=== PATIENT | female | born 1945 | race Two or more races ===

== ENCOUNTER 2020-06-16 12:41 | Outpatient (REF) | payer MEDICARE, SELFPAY | END 2020-06-16 12:42 | disposition home or self-care (01) | LOC: HO.HMGCLDS 12:41 | PROVIDERS: PCP Internal Medicine; Visit Provider Internal Medicine | DX: Z20.828 Contact with and (suspected) exposure to other viral communicable diseases (principal) | CPT/HCPCS: 36415; 87635 ==

== ENCOUNTER 2020-06-26 17:24 | Outpatient (REF) | payer MEDICARE, SELFPAY | END 2020-06-26 17:25 | disposition home or self-care (01) | LOC: HO.LNP 17:24 | PROVIDERS: Visit Provider Hospitalist | DX: N39.0 Urinary tract infection, site not specified (principal) | CPT/HCPCS: 87086 ==

== ENCOUNTER → 2020-08-11 13:15 | Outpatient (BNVA) | payer MEDICARE, SELFPAY | PROVIDERS: PCP Internal Medicine; Referring Provider Internal Medicine; Visit Provider Internal Medicine Endocrinology, Diabetes & Metabolism | DX: E11.65 Type 2 diabetes mellitus with hyperglycemia (principal); E11.42 Type 2 diabetes mellitus with diabetic polyneuropathy; E04.9 Nontoxic goiter, unspecified; E78.5 Hyperlipidemia, unspecified; I10 Essential (primary) hypertension | CPT/HCPCS: 82947; 99212 ==

== ENCOUNTER 2020-09-10 13:10 | Outpatient (REF) | payer MEDICARE, SELFPAY ==
--- NOTE | 2020-09-10 | US_ITS ---
EXAMINATION: US RETROPERITONEAL LIMITED (RENAL ONLY) CLINICAL INFORMATION: Renal stones. COMPARISON: Renal ultrasound 07/17/2019 TECHNIQUE: Real-time imaging of the kidneys. FINDINGS: RIGHT KIDNEY: 11.5 x 4.2 x 5.9 cm (SAG x AP x TRV). The kidney is normal in size, contour, and echogenicity. Renal cortical thickness is normal. No calculi or focal parenchymal lesions. No hydronephrosis. LEFT KIDNEY: 11.0 x 5.2 x 6.6 cm (SAG x AP x TRV). The kidney is normal in size, contour, and echogenicity. Renal cortical thickness is normal. No calculi or focal parenchymal lesions. No hydronephrosis. OTHER: Diffuse increased echotexture in the visualized liver. US/US renal BI IMPRESSION: 1. No significant renal abnormality. 2. Hepatic steatosis.
== END 2020-09-10 13:11 | disposition home or self-care (01) ==
LOC: HO.US 13:10
PROVIDERS: PCP Internal Medicine; Visit Provider Urology
DX: N20.0 Calculus of kidney (principal)
CPT/HCPCS: 76775

== ENCOUNTER → 2020-09-22 13:00 | Outpatient (BNVA) | payer MEDICARE, SELFPAY | PROVIDERS: PCP Internal Medicine; Visit Provider Orthopaedic Surgery | DX: M75.51 Bursitis of right shoulder (principal); E11.65 Type 2 diabetes mellitus with hyperglycemia | CPT/HCPCS: 20610; 99212; J1100 ==

== ENCOUNTER → 2020-09-25 14:37 | Outpatient (BNV) | payer MEDICARE, SELFPAY | PROVIDERS: PCP Internal Medicine; Visit Provider Internal Medicine Medical Oncology | DX: D64.9 Anemia, unspecified (principal) | CPT/HCPCS: 99212; 99213; 99214 ==

== ENCOUNTER 2020-09-30 13:12 | Outpatient (REF) | payer MEDICARE, SELFPAY ==
--- NOTE | 2020-09-30 13:16 | MM_ITS ---
EXAMINATION: MM SCREENING DIGITAL BREAST TOMOSYNTHESIS, BILATERAL CLINICAL INFORMATION: Screening. Asymptomatic. The lifetime risk of breast cancer based on the Tyrer-Cuzick Model is 3.2%. COMPARISON: Mammography: September 25, 2019 and studies dating back to August 15, 2012 TECHNIQUE: Digital breast tomosynthesis is performed in both the craniocaudal and mediolateral oblique views along with computer-aided detection (CAD). Synthesized 2D images are generated from the tomosynthesis. FINDINGS: There are scattered areas of fibroglandular density (ACR BI-RADS breast composition Category b). There are no significant masses, abnormal calcifications, or other abnormalities. MM/MM tomosynthesis screening BI IMPRESSION: There are no significant changes from prior study. ASSESSMENT: BI-RADS 1: Negative RECOMMENDATION: Routine annual mammography screening. This patient's information was entered into a reminder system with a target due date for their next mammogram.
== END 2020-09-30 13:13 | disposition home or self-care (01) ==
LOC: HO.MAMMO 13:12
PROVIDERS: PCP Internal Medicine; Visit Provider Internal Medicine
DX: Z12.31 Encounter for screening mammogram for malignant neoplasm of breast (principal)
CPT/HCPCS: 77063; 77067

== ENCOUNTER → 2020-10-08 09:44 | Outpatient (BNVA) | payer MEDICARE, SELFPAY | PROVIDERS: PCP Internal Medicine; Visit Provider Urology | DX: Z13.89 Encounter for screening for other disorder (principal) | CPT/HCPCS: Q3014 ==

== ENCOUNTER 2020-10-15 | Outpatient (REF) | payer MEDICARE, MEDICAID, SELFPAY | END 2020-10-15 00:01 | disposition home or self-care (01) | LOC: HO.VC | PROVIDERS: Visit Provider Internal Medicine | DX: Z23 Encounter for immunization (principal) | CPT/HCPCS: 0011A ==

== ENCOUNTER → 2020-10-17 14:29 | Outpatient (BNVA) | payer MEDICARE, SELFPAY | PROVIDERS: PCP Internal Medicine; Visit Provider Nurse Practitioner | DX: Z13.89 Encounter for screening for other disorder (principal) | CPT/HCPCS: Q3014 ==

== ENCOUNTER 2020-11-03 11:03 | Outpatient (REF) | payer MEDICARE, SELFPAY | END 2020-11-03 11:04 | disposition home or self-care (01) | LOC: HO.LAB 11:03 | PROVIDERS: Visit Provider Internal Medicine | DX: Z20.822 Contact with and (suspected) exposure to COVID-19 (principal) | CPT/HCPCS: 36415; C9803; U0003; U0005 ==

== ENCOUNTER 2020-11-12 | Outpatient (REF) | payer MEDICARE, MEDICAID, SELFPAY | END 2020-11-12 00:01 | disposition home or self-care (01) | LOC: HO.VC | PROVIDERS: Visit Provider Internal Medicine | DX: Z23 Encounter for immunization (principal) | CPT/HCPCS: 0012A ==

== ENCOUNTER 2020-12-08 13:51 | Outpatient (REF) | payer MEDICARE, SELFPAY ==
[2020-12-08 15:48] LABS: Microalbumin Urine < 5.0 mg/L
[2020-12-08 15:55] LABS: MANUAL DIFF FLAG NO
[2020-12-08 16:00] LABS: Basophils Absolute Auto 0.1 X10*3/uL (0.0-0.2); Basophils Percent Auto 0.6 % (0-2); Eosinophils Absolute Auto 0.1 X10*3/uL (0.0-0.4); Eosinophils Percent Auto 0.6 % (0-4); Hematocrit 34.6 % (37-47); Hemoglobin 10.7 g/dl (12.0-16.0); Imm Gran Abs Auto 0.03 X10*3/uL (0.00-0.03); Imm Gran Pct Auto 0.3 % (0.0-0.4); Lymphocytes Absolute Auto 1.4 X10*3/uL (1.2-4.9); Lymphocytes Percent Auto 16.6 % (20-40); Mean Corpuscular HGB Conc 30.9 g/dl (31.0-35.0); Mean Corpuscular Hemoglobin 24.7 pg (27.0-33.0); Mean Corpuscular Volume 79.9 fL (80-98); Mean Platelet Volume 10.8 fL (9.4-12.3); Monocytes Absolute Auto 0.4 X10*3/uL (0.1-1.2); Monocytes Percent Auto 5.1 % (2-11); Neutrophils Absolute Auto 6.6 X10*3/uL (2.0-8.3); Neutrophils Percent Auto 76.8 % (45-73); Platelet Count 415 X10*3/uL (160-400); Red Blood Count 4.33 X10*6/uL (4.20-5.50); Red Cell Distribution Width 16.4 % (11.0-16.0); White Blood Count 8.6 X10*3/uL (4.8-10.8)
[2020-12-08 16:31] LABS: Alanine Aminotransferase 21 U/L (0-31); Albumin Level 4.2 g/dL (3.5-5.0); Alkaline Phosphatase 47 U/L (39-117); Anion Gap 16 (12-20); Aspartate Amino Transferase 16 U/L (5-31); Bilirubin Total 0.4 mg/dL (0.0-1.0); Blood Urea Nitrogen 19 mg/dL (9-16); Calcium 9.7 mg/dL (8.4-10.2); Carbon Dioxide 27 mmol/L (22-29); Chloride 104 mmol/L (96-108); Cholesterol 191 mg/dL; Estimated Glomerular Filt Rate > 60; Glucose Fasting 145 mg/dL (60-99); HDL Cholesterol 53 mg/dL; LDL Cholesterol Calculated 99 mg/dl; Potassium 4.7 mmol/L (3.3-5.1); Sodium 142 mmol/L (135-145); Total Protein 7.2 g/dL (6.5-8.0); Triglycerides 198 mg/dL
[2020-12-08 16:45] LABS: TSH reflex Free T4 1.39 uIU/mL (0.32-4.0)
[2020-12-09 08:47] LABS: LDL Cholesterol Direct 119 mg/dL (<100)
== END 2020-12-08 13:52 | disposition home or self-care (01) ==
LOC: HO.LAB 13:51
PROVIDERS: PCP Internal Medicine; Visit Provider Internal Medicine Endocrinology, Diabetes & Metabolism
DX: E11.65 Type 2 diabetes mellitus with hyperglycemia (principal); E11.42 Type 2 diabetes mellitus with diabetic polyneuropathy; Z79.84 Long term (current) use of oral hypoglycemic drugs; D50.9 Iron deficiency anemia, unspecified; K21.9 Gastro-esophageal reflux disease without esophagitis; E04.9 Nontoxic goiter, unspecified; E03.9 Hypothyroidism, unspecified; E78.5 Hyperlipidemia, unspecified; I10 Essential (primary) hypertension
CPT/HCPCS: 36415; 80053; 80061; 82043; 82947; 83721; 84443; 85025; 99212

== ENCOUNTER → 2021-01-16 13:17 | Outpatient (BNVA) | payer MEDICARE, SELFPAY | PROVIDERS: PCP Internal Medicine; Visit Provider Nurse Practitioner | DX: Z13.89 Encounter for screening for other disorder (principal) | CPT/HCPCS: Q3014 ==

== ENCOUNTER → 2021-03-19 12:15 | Outpatient (BNVA) | payer MEDICARE, SELFPAY | PROVIDERS: Visit Provider Nurse Practitioner | DX: Z13.89 Encounter for screening for other disorder (principal) | CPT/HCPCS: Q3014 ==

== ENCOUNTER → 2021-03-27 13:50 | Outpatient (BNVA) | payer MEDICARE, SELFPAY | PROVIDERS: PCP Internal Medicine | DX: N20.0 Calculus of kidney (principal); R33.9 Retention of urine, unspecified | CPT/HCPCS: 99212 ==

== ENCOUNTER → 2021-03-31 10:53 | Outpatient (BNVA) | payer MEDICARE, SELFPAY | PROVIDERS: PCP Internal Medicine; Visit Provider Internal Medicine Endocrinology, Diabetes & Metabolism | DX: E11.65 Type 2 diabetes mellitus with hyperglycemia (principal); E11.42 Type 2 diabetes mellitus with diabetic polyneuropathy; E04.9 Nontoxic goiter, unspecified; E78.5 Hyperlipidemia, unspecified; I10 Essential (primary) hypertension | CPT/HCPCS: 82947; 99212 ==

== ENCOUNTER 2021-05-13 16:23 | Outpatient (REF) | payer MEDICARE, SELFPAY ==
--- NOTE | ~2021-05-13 | XR_ITS ---
EXAMINATION: XR SHOULDER, RIGHT CLINICAL INFORMATION: Right shoulder pain. COMPARISON: Right shoulder radiographs dated 10/10/2017 TECHNIQUE: AP external rotation, Grashey, scapular Y, and axillary views of the right shoulder. FINDINGS: No acute fracture or dislocation. Acromioclavicular and glenohumeral joint space narrowing with small marginal osteophytes, not significantly changed. Lateral subacromial spurring. Superior joint space calcification measuring up to 0.3 cm, which may represent a loose body versus calcific tendinitis. XR/XR shoulder RT min 2V IMPRESSION: Mild acromioclavicular and glenohumeral osteoarthritis, not significantly changed. Lateral subacromial spurring. Superior joint space loose body versus rotator cuff calcific tendinitis measuring 0.3 cm.
--- NOTE | ~2021-05-13 | XR_ITS ---
EXAMINATION: XR SHOULDER, LEFT CLINICAL INFORMATION: Left shoulder pain COMPARISON: May 24, 2019 TECHNIQUE: AP external rotation, Grashey, scapular Y, and axillary views of the left shoulder. FINDINGS: There is no evidence of acute fracture or dislocation of the left shoulder. There is some mild spurring glenohumeral joint. No evidence of calcific tendinitis. Mild degenerative change of the cortical clavicular joint is seen. There is no widening of the coracoclavicular space. XR/XR shoulder LT min 2V IMPRESSION: Mild degenerative change of the left shoulder similar to previous study of May 24, 2019. No acute fracture, dislocation, or calcific tendinitis.
== END 2021-05-13 16:24 | disposition home or self-care (01) ==
LOC: HO.XRAY 16:23
PROVIDERS: PCP Internal Medicine; Visit Provider Internal Medicine
DX: M25.511 Pain in right shoulder (principal); M25.512 Pain in left shoulder
CPT/HCPCS: 73030

== ENCOUNTER → 2021-05-25 14:28 | Outpatient (BNVA) | payer MEDICARE, SELFPAY | PROVIDERS: Visit Provider Orthopaedic Surgery | DX: M75.51 Bursitis of right shoulder (principal) | CPT/HCPCS: 20610; 99212; J1100 ==

== ENCOUNTER 2021-05-28 08:06 | Outpatient (REF) | payer MEDICARE, SELFPAY ==
[2021-05-28 08:37] LABS: MANUAL DIFF FLAG NO
[2021-05-28 08:45] LABS: Basophils Percent Auto 0.8 % (0-2); Eosinophils Absolute Auto 0.1 X10*3/uL (0.0-0.4); Eosinophils Percent Auto 1.4 % (0-4); Hematocrit 36.5 % (37-47); Hemoglobin 11.1 g/dl (12.0-16.0); Imm Gran Abs Auto 0.02 X10*3/uL (0.00-0.03); Imm Gran Pct Auto 0.4 % (0.0-0.4); Lymphocytes Absolute Auto 1.1 X10*3/uL (1.2-4.9); Lymphocytes Percent Auto 21.4 % (20-40); Mean Corpuscular HGB Conc 30.4 g/dl (31.0-35.0); Mean Corpuscular Hemoglobin 23.9 pg (27.0-33.0); Mean Corpuscular Volume 78.7 fL (80-98); Mean Platelet Volume 10.1 fL (9.4-12.3); Monocytes Absolute Auto 0.3 X10*3/uL (0.1-1.2); Neutrophils Absolute Auto 3.6 X10*3/uL (2.0-8.3); Platelet Count 393 X10*3/uL (160-400); Red Blood Count 4.64 X10*6/uL (4.20-5.50); Red Cell Distribution Width 16.9 % (11.0-16.0); White Blood Count 5.1 X10*3/uL (4.8-10.8)
[2021-05-28 09:16] LABS: Alanine Aminotransferase 17 U/L (0-31); Albumin Level 4.2 g/dL (3.5-5.0); Alkaline Phosphatase 49 U/L (39-117); Anion Gap 10 (12-20); Aspartate Amino Transferase 14 U/L (5-31); Bilirubin Total 0.5 mg/dL (0.0-1.0); Blood Urea Nitrogen 17 mg/dL (9-16); Calcium 10.3 mg/dL (8.4-10.2); Carbon Dioxide 30 mmol/L (22-29); Chloride 105 mmol/L (96-108); Cholesterol 215 mg/dL; Estimated Glomerular Filt Rate > 60; Glucose Fasting 147 mg/dL (60-99); HDL Cholesterol 55 mg/dL; Iron 35 mcg/dL (30-160); LDL Cholesterol Calculated 126 mg/dl; Percent Iron Saturation 9 % (15-50); Sodium 140 mmol/L (135-145); Total Iron Binding Capacity 398 mcg/dL (228-428); Total Protein 6.8 g/dL (6.5-8.0); Triglycerides 172 mg/dL; Unsaturated Iron Binding 363 ug/dL
[2021-05-28 10:55] LABS: Folate 14.2 ng/mL (> or = 4.0); Vitamin B12 1954 pg/mL (200-900)
[2021-06-02 15:40] LABS: Vitamin D 25-OH, D2 <4 ng/mL; Vitamin D 25-OH, D3 20 ng/mL; Vitamin D 25-OH, Total 20 ng/mL (30-100)
== END 2021-05-28 08:07 | disposition home or self-care (01) ==
LOC: HO.LAB 08:06
PROVIDERS: PCP Internal Medicine; Visit Provider Internal Medicine
DX: E55.9 Vitamin D deficiency, unspecified (principal); D64.9 Anemia, unspecified; R51.9 Headache, unspecified; E03.9 Hypothyroidism, unspecified; E78.5 Hyperlipidemia, unspecified
CPT/HCPCS: 36415; 80053; 80061; 82306; 82607; 82746; 83540; 84443; 85025

== ENCOUNTER 2021-05-29 11:48 | Outpatient (REF) | payer MEDICARE, SELFPAY ==
[2021-05-29 13:20] LABS: Creatinine Urine 28.53 mg/dL; Microalbumin Urine < 5.0 mg/L
== END 2021-05-29 11:49 | disposition home or self-care (01) ==
LOC: HO.LNP 11:48
PROVIDERS: Visit Provider Internal Medicine
DX: E11.9 Type 2 diabetes mellitus without complications (principal)
CPT/HCPCS: 82043

== ENCOUNTER 2021-06-05 14:28 | Outpatient (REF) | payer MEDICARE, SELFPAY | END 2021-06-05 14:29 | disposition home or self-care (01) | LOC: HO.LAB 14:28 | PROVIDERS: PCP Internal Medicine; Visit Provider Internal Medicine | DX: Z20.822 Contact with and (suspected) exposure to COVID-19 (principal) | CPT/HCPCS: C9803; U0003; U0005 ==

== ENCOUNTER → 2021-06-11 12:42 | Outpatient (BNVA) | payer MEDICARE, SELFPAY | PROVIDERS: Visit Provider Physician Assistant | DX: M75.52 Bursitis of left shoulder (principal) | CPT/HCPCS: 20610; 99212; J1020 ==

== ENCOUNTER 2021-06-15 14:22 | Outpatient (REF) | payer MEDICARE, SELFPAY ==
--- NOTE | ~2021-06-15 | MR_ITS ---
EXAMINATION: MR BRAIN WITHOUT CONTRAST CLINICAL INFORMATION: Headache. COMPARISON: Brain MRI 07/06/2019. TECHNIQUE: Multiplanar, multisequence imaging of the brain was performed without intravenous contrast. FINDINGS: There is no acute infarction, mass, hemorrhage, or extra-axial collection. The ventricles, sulci, and basilar cisterns are normal in size and configuration. A few minimal nonspecific foci of T2/FLAIR hyperintensity are seen within the cerebral white matter without interval change compared with 2019. The flow voids of the major intracranial arteries appear intact. The bones and extracranial soft tissues are unremarkable. Right-sided phthisis bulbi again demonstrated. MR/MR head/brain wo con IMPRESSION: No acute infarct, mass lesion, intracranial hemorrhage, or evidence of hydrocephalus. No significant interval change compared with 2019.
== END 2021-06-15 14:23 | disposition home or self-care (01) ==
LOC: HO.MRI 14:22
PROVIDERS: PCP Internal Medicine; Visit Provider Internal Medicine
DX: R51.9 Headache, unspecified (principal)
CPT/HCPCS: 70551

== ENCOUNTER 2021-07-06 10:58 | Outpatient (REF) | payer MEDICARE, SELFPAY ==
[2021-07-06 12:47] LABS: Appearance Urine CLEAR; Color Urine YELLOW; Glucose Urine UA NEG (NEG); Leukocyte Esterase Urine NEG (NEG); Nitrite Urine NEG (NEG); Specific Gravity - Urine 1.015 (1.005-1.025); Urine Blood NEG (NEG); Urine Ketones NEG (NEG); Urine Protein NEG (NEG-TRACE)
== END 2021-07-06 10:59 | disposition home or self-care (01) ==
LOC: HO.LAB 10:58
PROVIDERS: PCP Internal Medicine; Visit Provider Internal Medicine
DX: R30.0 Dysuria (principal)
CPT/HCPCS: 81003

== ENCOUNTER 2021-08-17 09:35 | Day surgery (SDC) | payer MEDICARE, SELFPAY ==
--- NOTE | 2021-08-13 16:43 | MHC.SHP ---
Pre-Procedural Eval Section A Date of Service: 08/13/21 The patient is an INPATIENT: No Changes since office visit: No Cold of Flu in the past 2 weeks, No New Medical Problems, No Changes in Medication and No Patient answered all questions The History & Physical has been completed within 30 days and I have reviewed it.: Yes Section B Chief Complaint: cataract left eye Allergies: Allergies Allergy/AdvReac Type Severity Reaction Status Date / Time sitagliptin [Januvia] Allergy Intermediate tremors Verified 08/11/21 15:38 tramadol [TRAMADOL] Allergy Mild ABDOMINAL Verified 08/11/21 15:38 PAIN, stomach upset, severe abd pain Plan Diagnosis/Plan: Unchanged I have reviewed the history and physical and performed a pertinent physical examination on my patient. No changes have occurred unless specified.
--- NOTE | 2021-08-14 10:02 | P.CONAN_ITS ---
Documented by User: Page Salcedo NP 08/14/21 10:17 HPI - Anesthesia Eval Consult details Narrative: 75yo F for Left Cataract Extraction IOL Insertion PCP cleared No previous cataract on record [facility] Active Problems Active Problems: All Active Problems (Updated 08/11/21 @ 15:54 by SHAE Fitch-C) Chronic low back pain with bilateral sciatica (Acute) Pre-operative clearance (Acute) Bursitis of left shoulder (Acute) Bursitis of right shoulder (Acute) Shoulder pain (Acute) Headache (Acute) Renal stones (Acute) Urinary retention (Acute) Anemia (Acute) Hypothyroidism (Acute) Hypertension (Acute) Dyslipidemia (Acute) Diabetic polyneuropathy associated with type 2 diabetes mellitus (Acute) Goiter (Acute) Diabetes type 2, uncontrolled (Acute) H. pylori infection (Acute) Abdominal bloating (Acute) Gastric polyp (Acute) GERD (gastroesophageal reflux disease) (Acute) Dysuria (Acute) Past Medical History Medical History Acute urinary retention Diabetes type 2, uncontrolled Diabetic polyneuropathy associated with type 2 diabetes mellitus Dyslipidemia Goiter Headache Hypertension Hypothyroidism Renal stones Shoulder pain Urgency of urination Urinary retention Family History Family History Father Lung cancer Mother Kidney failure Alzheimer disease Sister Diabetes Paternal Grandfather Cancer Daughter Diabetes Sister Diabetes Breast cancer Brother Alzheimer disease Brother Colon polyps Surgical History Surgical History History of esophagogastroduodenoscopy (EGD) Hx of colonoscopy Social History Social History (Updated 06/11/21 @ 12:59 by Redd Butler) Household Members: None Housing: Apartment Alcohol intake: current Alcohol intake frequency: does not drink Patient Tobacco Use Status: Never used Tobacco e-Cigarette/Vaping Use: Never Used Second Hand Smoke Exposure: No Advance Directives: No Advance Directives Information Provided: Yes service: No Current occupational status: disabled Current occupation: rt handed Meds Allergies Allergy/AdvReac Type Severity Reaction Status Date / Time sitagliptin [Januvia] Allergy Intermediate tremors Verified 08/11/21 15:38 tramadol [TRAMADOL] Allergy Mild ABDOMINAL Verified 08/11/21 15:38 PAIN, stomach upset, severe abd pain Home Medications Medication Instructions Recorded Confirmed Last Taken Type levothyroxine 100 mcg tablet 100 mcg PO DAILY 08/11/20 08/11/21 08/17/21 History simvastatin 40 mg tablet 40 mg PO BEDTIME 08/11/20 08/11/21 Unknown History Exam Exam Date and Time: August 14, 2021 1002 Assessment and Plan Assessment Anesthesia Assessment: Chart Reviewed Documented by User: Destin Jim MD 08/17/21 13:09 [facility] Past Medical History Medical History Acute urinary retention Diabetes type 2, uncontrolled Diabetic polyneuropathy associated with type 2 diabetes mellitus Dyslipidemia Goiter Headache Hypertension Hypothyroidism Renal stones Shoulder pain Urgency of urination Urinary retention Family History Family History Father Lung cancer Mother Kidney failure Alzheimer disease Sister Diabetes Paternal Grandfather Cancer Daughter Diabetes Sister Diabetes Breast cancer Brother Alzheimer disease Brother Colon polyps Family history of problems with anesthesia: No Surgical History Surgical History History of esophagogastroduodenoscopy (EGD) Hx of colonoscopy History of Problems with Anesthesia: No Social History Social History (Updated 06/11/21 @ 12:59 by Redd Butler) Household Members: None Housing: Apartment Alcohol intake: current Alcohol intake frequency: does not drink Patient Tobacco Use Status: Never used Tobacco e-Cigarette/Vaping Use: Never Used Second Hand Smoke Exposure: No Advance Directives: No Advance Directives Information Provided: Yes service: No Current occupational status: disabled Current occupation: rt handed Meds Allergies Allergy/AdvReac Type Severity Reaction Status Date / Time sitagliptin [Januvia] Allergy Intermediate tremors Verified 08/11/21 15:38 tramadol [TRAMADOL] Allergy Mild ABDOMINAL Verified 08/11/21 15:38 PAIN, stomach upset, severe abd pain Home Medications Medication Instructions Recorded Confirmed Last Taken Type levothyroxine 100 mcg tablet 100 mcg PO DAILY 08/11/20 08/11/21 08/17/21 History simvastatin 40 mg tablet 40 mg PO BEDTIME 08/11/20 08/11/21 Unknown History Exam Airway Mallampati Class: II TM Dist: >3cm Neck ROM: Full Denture: Upper and Lower Heart: [id number] Lungs: cta B/L Assessment and Plan Assessment Anesthesia Assessment: Anesthesia Plan Discussed Final Anesthetic Review Family History of Problems with Anesthesia: No History of Problems with Anesthesia: No NPO: Yes ASA Class: III Final Preanesthetic Review: No Changes in Pt Med Stat, Meds/Allgs Chart Reviewed, Consent Obtained/Reviewed and Anes Risks/Benef Reviewed Patient Risk: Intermediate Procedure Risk: Low Assessment/Block/Sedation in SS: Assess/Block/Sedation-SS Anesthetic Plan Anesthetic Plan: MAC: and Agree w/ Assess. and Plan Disposition: Standard PACU
[2021-08-17 11:55] VITALS: BP 169/68; PULSE 70; RESP 16; TEMP 36.3; O2SAT 99; BMI 29.0
[2021-08-17 12:10] LABS: Glucose, Whole Blood 120 mg/dL (60-115)
[2021-08-17] MEDS: Lactated Ringers 500 ML 50 ML IV (12:15)
[2021-08-17] MEDS: Tropicamide 1 % Ophth Sol 3 ML BTL 1 DROP EYE-LEFT ×3 (12:15→12:16)
[2021-08-17] MEDS: Phenylephrine HCL 2.5% Oph SoL 2 ML BOTTLE 1 DROP EYE-LEFT ×3 (12:16)
--- NOTE | 2021-08-17 13:12 | HO.PNOPHT ---
Ophthalmology Procedure Procedure Date of Service: 08/17/21 Ophthalmology Viscoelastic: Healon Duet Dual Pack Pro Ophthalmology Lenses: TECERMIAS [id number] (25) Procedure Notes: PREOPERATIVE DIAGNOSIS: Decreased visual acuity left eye secondary to cataract POSTOPERATIVE DIAGNOSIS: Same PROCEDURE: Left cataract extraction with intraocular lens insertion SURGEON: Jorge Zambrano M.D. ANESTHESIA: Topical/MAC ESTIMATED BLOOD LOSS: None COMPLICATIONS: None After obtaining informed consent, the patient was brought to the operation room suite and placed in the supine position. After adequate sedation per anesthesia, topical drops of Tetracaine were given to the left eye. The eye was then prepped and draped in the usual sterile fashion. The operating room microscope was then positioned over the operative eye and a lid speculum placed. A paracentesis was created. Viscoelastic was then instilled into the anterior chamber. A three plane incision was then created temporally, utilizing a 2.85 mm keratome. Capsulotomy forceps were then utilized to create a circular tear capsulotomy. Hydrodissection and hydrodelineation were carried out until adequate mobilization of the nucleus occurred. Phacoemulsification was then utilized to remove the dense central nucleus followed by removal of the cortical material utilizing the automated aspiration irrigation unit. Viscoat elastic was instilled into the posterior capsular bag followed by placement of a posterior chamber intraocular lens without difficulty. The residual Viscoat elastic was then removed utilizing the automated IA machine. The wound was check and found to be watertight. The patient tolerated the procedure well and the lid speculum was removed. Intracameral injection of Vigamox 0.1 mL followed by a subtenon injection of Kenalog-40 0.2 mL were administered. The patient will be seen in the a.m.
[2021-08-17 13:41] VITALS: BP 143/54; PULSE 61; RESP 16; TEMP 36.8; O2SAT 99
== END 2021-08-17 14:21 | disposition home or self-care (01) ==
PROVIDERS: PCP Internal Medicine; Visit Provider Ophthalmology
PROC: (CPT 66985; principal; 2021-08-17 12:50)
DX: H25.12 Age-related nuclear cataract, left eye (principal); H54.7 Unspecified visual loss; Z97.0 Presence of artificial eye; I10 Essential (primary) hypertension; E03.9 Hypothyroidism, unspecified; E78.5 Hyperlipidemia, unspecified; D64.9 Anemia, unspecified; E11.42 Type 2 diabetes mellitus with diabetic polyneuropathy; Z79.84 Long term (current) use of oral hypoglycemic drugs; Z79.899 Other long term (current) drug therapy; Z88.8 Allergy status to other drugs, medicaments and biological substances
CPT/HCPCS: 66984; 82947; J2250; J3010; J3300; V2632

== ENCOUNTER 2021-10-02 14:39 | Outpatient (REF) | payer MEDICARE, SELFPAY | END 2021-10-02 14:40 | disposition home or self-care (01) | LOC: HO.LAB 14:39 | PROVIDERS: PCP Internal Medicine | DX: R32 Unspecified urinary incontinence (principal); N20.0 Calculus of kidney; E11.65 Type 2 diabetes mellitus with hyperglycemia; E11.42 Type 2 diabetes mellitus with diabetic polyneuropathy; E78.5 Hyperlipidemia, unspecified; E03.9 Hypothyroidism, unspecified; E53.8 Deficiency of other specified B group vitamins; Z88.6 Allergy status to analgesic agent; Z88.8 Allergy status to other drugs, medicaments and biological substances | CPT/HCPCS: 51798; 99212 ==

== ENCOUNTER 2021-10-03 09:22 | Outpatient (REF) | payer MEDICARE, SELFPAY ==
[2021-10-03 09:34] LABS: Appearance Urine CLEAR; Color Urine YELLOW; Glucose Urine UA NEG (NEG); Leukocyte Esterase Urine 1+ (NEG); Nitrite Urine NEG (NEG); Urine Blood NEG (NEG); Urine Ketones NEG (NEG); Urine Protein NEG (NEG-TRACE)
[2021-10-03 10:21] LABS: RBC Urine 0 /HPF (0); Squamous Epithelial Cell Urine 1+ /LPF
== END 2021-10-03 09:23 | disposition home or self-care (01) ==
LOC: HO.LNP 09:22
PROVIDERS: Visit Provider Internal Medicine
DX: R30.0 Dysuria (principal)
CPT/HCPCS: 81001

== ENCOUNTER → 2021-10-12 15:19 | Outpatient (BNVA) | payer MEDICARE, SELFPAY | PROVIDERS: PCP Internal Medicine; Referring Provider Internal Medicine; Visit Provider Nurse Practitioner | DX: K21.9 Gastro-esophageal reflux disease without esophagitis (principal); A04.8 Other specified bacterial intestinal infections; R14.0 Abdominal distension (gaseous); Z79.899 Other long term (current) drug therapy; Z80.0 Family history of malignant neoplasm of digestive organs | CPT/HCPCS: 99212 ==

== ENCOUNTER → 2022-01-12 13:33 | Outpatient (BNVA) | payer OTHER, SELFPAY | PROVIDERS: PCP Internal Medicine; Visit Provider Nurse Practitioner Gerontology | DX: E11.65 Type 2 diabetes mellitus with hyperglycemia (principal); E78.5 Hyperlipidemia, unspecified; I10 Essential (primary) hypertension | CPT/HCPCS: 82947; 83036; 99212 ==

== ENCOUNTER 2022-02-04 11:47 | Outpatient (REF) | payer MEDICARE, SELFPAY | END 2022-02-04 11:48 | disposition home or self-care (01) | LOC: HO.MDS 11:47 | PROVIDERS: PCP Internal Medicine; Visit Provider Internal Medicine Medical Oncology | DX: D50.9 Iron deficiency anemia, unspecified (principal) | CPT/HCPCS: 96365; J2916 ==

== ENCOUNTER 2022-02-11 13:17 | Outpatient (REF) | payer MEDICARE, SELFPAY | END 2022-02-11 13:18 | disposition home or self-care (01) | LOC: HO.MDS 13:17 | PROVIDERS: PCP Internal Medicine; Visit Provider Internal Medicine Medical Oncology | DX: D50.9 Iron deficiency anemia, unspecified (principal) | CPT/HCPCS: 96365; J2916 ==

== ENCOUNTER 2022-02-18 11:47 | Outpatient (REF) | payer OTHER, SELFPAY | END 2022-02-18 11:48 | disposition home or self-care (01) | LOC: HO.MDS 11:47 | PROVIDERS: PCP Internal Medicine; Visit Provider Internal Medicine Medical Oncology | DX: D50.9 Iron deficiency anemia, unspecified (principal) | CPT/HCPCS: 96365; J2916 ==

== ENCOUNTER 2022-02-25 11:42 | Outpatient (REF) | payer OTHER, SELFPAY ==
[2022-02-25 13:13] LABS: MANUAL DIFF FLAG NO
[2022-02-25 13:15] LABS: Basophils Percent Auto 0.6 % (0-2); Eosinophils Absolute Auto 0.1 X10*3/uL (0.0-0.4); Eosinophils Percent Auto 1.1 % (0-4); Hematocrit 34.4 % (37.0-47.0); Hemoglobin 10.3 g/dl (12.0-16.0); Imm Gran Abs Auto 0.01 X10*3/uL (0.00-0.03); Imm Gran Pct Auto 0.2 % (0.0-0.4); Lymphocytes Absolute Auto 0.9 X10*3/uL (1.2-4.9); Lymphocytes Percent Auto 15.3 % (20-40); Mean Corpuscular HGB Conc 29.9 g/dl (31.0-35.0); Mean Corpuscular Hemoglobin 24.3 pg (27.0-33.0); Mean Corpuscular Volume 81.1 fL (80.0-98.0); Mean Platelet Volume 9.7 fL (9.4-12.3); Monocytes Absolute Auto 0.3 X10*3/uL (0.1-1.2); Monocytes Percent Auto 4.4 % (2-11); Neutrophils Absolute Auto 4.8 x10*3/uL (2.0-8.3); Neutrophils Percent Auto 78.4 % (45-73); Platelet Count 369 X10*3/uL (160-400); Red Blood Count 4.24 X10*6/uL (4.20-5.50); Red Cell Distribution Width 17.5 % (11.0-16.0); White Blood Count 6.2 X10*3/uL (4.8-10.8)
== END 2022-02-25 11:43 | disposition home or self-care (01) ==
LOC: HO.MDS 11:42
PROVIDERS: PCP Internal Medicine; Visit Provider Internal Medicine Medical Oncology
DX: D50.9 Iron deficiency anemia, unspecified (principal)
CPT/HCPCS: 36415; 85025; 96365; J2916

== ENCOUNTER 2022-03-16 14:29 | Outpatient (REF) | payer OTHER, SELFPAY ==
--- NOTE | ~2022-03-16 | US_ITS ---
EXAMINATION: US RETROPERITONEAL LIMITED (RENAL ONLY) CLINICAL INFORMATION: Calculus of kidney. COMPARISON: Renal ultrasound 09/10/2020 and 07/17/2019. CT abdomen and pelvis 09/02/2017. X-ray abdomen KUB 11/29/2016. TECHNIQUE: Real-time imaging of the kidneys. FINDINGS: RIGHT KIDNEY: 11.7 x 4.7 x 6.0 cm (SAG x AP x TRV). The kidney is normal in size, contour, and echogenicity. Renal cortical thickness is normal. No calculi or focal parenchymal lesions. No hydronephrosis. LEFT KIDNEY: 12.3 x 5.3 x 4.6 cm (SAG x AP x TRV). The kidney is normal in size, contour, and echogenicity. Renal cortical thickness is normal. No calculi or focal parenchymal lesions. No hydronephrosis. The liver is echogenic. US/US renal BI IMPRESSION: Normal renal ultrasound.
== END 2022-03-16 14:30 | disposition home or self-care (01) ==
LOC: HO.US 14:29
DX: N20.0 Calculus of kidney (principal)
CPT/HCPCS: 76775

== ENCOUNTER 2022-03-25 11:49 | Outpatient (REF) | payer OTHER, SELFPAY ==
--- NOTE | ~2022-03-25 | XR_ITS ---
EXAMINATION: XR KNEES, STANDING AP XR KNEE, LEFT CLINICAL INFORMATION: Knee pain COMPARISON: Bilateral knee radiographs 12/08/2017. TECHNIQUE: Standing AP view of both knees is performed. Lateral and axial patella views of the left knee are also obtained. FINDINGS: Right: Osteoarthritis medial knee joint compartment with joint narrowing and osteophytes from the medial femoral condyle and tibial plateau. There is chondrocalcinosis involving the menisci. No erosive change. Joint narrowing similar to 2018. Chondrocalcinosis new. Left: Osteoarthritis greater medial knee joint compartment with spurring medial femoral condyle and medial tibial plateau. Degenerative changes increased since 2018 and chondrocalcinosis new. No erosive change. Probable trace suprapatellar effusion. Hoffa's fat pad appears normal. There is trace spurring at the quadriceps insertion patella. Mild lateralization patella. Uniform narrowing patellofemoral joint along with lateral patellar spur. There is an osteochondral defect just lateral to midline, 0.55 mm in width. XR/XR knee standing BI IMPRESSION: Right: -Osteoarthritis medial compartment with joint narrowing and chondrocalcinosis menisci. Left: -Osteoarthritis greatest medial compartment. Chondrocalcinosis menisci. -Osteoarthritis patellofemoral joint with osteochondral lesion 5.5 mm width. Mild lateralization. -Small suprapatellar effusion.
--- NOTE | ~2022-03-25 | XR_ITS ---
EXAMINATION: XR KNEES, STANDING AP XR KNEE, LEFT CLINICAL INFORMATION: Knee pain COMPARISON: Bilateral knee radiographs 12/08/2017. TECHNIQUE: Standing AP view of both knees is performed. Lateral and axial patella views of the left knee are also obtained. FINDINGS: Right: Osteoarthritis medial knee joint compartment with joint narrowing and osteophytes from the medial femoral condyle and tibial plateau. There is chondrocalcinosis involving the menisci. No erosive change. Joint narrowing similar to 2018. Chondrocalcinosis new. Left: Osteoarthritis greater medial knee joint compartment with spurring medial femoral condyle and medial tibial plateau. Degenerative changes increased since 2018 and chondrocalcinosis new. No erosive change. Probable trace suprapatellar effusion. Hoffa's fat pad appears normal. There is trace spurring at the quadriceps insertion patella. Mild lateralization patella. Uniform narrowing patellofemoral joint along with lateral patellar spur. There is an osteochondral defect just lateral to midline, 0.55 mm in width. XR/XR knee LT 2V IMPRESSION: Right: -Osteoarthritis medial compartment with joint narrowing and chondrocalcinosis menisci. Left: -Osteoarthritis greatest medial compartment. Chondrocalcinosis menisci. -Osteoarthritis patellofemoral joint with osteochondral lesion 5.5 mm width. Mild lateralization. -Small suprapatellar effusion.
== END 2022-03-25 11:50 | disposition home or self-care (01) ==
LOC: HO.HOSX 11:49
PROVIDERS: Visit Provider Orthopaedic Surgery
DX: M17.12 Unilateral primary osteoarthritis, left knee (principal)
CPT/HCPCS: 20610; 73560; 73565; 99212; J1100

== ENCOUNTER → 2022-04-01 13:00 | Outpatient (BNVA) | payer OTHER, SELFPAY | PROVIDERS: PCP Internal Medicine | DX: N20.0 Calculus of kidney (principal) | CPT/HCPCS: Q3014 ==

== ENCOUNTER → 2022-04-09 12:58 | Outpatient (BNVA) | payer OTHER, SELFPAY | PROVIDERS: PCP Internal Medicine; Visit Provider Nurse Practitioner | DX: K21.9 Gastro-esophageal reflux disease without esophagitis (principal); A04.8 Other specified bacterial intestinal infections; R14.0 Abdominal distension (gaseous) | CPT/HCPCS: 99212 ==

== ENCOUNTER → 2022-04-22 14:18 | Outpatient (BNVA) | payer OTHER, SELFPAY | PROVIDERS: PCP Internal Medicine; Visit Provider Physician Assistant | DX: M75.51 Bursitis of right shoulder (principal) | CPT/HCPCS: 20610; 99212; J1020 ==

== ENCOUNTER 2022-07-05 12:21 | Outpatient (REF) | payer OTHER, SELFPAY ==
--- NOTE | ~2022-07-05 | XR_ITS ---
EXAMINATION: XR ABDOMEN KUB CLINICAL INDICATION: Kidney stone COMPARISON: Previous CT August 2017 TECHNIQUE: AP view of the abdomen. FINDINGS: There are no calcifications projecting over the kidneys. There are left pelvic calcifications. These appear similar to previous CT from 2017 and probably represent calcified phleboliths. Bowel gas pattern is normal. There are mild degenerative changes of the spine and hip joints. XR/XR KUB IMPRESSION: No stone seen.
[2022-07-05 13:48] LABS: Appearance Urine Clear; Color Urine Yellow; Glucose Urine UA Negative (Negative); Leukocyte Esterase Urine Small (1+) (Negative); Nitrite Urine Negative (Negative); Specific Gravity - Urine <= 1.005 (1.005-1.025); UMIC TRIGGER UACC YES; Urine Blood Negative (Negative); Urine Ketones Negative (Negative); Urine Protein Negative (Neg-Trace)
[2022-07-05 14:03] LABS: Alanine Aminotransferase 12 U/L (0-31); Albumin Level 4.5 g/dL (3.5-5.0); Alkaline Phosphatase 44 U/L (39-117); Anion Gap 16 (12-20); Aspartate Amino Transferase 16 U/L (5-31); Bilirubin Total 0.2 mg/dL (0.0-1.0); Blood Urea Nitrogen 18 mg/dL (9-16); Calcium 10.1 mg/dL (8.4-10.2); Carbon Dioxide 26 mmol/L (22-29); Chloride 102 mmol/L (96-108); Cholesterol 135 mg/dL; Estimated Glomerular Filt Rate > 60; Glucose Fasting 131 mg/dL (60-99); HDL Cholesterol 55 mg/dL; LDL Cholesterol Calculated 58 mg/dl; Potassium 4.4 mmol/L (3.3-5.1); Sodium 140 mmol/L (135-145); Total Protein 7.3 g/dL (6.5-8.0); Triglycerides 110 mg/dL
[2022-07-05 14:45] LABS: Folate 16.1 ng/mL (> or = 4.0); Vitamin B12 300 pg/mL (200-900)
[2022-07-05 15:03] LABS: Bacteria Urine 4+ (None Seen); Hyaline Casts Urine 0-2 /LPF (0-2); RBC Urine 0-2 /HPF (0-2); Squamous Epithelial Cell Urine 0-2 /HPF (0-2); UACC Culture Trigger YES; WBC Urine 0-5 /HPF (0-5)
== END 2022-07-05 12:22 | disposition home or self-care (01) ==
LOC: HO.LAB 12:21
PROVIDERS: Absent Provider Internal Medicine Medical Oncology; PCP Internal Medicine; Visit Provider Internal Medicine
DX: E03.9 Hypothyroidism, unspecified (principal); E11.9 Type 2 diabetes mellitus without complications; E53.8 Deficiency of other specified B group vitamins; N20.0 Calculus of kidney; E78.5 Hyperlipidemia, unspecified
CPT/HCPCS: 36415; 74018; 80053; 80061; 81001; 82607; 82746; 84443; 87086; 87088; 87186

== ENCOUNTER 2022-07-06 07:29 | Outpatient (REF) | payer OTHER, SELFPAY ==
[2022-07-06 07:39] LABS: MANUAL DIFF FLAG NO
[2022-07-06 07:44] LABS: Basophils Absolute Auto 0.1 X10*3/uL (0.0-0.2); Basophils Percent Auto 0.9 % (0-2); Eosinophils Absolute Auto 0.1 X10*3/uL (0.0-0.4); Eosinophils Percent Auto 1.3 % (0-4); Hematocrit 34.1 % (37.0-47.0); Hemoglobin 10.6 g/dl (12.0-16.0); Imm Gran Abs Auto 0.02 X10*3/uL (0.00-0.03); Imm Gran Pct Auto 0.4 % (0.0-0.4); Lymphocytes Absolute Auto 1.2 X10*3/uL (1.2-4.9); Lymphocytes Percent Auto 21.1 % (20-40); Mean Corpuscular HGB Conc 31.1 g/dl (31.0-35.0); Mean Corpuscular Hemoglobin 24.8 pg (27.0-33.0); Mean Corpuscular Volume 79.7 fL (80.0-98.0); Mean Platelet Volume 9.8 fL (9.4-12.3); Monocytes Absolute Auto 0.4 X10*3/uL (0.1-1.2); Monocytes Percent Auto 6.5 % (2-11); Neutrophils Absolute Auto 3.9 x10*3/uL (2.0-8.3); Neutrophils Percent Auto 69.8 % (45-73); Platelet Count 388 X10*3/uL (160-400); Red Blood Count 4.28 X10*6/uL (4.20-5.50); Red Cell Distribution Width 15.5 % (11.0-16.0); White Blood Count 5.5 X10*3/uL (4.8-10.8)
[2022-07-06 08:02] LABS: Alanine Aminotransferase 12 U/L (0-31); Albumin Level 4.3 g/dL (3.5-5.0); Alkaline Phosphatase 42 U/L (39-117); Anion Gap 16 (12-20); Aspartate Amino Transferase 16 U/L (5-31); Bilirubin Total 0.2 mg/dL (0.0-1.0); Blood Urea Nitrogen 24 mg/dL (9-16); Calcium 9.9 mg/dL (8.4-10.2); Carbon Dioxide 26 mmol/L (22-29); Chloride 104 mmol/L (96-108); Cholesterol 123 mg/dL; Estimated Glomerular Filt Rate > 60; Glucose Fasting 155 mg/dL (60-99); HDL Cholesterol 52 mg/dL; Iron 35 mcg/dL (30-160); LDL Cholesterol Calculated 50 mg/dl; Percent Iron Saturation 8 % (15-50); Potassium 4.5 mmol/L (3.3-5.1); Sodium 141 mmol/L (135-145); Total Iron Binding Capacity 419 mcg/dL (228-428); Triglycerides 106 mg/dL; Unsaturated Iron Binding 384 ug/dL
[2022-07-06 08:23] LABS: Ferritin 20 ng/mL (10-250); Thyroid Stimulating Hormone 2.49 uIU/mL (0.32-4.0)
[2022-07-06 08:59] LABS: Folate 12.6 ng/mL (> or = 4.0); Vitamin B12 291 pg/mL (200-900)
[2022-07-10 16:31] LABS: Vitamin D 25-OH, D2 <4 ng/mL; Vitamin D 25-OH, D3 14 ng/mL; Vitamin D 25-OH, Total 14 ng/mL (30-100)
== END 2022-07-06 07:30 | disposition home or self-care (01) ==
LOC: HO.LAB 07:29
PROVIDERS: Internal Medicine Medical Oncology; PCP Internal Medicine; Visit Provider Internal Medicine
DX: E78.5 Hyperlipidemia, unspecified (principal); E53.8 Deficiency of other specified B group vitamins; E55.9 Vitamin D deficiency, unspecified; E03.9 Hypothyroidism, unspecified; D64.9 Anemia, unspecified
CPT/HCPCS: 36415; 80053; 80061; 82306; 82607; 82728; 82746; 83540; 84443; 85025

== ENCOUNTER → 2022-07-23 11:16 | Outpatient (BNVA) | payer OTHER, SELFPAY | PROVIDERS: PCP Internal Medicine; Visit Provider Orthopaedic Surgery | DX: M75.51 Bursitis of right shoulder (principal); E11.9 Type 2 diabetes mellitus without complications | CPT/HCPCS: 20610; 99212; J1100 ==

== ENCOUNTER 2022-09-21 12:49 | Outpatient (REF) | payer OTHER, SELFPAY ==
--- NOTE | ~2022-09-21 | US_ITS ---
EXAMINATION: US RETROPERITONEAL LIMITED (RENAL ONLY) CLINICAL INFORMATION: Calculus of kidney. COMPARISON: X-ray KUB 07/05/2022 and 11/29/2016. Ultrasound renal 03/16/2022 and 09/10/2020. CT abdomen/pelvis 09/02/2017. TECHNIQUE: Real-time imaging of the kidneys. FINDINGS: RIGHT KIDNEY: 11.6 x 4.8 x 4.6 cm (SAG x AP x TRV). The kidney is normal in size, contour, and echogenicity. Renal cortical thickness is normal. No focal parenchymal lesions or hydronephrosis. There are several echogenic stones. 1. Upper pole stone measuring 0.6 x 0.3 cm. 2. Upper pole stone measuring 0.5 x 0.5 cm. 3. Lower pole stone measuring 0.6 x 0.4 cm. LEFT KIDNEY: 11.4 x 5.2 x 5.3 cm (SAG x AP x TRV). The kidney is normal in size, contour, and echogenicity. Renal cortical thickness is normal. No renal calculi or hydronephrosis. There is an anechoic cyst in the lower pole medially measuring 0.4 x 0.5 x 0.4 cm and in the midpole measuring 0.6 x 0.5 x 0.3 cm. There is mild pelvic fullness. US/US renal BI IMPRESSION: Nonobstructive 3 echogenic calculi right kidney. These are new since 03/16/2022 Two anechoic cysts in the left kidney and mild pelvic fullness, new since last ultrasound 03/16/2022.
== END 2022-09-21 12:50 | disposition home or self-care (01) ==
LOC: HO.US 12:49
DX: N20.0 Calculus of kidney (principal)
CPT/HCPCS: 76775

== ENCOUNTER → 2022-10-01 13:14 | Outpatient (BNVA) | payer OTHER, SELFPAY | PROVIDERS: PCP Internal Medicine; Visit Provider Nurse Practitioner Family | DX: N20.0 Calculus of kidney (principal) | CPT/HCPCS: 99212 ==

== ENCOUNTER → 2022-10-12 13:41 | Outpatient (BNVA) | payer OTHER, SELFPAY | PROVIDERS: PCP Internal Medicine; Visit Provider Nurse Practitioner | DX: Z01.818 Encounter for other preprocedural examination (principal); K21.9 Gastro-esophageal reflux disease without esophagitis; R14.0 Abdominal distension (gaseous); R10.13 Epigastric pain; A04.8 Other specified bacterial intestinal infections | CPT/HCPCS: 99212 ==

== ENCOUNTER 2022-11-18 15:32 | Outpatient (REF) | payer OTHER, SELFPAY ==
[2022-11-18 15:47] LABS: MANUAL DIFF FLAG NO
[2022-11-18 16:02] LABS: Basophils Absolute Auto 0.1 X10*3/uL (0.0-0.2); Basophils Percent Auto 0.7 % (0-2); Eosinophils Percent Auto 0.4 % (0-4); Hematocrit 33.7 % (37.0-47.0); Hemoglobin 10.2 g/dl (12.0-16.0); Imm Gran Abs Auto 0.02 X10*3/uL (0.00-0.03); Imm Gran Pct Auto 0.3 % (0.0-0.4); Lymphocytes Absolute Auto 1.4 X10*3/uL (1.2-4.9); Lymphocytes Percent Auto 19.4 % (20-40); Mean Corpuscular HGB Conc 30.3 g/dl (31.0-35.0); Mean Corpuscular Hemoglobin 23.6 pg (27.0-33.0); Monocytes Absolute Auto 0.4 X10*3/uL (0.1-1.2); Monocytes Percent Auto 5.3 % (2-11); Neutrophils Absolute Auto 5.3 x10*3/uL (2.0-8.3); Neutrophils Percent Auto 73.9 % (45-73); Platelet Count 404 X10*3/uL (160-400); Red Blood Count 4.32 X10*6/uL (4.20-5.50); Red Cell Distribution Width 17.2 % (11.0-16.0); White Blood Count 7.2 X10*3/uL (4.8-10.8)
[2022-11-18 16:13] LABS: Estimated Average Glucose 151 mg/dL; Hemoglobin A1c % 6.9 %
[2022-11-18 16:37] LABS: Alanine Aminotransferase 18 U/L (0-31); Albumin Level 4.1 g/dL (3.5-5.0); Alkaline Phosphatase 47 U/L (39-117); Anion Gap 17 (12-20); Aspartate Amino Transferase 21 U/L (5-31); Bilirubin Total 0.2 mg/dL (0.0-1.0); Blood Urea Nitrogen 22 mg/dL (9-16); Calcium 10.1 mg/dL (8.4-10.2); Carbon Dioxide 26 mmol/L (22-29); Chloride 105 mmol/L (96-108); Cholesterol 199 mg/dL; Estimated Glomerular Filt Rate > 60; Glucose Random 99 mg/dL (60-115); HDL Cholesterol 50 mg/dL; Iron 23 mcg/dL (30-160); LDL Cholesterol Calculated 113 mg/dl; Percent Iron Saturation 6 % (15-50); Potassium 4.5 mmol/L (3.3-5.1); Sodium 143 mmol/L (135-145); Total Iron Binding Capacity 377 mcg/dL (228-428); Total Protein 6.7 g/dL (6.5-8.0); Triglycerides 180 mg/dL; Unsaturated Iron Binding 354 ug/dL
[2022-11-18 17:04] LABS: Folate 13.9 ng/mL (> or = 4.0); Vitamin B12 760 pg/mL (200-900); Vitamin D 25-OH Total 21.5 ng/mL (>30)
[2022-11-18 18:38] LABS: Creatinine Urine 206.81 mg/dL
== END 2022-11-18 15:33 | disposition home or self-care (01) ==
LOC: HO.LAB 15:32
PROVIDERS: PCP Internal Medicine; Visit Provider Internal Medicine
DX: D64.9 Anemia, unspecified (principal); E11.42 Type 2 diabetes mellitus with diabetic polyneuropathy; E03.9 Hypothyroidism, unspecified; E11.40 Type 2 diabetes mellitus with diabetic neuropathy, unspecified; E55.9 Vitamin D deficiency, unspecified; E53.8 Deficiency of other specified B group vitamins; E78.5 Hyperlipidemia, unspecified
CPT/HCPCS: 36415; 80053; 80061; 82043; 82306; 82607; 82746; 83036; 83540; 84443; 85025

== ENCOUNTER 2022-12-07 13:19 | Outpatient (REF) | payer OTHER, SELFPAY ==
[2022-12-07 16:30] LABS: Erythrocyte Sedimentation Rate 14 MM/HR (0-20)
[2022-12-08 04:11] LABS: Syphilis Screen Nonreactive (Nonreactive)
[2022-12-09 15:59] LABS: Anti Nuclear Antibody Screen NEGATIVE (NEGATIVE)
== END 2022-12-07 13:20 | disposition home or self-care (01) ==
LOC: HO.LAB 13:19
PROVIDERS: PCP Internal Medicine; Visit Provider Nurse Practitioner Family
DX: D64.9 Anemia, unspecified (principal); R41.89 Other symptoms and signs involving cognitive functions and awareness; R51.9 Headache, unspecified
CPT/HCPCS: 36415; 85652; 86038; 86039; 86780; 99202

== ENCOUNTER 2022-12-17 09:47 | Outpatient (REF) | payer OTHER, SELFPAY ==
--- NOTE | ~2022-12-17 | US_ITS ---
EXAMINATION: US ABDOMEN COMPLETE CLINICAL INFORMATION: Helicobacter pylori infection. COMPARISON: Renal ultrasound 09/21/2022 and 03/16/2022. TECHNIQUE: Real-time imaging of the abdominal viscera. FINDINGS: PANCREAS: Normal. ABDOMINAL AORTA: The proximal, mid, and distal segments are normal in caliber. INFERIOR VENA CAVA: Visualized portions are normal. LIVER: The liver is normal in size. The liver contour is normal. There is diffuse increased liver parenchymal echogenicity, consistent with hepatic steatosis. No focal hepatic lesion. There is no intrahepatic biliary duct dilatation seen. GALLBLADDER: Normal. The gallbladder is physiologically distended without evidence of stones, sludge, polyps, or pericholecystic fluid. COMMON BILE DUCT: Normal in caliber measuring 0.6 cm in diameter. RIGHT KIDNEY: No hydronephrosis or focal parenchymal lesions. The kidney measures 11.2 cm in maximum dimension. 6 mm upper pole and 7 mm lower pole calculi. LEFT KIDNEY: No hydronephrosis. The kidney measures 11.8 cm in maximum dimension. There is a 6 mm simple cyst in the lower pole. No imaging follow-up is recommended. 6 mm lower pole calculus. SPLEEN: Normal. The spleen measures 9.2 cm in maximum dimension. FREE FLUID: None. US/US abdomen complete IMPRESSION: Bilateral renal calculi without hydronephrosis.
== END 2022-12-17 09:48 | disposition home or self-care (01) ==
LOC: HO.US 09:47
PROVIDERS: PCP Internal Medicine; Visit Provider Nurse Practitioner
DX: A04.8 Other specified bacterial intestinal infections (principal)
CPT/HCPCS: 76700

== ENCOUNTER → 2023-01-14 12:32 | Outpatient (BNVA) | payer OTHER, MEDICAID, SELFPAY | PROVIDERS: PCP Internal Medicine; Visit Provider Orthopaedic Surgery | DX: M75.51 Bursitis of right shoulder (principal); E11.9 Type 2 diabetes mellitus without complications; R41.89 Other symptoms and signs involving cognitive functions and awareness | CPT/HCPCS: 20610; 99212; J1100 ==

== ENCOUNTER 2023-03-23 14:16 | Outpatient (REF) | payer OTHER, MEDICAID, SELFPAY ==
--- NOTE | ~2023-03-23 | US_ITS ---
EXAMINATION: US RETROPERITONEAL LIMITED (RENAL ONLY) CLINICAL INFORMATION: Calculus of kidney. COMPARISON: Ultrasound abdomen complete 12/17/2022. Ultrasound retroperitoneal limited (renal only) 09/21/2022. TECHNIQUE: Real-time imaging of the kidneys. FINDINGS: RIGHT KIDNEY: 11.2 x 4.2 x 5.1 cm (SAG x AP x TRV). The kidney is normal in size, contour, and echogenicity. Renal cortical thickness is normal. No calculi or focal parenchymal lesions. Pelviectasis without curt hydronephrosis, unchanged. LEFT KIDNEY: 11.2 x 5.3 x 5.1 cm (SAG x AP x TRV). The kidney is normal in size, contour, and echogenicity. Renal cortical thickness is normal. No renal calculi or hydronephrosis. Pelviectasis without curt hydronephrosis, unchanged. Subcentimeter benign-appearing renal cyst, no follow-up imaging recommended. US/US renal BI IMPRESSION: Pelviectasis without curt hydronephrosis bilaterally, unchanged from prior. No definite nephrolithiasis appreciated.
--- NOTE | ~2023-03-23 | XR_ITS ---
EXAMINATION: XR ABDOMEN KUB CLINICAL INDICATION: Renal stone COMPARISON: Baseline ultrasound including 09/21/2022 TECHNIQUE: AP view of the abdomen. FINDINGS: The bowel gas pattern is normal with no evidence of ileus or obstruction. No unusual soft tissue calcifications are noted. The bones are unremarkable. XR/XR KUB IMPRESSION: Known renal calculi are not radiopaque on radiographs.
== END 2023-03-23 14:17 | disposition home or self-care (01) ==
LOC: HO.US 14:16
PROVIDERS: PCP Internal Medicine; Visit Provider Nurse Practitioner Family
DX: N20.0 Calculus of kidney (principal)
CPT/HCPCS: 74018; 76775

== ENCOUNTER 2023-03-24 14:46 | Outpatient (AMB) | payer OTHER, SELFPAY ==
--- NOTE | 2023-03-24 14:55 | MHC.PC.OV ---
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 Accompanied by: Daughter Allergies sitagliptin [Januvia] Allergy (Intermediate, Verified 03/24/23 15:10) tremors tramadol [TRAMADOL] Allergy (Mild, Verified 03/24/23 15:10) ABDOMINAL PAIN, stomach upset, severe abd pain Medication List - Last Reconciled 03/24/23 by Brandy Montoya MD acetaminophen (Pain Relief Extra Strength (acetaminophen)) 500 mg PO Q6H PRN albuterol sulfate 90 mcg/actuation 2 puffs PO Q4H PRN 30 days alprazolam (Xanax) 0.5 mg PO BID PRN 2 days ascorbic acid (vitamin C) 500 mg PO TID bzckoji-vnqxzjovwzxhf-koaufoai 250-250-65 mg (Headache Relief (IMY-phudkeksaksk-owddkyjw)) 1 tab PO Q4-6H PRN blood sugar diagnostic (FreeStyle Lite Strips) Use 1 test strip once a day blood sugar diagnostic 4x daily blood-glucose meter (FreeStyle Lite Meter kit) As directed carboxymethylcellulose sodium 1% (Lubricant Dry Eye Relief) 1 drp ophthalmic (eye) BID carboxymethylcellulose sodium 1% (TheraTears) 1 drp ophthalmic (eye) BID cholecalciferol (vitamin D3) 50 mcg PO DAILY 90 days clotrimazole 1% 1 appl topical BID 4 weeks diclofenac sodium 1% (Voltaren Arthritis Pain) 2 grams topical QID PRN ferrous sulfate 324 mg PO BID fluticasone propionate 50 mcg/actuation 1 spray intranasal BID PRN ibuprofen (Advil Migraine) 200 mg PO Q6H PRN lancets (FreeStyle Lancets) As directed once a day levothyroxine 100 mcg PO DAILY 90 days lidocaine HCl-menthol 4-1 % (Icy Hot Max (lidocaine HCl-menthol)) 4 ea topical DAILY linagliptin (Tradjenta) 5 mg PO DAILY 90 days lisinopril 2.5 mg PO DAILY meclizine 25 mg PO DAILY 90 days memantine 7 mg PO DAILY 30 days metformin 850 mg PO BID 90 days adyofmnqctjh-lqkg-zfrtx acid 18-400 mg-mcg (Centrum Women) 1 tab PO DAILY neomycin-polymyxin B-dexameth 3.5 mg/g-10,000 unit/g-0.1 % 3.5 appl ophthalmic (eye) DAILY omeprazole 20 mg PO BID peg 3350-electrolytes 236-22.74-6.74 -5.86 gram (Golytely) 240 mL PO Q10M 1 day pyridoxine (vitamin B6) 100 mg PO DAILY 90 days rosuvastatin 20 mg PO DAILY 90 days sertraline 25 mg PO DAILY 90 days sucralfate (Carafate) 1 g PO QNOON tamsulosin 0.4 mg PO BEDTIME Tobacco use date assessed: 11/18/22 Fall risk assessment: No Falls in past year Last assessed Fall Risk: 03/24/23 Dental Screening Dental Screen Date: 03/24/23 Did you have a dental visit in the last 12 months?: No Did you have a dental problem in the last 6 months where you did not have access to dental care?: No Was dental information given to patient?: Patient has dentist HPI HPI Comments History of Present Illness Details Which is the main historian for follow-up on her conditions. A1c within goal. Blood pressure too low today and I will hold lisinopril. Last cholesterol was well control. Last TSH was normal and this will be monitor. She has cognitive impairment follow by Neurology which prescribed memantine recently but she said she does not feel that she needs it therefore stopped taking it a while ago. I recommended to restart taking it. No chest pain or shortness of breath. Has anemia that has worsened and she said she is compliant with ferrous sulfate. Anemia is follow by Hematology-Oncology. Has hypercalcemia and labs will be repeated. [facility] Medical History (Updated 03/24/23 @ 15:28 by Brandy Montoya MD) Acute urinary retention B12 deficiency Diabetes mellitus Diabetes type 2, uncontrolled Diabetic polyneuropathy associated with type 2 diabetes mellitus Dyslipidemia Goiter Headache Hypertension Hypothyroidism Kidney stone on left side Renal stones Shoulder pain Urgency of urination Urinary retention Surgical History H/O: hysterectomy History of cataract removal with insertion of prosthetic lens History of esophagogastroduodenoscopy (EGD) Hx of colonoscopy Family History Father Lung cancer Mother Kidney failure Alzheimer disease Sister Diabetes Paternal Grandfather Cancer Daughter Diabetes Sister Diabetes Breast cancer Brother Alzheimer disease Colon cancer Brother Colon polyps Social History Household Members: None Housing: Apartment Are you a primary memory care director to a significant other at home: No Do you presently have visiting nurse or other home services: No Alcohol intake: never Patient Tobacco Use Status: Never used Tobacco e-Cigarette/Vaping Use: Never Used Second Hand Smoke Exposure: No service: No Current occupational status: disabled Current occupation: rt handed Cognitive needs: Yes Hearing needs: No Vision needs: Yes Questionnaire Thrive Questionnaire Date Thrive assessed: 11/18/22 CHRIS-7 AMB Questionnaire CHRIS-7 Date CHRIS - 7 assessed: 11/18/22 Source: Developed by Drs. Clive Ortega, Violet Solis, Pernell Peralta and colleagues, with an educational vinh from [email or web address]. Review of Systems Const All systems reviewed & are unremarkable except as noted in HPI and below Eyes Reports no additional complaints, Denies change in vision and Denies other visual disturbances Card Denies chest pain at rest, Denies chest pain with activity, Denies edema, Denies irregular heart rhythm, Denies claudication, Denies dyspnea, Denies dyspnea on exertion, Denies orthopnea, Denies paroxysmal nocturnal dyspnea and Denies slow heart rate Resp Denies cough, Denies dyspnea and Denies dyspnea on exertion GI Denies abdominal pain, Denies change in bowel habits, Denies excessive flatus, Denies nausea and Denies vomiting Denies urinary incontinence, Denies urinary hesitancy and Denies urinary urgency Musc Denies abnormal gait, Denies atrophy, Denies deformity and Denies limited range of motion Skin/Breast Denies bleeding lesions, Denies changing lesions and Denies rash Neuro Denies abnormal gait and Denies lack of coordination Physical exam (Primary Care) Vital Signs: Last Vital Signs BP 108/56 L 03/24/23 14:56 BMI result Body Mass Index 25.1 Tobacco/Smoking Status: Tobacco use Status Tobacco use date assessed 11/18/22 03/24/23 14:57 Patient Tobacco Use Status Never used Tobacco 03/24/23 14:57 e-Cigarette/Vaping Use Never Used 03/24/23 14:57 Thrive Assessment: Date of Thrive Assessment Date Thrive assessed 11/18/22 03/24/23 14:57 Const Orientation/consciousness: oriented to person and oriented to time Eyes General: appearance normal, both eyes and all related structures Eyelids: Yes eyelids normal Conjunctivae: conjunctivae normal Neck Neck: Yes normal visual inspection and Yes supple Resp Effort & Inspection: normal respiratory effort Auscultation: clear to auscultation bilaterally Cardio Jugular venous distension: no JVD Rate: regular rate Rhythm: regular rhythm Heart sounds: S1 normal heart sound present and S2 normal heart sound present Neuro General: oriented to person and oriented to time Extrem General: Yes full ROM Results AMB Hemoglobin A1c AMB Hemoglobin A1c 6.9 % Last Edit by YURIY Estrada on 03/24/23 15:08 Results Reviewed Results Reviewed: Laboratory Last Values Hgb A1c (Clinic) 6.9 % (4.0-6.0) H 03/24/23 15:04 Assessment and Plan Assessment & Plan (1) Diabetes mellitus: Code(s): E11.9 - Type 2 diabetes mellitus without complications Plan: Continue metformin. A1c goal is equal or less than 7%. (2) Hypothyroidism: Code(s): E03.9 - Hypothyroidism, unspecified Qualifiers: Hypothyroidism type: unspecified Qualified Code(s): E03.9 - Hypothyroidism, unspecified Plan: Continue levothyroxine. Monitor TSH. (3) Dyslipidemia: Code(s): E78.5 - Hyperlipidemia, unspecified Plan: Continue statins. (4) Hypertension: Code(s): I10 - Essential (primary) hypertension Qualifiers: Hypertension type: essential hypertension Qualified Code(s): I10 - Essential (primary) hypertension Plan: Discontinue lisinopril. Blood pressure goal is equal or less than 130/80. (5) Cognitive impairment: Code(s): R41.89 - Other symptoms and signs involving cognitive functions and awareness Plan: Restart memantine. Follow-up with Neurology. Orders: Orders Vitamin B12 and Folate Today E53.8 - Deficiency of other specified B group vitamins Calcium, Ionized Today E83.52 - Hypercalcemia PTHI Today E83.52 - Hypercalcemia Thyroid Stimulating Hormone Today E03.9 - Hypothyroidism, unspecified Calcium, Random Urine Today E83.52 - Hypercalcemia Albumin Level Today E83.52 - Hypercalcemia AMB Hemoglobin A1c Today E11.9 - Type 2 diabetes mellitus without complications Medications: Changed From ferrous sulfate 324 mg PO BID To ferrous sulfate 324 mg PO BID 90 days 180 tabs 1RF Refilled levothyroxine 100 mcg PO DAILY 90 days 90 tabs 1RF metformin 850 mg PO BID 90 days 180 tabs 1RF E11.42 - Type 2 diabetes mellitus with diabetic polyneuropathy rosuvastatin 20 mg PO DAILY 90 days 90 tabs 1RF E78.5 - Hyperlipidemia, unspecified Discontinued lisinopril Discontinued Reason: Patient Completed Course 2.5 mg PO DAILY 90 tabs 3RF Coding Level of Care Code Est Pt Level 4 (49675) Diagnoses Diabetes mellitus E11.9 Hypothyroidism E03.9 Hypothyroidism type: unspecified Dyslipidemia E78.5 Hypertension I10 Hypertension type: essential hypertension Cognitive impairment R41.89 Time Spent (min) 23
[2023-03-24 14:56] VITALS: BP 108/56; BMI 25.1
== END 2023-03-24 15:36 | disposition home or self-care (01) ==
PROVIDERS: Visit Provider Internal Medicine
DX: E11.9 Type 2 diabetes mellitus without complications (principal); E03.9 Hypothyroidism, unspecified; E78.5 Hyperlipidemia, unspecified; I10 Essential (primary) hypertension; R41.89 Other symptoms and signs involving cognitive functions and awareness
CPT/HCPCS: 83036; 99214

== ENCOUNTER 2023-03-24 15:44 | Outpatient (REF) | payer OTHER, SELFPAY ==
[2023-03-24 16:41] LABS: Albumin Level 3.9 g/dL (3.5-5.0)
[2023-03-24 17:16] LABS: Folate 14.9 ng/mL (> or = 4.0); Vitamin B12 779 pg/mL (200-900)
[2023-03-28 15:24] LABS: Calcium (PTHI) 9.8 mg/dL (8.6-10.4); PTHI 75 pg/mL (16-77)
[2023-03-28 18:18] LABS: Calcium, Random Urine 21.8 mg/dL
[2023-03-29 07:53] LABS: Calcium, Ionized 5.3 mg/dL (4.7-5.5)
== END 2023-03-24 15:45 | disposition home or self-care (01) ==
LOC: HO.LAB 15:44
PROVIDERS: PCP Internal Medicine; Visit Provider Internal Medicine
DX: E83.52 Hypercalcemia (principal); E53.8 Deficiency of other specified B group vitamins; E03.9 Hypothyroidism, unspecified; E11.9 Type 2 diabetes mellitus without complications
CPT/HCPCS: 36415; 82040; 82310; 82330; 82607; 82746; 83970; 84443

== ENCOUNTER 2023-04-01 13:44 | Outpatient (AMB) | payer OTHER, MEDICAID, SELFPAY ==
--- NOTE | 2023-04-01 13:49 | MHC.OFFVIS ---
Intake Vital Signs 04/01/23 13:59 Height 5 ft 4 in Weight 153 lb BMI 26.3 BP 144/63 H Blood Pressure Location Rt brachial Position Sitting Pulse 81 Intake Visit Reasons: follow req from pt Intake Note: Patient presents to in office visit today in follow up GERD CC: Patient reports doing well and denies having any GI issues today. 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 pylori infection: ?Comment: With gastric polyp? Resistant strain that failed Prevpac and Helidac and a rifabutin course treating symptomatically ?Code(s): A04.8 - Other specified bacterial intestinal infections ?Plan: KYRGYZ #[employer], but then requests dtr translates She has been having breakthrough dyspepsia, ? with fatty foods. Strong FHX of GB disease, so will get US. Also could be her tx resist HP. WIll add a dose of carafate 1 tab qnoon. She continues on omeprazole 20mg bid. If she develops CIC, use OTC laxative. Will get EGD/colonoscopy - seems very overdue for scope as was a Dr. Suárez pt in past. There are no prior problems with anesthesia or sedation. Her asthma is well controlled and they deny any cardiac problems. No ID problems. Her brother had CRC at age 83, survived. ROV 8 weeks to eval carafate (2) GERD (gastroesophageal reflux disease): ?Code(s): K21.9 - Gastro-esophageal reflux disease without esophagitis (3) Abdominal bloating: ?Code(s): R14.0 - Abdominal distension (gaseous) (4) Epigastric pain: ?Code(s): R10.13 - Epigastric pain (5) Pre-op examination: ?Code(s): Z01.818 - Encounter for other preprocedural examination ? ? ? Orders: Orders US abdomen complet e Today A04.8 - Other spec ified bacterial in testinal infection s ? Medications: New sucralfate (Carafa te) 1 g? PO QNOON 30 t abs 3RF A04.8 - Other spec ified bacterial in testinal infection s ? peg 3350-electroly vince 236-22.74-6.74 -5.86 gram (Golyt immanuel) ?? until feca l effluent is kalpesh r; do not exceed a total volume of 2 ,000 mL 240 mL? PO Q10M 1 day 4,000 mL 0RF Z12.11 - Encounter for screening for malignant neoplas m of colon ? Refilled omeprazole 20 mg? PO BID 180 caps 1RF A04.8 - Other spec ified bacterial in testinal infection s, K21.9 - Gastro- esophageal reflux disease without es ophagitis EGD/COLONOSCOPY NOT SCHEDULED BIOPSY US OF [facility] 12/28/22 FINDINGS: PANCREAS: Normal. ABDOMINAL AORTA: The proximal, mid, and distal segments are normal in caliber. INFERIOR VENA CAVA: Visualized portions are normal. LIVER: The liver is normal in size. The liver contour is normal. There is diffuse increased liver parenchymal echogenicity, consistent with hepatic steatosis.? No focal hepatic lesion. There is no intrahepatic biliary duct dilatation seen. GALLBLADDER: Normal. The gallbladder is physiologically distended without evidence of stones, sludge, polyps, or pericholecystic fluid. COMMON BILE DUCT: Normal in caliber measuring 0.6 cm in diameter. RIGHT KIDNEY: No hydronephrosis or focal parenchymal lesions. The kidney measures 11.2 cm in maximum dimension. 6 mm upper pole and 7 mm lower pole calculi. LEFT KIDNEY: No hydronephrosis. The kidney measures 11.8 cm in maximum dimension. There is a 6 mm simple cyst in the lower pole. No imaging follow-up is recommended. 6 mm lower pole calculus. SPLEEN: Normal. The spleen measures 9.2 cm in maximum dimension. FREE FLUID: None. US/US abdomen complete IMPRESSION: Bilateral renal calculi without hydronephrosis. TODAY'S VISIT KYRGYZ #Dtr translates She is here today with her daughter and they tell me that the addition of the Carafate has completely resolved all of her upper stomach complaints. While this is good she does have a history of treatment resistant H pylori and gastric polyps so I still on a press ahead with the EGD and colonoscopy. They are quite agreeable saying they already have the prep at home but they never heard from anyone to schedule a procedure despite it being ordered back in September. We discussed her ultrasound which does not show any problem with the gallbladder which I feared might be contributing to her epigastric discomfort. It does show fatty liver that does not seem to be anything that needs to be followed given her advanced age. Will get EGD/colonoscopy - seems very overdue for scope as was a Dr. Suárez pt in past. There are no prior problems with anesthesia or sedation. Her asthma is well controlled and they deny any cardiac problems. No ID problems. Her brother had CRC at age 83, survived. [facility] Medical History Acute urinary retention B12 deficiency Diabetes mellitus Diabetes type 2, uncontrolled Diabetic polyneuropathy associated with type 2 diabetes mellitus Dyslipidemia Goiter Headache Hypertension Hypothyroidism Kidney stone on left side Renal stones Shoulder pain Urgency of urination Urinary retention Surgical History H/O: hysterectomy History of cataract removal with insertion of prosthetic lens History of esophagogastroduodenoscopy (EGD) Hx of colonoscopy Family History Father Lung cancer Mother Kidney failure Alzheimer disease Sister Diabetes Paternal Grandfather Cancer Daughter Diabetes Sister Diabetes Breast cancer Brother Alzheimer disease Colon cancer Brother Colon polyps Social History Household Members: None Housing: Apartment Are you a primary care center manager to a significant other at home: No Do you presently have visiting nurse or other home services: No Alcohol intake: never Patient Tobacco Use Status: Never used Tobacco e-Cigarette/Vaping Use: Never Used Second Hand Smoke Exposure: No service: No Current occupational status: disabled Current occupation: rt handed Cognitive needs: Yes Hearing needs: No Vision needs: Yes Review of Systems Const Denies fatigue, Denies fever(s), Denies night sweats, Denies poor appetite and Denies weight loss Eyes Details: glasses Reports requires corrective lenses ENT Reports Normal hearing present, Denies dental pain, Denies dysphagia, Denies hearing loss, Denies mouth pain, Denies odynophagia, Denies throat swelling, Denies tongue swelling and Reports other (Dentition adequate) Card Reports no additional complaints Resp Reports no additional complaints GI Denies abdominal pain, Denies melena, Denies bloating, Denies hematochezia, Denies constipation, Denies GI cramping, Denies dysphagia, Denies excessive flatus, Denies early satiety, Reports dyspepsia, Reports heartburn, Denies diarrhea, Denies nausea, Denies odynophagia, Denies vomiting and Denies hematemesis Skin/Breast Denies pruritus, Denies lesions, Denies rash and Denies jaundice Neuro Reports Normal hearing present, Denies Abnormal speech present and Reports memory loss Psych Reports memory loss Endo Denies fatigue Aller/Immun Denies throat swelling and Denies tongue swelling Physical Exam Vital Signs: Last Vital Signs Pulse 81 04/01/23 13:59 BP 144/63 H 04/01/23 13:59 BMI result Body Mass Index 26.3 Const General: cooperative, no acute distress, well developed and well groomed Nutritional Appearance: well nourished and overweight Orientation/consciousness: oriented to person, oriented to place and oriented to time Limitations: language barrier HEENT Head: Yes normocephalic and Yes atraumatic Eyes General: appearance normal, both eyes and all related structures Pupils: Equal, round and reactive pupils present Neck Neck: Yes normal visual inspection and Yes no lymphadenopathy Thyroid: Thyroid normal Resp Effort & Inspection: normal respiratory effort and able to speak in complete sentences Auscultation: clear to auscultation bilaterally Cardio Rate: regular rate Rhythm: regular rhythm Heart sounds: Normal, physiologic split S2 sound present Peripheral pulses: radial pulses present and posterior tibial pulses present GI Inspection: No distended, No Abdominal panniculus present and Yes obesity Palpation (GI): Soft to palpation, nontender, no guarding, not rigid and No hepatosplenomegaly present Percussion: Yes normal to percussion Auscultation: normal bowel sounds Rectal Exam - Female: deferred Skin General skin exam: no rashes or lesions noted, turgor normal, skin not dry, no jaundice, No spider nevi and no striae Rashes: no rashes Nails: normal Neuro General: oriented to person, oriented to place and oriented to time Cranial nerves: Yes Equal, round and reactive pupils present and Yes Normal hearing present Speech: No Abnormal speech present Extrem General: Yes normal to inspection, No clubbing, No cyanosis and No edema Psych Appearance: grossly normal and well kempt Mental Status: mental status grossly normal Speech and movement: Normal speech and movement present Affect: normal affect Attitude: cooperative Thought process: Normal thought process present and not confabulating Thought content: Normal thought content present Insight: Fair insight present (Psych) Judgement: Fair judgement present (Psych) Assessment & Plan Assessment & Plan (1) H. pylori infection: Comment: With gastric polyp Resistant strain that failed Prevpac and Helidac and a rifabutin course treating symptomatically Code(s): A04.8 - Other specified bacterial intestinal infections Plan: KYRGYZ #Dtr translates She is here today with her daughter and they tell me that the addition of the Carafate has completely resolved all of her upper stomach complaints. While this is good she does have a history of treatment resistant H pylori and gastric polyps so I still on a press ahead with the EGD and colonoscopy. They are quite agreeable saying they already have the prep at home but they never heard from anyone to schedule a procedure despite it being ordered back in September. We discussed her ultrasound which does not show any problem with the gallbladder which I feared might be contributing to her epigastric discomfort. It does show fatty liver that does not seem to be anything that needs to be followed given her advanced age. Will get EGD/colonoscopy - seems very overdue for scope as was a Dr. Suárez pt in past. There are no prior problems with anesthesia or sedation. Her asthma is well controlled and they deny any cardiac problems. No ID problems. Her brother had CRC at age 83, survived. (2) GERD (gastroesophageal reflux disease): Code(s): K21.9 - Gastro-esophageal reflux disease without esophagitis (3) Epigastric pain: Code(s): R10.13 - Epigastric pain (4) Family history of colon cancer: Comment: brother Code(s): Z80.0 - Family history of malignant neoplasm of digestive organs Orders: Orders EGD/[place] Combo - GI Use Only Today A04.8 - Other specified bacterial intestinal infections, Z80.0 - Family history of malignant neoplasm of digestive organs Medications: Refilled sucralfate (Carafate) 1 g PO QNOON 30 tabs 6RF A04.8 - Other specified bacterial intestinal infections omeprazole 20 mg PO BID 180 caps 1RF A04.8 - Other specified bacterial intestinal infections, K21.9 - Gastro-esophageal reflux disease without esophagitis Coding Level of Care Code Est Pt Level 3 (10229) Diagnoses H. pylori infection A04.8 GERD (gastroesophageal reflux disease) K21.9 Epigastric pain R10.13 Family history of colon cancer Z80.0
[2023-04-01 13:59] VITALS: BP 144/63; PULSE 81; BMI 26.3
== END 2023-04-01 14:53 | disposition home or self-care (01) ==
PROVIDERS: PCP Internal Medicine; Visit Provider Nurse Practitioner
DX: A04.8 Other specified bacterial intestinal infections (principal); K21.9 Gastro-esophageal reflux disease without esophagitis; R10.13 Epigastric pain; Z80.0 Family history of malignant neoplasm of digestive organs
CPT/HCPCS: 99213

== ENCOUNTER → 2023-04-01 13:44 | Outpatient (BNVA) | payer OTHER, MEDICAID, SELFPAY | PROVIDERS: PCP Internal Medicine; Visit Provider Nurse Practitioner | DX: Z01.818 Encounter for other preprocedural examination (principal); A04.8 Other specified bacterial intestinal infections; K21.9 Gastro-esophageal reflux disease without esophagitis; R10.13 Epigastric pain; R14.0 Abdominal distension (gaseous); Z80.0 Family history of malignant neoplasm of digestive organs | CPT/HCPCS: 99212 ==

== ENCOUNTER 2023-04-15 13:04 | Outpatient (REF) | payer OTHER, MEDICAID, SELFPAY | END 2023-04-15 13:05 | disposition home or self-care (01) | LOC: HO.MDS 13:04 | PROVIDERS: Visit Provider Internal Medicine Medical Oncology | DX: D50.8 Other iron deficiency anemias (principal) | CPT/HCPCS: 96365; J1756 ==

== ENCOUNTER 2023-04-22 12:49 | Outpatient (REF) | payer OTHER, SELFPAY | END 2023-04-22 12:50 | disposition home or self-care (01) | LOC: HO.MDS 12:49 | PROVIDERS: Visit Provider Internal Medicine Medical Oncology | DX: D50.8 Other iron deficiency anemias (principal) | CPT/HCPCS: 96365; J1756 ==

== ENCOUNTER 2023-04-29 13:55 | Outpatient (REF) | payer OTHER, SELFPAY | END 2023-04-29 13:56 | disposition home or self-care (01) | LOC: HO.MDS 13:55 | PROVIDERS: Visit Provider Internal Medicine Medical Oncology | DX: D50.8 Other iron deficiency anemias (principal) | CPT/HCPCS: 96365; J1756 ==

== ENCOUNTER 2023-05-02 15:02 | Outpatient (REF) | payer OTHER, SELFPAY ==
[2023-05-02 15:20] LABS: MANUAL DIFF FLAG NO
[2023-05-02 16:51] LABS: Basophils Absolute Auto 0.1 X10*3/uL (0.0-0.2); Basophils Percent Auto 0.8 % (0-2); Eosinophils Absolute Auto 0.1 X10*3/uL (0.0-0.4); Eosinophils Percent Auto 0.7 % (0-4); Hematocrit 33.5 % (37.0-47.0); Hemoglobin 10.4 g/dl (12.0-16.0); Imm Gran Abs Auto 0.04 X10*3/uL (0.00-0.03); Imm Gran Pct Auto 0.5 % (0.0-0.4); Lymphocytes Absolute Auto 1.1 X10*3/uL (1.2-4.9); Lymphocytes Percent Auto 13.6 % (20-40); Mean Corpuscular Hemoglobin 24.3 pg (27.0-33.0); Mean Corpuscular Volume 78.3 fL (80.0-98.0); Mean Platelet Volume 10.6 fL (9.4-12.3); Monocytes Absolute Auto 0.5 X10*3/uL (0.1-1.2); Monocytes Percent Auto 5.4 % (2-11); Neutrophils Absolute Auto 6.6 x10*3/uL (2.0-8.3); Platelet Count 395 X10*3/uL (160-400); Red Blood Count 4.28 X10*6/uL (4.20-5.50); Red Cell Distribution Width 19.4 % (11.0-16.0); White Blood Count 8.4 X10*3/uL (4.8-10.8)
[2023-05-02 17:51] LABS: Alanine Aminotransferase 16 U/L (0-31); Albumin Level 4.1 g/dL (3.5-5.0); Alkaline Phosphatase 49 U/L (39-117); Anion Gap 14 (12-20); Aspartate Amino Transferase 16 U/L (5-31); Bilirubin Total 0.2 mg/dL (0.0-1.0); Blood Urea Nitrogen 21 mg/dL (9-16); Calcium 10.1 mg/dL (8.4-10.2); Carbon Dioxide 27 mmol/L (22-29); Chloride 104 mmol/L (96-108); Estimated Glomerular Filt Rate > 60; Glucose Random 215 mg/dL (60-115); Potassium 4.7 mmol/L (3.3-5.1); Sodium 140 mmol/L (135-145); Total Protein 7.2 g/dL (6.5-8.0)
[2023-05-02 17:52] LABS: Ferritin 189 ng/mL (10-250)
== END 2023-05-02 15:03 | disposition home or self-care (01) ==
LOC: HO.LAB 15:02
PROVIDERS: PCP Internal Medicine; Visit Provider Internal Medicine Medical Oncology
DX: D64.9 Anemia, unspecified (principal)
CPT/HCPCS: 36415; 80053; 82728; 85025

== ENCOUNTER 2023-05-06 13:18 | Outpatient (REF) | payer OTHER, SELFPAY ==
[2023-05-06 14:30] LABS: MANUAL DIFF FLAG NO
[2023-05-06 14:33] LABS: Basophils Absolute Auto 0.1 X10*3/uL (0.0-0.2); Basophils Percent Auto 0.9 % (0-2); Eosinophils Absolute Auto 0.1 X10*3/uL (0.0-0.4); Eosinophils Percent Auto 1.1 % (0-4); Hemoglobin 9.8 g/dl (12.0-16.0); Imm Gran Abs Auto 0.02 X10*3/uL (0.00-0.03); Imm Gran Pct Auto 0.4 % (0.0-0.4); Lymphocytes Absolute Auto 0.9 X10*3/uL (1.2-4.9); Lymphocytes Percent Auto 16.3 % (20-40); Mean Corpuscular HGB Conc 30.6 g/dl (31.0-35.0); Mean Corpuscular Volume 78.4 fL (80.0-98.0); Mean Platelet Volume 9.9 fL (9.4-12.3); Monocytes Absolute Auto 0.4 X10*3/uL (0.1-1.2); Monocytes Percent Auto 6.2 % (2-11); Neutrophils Absolute Auto 4.3 x10*3/uL (2.0-8.3); Neutrophils Percent Auto 75.1 % (45-73); Platelet Count 346 X10*3/uL (160-400); Red Blood Count 4.08 X10*6/uL (4.20-5.50); Red Cell Distribution Width 19.3 % (11.0-16.0); White Blood Count 5.7 X10*3/uL (4.8-10.8)
[2023-05-06 15:15] LABS: Ferritin 134 ng/mL (10-250)
== END 2023-05-06 13:19 | disposition home or self-care (01) ==
LOC: HO.MDS 13:18
PROVIDERS: Visit Provider Internal Medicine Medical Oncology
DX: D50.8 Other iron deficiency anemias (principal)
CPT/HCPCS: 36415; 82728; 85025; 96365; J1756

== ENCOUNTER 2023-05-11 13:34 | Outpatient (AMB) | payer OTHER, SELFPAY ==
--- NOTE | 2023-05-11 13:35 | A.OFFVIS_ITS ---
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 Accompanied by: Daughter Allergies sitagliptin [Januvia] Allergy (Intermediate, Verified 05/11/23 14:33) tremors tramadol [TRAMADOL] Allergy (Mild, Verified 05/11/23 14:33) ABDOMINAL PAIN, stomach upset, severe abd pain Medication List - Last Reconciled 05/11/23 by SHAE Baptiste- acetaminophen (Pain Relief Extra Strength (acetaminophen)) 500 mg PO Q6H PRN albuterol sulfate 90 mcg/actuation 2 puffs PO Q4H PRN 30 days alprazolam (Xanax) 0.5 mg PO BID PRN 2 days ascorbic acid (vitamin C) 500 mg PO TID agwippz-dhiidmeepklbk-cpivrdqm 250-250-65 mg (Headache Relief (HSW-dcjywdgpscle-fokenhwu)) 1 tab PO Q4-6H PRN blood sugar diagnostic (FreeStyle Lite Strips) Use 1 test strip once a day blood sugar diagnostic 4x daily blood-glucose meter (FreeStyle Lite Meter kit) As directed carboxymethylcellulose sodium 1% (Lubricant Dry Eye Relief) 1 drp ophthalmic (eye) BID carboxymethylcellulose sodium 1% (TheraTears) 1 drp ophthalmic (eye) BID cholecalciferol (vitamin D3) 50 mcg PO DAILY 90 days clotrimazole 1% 1 appl topical BID 4 weeks diclofenac sodium 1% (Voltaren Arthritis Pain) 2 grams topical QID PRN ferrous sulfate 324 mg PO BID 90 days fluticasone propionate 50 mcg/actuation 1 spray intranasal BID PRN lancets (FreeStyle Lancets) As directed once a day levothyroxine 100 mcg PO DAILY 90 days lidocaine HCl-menthol 4-1 % (Icy Hot Max (lidocaine HCl-menthol)) 4 ea topical DAILY linagliptin (Tradjenta) 5 mg PO DAILY 90 days meclizine 25 mg PO DAILY 90 days memantine 7 mg PO DAILY 30 days metformin 850 mg PO BID 90 days fthmwqhxsbml-fgfy-muads acid 18-400 mg-mcg (Centrum Women) 1 tab PO DAILY neomycin-polymyxin B-dexameth 3.5 mg/g-10,000 unit/g-0.1 % 3.5 appl ophthalmic (eye) DAILY omeprazole 20 mg PO BID pyridoxine (vitamin B6) 100 mg PO DAILY 90 days rosuvastatin 20 mg PO DAILY 90 days sertraline 25 mg PO DAILY 90 days sucralfate (Carafate) 1 g PO QNOON tamsulosin 0.4 mg PO BEDTIME HPI HPI Comments History of Present Illness Details Jaki is a pleasant 77-year-old Portuguese-speaking female patient of Dr. Ash who was accompanied by her daughter at today's visit. She has a past medical history of B12 deficiency, diabetes, diabetic neuropathy, dyslipidemia, headaches, hypertension, hypothyroidism, and nephrolithiasis. She presents to the office today for follow-up of her nephrolithiasis and renal cyst. In discussion with the patient today she reports to be doing and feeling well. Of note, patient was seen approximately 6 months ago at which time a KUB and renal ultrasound were ordered for further assessment evaluation. These results were reviewed with the patient and her daughter today. KUB with normal gas pattern. No renal calculi are noted. Renal ultrasound noting no calculi or lesions. Subcentimeter benign-appearing renal cyst on the left side with no follow-up imaging recommended per radiology report. Pelviectasis without curt hydronephrosis bilaterally, unchanged from prior. No definite nephrolithiasis appreciated. When asked patient denies any bothersome urinary issues or concerns at this time. She does report intermittent issues with urinary urgency and episodes of incontinence however reports some to be infrequent and not bothersome. She otherwise denies urinary frequency, nocturia, hematuria, dysuria, foul smelling urine, changes to urinary stream, flank pain, fever, and or chills. She is happy with her current voiding parameters. Unable to obtain urine for urinalysis today as patient unable to void however, PVR 0 mL. PFS Medical History Acute urinary retention B12 deficiency Diabetes mellitus Diabetes type 2, uncontrolled Diabetic polyneuropathy associated with type 2 diabetes mellitus Dyslipidemia Goiter Headache Hypertension Hypothyroidism Kidney stone on left side Renal stones Shoulder pain Urgency of urination Urinary retention Surgical History H/O: hysterectomy History of cataract removal with insertion of prosthetic lens History of esophagogastroduodenoscopy (EGD) Hx of colonoscopy Family History Father Lung cancer Mother Kidney failure Alzheimer disease Sister Diabetes Paternal Grandfather Cancer Daughter Diabetes Sister Diabetes Breast cancer Brother Alzheimer disease Colon cancer Brother Colon polyps Social History Household Members: None Housing: Apartment Are you a primary nurse wound care to a significant other at home: No Do you presently have visiting nurse or other home services: No Alcohol intake: never Patient Tobacco Use Status: Never used Tobacco e-Cigarette/Vaping Use: Never Used Second Hand Smoke Exposure: No service: No Current occupational status: disabled Current occupation: rt handed Cognitive needs: Yes Hearing needs: No Vision needs: Yes Review of Systems Const Reports no additional complaints Eyes Reports no additional complaints ENT Reports no additional complaints Card Reports as per HPI Resp Reports no additional complaints GI Reports no additional complaints Reports as per HPI Musc Reports as per HPI Neuro Details: Patients daughter reports being referrred to Neurology for further dementia workup Psych Reports no additional complaints Endo Reports as per HPI Physical Exam Const General: cooperative, healthy appearing, comfortable, no acute distress, well developed, alert and awake Orientation/consciousness: oriented to person Limitations: no limitations HEENT Head: Yes normal to inspection, Yes normocephalic and Yes atraumatic Neck Neck: Yes normal visual inspection and Yes trachea midline Chest Chest palpation & inspection: normal inspection of the chest Resp Effort & Inspection: normal respiratory effort and able to speak in complete sentences Cardio Rate: regular rate GI Inspection: Yes normal to inspection General: Yes no CVA tenderness Back/Spine/Pelvis Back: no CVA tenderness Neuro General: oriented to person Extrem General: Yes normal to inspection Psych Appearance: grossly normal and well kempt Speech and movement: Clear speech present Affect: normal affect Attitude: cooperative Insight: Fair insight present (Psych) Judgement: Fair judgement present (Psych) Results Reviewed Results Reviewed: Date of Service: 03/23/23 EXAMINATION: US RETROPERITONEAL LIMITED (RENAL ONLY) RIGHT KIDNEY: 11.2 x 4.2 x 5.1 cm (SAG x AP x TRV). The kidney is normal in size, contour, and echogenicity. Renal cortical thickness is normal. No calculi or focal parenchymal lesions. Pelviectasis without curt hydronephrosis, unchanged. LEFT KIDNEY: 11.2 x 5.3 x 5.1 cm (SAG x AP x TRV). The kidney is normal in size, contour, and echogenicity. Renal cortical thickness is normal. No renal calculi or hydronephrosis. Pelviectasis without curt hydronephrosis, unchanged. Subcentimeter benign-appearing renal cyst, no follow-up imaging recommended. IMPRESSION: Pelviectasis without curt hydronephrosis bilaterally, unchanged from prior. No definite nephrolithiasis appreciated. Date of Service: 03/23/23 EXAMINATION: XR ABDOMEN KUB FINDINGS: The bowel gas pattern is normal with no evidence of ileus or obstruction. No unusual soft tissue calcifications are noted. The bones are unremarkable. IMPRESSION: Known renal calculi are not radiopaque on radiographs. Assessment & Plan Assessment & Plan (1) Renal cyst: Code(s): N28.1 - Cyst of kidney, acquired (2) Renal stones: Code(s): N20.0 - Calculus of kidney (3) Urinary incontinence: Code(s): R32 - Unspecified urinary incontinence Plan In office urinalysis results reviewed with the patient today; as noted above. PVR 0 mL. Recent renal ultrasound results reviewed with the patient and her daughter today; as noted above. Recent KUB results reviewed with the patient and her daughter today; as noted above. Patient denies any bothersome urinary issues or concerns at this time. Discussed timed voiding to decrease episodes of urinary incontinence Discussed, educated, and instructed in the importance of drinking plenty of water daily. Continue Flomax and vitamin B6 as discussed and prescribed. Discussed adding 1 oz of lemon juice to water daily. Discussed at length importance of managing diabetes for improvement in urinary symptoms as well as overall health and well-being. Renal ultrasound in 1 year. Follow-up in 1 year with imaging to be completed prior; or sooner with any issues, concerns, and or questions. Orders: Orders US renal BI 364 Days N20.0 - Calculus of kidney, N28.1 - Cyst of kidney, acquired AMB Urinalysis Automated Today Z13.9 - Encounter for screening, unspecified Coding Level of Care Code Est Pt Level 3 (14623) Diagnoses Renal cyst N28.1 Renal stones N20.0 Urinary incontinence R32
== END 2023-05-11 14:12 | disposition home or self-care (01) ==
PROVIDERS: PCP Internal Medicine; Visit Provider Nurse Practitioner Family
DX: N28.1 Cyst of kidney, acquired (principal); N20.0 Calculus of kidney; R32 Unspecified urinary incontinence
CPT/HCPCS: 99213

== ENCOUNTER → 2023-05-11 13:34 | Outpatient (BNVA) | payer OTHER, SELFPAY | PROVIDERS: Visit Provider Nurse Practitioner Family | DX: N28.1 Cyst of kidney, acquired (principal); N20.0 Calculus of kidney; R32 Unspecified urinary incontinence | CPT/HCPCS: 99212 ==

== ENCOUNTER 2023-05-18 12:46 | Outpatient (REF) | payer OTHER, SELFPAY | END 2023-05-18 12:47 | disposition home or self-care (01) | LOC: HO.MDS 12:46 | PROVIDERS: Visit Provider Internal Medicine Medical Oncology | DX: D50.8 Other iron deficiency anemias (principal) | CPT/HCPCS: 96365; J1756 ==

== ENCOUNTER 2023-05-31 14:41 | Outpatient (REF) | payer OTHER, SELFPAY | END 2023-05-31 14:42 | disposition home or self-care (01) | LOC: HO.MDS 14:41 | PROVIDERS: Visit Provider Internal Medicine Medical Oncology | DX: D50.8 Other iron deficiency anemias (principal) | CPT/HCPCS: 96365; J1756 ==

== ENCOUNTER 2023-06-01 10:52 | Day surgery (SDC) | payer OTHER, SELFPAY ==
[2023-05-30 14:11] VITALS: BMI 26.3
--- NOTE | 2023-05-31 12:16 | HO.ANESPROP2 ---
Documented by User: Page Salcedo NP 05/31/23 12:18 HPI - Anesthesia Eval Consult details Narrative: 77yo F for Upper Endoscopy and Colonoscopy [facility] Active Problems Active Problems: All Active Problems (Updated 05/11/23 @ 21:38 by Toya Pedroza [facility]) Urinary incontinence (Acute) Renal cyst (Acute) Hypercalcemia (Acute) Anxiety (Acute) Pre-op examination (Acute) Epigastric pain (Acute) Hypovitaminosis D (Acute) Cognitive impairment (Acute) Kidney stone on left side (Acute) Arthritis of left knee (Acute) Dysuria (Acute) GERD (gastroesophageal reflux disease) (Acute) Gastric polyp (Acute) Abdominal bloating (Acute) H. pylori infection (Acute) Anemia (Acute) Renal stones (Acute) Bursitis of right shoulder (Acute) Bursitis of left shoulder (Acute) Pre-operative clearance (Acute) Chronic low back pain with bilateral sciatica (Acute) Family history of colon cancer (Acute) Diabetes mellitus (Acute) B12 deficiency (Acute) Shoulder pain (Acute) Headache (Acute) Urinary retention (Acute) Hypothyroidism (Acute) Hypertension (Acute) Dyslipidemia (Acute) Diabetic polyneuropathy associated with type 2 diabetes mellitus (Acute) Goiter (Acute) Diabetes type 2, uncontrolled (Acute) Past Medical History Medical History Kidney stone on left side Diabetes mellitus B12 deficiency Shoulder pain Headache Urinary retention Renal stones Acute urinary retention Urgency of urination Hypothyroidism Hypertension Dyslipidemia Diabetic polyneuropathy associated with type 2 diabetes mellitus Goiter Diabetes type 2, uncontrolled Family History Family History Father Lung cancer Mother Kidney failure Alzheimer disease Sister Diabetes Paternal Grandfather Cancer Daughter Diabetes Sister Diabetes Breast cancer Brother Alzheimer disease Colon cancer Brother Colon polyps Family history of problems with anesthesia: No Surgical History Surgical History H/O: hysterectomy History of cataract removal with insertion of prosthetic lens Hx of colonoscopy History of esophagogastroduodenoscopy (EGD) History of Problems with Anesthesia: No Social History Social History Household Members: None Housing: Apartment Are you a primary adult live in caregiver to a significant other at home: No Do you presently have visiting nurse or other home services: No Alcohol intake: never Patient Tobacco Use Status: Never used Tobacco e-Cigarette/Vaping Use: Never Used Second Hand Smoke Exposure: No service: No Current occupational status: disabled Current occupation: rt handed Cognitive needs: Yes Hearing needs: No Vision needs: Yes Meds Allergies Allergy/AdvReac Type Severity Reaction Status Date / Time sitagliptin [Januvia] Allergy Intermediate tremors Verified 05/11/23 14:33 tramadol [TRAMADOL] Allergy Mild ABDOMINAL Verified 05/11/23 14:33 PAIN, stomach upset, severe abd pain Home Medications Medication Instructions Recorded Confirmed Last Taken Type diclofenac sodium 1 % topical gel 2 g topical QID PRN Pain 09/01/21 05/02/23 Unknown History (Voltaren Arthritis Pain) fluticasone propionate 50 1 spray intranasal BID PRN 09/01/21 05/02/23 Unknown History mcg/actuation nasal Congestion spray,suspension neomycin 3.5 mg/g-polymyxin B 3.5 appl ophthalmic (eye) DAILY 10/02/21 05/02/23 Unknown History 10,000 unit/g-dexameth 0.1 % eye oint multivitamin-ferrous 1 tab PO DAILY 10/18/22 05/02/23 Unknown History fumarate-folic acid 18 mg-400 mcg tablet (Centrum Women) acetaminophen 500 mg tablet (Pain 500 mg PO Q6H PRN Pain 12/07/22 05/02/23 Unknown History Relief Extra Strength (acetaminophen)) yxxlmmk-txqaksbksftgg-fnlczjiu 250 1 tab PO Q4-6H PRN Pain 12/07/22 05/02/23 Unknown History mg-250 mg-65 mg tablet (Headache Relief (BXU-somoalnneopt-bulvqwyn)) carboxymethylcellulose sodium 1 % 1 drp ophthalmic (eye) BID 12/07/22 05/02/23 Unknown History eye gel in a dropperette (TheraTears) carboxymethylcellulose sodium 1 % 1 drp ophthalmic (eye) BID 12/07/22 05/02/23 Unknown History eye liquid gel drops (Lubricant Dry Eye Relief) lidocaine HCl 4 %-menthol 1 % 4 ea topical DAILY 12/07/22 05/02/23 Unknown History topical liquid roll-on (Icy Hot Max (lidocaine HCl-menthol)) tamsulosin 0.4 mg capsule 0.4 mg PO BEDTIME 12/07/22 05/02/23 Unknown History Exam Exam Date and Time: May 31, 2023 1216 Height,Weight and Vital Signs: Height 5 ft 4 in Weight 69.4 kg Pertinent Lab Results Pertinent Lab Results: Laboratory Tests 05/02/23 05/06/23 15:20 14:24 WBC 5.7 Hgb 9.8 L Hct 32.0 L Plt Count 346 Sodium 140 Potassium 4.7 Chloride 104 Carbon Dioxide 27 BUN 21 H Creatinine 0.76 Assessment and Plan Assessment Anesthesia Assessment: Chart Reviewed Final Anesthetic Review Family History of Problems with Anesthesia: No History of Problems with Anesthesia: No Documented by User: Charla Ospina MD 06/01/23 11:50 [facility] Active Problems Active Problems: All Active Problems (Updated 06/01/23 @ 10:54 by Charla Ospina MD) Urinary incontinence (Acute) Renal cyst (Acute) Hypercalcemia (Acute) Anxiety (Acute) Epigastric pain (Acute) Hypovitaminosis D (Acute) Cognitive impairment (Acute) Kidney stone on left side (Acute) Arthritis of left knee (Acute) Dysuria (Acute) GERD (gastroesophageal reflux disease) (Acute) Gastric polyp (Acute) Abdominal bloating (Acute) H. pylori infection (Acute) Anemia (Acute) Bursitis of right shoulder (Acute) Bursitis of left shoulder (Acute) Chronic low back pain with bilateral sciatica (Acute) Family history of colon cancer (Acute) B12 deficiency (Acute) Shoulder pain (Acute) Headache (Acute) Urinary retention (Acute) Hypothyroidism (Acute) Hypertension (Acute) Dyslipidemia (Acute) Diabetic polyneuropathy associated with type 2 diabetes mellitus (Acute) Goiter (Acute) Past Medical History Medical History Kidney stone on left side Diabetes mellitus B12 deficiency Shoulder pain Headache Urinary retention Renal stones Acute urinary retention Urgency of urination Hypothyroidism Hypertension Dyslipidemia Diabetic polyneuropathy associated with type 2 diabetes mellitus Goiter Diabetes type 2, uncontrolled Family History Family History Father Lung cancer Mother Kidney failure Alzheimer disease Sister Diabetes Paternal Grandfather Cancer Daughter Diabetes Sister Diabetes Breast cancer Brother Alzheimer disease Colon cancer Brother Colon polyps Surgical History Surgical History H/O: hysterectomy History of cataract removal with insertion of prosthetic lens Hx of colonoscopy History of esophagogastroduodenoscopy (EGD) Social History Social History Household Members: None Housing: Apartment Are you a primary adult live in caregiver to a significant other at home: No Do you presently have visiting nurse or other home services: No Alcohol intake: never Patient Tobacco Use Status: Never used Tobacco e-Cigarette/Vaping Use: Never Used Second Hand Smoke Exposure: No service: No Current occupational status: disabled Current occupation: rt handed Cognitive needs: Yes Hearing needs: No Vision needs: Yes Meds Allergies Allergy/AdvReac Type Severity Reaction Status Date / Time sitagliptin [Januvia] Allergy Intermediate tremors Verified 05/11/23 14:33 tramadol [TRAMADOL] Allergy Mild ABDOMINAL Verified 05/11/23 14:33 PAIN, stomach upset, severe abd pain Home Medications Medication Instructions Recorded Confirmed Last Taken Type diclofenac sodium 1 % topical gel 2 g topical QID PRN Pain 09/01/21 05/02/23 Unknown History (Voltaren Arthritis Pain) fluticasone propionate 50 1 spray intranasal BID PRN 09/01/21 05/02/23 Unknown History mcg/actuation nasal Congestion spray,suspension neomycin 3.5 mg/g-polymyxin B 3.5 appl ophthalmic (eye) DAILY 10/02/21 05/02/23 Unknown History 10,000 unit/g-dexameth 0.1 % eye oint multivitamin-ferrous 1 tab PO DAILY 10/18/22 05/02/23 Unknown History fumarate-folic acid 18 mg-400 mcg tablet (Centrum Women) acetaminophen 500 mg tablet (Pain 500 mg PO Q6H PRN Pain 12/07/22 05/02/23 Unknown History Relief Extra Strength (acetaminophen)) hghagyi-fciqtjaejhfzw-zefyrgsr 250 1 tab PO Q4-6H PRN Pain 12/07/22 05/02/23 Unknown History mg-250 mg-65 mg tablet (Headache Relief (LYU-mfuilwrxclxb-ginyfqte)) carboxymethylcellulose sodium 1 % 1 drp ophthalmic (eye) BID 12/07/22 05/02/23 Unknown History eye gel in a dropperette (TheraTears) carboxymethylcellulose sodium 1 % 1 drp ophthalmic (eye) BID 12/07/22 05/02/23 Unknown History eye liquid gel drops (Lubricant Dry Eye Relief) lidocaine HCl 4 %-menthol 1 % 4 ea topical DAILY 12/07/22 05/02/23 Unknown History topical liquid roll-on (Icy Hot Max (lidocaine HCl-menthol)) tamsulosin 0.4 mg capsule 0.4 mg PO BEDTIME 12/07/22 05/02/23 Unknown History Exam Height,Weight and Vital Signs: Height 5 ft 4 in Weight 69.4 kg Vital Signs Temp Pulse Resp BP Pulse Ox O2 Del Method 06/01/23 11:30 98.6 F 72 20 154/61 H 98 Room Air Pertinent Lab Results Pertinent Lab Results: Laboratory Tests 05/02/23 05/06/23 15:20 14:24 WBC 5.7 Hgb 9.8 L Hct 32.0 L Plt Count 346 Sodium 140 Potassium 4.7 Chloride 104 Carbon Dioxide 27 BUN 21 H Creatinine 0.76 Lab Results 06/01/23 Range/Units 11:27 POC Glucose 124 H (60-115) mg/dL Airway Mallampati Class: II TM Dist: >3cm Neck ROM: Full Denture: Upper and Lower Heart: RRR Lungs: CTAB Assessment and Plan Assessment Anesthesia Assessment: Anesthesia Plan Discussed Final Anesthetic Review NPO: Yes ASA Class: III Final Preanesthetic Review: No Changes in Pt Med Stat, Meds/Allgs Chart Reviewed, Consent Obtained/Reviewed and Anes Risks/Benef Reviewed Patient Risk: Intermediate Procedure Risk: Low Assessment/Block/Sedation in SS: Assess/Block/Sedation-SS Anesthetic Plan Anesthetic Plan: MAC: Disposition: Standard PACU
--- NOTE | 2023-06-01 11:07 | P.HPSUR_ITS ---
Pre-Procedural Eval Section A Date of Service: 06/01/23 Section B Chief Complaint: Family history of malignant neoplasm of digestive Details of Present Illness: brother had crc, she has hx of h pylori- unsuccessfully treated as well as gastric polyps Relevant Family History (Specify if Yes): Yes Relevant Social History: None Present Medications: see Short Stay Collaborative assessment Medical History: Significant History (Acute urinary retention B12 deficiency Diabetes mellitus Diabetes type 2, uncontrolled Diabetic polyneuropathy associated with type 2 diabetes mellitus Dyslipidemia Goiter Headache Hypertension Hypothyroidism Kidney stone on left side Renal stones Shoulder pain Urgency of urination Urinary retention) History of Previous Operations: Relevant previous surgery/procedure and date(s) (egd) Allergies: Allergies Allergy/AdvReac Type Severity Reaction Status Date / Time sitagliptin [Januvia] Allergy Intermediate tremors Verified 05/11/23 14:33 tramadol [TRAMADOL] Allergy Mild ABDOMINAL Verified 05/11/23 14:33 PAIN, stomach upset, severe abd pain Review of Systems Sugical H&P ROS: Negative: Constitution, Cardiovascular, Respiratory, Neurological, Psychiatric, Hem-Onc, Allergic/Immunologic, Gastrointestinal, Genitourinary, Musculoskeletal, Integumentary, Endocrine and Eyes/Ears/Nose/Throat Exam Surgical H&P Exam: Normal: HEENT, Normal: Heart, Normal: Lungs, Normal: Extremities, Normal: Abdomen, Normal: Skin and Normal: Neurological Plan Diagnosis/Plan: Unchanged I have reviewed the history and physical and performed a pertinent physical examination on my patient. No changes have occurred unless specified. Time Spent With Patient Time: Total time managing care of this patient today ____ minutes.
[2023-06-01 11:22] VITALS: BMI 26.4
[2023-06-01 11:30] VITALS: BP 154/61; PULSE 72; RESP 20; TEMP 37; O2SAT 98
[2023-06-01 11:30] LABS: Glucose, Whole Blood 124 mg/dL (60-115)
--- NOTE | 2023-06-01 12:01 | W.PM.OPN ---
Operative Note Operative Note Date of Service: 06/01/23 Narrative: Operative Information Procedure Description: EGD, Colonoscopy Indication: hx of gastric polyps, H pylori and FH of colon cancer Anesthesia: MAC FLEXIBLE TRANSORAL UPPER GASTROINTESTINAL ENDOSCOPY AND COLONOSCOPY PROCEDURE NOTE UPPER ENDOSCOPY Consent: Indications for the procedure and potential complications of bleeding, perforation, reaction to medications and missed diagnosis were discussed with the patient and informed consent was obtained. Instrument: Olympus GIF H 190 J mid size upper endoscope Monitoring: Vital signs and clinical assessment, continuous EKG monitoring, Pulse oximetry, Carbon Dioxide monitoring and blood pressure monitoring were done throughout the procedure. Procedure: The patient was placed in the left lateral decubitis position and pre-procedure medications were administered and a bite block was placed. The endoscope was inserted into the mouth and advanced under direct vision to the third part of duodenum. A careful inspection was made as the upper endoscope was withdrawn including a retroflexed examination of the proximal stomach; Findings and interventions are described below. Findings: Larynx:normal Esophagus: GE junction at 33 cm, diaphragm hiatus at 35 cm, consistent with 2 cm hiatal hernia, LES was lax Stomach: Patchy erythema, bx taken for h pylori as well as culture. Grade 3 flap valve on retroflexed examination of the cardia. There was a pedunculated mid stomach body polyp measuring about 16 mm, removed with hot snare and then 2 clips applied as well as hemospray for hemostasis--polyp pieces retrieved with net Duodenum: Normal bulb and descending duodenum, Intervention: Biopsies as noted above, polypectomy COLONOSCOPY Instrument: Olympus variable stiffness pediatric scope 190L Colonoscopy Monitoring: Vital signs and clinical assessment, continuous EKG monitoring, Pulse oximetry, Carbon Dioxide monitoring and blood pressure monitoring were done throughout the procedure. Colon withdrawal time was 7 minutes. Procedure: The patient was placed in the left lateral decubitis position and pre-procedure medications were administered. After a digital rectal examination of the ano-rectum, the video colonoscope was inserted into the rectum and advanced through the colon to the cecum/TI. The colonoscope was slowly withdrawn in a retrograde panoramic fashion and the colon mucosa was carefully examined including a retroflexed view of the rectum. Findings and interventions are described below. Procedure Difficulty:moderate Findings: Terminal Ileum-normal Cecum:normal Ascending Colon: 8-10 mm sessile polyp removed with cold snare Transverse Colon - 8-10 mm sessile polyp removed with cold snare Descending Colon:normal Sigmoid Colon: moderate diverticulosis Rectum: Retroflexion with small internal hemorrhoids, grade I Anorectum - normal Colon preparation: [place] Bowel Preparation Scale Right colon; 1 Transverse colon: 1-2 Left colon; 1-2 (0 = Unprepared colon segment with mucosa not seen due to solid stool that cannot be cleared. 1 = Portion of mucosa of the colon segment seen, but other areas of the colon segment not well seen due to staining, residual stool and/or opaque liquid. 2 = Minor amount of residual staining, small fragments of stool and/or opaque liquid, but mucosa of colon segment seen well. 3 = Entire mucosa of colon segment seen well with no residual staining, small fragments of stool or opaque liquid) Impression and Post Procedure Diagnosis: Endoscopy Findings: gastritis hiatal hernia gastric polyp Colonoscopy Findings: polyps internal hemorrhoids diverticular disease Plan: Await Pathology results Repeat Colonoscopy in 1 year due to prep or earlier if clinically indicated High fiber diet leaflet avoid straining at stool, epsom salts and sitz bath, anusol supps or cream Attempt to retrieve h pylori once C/S is back, might take 4 weeks can repeat EGD in 1 year as well Above findings were reviewed with the patient and relevant handouts were provided if indicated.
[2023-06-01 12:48] VITALS: BP 100/53; PULSE 101; RESP 16; TEMP 36.3; O2SAT 97
[2023-06-01 13:03] VITALS: BP 122/62; PULSE 75; RESP 18; TEMP 36.1; O2SAT 97
[2023-06-14 12:23] LABS: H Pylori Cult Source BIOPSY
== END 2023-06-01 13:47 | disposition home or self-care (01) ==
PROVIDERS: PCP Internal Medicine; Visit Provider Internal Medicine Gastroenterology
PROC: (CPT 45385; principal; 2023-06-01 12:40)
DX: D12.2 Benign neoplasm of ascending colon (principal); D12.3 Benign neoplasm of transverse colon; K57.30 Diverticulosis of large intestine without perforation or abscess without bleeding; K64.0 First degree hemorrhoids; Z80.0 Family history of malignant neoplasm of digestive organs; K31.7 Polyp of stomach and duodenum; K29.70 Gastritis, unspecified, without bleeding; K44.9 Diaphragmatic hernia without obstruction or gangrene; A04.8 Other specified bacterial intestinal infections; K22.4 Dyskinesia of esophagus; K21.9 Gastro-esophageal reflux disease without esophagitis; R14.0 Abdominal distension (gaseous); R10.13 Epigastric pain; E11.9 Type 2 diabetes mellitus without complications; I10 Essential (primary) hypertension; E78.5 Hyperlipidemia, unspecified; J45.909 Unspecified asthma, uncomplicated; E03.9 Hypothyroidism, unspecified; Z90.710 Acquired absence of both cervix and uterus; Z87.442 Personal history of urinary calculi; Z79.899 Other long term (current) drug therapy; Z79.82 Long term (current) use of aspirin; Z79.84 Long term (current) use of oral hypoglycemic drugs
CPT/HCPCS: 45385; 43251; 43239; 36415; 82947; 87081; 88305; 88342

== ENCOUNTER → 2023-06-01 10:52 | Outpatient (BNV) | payer OTHER, SELFPAY | PROVIDERS: PCP Internal Medicine; Visit Provider Internal Medicine Gastroenterology | DX: K31.7 Polyp of stomach and duodenum (principal); K44.9 Diaphragmatic hernia without obstruction or gangrene; K29.70 Gastritis, unspecified, without bleeding; Z12.11 Encounter for screening for malignant neoplasm of colon; K63.5 Polyp of colon; K57.90 Diverticulosis of intestine, part unspecified, without perforation or abscess without bleeding; K64.8 Other hemorrhoids | CPT/HCPCS: 43239; 43251; 45385 ==

== ENCOUNTER 2023-06-14 14:08 | Outpatient (REF) | payer OTHER, SELFPAY | END 2023-06-14 14:09 | disposition home or self-care (01) | LOC: HO.MDS 14:08 | PROVIDERS: Visit Provider Internal Medicine Medical Oncology | DX: D50.8 Other iron deficiency anemias (principal) | CPT/HCPCS: 96365; J1756 ==

== ENCOUNTER 2023-06-15 14:25 | Outpatient (AMB) | payer OTHER, MEDICAID, SELFPAY ==
--- NOTE | 2023-06-15 14:29 | MHC.OFFVIS ---
Intake Vital Signs 06/15/23 14:32 Height 5 ft 4 in Weight 155 lb 10.342 oz BMI 26.7 BP 148/70 H Blood Pressure Location Lt brachial Position Sitting Pulse 76 Intake Visit Reasons: S/P double; Dr. Garza Intake Note: Patient presents to in office visit today in follow up of EGD and colonoscopy. Pt underwent EGD and colonoscopy on 06/01/[address] Garza. CC: Patient reports doing well and denies having any GI symptoms or concerns today. Allergies sitagliptin [Januvia] Allergy (Intermediate, Verified 06/15/23 14:35) tremors tramadol [TRAMADOL] Allergy (Mild, Verified 06/15/23 14:35) ABDOMINAL PAIN, stomach upset, severe abd pain HPI S/P double; Dr. Garza HPI Details Assessment & Plan (1) H. pylori infection: Comment: With gastric polyp Resistant strain that failed Prevpac and Helidac and a rifabutin course treating symptomatically Code(s): A04.8 - Other specified bacterial intestinal infections Plan: [place] #Dtr translates She is here today with her daughter and they tell me that the addition of the Carafate has completely resolved all of her upper stomach complaints. While this is good she does have a history of treatment resistant H pylori and gastric polyps so I still on a press ahead with the EGD and colonoscopy. They are quite agreeable saying they already have the prep at home but they never heard from anyone to schedule a procedure despite it being ordered back in September. We discussed her ultrasound which does not show any problem with the gallbladder which I feared might be contributing to her epigastric discomfort. It does show fatty liver that does not seem to be anything that needs to be followed given her advanced age. Will get EGD/colonoscopy - seems very overdue for scope as was a Dr. Suárez pt in past. There are no prior problems with anesthesia or sedation. Her asthma is well controlled and they deny any cardiac problems. No ID problems. Her brother had CRC at age 83, survived. (2) GERD (gastroesophageal reflux disease): Code(s): K21.9 - Gastro-esophageal reflux disease without esophagitis (3) Epigastric pain: Code(s): R10.13 - Epigastric pain (4) Family history of colon cancer: Comment: brother Code(s): Z80.0 - Family history of malignant neoplasm of digestive organs Orders: Orders EGD/[place] [facility] - G I Use Only Today A04.8 - Other spec ified bacterial in testinal infection s, Z80.0 - Family history of maligna nt neoplasm of dig estive organs Medications: Refilled sucralfate (Carafa te) 1 g PO QNOON 30 t abs 6RF A04.8 - Other spec ified bacterial in testinal infection s omeprazole 20 mg PO BID 180 caps 1RF A04.8 - Other spec ified bacterial in testinal infection s, K21.9 - Gastro- esophageal reflux disease without es ophagitis EGD/COLONOSCOPY 06/01/23 Findings: Larynx:normal Esophagus: GE junction at 33 cm, diaphragm hiatus at 35 cm, consistent with 2 cm hiatal hernia, LES was lax Stomach: Patchy erythema, bx taken for h pylori as well as culture. Grade 3 flap valve on retroflexed examination of the cardia. There was a pedunculated mid stomach body polyp measuring about 16 mm, removed with hot snare and then 2 clips applied as well as hemospray for hemostasis--polyp pieces retrieved with net Duodenum: Normal bulb and descending duodenum, Findings: Terminal Ileum-normal Cecum:normal Ascending Colon: 8-10 mm sessile polyp removed with cold snare Transverse Colon - 8-10 mm sessile polyp removed with cold snare Descending Colon:normal Sigmoid Colon: moderate diverticulosis Rectum: Retroflexion with small internal hemorrhoids, grade I Anorectum - normal Impression and Post Procedure Diagnosis: Endoscopy Findings: gastritis hiatal hernia gastric polyp Colonoscopy Findings: polyps internal hemorrhoids diverticular disease Plan: Await Pathology results Repeat Colonoscopy in 1 year due to prep or earlier if clinically indicated High fiber diet leaflet avoid straining at stool, epsom salts and sitz bath, anusol supps or cream Attempt to retrieve h pylori once C/S is back, might take 4 weeks can repeat EGD in 1 year as well BIOPSY Received: 06/01/23 Diagnosis A. Stomach, biopsy: Gastric antral and body mucosa with moderate chronic active gastritis and numerous Helicobacter pylori organisms; negative for intestinal metaplasia and dysplasia. B. Stomach, mid, polyp, biopsy: Hyperplastic gastric polyp and numerous Helicobacter pylori organisms; negative for intestinal metaplasia and dysplasia. C. Colon, transverse, polypectomy: Tubular adenoma; negative for high-grade dysplasia. D. Colon, ascending, polypectomy: Tubular adenoma; negative for high-grade dysplasia Correspondence On 05/04/23 @ 08:44 Candace Chun Wrote To Araseli Chiang I called and spoke to Pt's daughter. She states that the patient is scheduled for procedure on 06/01/23 and post op follow up 06/15/23 On 05/04/23 @ 07:59 Araseli Chiang Wrote To Candace Chun Please get this pt in to see me.....She had an EGD/colonoscopy ordered that was never scheduled..... TODAY'S VISIT [place] #dtr translates The procedure needs to be repeated in 1 year due to poor prep and 2 TA's. Will do 2 day prep next time. The procedure was well tolerated. The results were explained and the patient is agreeable to the follow-up interval as stated. The bowel pattern has returned to normal. Education was provided to tell any 1st degree relatives about their findings to be sure that they are screened by age 45. Educated that they will be put on a recall list when it is time for their repeat scope but should they move out of state or away from the hospital they will need to remember along with their primary to repeat the procedure in a timely fashion to avoid any adverse complications. Reviewed the EGD, known chronic HP infection. BUT she is doing well with tx of the sx, eating well and only occasional pain. She continues on her Carafate at noon and her pantoprazole twice a day treating the H pylori symptomatic leak. ROV 6 mos. [facility] Medical History Kidney stone on left side Diabetes mellitus B12 deficiency Shoulder pain Headache Urinary retention Renal stones Acute urinary retention Urgency of urination Hypothyroidism Hypertension Dyslipidemia Diabetic polyneuropathy associated with type 2 diabetes mellitus Goiter Diabetes type 2, uncontrolled Surgical History H/O: hysterectomy History of cataract removal with insertion of prosthetic lens Hx of colonoscopy History of esophagogastroduodenoscopy (EGD) Family History Father Lung cancer Mother Kidney failure Alzheimer disease Sister Diabetes Paternal Grandfather Cancer Daughter Diabetes Sister Diabetes Breast cancer Brother Alzheimer disease Colon cancer Brother Colon polyps Social History Household Members: None Housing: Apartment Are you a primary youth care professional to a significant other at home: No Do you presently have visiting nurse or other home services: No Alcohol intake: never Patient Tobacco Use Status: Never used Tobacco e-Cigarette/Vaping Use: Never Used Second Hand Smoke Exposure: No service: No Current occupational status: disabled Current occupation: rt handed Cognitive needs: Yes Hearing needs: No Vision needs: Yes Review of Systems Const Denies fatigue, Denies fever(s), Denies night sweats, Denies poor appetite and Denies weight loss Eyes Details: glasses Reports requires corrective lenses ENT Reports Normal hearing present, Denies dental pain, Denies dysphagia, Denies hearing loss, Denies mouth pain, Denies odynophagia, Denies throat swelling, Denies tongue swelling and Reports other (Dentition adequate) Card Reports no additional complaints Resp Reports no additional complaints GI Denies abdominal pain, Denies melena, Denies bloating, Denies hematochezia, Reports constipation, Denies GI cramping, Denies dysphagia, Denies excessive flatus, Denies early satiety, Reports dyspepsia, Reports heartburn, Denies diarrhea, Denies nausea, Denies odynophagia, Denies vomiting and Denies hematemesis Skin/Breast Denies pruritus, Denies lesions, Denies rash and Denies jaundice Neuro Reports Normal hearing present and Denies Abnormal speech present Endo Denies fatigue Aller/Immun Denies throat swelling and Denies tongue swelling Physical Exam Vital Signs: Last Vital Signs Pulse 76 06/15/23 14:32 BP 148/70 H 06/15/23 14:32 BMI result Body Mass Index 26.7 Const General: cooperative, no acute distress, well developed and well groomed Nutritional Appearance: average body habitus and well nourished Orientation/consciousness: oriented to person, oriented to place and oriented to time Limitations: language barrier HEENT Head: Yes normocephalic and Yes atraumatic Eyes General: appearance normal, both eyes and all related structures Pupils: Equal, round and reactive pupils present Neck Neck: Yes normal visual inspection and Yes no lymphadenopathy Thyroid: Thyroid normal Resp Effort & Inspection: normal respiratory effort and able to speak in complete sentences Auscultation: clear to auscultation bilaterally Cardio Rate: regular rate Rhythm: regular rhythm Heart sounds: Normal, physiologic split S2 sound present Peripheral pulses: radial pulses present and posterior tibial pulses present GI Inspection: No distended and No Abdominal panniculus present Palpation (GI): Soft to palpation, nontender, no guarding, not rigid and No hepatosplenomegaly present Percussion: Yes normal to percussion Auscultation: normal bowel sounds Rectal Exam - Female: deferred Skin General skin exam: no rashes or lesions noted, turgor normal, skin not dry, no jaundice, No spider nevi and no striae Rashes: no rashes Nails: normal Neuro General: oriented to person, oriented to place and oriented to time Cranial nerves: Yes Equal, round and reactive pupils present and Yes Normal hearing present Speech: No Abnormal speech present Extrem General: Yes normal to inspection, No clubbing, No cyanosis and No edema Psych Appearance: grossly normal and well kempt Mental Status: mental status grossly normal Speech and movement: Normal speech and movement present Affect: normal affect Attitude: cooperative Thought process: Normal thought process present and not confabulating Thought content: Normal thought content present Insight: Limited insight present (Psych) Judgement: Limited judgement present (Psych) Results Reviewed Results Reviewed: EGD/COLONOSCOPY 06/01/23 Findings: Larynx:normal Esophagus: GE junction at 33 cm, diaphragm hiatus at 35 cm, consistent with 2 cm hiatal hernia, LES was lax Stomach: Patchy erythema, bx taken for h pylori as well as culture. Grade 3 flap valve on retroflexed examination of the cardia. There was a pedunculated mid stomach body polyp measuring about 16 mm, removed with hot snare and then 2 clips applied as well as hemospray for hemostasis--polyp pieces retrieved with net Duodenum: Normal bulb and descending duodenum, Findings: Terminal Ileum-normal Cecum:normal Ascending Colon: 8-10 mm sessile polyp removed with cold snare Transverse Colon - 8-10 mm sessile polyp removed with cold snare Descending Colon:normal Sigmoid Colon: moderate diverticulosis Rectum: Retroflexion with small internal hemorrhoids, grade I Anorectum - normal Impression and Post Procedure Diagnosis: Endoscopy Findings: gastritis hiatal hernia gastric polyp Colonoscopy Findings: polyps internal hemorrhoids diverticular disease Plan: Await Pathology results Repeat Colonoscopy in 1 year due to prep or earlier if clinically indicated High fiber diet leaflet avoid straining at stool, epsom salts and sitz bath, anusol supps or cream Attempt to retrieve h pylori once C/S is back, might take 4 weeks can repeat EGD in 1 year as well BIOPSY Received: 06/01/23 Diagnosis A. Stomach, biopsy: Gastric antral and body mucosa with moderate chronic active gastritis and numerous Helicobacter pylori organisms; negative for intestinal metaplasia and dysplasia. B. Stomach, mid, polyp, biopsy: Hyperplastic gastric polyp and numerous Helicobacter pylori organisms; negative for intestinal metaplasia and dysplasia. C. Colon, transverse, polypectomy: Tubular adenoma; negative for high-grade dysplasia. D. Colon, ascending, polypectomy: Tubular adenoma; negative for high-grade dysplasia Assessment & Plan Assessment & Plan (1) Tubular adenoma of colon: Comment: 2022=TA repeat 1 year r/t poor prep Code(s): D12.6 - Benign neoplasm of colon, unspecified Plan: [place] #dtr translates The procedure needs to be repeated in 1 year due to poor prep and 2 TA's. Will do 2 day prep next time. The procedure was well tolerated. The results were explained and the patient is agreeable to the follow-up interval as stated. The bowel pattern has returned to normal. Education was provided to tell any 1st degree relatives about their findings to be sure that they are screened by age 45. Educated that they will be put on a recall list when it is time for their repeat scope but should they move out of state or away from the hospital they will need to remember along with their primary to repeat the procedure in a timely fashion to avoid any adverse complications. Reviewed the EGD, known chronic HP infection. BUT she is doing well with tx of the sx, eating well and only occasional pain. She continues on her Carafate at noon and her pantoprazole twice a day treating the H pylori symptomatic leak. ROV 6 mos. (2) GERD (gastroesophageal reflux disease): Code(s): K21.9 - Gastro-esophageal reflux disease without esophagitis (3) Gastric polyp: Code(s): K31.7 - Polyp of stomach and duodenum (4) Abdominal bloating: Code(s): R14.0 - Abdominal distension (gaseous) Coding Level of Care Code Est Pt Level 3 (18108) Diagnoses Tubular adenoma of colon D12.6 GERD (gastroesophageal reflux disease) K21.9 Gastric polyp K31.7 Abdominal bloating R14.0
[2023-06-15 14:32] VITALS: BP 148/70; PULSE 76; BMI 26.7
== END 2023-06-15 15:00 | disposition home or self-care (01) ==
PROVIDERS: PCP Internal Medicine; Visit Provider Nurse Practitioner
DX: D12.6 Benign neoplasm of colon, unspecified (principal); K21.9 Gastro-esophageal reflux disease without esophagitis; K31.7 Polyp of stomach and duodenum; R14.0 Abdominal distension (gaseous)
CPT/HCPCS: 99213

== ENCOUNTER → 2023-06-15 14:25 | Outpatient (BNVA) | payer OTHER, MEDICAID, SELFPAY | PROVIDERS: PCP Internal Medicine; Visit Provider Nurse Practitioner | DX: D12.2 Benign neoplasm of ascending colon (principal); D12.3 Benign neoplasm of transverse colon; K57.30 Diverticulosis of large intestine without perforation or abscess without bleeding; K64.0 First degree hemorrhoids; K29.70 Gastritis, unspecified, without bleeding; K44.9 Diaphragmatic hernia without obstruction or gangrene; K31.7 Polyp of stomach and duodenum; K21.9 Gastro-esophageal reflux disease without esophagitis; R14.0 Abdominal distension (gaseous); Z98.890 Other specified postprocedural states | CPT/HCPCS: 99212 ==

== ENCOUNTER 2023-08-03 08:01 | Outpatient (REF) | payer OTHER, SELFPAY ==
[2023-08-03 08:18] LABS: MANUAL DIFF FLAG NO
[2023-08-03 08:34] LABS: Basophils Percent Auto 0.7 % (0-2); Eosinophils Absolute Auto 0.1 X10*3/uL (0.0-0.4); Eosinophils Percent Auto 1.3 % (0-4); Hematocrit 36.5 % (37.0-47.0); Hemoglobin 11.4 g/dl (12.0-16.0); Imm Gran Abs Auto 0.03 X10*3/uL (0.00-0.03); Imm Gran Pct Auto 0.6 % (0.0-0.4); Lymphocytes Absolute Auto 1.2 X10*3/uL (1.2-4.9); Lymphocytes Percent Auto 22.8 % (20-40); Mean Corpuscular HGB Conc 31.2 g/dl (31.0-35.0); Mean Corpuscular Hemoglobin 25.9 pg (27.0-33.0); Mean Corpuscular Volume 82.8 fL (80.0-98.0); Mean Platelet Volume 10.1 fL (9.4-12.3); Monocytes Absolute Auto 0.3 X10*3/uL (0.1-1.2); Neutrophils Absolute Auto 3.8 x10*3/uL (2.0-8.3); Neutrophils Percent Auto 69.6 % (45-73); Platelet Count 359 X10*3/uL (160-400); Red Blood Count 4.41 X10*6/uL (4.20-5.50); Red Cell Distribution Width 15.9 % (11.0-16.0); White Blood Count 5.4 X10*3/uL (4.8-10.8)
[2023-08-03 08:51] LABS: Alanine Aminotransferase 17 U/L (0-31); Albumin Level 4.2 g/dL (3.5-5.0); Alkaline Phosphatase 50 U/L (39-117); Anion Gap 11 (12-20); Aspartate Amino Transferase 15 U/L (5-31); Bilirubin Total 0.3 mg/dL (0.0-1.0); Blood Urea Nitrogen 17 mg/dL (9-16); Calcium 10.2 mg/dL (8.4-10.2); Carbon Dioxide 30 mmol/L (22-29); Chloride 104 mmol/L (96-108); Estimated Glomerular Filt Rate > 60; Glucose Random 195 mg/dL (60-115); Potassium 4.4 mmol/L (3.3-5.1); Sodium 141 mmol/L (135-145); Total Protein 7.2 g/dL (6.5-8.0)
[2023-08-03 09:05] LABS: Ferritin 165 ng/mL (10-250)
[2023-08-03 09:13] LABS: Vitamin B12 472 pg/mL (200-900)
== END 2023-08-03 08:02 | disposition home or self-care (01) ==
LOC: HO.LAB 08:01
PROVIDERS: Internal Medicine Medical Oncology; PCP Internal Medicine; Visit Provider Internal Medicine
DX: D64.9 Anemia, unspecified (principal)
CPT/HCPCS: 36415; 80053; 82607; 82728; 85025

== ENCOUNTER 2023-08-08 13:18 | Outpatient (AMB) | payer OTHER, SELFPAY ==
--- NOTE | 2023-08-08 13:30 | MHC.PC.OV ---
Vital Signs 08/08/23 13:31 Height 5 ft 4 in Weight 156 lb BMI 26.8 BP 130/70 Blood Pressure Location Lt brachial Position Sitting Intake Visit Reasons: bp Intake Note: Patient here for a follow up BP Coding Manager Required: No Accompanied by: Daughter Allergies sitagliptin [Januvia] Allergy (Intermediate, Verified 08/08/23 13:43) tremors tramadol [TRAMADOL] Allergy (Mild, Verified 08/08/23 13:43) ABDOMINAL PAIN, stomach upset, severe abd pain Medication List - Last Reconciled 08/08/23 by Brandy Montoya MD acetaminophen (Pain Relief Extra Strength (acetaminophen)) 500 mg PO Q6H PRN albuterol sulfate 90 mcg/actuation 2 puffs PO Q4H PRN 30 days alprazolam (Xanax) 0.5 mg PO BID PRN 2 days ascorbic acid (vitamin C) 500 mg PO TID vqhyasu-lcqvkttamcxbo-sdprfzhb 250-250-65 mg (Headache Relief (YYP-fdisndaqymta-almohrlo)) 1 tab PO Q4-6H PRN blood pressure test kit-medium As directed blood sugar diagnostic (FreeStyle Lite Strips) Use 1 test strip once a day blood sugar diagnostic 4x daily blood-glucose meter (FreeStyle Lite Meter kit) As directed carboxymethylcellulose sodium 1% (Lubricant Dry Eye Relief) 1 drp ophthalmic (eye) BID carboxymethylcellulose sodium 1% (TheraTears) 1 drp ophthalmic (eye) BID cholecalciferol (vitamin D3) 50 mcg PO DAILY 90 days clotrimazole 1% 1 appl topical BID 4 weeks diclofenac sodium 1% (Voltaren Arthritis Pain) 2 grams topical QID PRN ferrous sulfate 324 mg PO BID 90 days fluticasone propionate 50 mcg/actuation 1 spray intranasal BID PRN lancets (FreeStyle Lancets) As directed once a day levothyroxine 100 mcg PO DAILY 90 days lidocaine HCl-menthol 4-1 % (Icy Hot Max (lidocaine HCl-menthol)) 4 ea topical DAILY linagliptin (Tradjenta) 5 mg PO DAILY 90 days lisinopril 2.5 mg PO DAILY 90 days meclizine 25 mg PO DAILY 90 days memantine 7 mg PO DAILY 30 days metformin 850 mg PO BID 90 days lnxegcvqahnc-miri-ipzim acid 18-400 mg-mcg (Centrum Women) 1 tab PO DAILY neomycin-polymyxin B-dexameth 3.5 mg/g-10,000 unit/g-0.1 % 3.5 appl ophthalmic (eye) DAILY omeprazole 20 mg PO BID pyridoxine (vitamin B6) 100 mg PO DAILY 90 days rosuvastatin 20 mg PO DAILY 90 days sucralfate (Carafate) 1 g PO QNOON tamsulosin 0.4 mg PO BEDTIME Tobacco use date assessed: 11/18/22 Fall risk assessment: No Falls in past year Last assessed Fall Risk: 08/08/23 Dental Screening Dental Screen Date: 08/08/23 Did you have a dental visit in the last 12 months?: Yes Did you have a dental problem in the last 6 months where you did not have access to dental care?: No Was dental information given to patient?: Patient has dentist HPI HPI Comments History of Present Illness Details This is a 77-year-old female with hypertension, dyslipidemia, hypothyroidism and diabetes mellitus type 2 that comes today accompanied by daughter for follow-up on her conditions. Blood pressure stable. Last cholesterol was well control as well as TSH. A1c slightly elevated and I will increase metformin. She has cognitive impairment but does not want to admitted. Went to neurology and was prescribed memantine but refused to take it because she said she does not have memory problems. She is awake, alert and oriented only to person but not to time or place. [facility] Medical History Kidney stone on left side Diabetes mellitus B12 deficiency Shoulder pain Headache Urinary retention Renal stones Acute urinary retention Urgency of urination Hypothyroidism Hypertension Dyslipidemia Diabetic polyneuropathy associated with type 2 diabetes mellitus Goiter Diabetes type 2, uncontrolled Surgical History H/O: hysterectomy History of cataract removal with insertion of prosthetic lens Hx of colonoscopy History of esophagogastroduodenoscopy (EGD) Family History Father Lung cancer Mother Kidney failure Alzheimer disease Sister Diabetes Paternal Grandfather Cancer Daughter Diabetes Sister Diabetes Breast cancer Brother Alzheimer disease Colon cancer Brother Colon polyps Household Members: None Housing: Apartment Are you a primary patient centered care specialist to a significant other at home: No Do you presently have visiting nurse or other home services: No Alcohol intake: never Patient Tobacco Use Status: Never used Tobacco e-Cigarette/Vaping Use: Never Used Second Hand Smoke Exposure: No service: No Current occupational status: disabled Current occupation: rt handed Cognitive needs: Yes Hearing needs: No Vision needs: Yes Questionnaire Thrive Questionnaire Date Thrive assessed: 11/18/22 CHRIS-7 AMB Questionnaire CHRIS-7 Date CHRIS - 7 assessed: 11/18/22 Source: Developed by Drs. Clive Ortega, Violet Solis, Pernell Peralta and colleagues, with an educational vinh from [employer]. Review of Systems Const All systems reviewed & are unremarkable except as noted in HPI and below Eyes Reports no additional complaints, Denies change in vision and Denies other visual disturbances Card Denies chest pain at rest, Denies chest pain with activity, Denies edema, Denies irregular heart rhythm, Denies claudication, Denies dyspnea, Denies dyspnea on exertion, Denies orthopnea, Denies paroxysmal nocturnal dyspnea and Denies slow heart rate Resp Denies cough, Denies dyspnea and Denies dyspnea on exertion GI Denies abdominal pain, Denies change in bowel habits, Denies excessive flatus, Denies nausea and Denies vomiting Denies urinary incontinence, Denies urinary hesitancy and Denies urinary urgency Musc Denies abnormal gait, Denies atrophy, Denies deformity and Denies limited range of motion Skin/Breast Denies bleeding lesions, Denies changing lesions and Denies rash Neuro Denies abnormal gait and Denies lack of coordination Physical exam (Primary Care) Vital Signs: Last Vital Signs BP 130/70 08/08/23 13:31 BMI result Body Mass Index 26.8 Tobacco/Smoking Status: Tobacco use Status Tobacco use date assessed 11/18/22 08/08/23 13:32 Patient Tobacco Use Status Never used Tobacco 08/08/23 13:32 e-Cigarette/Vaping Use Never Used 08/08/23 13:32 Thrive Assessment: Date of Thrive Assessment Date Thrive assessed 11/18/22 08/08/23 13:32 Const Orientation/consciousness: oriented to person Eyes General: appearance normal, both eyes and all related structures Eyelids: Yes eyelids normal Conjunctivae: conjunctivae normal Neck Neck: Yes normal visual inspection and Yes supple Resp Effort & Inspection: normal respiratory effort Auscultation: clear to auscultation bilaterally Cardio Jugular venous distension: no JVD Rate: regular rate Rhythm: regular rhythm Heart sounds: S1 normal heart sound present and S2 normal heart sound present Neuro General: oriented to person Extrem General: Yes full ROM Office Procedures Flu Questionnaire Does the patient have a severe egg allergy?: No Does the patient have severe life threatening allergies?: No Does the patient have a fever or illness today?: No Has the patient ever had Guillain-[place] Syndrome?: No Has the patient ever had any past reaction to a flu shot?: No Results AMB Hemoglobin A1c AMB Hemoglobin A1c 7.8 % Last Edit by YURIY Estrada on 08/08/23 14:12 Immunizations flu vacc [id number] 6mos up(PF) 60 mcg(15 mcgx4)/0.5 mL IM syringe Performing Provider: Brandy Montoya MD Performing Location: [facility] Administered by: YURIY Estrada on 08/08/23 14:07 Dose Route Admin Location Dispensed Lot Number Expiration Date [employer] 0.5 mL IM Left Deltoid 0.5 mL [id number] 03/11/24 [id number] Herz[employer] VIS Given Date VIS Provided VIS Publication Date 08/08/23 Single Vaccine 21 Eligibility Eligibility Date Funding Source Not [facility] Eligible 08/08/23 Private Results Reviewed Results Reviewed: Laboratory Last Values Hgb A1c (Clinic) 7.8 % (4.0-6.0) H 08/08/23 14:06 Assessment and Plan Assessment & Plan (1) Diabetes mellitus: Code(s): E11.9 - Type 2 diabetes mellitus without complications Plan: Continue Tradjenta. Increase metformin to a 1000 mg twice a day. A1c goal is equal or less than 7%. (2) Hypothyroidism: Code(s): E03.9 - Hypothyroidism, unspecified Qualifiers: Hypothyroidism type: unspecified Qualified Code(s): E03.9 - Hypothyroidism, unspecified Plan: Continue levothyroxine. (3) Hypertension: Code(s): I10 - Essential (primary) hypertension Qualifiers: Hypertension type: essential hypertension Qualified Code(s): I10 - Essential (primary) hypertension Plan: Continue lisinopril. Blood pressure goal is equal or less than 130/80. (4) Dyslipidemia: Code(s): E78.5 - Hyperlipidemia, unspecified Plan: Continue statins. LDL goal is less than 70.. Orders: Orders Thyroid Stimulating Hormone 4 Months E03.9 - Hypothyroidism, unspecified Lipid Panel 4 Months E78.5 - Hyperlipidemia, unspecified AMB Hemoglobin A1c Today E11.9 - Type 2 diabetes mellitus without complications Vitamin D 25-OH Total 4 Months E55.9 - Vitamin D deficiency, unspecified Comprehensive [place]cock. Panel Fast 4 Months R41.89 - Other symptoms and signs involving cognitive functions and awareness Influenza [id number] Immunization Today Z23 - Encounter for immunization Medications: New metformin 1,000 mg PO BID 90 days 180 tabs 1RF Refilled blood sugar diagnostic (FreeStyle Lite Strips) Use 1 test strip once a day 50 ea 6RF E11.9 - Type 2 diabetes mellitus without complications Discontinued metformin Discontinued Reason: Patient Completed Course 850 mg PO BID 90 days 180 tabs 1RF E11.42 - Type 2 diabetes mellitus with diabetic polyneuropathy memantine Discontinued Reason: Patient Completed Course 7 mg PO DAILY 30 days 30 ea 2RF Coding Level of Care Code Est Pt Level 4 (98207) Diagnoses Diabetes mellitus E11.9 Hypothyroidism, unspecified type E03.9 Hypothyroidism type: unspecified Essential hypertension I10 Hypertension type: essential hypertension Dyslipidemia E78.5 Time Spent (min) 25
[2023-08-08 13:31] VITALS: BP 130/70; BMI 26.8
== END 2023-08-08 14:05 | disposition home or self-care (01) ==
PROVIDERS: PCP Internal Medicine; Visit Provider Internal Medicine
DX: E11.9 Type 2 diabetes mellitus without complications (principal); E03.9 Hypothyroidism, unspecified; I10 Essential (primary) hypertension; E78.5 Hyperlipidemia, unspecified; Z23 Encounter for immunization
CPT/HCPCS: 83036; 90471; 90686; 99214

== ENCOUNTER 2023-09-26 09:43 | Outpatient (REF) | payer OTHER, SELFPAY | END 2023-09-26 09:44 | disposition home or self-care (01) | LOC: HO.HOSX 09:43 | PROVIDERS: Visit Provider Orthopaedic Surgery | DX: Z13.89 Encounter for screening for other disorder (principal) ==

== ENCOUNTER 2023-10-24 14:23 | Outpatient (AMB) | payer OTHER, SELFPAY ==
--- NOTE | 2023-10-24 15:03 | A.OFFVIS_ITS ---
Intake Vital Signs 10/24/23 15:04 Height 5 ft 4 in Weight 160 lb BMI 27.5 Intake Visit Reasons: Newprob-Left shoulder/hip pain-fell 10/18/23 Intake Note: Lindsey Pollack 78 yr old female presents today for a new problem visit for her left knee pain s/p falling on 10/18/23. Patient states she fell at home and injured her entire left side. States she is having pain when walking, ROM and stairs. Also mentioned she is having radiating pain from her buttocks down her leg. Hx of injection with Dr. Cherry for her right shoulder. Allergies sitagliptin [Januvia] Allergy (Intermediate, Verified 09/19/23 15:14) tremors tramadol [TRAMADOL] Allergy (Mild, Verified 09/19/23 15:14) ABDOMINAL PAIN, stomach upset, severe abd pain HPI Newprob-Left shoulder/hip pain-fell 10/18/23 HPI Details 78 yo female presents to the office toda y for left knee pain after a fall on 10/18/2023. Her daughter is accompanying her today at the visit. She states that she was sitting on the couch when she was wrapped up in blankets and as she got up she was tangled in the blankets and fell. She bumped the lateral side of the patella. She has mild discomfort when walking. She does have a history of cortisone injections which have provided relief. She states prior to the fall she was doing well without pain. [facility] Medical History Kidney stone on left side Diabetes mellitus B12 deficiency Shoulder pain Headache Urinary retention Renal stones Acute urinary retention Urgency of urination Hypothyroidism Hypertension Dyslipidemia Diabetic polyneuropathy associated with type 2 diabetes mellitus Goiter Diabetes type 2, uncontrolled Surgical History H/O: hysterectomy History of cataract removal with insertion of prosthetic lens Hx of colonoscopy History of esophagogastroduodenoscopy (EGD) Family History Father Lung cancer Mother Kidney failure Alzheimer disease Sister Diabetes Paternal Grandfather Cancer Daughter Diabetes Sister Diabetes Breast cancer Brother Alzheimer disease Colon cancer Brother Colon polyps Social History Household Members: None Housing: Apartment Are you a primary career development associate to a significant other at home: No Do you presently have visiting nurse or other home services: No Alcohol intake: never Patient Tobacco Use Status: Never used Tobacco e-Cigarette/Vaping Use: Never Used Second Hand Smoke Exposure: No service: No Current occupational status: disabled Current occupation: rt handed Cognitive needs: Yes Hearing needs: No Vision needs: Yes Review of Systems Const All systems reviewed & are unremarkable except as noted in HPI and below Physical Exam Vital Signs: BMI result Body Mass Index 27.5 Const General: cooperative and no acute distress Orientation/consciousness: patient oriented x3 Resp Effort & Inspection: normal respiratory effort and able to speak in complete sentences Cardio Peripheral pulses: Peripheral pulses 2+ throughout Neuro General: patient oriented x3 Extrem Other: Left knee normal to inspection. She does have a healing abrasion over the patella with some faint bruising. Full range of motion without crepitus. No extension lag. No palpable defect over the patella or the quad tendon. And she is neurovascularly intact. Assessment & Plan Assessment & Plan (1) Contusion of left patella: Code(s): S80.02XA - Contusion of left knee, initial encounter Qualifiers: Encounter type: initial encounter Qualified Code(s): S80.02XA - Contusion of left knee, initial encounter Plan: As it has been approximately a week since her injury I encouraged her to give this more time to settle down. I recommend modification of activity ice and anti-inflammatories to help with her discomfort if symptoms persist or worsen over the next few weeks she can certainly see me back and we can discuss an injection however at this time I do not feel that is necessary she is content with this plan Coding Level of Care Code Est Pt Level 3 (79938) Diagnoses Contusion of left patella, initial encounter S80.02XA Encounter type: initial encounter
[2023-10-24 15:04] VITALS: BMI 27.5
== END 2023-10-24 15:37 | disposition home or self-care (01) ==
PROVIDERS: PCP Internal Medicine; Visit Provider Physician Assistant
DX: S80.02XA Contusion of left knee, initial encounter (principal)
CPT/HCPCS: 99213

== ENCOUNTER → 2023-10-24 14:23 | Outpatient (BNVA) | payer OTHER, SELFPAY | PROVIDERS: PCP Internal Medicine; Visit Provider Physician Assistant | DX: S80.02XA Contusion of left knee, initial encounter (principal) | CPT/HCPCS: 99212 ==

== ENCOUNTER 2023-12-02 12:00 | Outpatient (AMB) | payer OTHER, SELFPAY ==
--- NOTE | 2023-12-02 12:01 | MHC.OFFVIS ---
Intake Vital Signs 12/02/23 12:04 Height 5 ft 4 in Weight 160 lb BMI 27.5 Intake Visit Reasons: O/V Contusion of left patella 10/18/23 Intake Note: Lindsey is a 78 year old female who presents today for a follow up of her left knee contusion after falling on 10/18/23. She was last seen with Yossi who recommended activity modification. She would like an injection today. Allergies sitagliptin [Januvia] Allergy (Intermediate, Verified 12/02/23 12:02) tremors tramadol [TRAMADOL] Allergy (Mild, Verified 12/02/23 12:02) ABDOMINAL PAIN, stomach upset, severe abd pain HPI O/V Contusion of left patella 10/18/23 HPI Details Lindsey is a 78 year old female who presents today for a follow up of her left knee contusion after falling on 10/18/23. She was last seen with Yossi who recommended activity modification. She would like an injection today. [facility] Medical History Kidney stone on left side Diabetes mellitus B12 deficiency Shoulder pain Headache Urinary retention Renal stones Acute urinary retention Urgency of urination Hypothyroidism Hypertension Dyslipidemia Diabetic polyneuropathy associated with type 2 diabetes mellitus Goiter Diabetes type 2, uncontrolled Surgical History H/O: hysterectomy History of cataract removal with insertion of prosthetic lens Hx of colonoscopy History of esophagogastroduodenoscopy (EGD) Family History Father Lung cancer Mother Kidney failure Alzheimer disease Sister Diabetes Paternal Grandfather Cancer Daughter Diabetes Sister Diabetes Breast cancer Brother Alzheimer disease Colon cancer Brother Colon polyps Social History Household Members: None Housing: Apartment Are you a primary residential care officer to a significant other at home: No Do you presently have visiting nurse or other home services: No Alcohol intake: never Patient Tobacco Use Status: Never used Tobacco e-Cigarette/Vaping Use: Never Used Second Hand Smoke Exposure: No service: No Current occupational status: disabled Current occupation: rt handed Cognitive needs: Yes Hearing needs: No Vision needs: Yes Physical Exam Vital Signs: BMI result Body Mass Index 27.5 Extrem Other: mld effusio nwith retropatellar ttp Office Procedures Joint Injection/Drain Joint Injection/Drain Details: Injected 1 mL of Decadron and 3 mL 1% lidocaine and 3 mL of 0.25% Marcaine. Site was prepped using aseptic technique. Patient tolerated the procedure well. Primary Site: left knee Approach Used: anterolateral Coding - Large joint Procedure code (CPT) selection complete Assessment & Plan Assessment & Plan (1) Diabetic polyneuropathy associated with type 2 diabetes mellitus: Code(s): E11.42 - Type 2 diabetes mellitus with diabetic polyneuropathy Plan: PF OA. Injected left knee. I explained the hyperglycemic effects of steroids. The patient will watch her sugars closely. (2) Patellofemoral arthritis of left knee: Code(s): M17.12 - Unilateral primary osteoarthritis, left knee Plan: Left knee injected Coding Level of Care Code Est Pt Level 4 (94251) Diagnoses Diabetic polyneuropathy associated with type 2 diabetes mellitus E11.42 Patellofemoral arthritis of left knee M17.12 CPT Codes Coding - Large joint: 60074 - Large joint ([id number])
[2023-12-02 12:04] VITALS: BMI 27.5
== END 2023-12-02 12:42 | disposition home or self-care (01) ==
PROVIDERS: PCP Internal Medicine; Visit Provider Orthopaedic Surgery
DX: E11.42 Type 2 diabetes mellitus with diabetic polyneuropathy (principal); M17.12 Unilateral primary osteoarthritis, left knee
CPT/HCPCS: 20610; 99213

== ENCOUNTER → 2023-12-02 12:00 | Outpatient (BNVA) | payer OTHER, SELFPAY | PROVIDERS: PCP Internal Medicine; Visit Provider Orthopaedic Surgery | DX: E11.42 Type 2 diabetes mellitus with diabetic polyneuropathy (principal); M17.12 Unilateral primary osteoarthritis, left knee; S80.02XA Contusion of left knee, initial encounter; W18.30XA Fall on same level, unspecified, initial encounter; Y93.9 Activity, unspecified; Y92.9 Unspecified place or not applicable; Y99.9 Unspecified external cause status | CPT/HCPCS: 20610; 99212; J0665; J1100 ==

== ENCOUNTER 2023-12-03 07:07 | Outpatient (REF) | payer OTHER, SELFPAY ==
[2023-12-03 08:15] LABS: Alanine Aminotransferase 20 U/L (0-31); Albumin Level 4.1 g/dL (3.5-5.0); Alkaline Phosphatase 47 U/L (39-117); Anion Gap 13 (12-20); Aspartate Amino Transferase 14 U/L (5-31); Bilirubin Total 0.2 mg/dL (0.0-1.0); Blood Urea Nitrogen 27 mg/dL (9-16); Calcium 10.5 mg/dL (8.4-10.2); Carbon Dioxide 28 mmol/L (22-29); Chloride 104 mmol/L (96-108); Cholesterol 189 mg/dL (<200); Estimated Glomerular Filt Rate > 60; Glucose Fasting 136 mg/dL (60-99); HDL Cholesterol 53 mg/dL (>40); LDL Cholesterol Calculated 113 mg/dL (<100); Potassium 4.4 mmol/L (3.3-5.1); Sodium 141 mmol/L (135-145); Total Protein 7.1 g/dL (6.5-8.0); Triglycerides 117 mg/dL (<150)
[2023-12-03 08:31] LABS: Thyroid Stimulating Hormone 0.13 uIU/mL (0.32-4.0); Vitamin D 25-OH Total 33.1 ng/mL (>30)
== END 2023-12-03 07:08 | disposition home or self-care (01) ==
LOC: HO.LAB 07:07
PROVIDERS: PCP Internal Medicine; Visit Provider Internal Medicine
DX: E55.9 Vitamin D deficiency, unspecified (principal); E03.9 Hypothyroidism, unspecified; E78.5 Hyperlipidemia, unspecified; R41.89 Other symptoms and signs involving cognitive functions and awareness
CPT/HCPCS: 36415; 80053; 80061; 82306; 84443

== ENCOUNTER 2023-12-07 13:21 | Outpatient (AMB) | payer OTHER, SELFPAY ==
--- NOTE | 2023-12-07 13:46 | A.OFFPC_ITS ---
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 Accompanied by: Daughter Allergies sitagliptin [Januvia] Allergy (Intermediate, Verified 12/07/23 14:19) tremors tramadol [TRAMADOL] Allergy (Mild, Verified 12/07/23 14:19) ABDOMINAL PAIN, stomach upset, severe abd pain Medication List - Last Reconciled 12/07/23 by Brandy Montoya MD acetaminophen (Pain Relief Extra Strength (acetaminophen)) 500 mg PO Q6H PRN 30 days albuterol sulfate 90 mcg/actuation 2 puffs PO Q4H PRN 30 days ascorbic acid (vitamin C) 500 mg PO TID xybdehh-edzqnuhsidnlt-prjfteyj 250-250-65 mg (Headache Relief (GGS-cyphzclpmdnq-mbuuesze)) 1 tab PO Q4-6H PRN blood pressure test kit-medium As directed blood sugar diagnostic (FreeStyle Lite Strips) Use 1 test strip once a day blood sugar diagnostic 4x daily blood-glucose meter (FreeStyle Lite Meter kit) As directed carboxymethylcellulose sodium 1% (Lubricant Dry Eye Relief) 1 drp ophthalmic (eye) BID carboxymethylcellulose sodium 1% (TheraTears) 1 drp ophthalmic (eye) BID cholecalciferol (vitamin D3) 50 mcg PO DAILY 90 days clotrimazole 1% 1 appl topical BID 4 weeks cyanocobalamin (vitamin B-12) 1,000 mcg PO DAILY diclofenac sodium 1% (Voltaren Arthritis Pain) 2 grams topical QID PRN ferrous sulfate 324 mg PO BID 90 days fluticasone propionate 50 mcg/actuation 1 spray intranasal BID PRN lancets (FreeStyle Lancets) As directed once a day levothyroxine 100 mcg PO DAILY 90 days lidocaine HCl-menthol 4-1 % (Icy Hot Max (lidocaine HCl-menthol)) 4 ea topical DAILY linagliptin (Tradjenta) 5 mg PO DAILY 90 days lisinopril 2.5 mg PO DAILY 90 days meclizine 25 mg PO DAILY 90 days metformin 850 mg PO BID 90 days gsjjtuxhkbhk-amza-yxphs acid 18-400 mg-mcg (Centrum Women) 1 tab PO DAILY neomycin-polymyxin B-dexameth 3.5 mg/g-10,000 unit/g-0.1 % 3.5 appl ophthalmic (eye) DAILY omeprazole 20 mg PO BID pyridoxine (vitamin B6) 100 mg PO DAILY 90 days rosuvastatin 20 mg PO DAILY 90 days sertraline 25 mg PO DAILY 90 days sucralfate 1 g PO DAILY tamsulosin 0.4 mg PO BEDTIME Tobacco use date assessed: 12/07/23 Fall risk assessment: 1 Fall in past year Last assessed Fall Risk: 12/07/23 Dental Screening Dental Screen Date: 12/07/23 Did you have a dental visit in the last 12 months?: Yes Did you have a dental problem in the last 6 months where you did not have access to dental care?: No Was dental information given to patient?: Patient has dentist HPI HPI Comments History of Present Illness Details This is a 78-year-old female with diabetes mellitus type 2, hypertension, dyslipidemia and hypothyroidism that comes today accompanied by daughter for follow-up on her conditions. She lives alone and is awake, alert and oriented to person and place but not to time. A1c elevated she will do dietary changes. Blood pressure stable. Lipid panel will be order and her LDL goal should be less than 70. TSH is low and this is why we will decrease levothyroxine and repeat TSH in 6 weeks. Patient is aware. [facility] Medical History Kidney stone on left side Diabetes mellitus B12 deficiency Shoulder pain Headache Urinary retention Renal stones Acute urinary retention Urgency of urination Hypothyroidism Hypertension Dyslipidemia Diabetic polyneuropathy associated with type 2 diabetes mellitus Goiter Diabetes type 2, uncontrolled Surgical History H/O: hysterectomy History of cataract removal with insertion of prosthetic lens Hx of colonoscopy History of esophagogastroduodenoscopy (EGD) Family History Father Lung cancer Mother Kidney failure Alzheimer disease Sister Diabetes Paternal Grandfather Cancer Daughter Diabetes Sister Diabetes Breast cancer Brother Alzheimer disease Colon cancer Brother Colon polyps Social History Household Members: None Housing: Apartment Are you a primary healthcare recruiter to a significant other at home: No Do you presently have visiting nurse or other home services: No Alcohol intake: never Patient Tobacco Use Status: Never used Tobacco e-Cigarette/Vaping Use: Never Used Second Hand Smoke Exposure: No service: No Current occupational status: disabled Current occupation: rt handed Cognitive needs: Yes Hearing needs: No Vision needs: Yes Questionnaire PHQ-9 Over the last 2 weeks, how often have you been bothered by any of the following problems? 1. Little interest or pleasure in doing things: not at all 2. Feeling down, depressed, or hopeless: several days 3. Trouble falling or staying asleep, or sleeping too much: not at all 4. Feeling tired or having little energy: several days 5. Poor appetite or overeating: more than half the days 6. Feeling bad about yourself - or that you are a failure or have let yourself or your family down: not at all 7. Trouble concentrating on things, such as reading the newspaper or watching television: not at all 8. Moving or speaking so slowly that other people could have noticed. Or the opposite - being so fidgety or restless that you have been moving around a lot more than usual: not at all 9. Thoughts that you would be better off or of hurting yourself in some way: not at all Total score: 4 Depression Screening Interpretation: Positive Depression Screening Follow-up: Existing condition and In treatment Depression Screening Done: Yes 32365 - PHQ-9 Billing: Yes Source: Developed by Drs. Clive Ortega, Violet Solis, Pernell Peralta and colleagues, with an educational vinh from [employer]. Thrive Questionnaire Date Thrive assessed: 12/07/23 I am a: Patient What is your living situation today?: I have a steady place to live Within the past 12 months, did the food you bought not last and you didn't have the money to get more?: Never true Within the past 12 months, did you worry whether your food would run out before you got money to buy more?: Never true Do you have trouble paying for medicines?: No Do you have trouble getting transportation to medical appointments?: No Do you have trouble paying your heating and electricity bill?: No Do you have trouble taking care of your child, family member or friend?: No Do you have trouble with day-to-day activities such as bathing, preparing meals, shopping, managing finances, etc.?: No Are you currently unemployed and looking for a job?: No Are you interested in more education?: No Please select the resources that you would like help with: None Currently or been in a relationship where the following occur: no concerns reported THRIVE Score: 0 AUDIT C Alcohol Use Questionnaire (AUDIT-C) 1. How often do you have a drink containing alcohol?: Never Total Score: 0 Score Reviewed/Action Taken: No CHRIS-7 AMB Questionnaire CHRIS-7 Date CHRIS - 7 assessed: 11/18/22 Feeling nervous, anxious, or on edge: 1 = Several days Not being able to stop or control worryin = Several days Worrying too much about different things: 3 = Nearly every day Trouble relaxin = Not at all Being so restless that it is hard to sit still: 0 = Not at all Becoming easily annoyed or irritable: 0 = Not at all Feeling afraid as if something awful might happen: 0 = Not at all Total CHRIS-7 score (0-4 normal; 5-9 mild; 10-14 moderate; 15-21 severe): 5 Source: Developed by Drs. Clive Ortega, Violet Solis, Pernell Peralta and colleagues, with an educational vinh from [employer]. CHRIS-7 Assessment Billing CHRIS-7 Assessment Tool: CHRIS-7 Assessment 44250 Review of Systems Const All systems reviewed & are unremarkable except as noted in HPI and below Eyes Reports no additional complaints, Denies change in vision and Denies other visual disturbances Card Denies chest pain at rest, Denies chest pain with activity, Denies edema, Denies irregular heart rhythm, Denies claudication, Denies dyspnea, Denies dyspnea on exertion, Denies orthopnea, Denies paroxysmal nocturnal dyspnea and Denies slow heart rate Resp Denies cough, Denies dyspnea and Denies dyspnea on exertion GI Denies abdominal pain, Denies change in bowel habits, Denies excessive flatus, Denies nausea and Denies vomiting Denies urinary incontinence, Denies urinary hesitancy and Denies urinary urgency Physical exam (Primary Care) Vital Signs: Last Vital Signs BP 122/70 12/07/23 13:57 BMI result Body Mass Index 27.1 Tobacco/Smoking Status: Tobacco use Status Tobacco use date assessed 12/07/23 12/07/23 13:59 Patient Tobacco Use Status Never used Tobacco 12/07/23 13:50 e-Cigarette/Vaping Use Never Used 12/07/23 13:50 PHQ-9: PHQ-9 Score PHQ-9: Total score 4 12/07/23 14:34 Depression Screening Interpretation: Positive Depression Screening Follow-up: Existing condition and In treatment Thrive Assessment: Date of Thrive Assessment Date Thrive assessed 12/07/23 12/07/23 13:50 Currently or been in a relationship where the following occur: no concerns reported Const Orientation/consciousness: oriented to person and oriented to place Resp Effort & Inspection: normal respiratory effort Auscultation: clear to auscultation bilaterally Cardio Jugular venous distension: no JVD Rate: regular rate Rhythm: regular rhythm Heart sounds: S1 normal heart sound present and S2 normal heart sound present Neuro General: oriented to person and oriented to place Extrem General: Yes full ROM Results AMB Hemoglobin A1c AMB Hemoglobin A1c 7.3 % Last Edit by YURIY Estrada on 12/07/23 14:0 0 Results Reviewed Results Reviewed: Laboratory Last Values Hgb A1c (Clinic) 7.3 % (4.0-6.0) H 12/07/23 13:59 Assessment and Plan Assessment & Plan (1) Diabetes mellitus: Code(s): E11.9 - Type 2 diabetes mellitus without complications Plan: Continue Tradjenta and metformin. A1c goal is equal or less than 7%. (2) Hypertension: Code(s): I10 - Essential (primary) hypertension Qualifiers: Hypertension type: essential hypertension Qualified Code(s): I10 - Essential (primary) hypertension Plan: Continue lisinopril. Blood pressure goal is equal or less than 130/80. (3) Hypothyroidism: Code(s): E03.9 - Hypothyroidism, unspecified Qualifiers: Hypothyroidism type: unspecified Qualified Code(s): E03.9 - Hypothyroidism, unspecified Plan: Continue levothyroxine. (4) Dyslipidemia: Code(s): E78.5 - Hyperlipidemia, unspecified Plan: Continue statins. LDL goal is less than 70. Orders: Orders Comprehensive [place]. Panel Fast 4 Months I10 - Essential (primary) hypertension Vitamin B12 and Folate 4 Months E53.8 - Deficiency of other specified B group vitamins AMB Hemoglobin A1c Today E11.9 - Type 2 diabetes mellitus without complications Thyroid Stimulating Hormone 6 Weeks E03.9 - Hypothyroidism, unspecified Lipid Panel 4 Months E78.5 - Hyperlipidemia, unspecified, I10 - Essential (primary) hypertension Microalbumin, Random (w Creat) 4 Months E11.65 - Type 2 diabetes mellitus with hyperglycemia, E11.9 - Type 2 diabetes mellitus without complications Medications: New levothyroxine 88 mcg PO DAILY 90 days 90 tabs 1RF Refilled rosuvastatin 20 mg PO DAILY 90 days 90 tabs 1RF E78.5 - Hyperlipidemia, unspecified Discontinued levothyroxine Discontinued Reason: Patient Completed Course 100 mcg PO DAILY 90 days 90 tabs 1RF tamsulosin Discontinued Reason: Patient Refused 0.4 mg PO BEDTIME Coding Level of Care Code Est Pt Level 4 (62543) Diagnoses Diabetes mellitus E11.9 Essential hypertension I10 Hypertension type: essential hypertension Hypothyroidism, unspecified type E03.9 Hypothyroidism type: unspecified Dyslipidemia E78.5 Additional Codes CHRIS-7 Assessment Billing - CHRIS-7 Assessment Tool: CHRIS-7 Assessment 95048 ([id number]) Time Spent (min) 24
[2023-12-07 13:57] VITALS: BP 122/70; BMI 27.1
== END 2023-12-07 14:36 | disposition home or self-care (01) ==
PROVIDERS: PCP Internal Medicine; Visit Provider Internal Medicine
DX: E11.9 Type 2 diabetes mellitus without complications (principal); I10 Essential (primary) hypertension; E03.9 Hypothyroidism, unspecified; E78.5 Hyperlipidemia, unspecified
CPT/HCPCS: 83036; 99214

== ENCOUNTER 2024-01-24 14:23 | Outpatient (AMB) | payer OTHER, MEDICAID, SELFPAY ==
--- NOTE | 2024-01-24 14:25 | MHC.OFFVIS ---
Vital Signs 01/24/24 14:26 Height 5 ft 4 in Weight 157 lb BMI 26.9 BP 151/68 H Blood Pressure Location Lt brachial Position Sitting Pulse 96 Intake Visit Reasons: 6 mnth follow up Intake Note: Patient 6 month follow up for abdominal bloating Patient cc: Abdominal discomfort with bloating, acid reflex with burning sensation. 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 Will do 2 day prep next time. The procedure was well tolerated. The results were explained and the patient is agreeable to the follow-up interval as stated. The bowel pattern has returned to normal. Education was provided to tell any 1st degree relatives about their findings to be sure that they are screened by age 45. Educated that they will be put on a recall list when it is time for their repeat scope but should they move out of state or away from the hospital they will need to remember along with their primary to repeat the procedure in a timely fashion to avoid any adverse complications. Reviewed the EGD, known chronic HP infection. BUT she is doing well with tx of the sx, eating well and only occasional pain. She continues on her Carafate at noon and her pantoprazole twice a day treating the H pylori symptomatic leak. ROV 6 mos. (2) GERD (gastroesophageal reflux disease): Code(s): K21.9 - Gastro-esophageal reflux disease without esophagitis (3) Gastric polyp: Code(s): K31.7 - Polyp of stomach and duodenum (4) Abdominal bloating: Code(s): R14.0 - Abdominal distension (gaseous) TODAY'S VISIT [facility] #dtr translates per pt request Lindsey had been having more dyspepsia lately and it is uncertain if this is r/t not taking the sucralfate 1g qd. They think she is continuing on omeprazole 20 mg bid. She has tx resistant HP. There has been no other medication changes except stopping her sertraline and aricept or namenda (uncertain which). No preceding illness. she is moving her bowels well. She also had an episode of confusion waking up and not knowing where she was and is awaiting a CT of the brain and a UA. ROV 3 weeks. [facility] Medical History (Updated 01/24/24 @ 14:29 by ELLIE Gilliam) Diabetes type 2, uncontrolled Dysuria Renal cyst Shoulder pain Pre-operative clearance Renal stones Gastric polyp Arthritis of left knee Epigastric pain Pre-op examination Kidney stone on left side Diabetes mellitus B12 deficiency Headache Urinary retention Renal stones Acute urinary retention Urgency of urination Hypothyroidism Hypertension Dyslipidemia Diabetic polyneuropathy associated with type 2 diabetes mellitus Goiter Surgical History H/O: hysterectomy History of cataract removal with insertion of prosthetic lens Hx of colonoscopy History of esophagogastroduodenoscopy (EGD) Family History Father Lung cancer Mother Kidney failure Alzheimer disease Sister Diabetes Paternal Grandfather Cancer Daughter Diabetes Sister Diabetes Breast cancer Brother Alzheimer disease Colon cancer Brother Colon polyps Social History Household Members: None Housing: Apartment Are you a primary animal care provider to a significant other at home: No Do you presently have visiting nurse or other home services: No Alcohol intake: never Patient Tobacco Use Status: Never used Tobacco e-Cigarette/Vaping Use: Never Used Second Hand Smoke Exposure: No service: No Current occupational status: disabled Current occupation: rt handed Cognitive needs: Yes Hearing needs: No Vision needs: Yes Review of Systems Const Denies fatigue, Denies fever(s), Denies night sweats, Denies poor appetite and Denies weight loss ENT Reports Normal hearing present, Denies dental pain, Denies dysphagia, Denies hearing loss, Denies mouth pain, Denies odynophagia, Denies throat swelling, Denies tongue swelling and Reports other (Dentition adequate) Card Reports no additional complaints Resp Reports no additional complaints GI Details: Denies abdominal pain, Denies melena, Reports bloating, Denies hematochezia, Denies constipation, Denies GI cramping, Denies dysphagia, Denies excessive flatus, Denies early satiety, Reports dyspepsia, Denies heartburn, Denies diarrhea, Reports nausea, Denies odynophagia, Denies vomiting and Denies hematemesis Skin/Breast Denies pruritus, Denies lesions, Denies rash and Denies jaundice Neuro Reports Normal hearing present and Denies Abnormal speech present Endo Denies fatigue Aller/Immun Denies throat swelling and Denies tongue swelling Physical Exam Vital Signs: Last Vital Signs Pulse 96 01/24/24 14:26 BP 151/68 H 01/24/24 14:26 BMI result Body Mass Index 26.9 Const General: cooperative, no acute distress, well developed and well groomed Nutritional Appearance: average body habitus and well nourished Orientation/consciousness: oriented to person, oriented to place and oriented to time Limitations: language barrier HEENT Head: Yes normocephalic and Yes atraumatic Eyes General: appearance normal, both eyes and all related structures Pupils: Equal, round and reactive pupils present Neck Neck: Yes normal visual inspection and Yes no lymphadenopathy Thyroid: Thyroid normal Resp Effort & Inspection: normal respiratory effort and able to speak in complete sentences Auscultation: clear to auscultation bilaterally Cardio Rate: regular rate Rhythm: regular rhythm Heart sounds: Normal, physiologic split S2 sound present Peripheral pulses: radial pulses present and posterior tibial pulses present GI Inspection: No distended, No Abdominal panniculus present and Yes obesity Palpation (GI): Soft to palpation, Tenderness to palpation present (GI) in the epigastrum, no guarding, not rigid and No hepatosplenomegaly present Percussion: Yes normal to percussion Auscultation: normal bowel sounds Rectal Exam - Female: deferred Skin General skin exam: no rashes or lesions noted, turgor normal, skin not dry, no jaundice, No spider nevi and no striae Rashes: no rashes Nails: normal Neuro General: oriented to person, oriented to place and oriented to time Cranial nerves: Yes Equal, round and reactive pupils present and Yes Normal hearing present Speech: No Abnormal speech present Extrem General: Yes normal to inspection, No clubbing, No cyanosis and No edema Psych Appearance: grossly normal and well kempt Mental Status: mental status grossly normal Speech and movement: Normal speech and movement present Affect: normal affect Attitude: cooperative Thought process: not confabulating and Impoverished thought process present Thought content: Normal thought content present Insight: Limited insight present (Psych) Judgement: Limited judgement present (Psych) Assessment & Plan Assessment & Plan (1) GERD (gastroesophageal reflux disease): Code(s): K21.9 - Gastro-esophageal reflux disease without esophagitis Category: Medical (2) Abdominal bloating: Code(s): R14.0 - Abdominal distension (gaseous) Category: Medical (3) H. pylori infection: Comment: With gastric polyp Resistant strain that failed Prevpac and Helidac and a rifabutin course treating symptomatically Code(s): A04.8 - Other specified bacterial intestinal infections Category: Medical Plan [facility] #dtr translates per pt request Lindsey had been having more dyspepsia lately and it is uncertain if this is r/t not taking the sucralfate 1g qd. They think she is continuing on omeprazole 20 mg bid. She has tx resistant HP. There has been no other medication changes except stopping her sertraline and aricept or namenda (uncertain which). No preceding illness. she is moving her bowels well. She also had an episode of confusion waking up and not knowing where she was and is awaiting a CT of the brain and a UA. ROV 3 weeks. Medications: Discontinued sertraline Discontinued Reason: Patient no longer taking 25 mg PO DAILY 90 days 90 tabs 0RF Coding Level of Care Code Est Pt Level 3 (56357) Diagnoses GERD (gastroesophageal reflux disease) K21.9 Abdominal bloating R14.0 H. pylori infection A04.8
[2024-01-24 14:26] VITALS: BP 151/68; PULSE 96; BMI 26.9
== END 2024-01-24 14:55 | disposition home or self-care (01) ==
PROVIDERS: PCP Internal Medicine; Visit Provider Nurse Practitioner
DX: K21.9 Gastro-esophageal reflux disease without esophagitis (principal); R14.0 Abdominal distension (gaseous); A04.8 Other specified bacterial intestinal infections
CPT/HCPCS: 99213

== ENCOUNTER → 2024-01-24 14:23 | Outpatient (BNVA) | payer OTHER, MEDICAID, SELFPAY | PROVIDERS: PCP Internal Medicine; Visit Provider Nurse Practitioner | DX: K21.9 Gastro-esophageal reflux disease without esophagitis (principal); R14.0 Abdominal distension (gaseous); A04.8 Other specified bacterial intestinal infections; Z86.010 Personal history of colon polyps; Z79.899 Other long term (current) drug therapy | CPT/HCPCS: 99212 ==

== ENCOUNTER 2024-02-15 15:07 | Outpatient (AMB) | payer OTHER, SELFPAY ==
[2024-02-15 15:15] VITALS: BP 127/67; PULSE 90; BMI 27.4
--- NOTE | 2024-02-15 15:15 | MHC.OFFVIS ---
Vital Signs 02/15/24 15:15 Height 5 ft 4 in Weight 159 lb 9.835 oz BMI 27.4 BP 127/67 Blood Pressure Location Lt brachial Position Sitting Pulse 90 Intake Visit Reasons: 3 week follow up Intake Note: Patient in office today in follow up of abdominal discomfort. CC: Patient reports occasional constipation d/t the iron pill she takes. She states she continues to have some abdominal discomfort. Resident Programs Assistant Required: No Accompanied by: Daughter Allergies sitagliptin [Januvia] Allergy (Intermediate, Verified 02/15/24 15:33) tremors tramadol [TRAMADOL] Allergy (Mild, Verified 02/15/24 15:33) ABDOMINAL PAIN, stomach upset, severe abd pain HPI HPI 3 week follow up: Details: Assessment & Plan (1) GERD (gastroesophageal reflux disease): Code(s): K21.9 - Gastro-esophageal reflux disease without esophagitis Category: Medical (2) Abdominal bloating: Code(s): R14.0 - Abdominal distension (gaseous) Category: Medical (3) H. pylori infection: Comment: With gastric polyp Resistant strain that failed Prevpac and Helidac and a rifabutin course treating symptomatically Code(s): A04.8 - Other specified bacterial intestinal infections Category: Medical Plan KITTITIAN #dtr translates per pt request Lindsey had been having more dyspepsia lately and it is uncertain if this is r/t not taking the sucralfate 1g qd. They think she is continuing on omeprazole 20 mg bid. She has tx resistant HP. There has been no other medication changes except stopping her sertraline and aricept or namenda (uncertain which). No preceding illness. she is moving her bowels well. She also had an episode of confusion waking up and not knowing where she was and is awaiting a CT of the brain and a UA. ROV 3 weeks. Medications: Discontinued sertraline Discontinued Reason: Patient no longer taking 25 mg PO DAILY 90 days 90 tabs 0RF Laboratory Tests 09/19/23 12/03/23 15:12 07:22 WBC 7.7 Hgb 11.3 L Hct 36.2 L MCV 83.0 MCH 25.9 L Estimated GFR > 60 Total Bilirubin 0.2 AST 14 ALT 20 Alkaline Phosphatase 47 TSH 0.13 L TODAY'S VISIT KITTITIAN #Bernard Live She has not taking sucralfate as she found it upset her stomach and she seems to be doing quite well on just the omeprazole. We should discuss ordering her repeat colonoscopy since rescheduling into June and her last colon was 05/2023 with insufficient prep. She is agreeable. She has a hx of TA. Are no prior problems with anesthesia or sedation. She denies any cardiac or respiratory problems. No ID problems. ROV 6 mos, and after colonoscopy PFSH Medical History Diabetes type 2, uncontrolled Dysuria Renal cyst Shoulder pain Pre-operative clearance Renal stones Gastric polyp Arthritis of left knee Epigastric pain Pre-op examination Kidney stone on left side Diabetes mellitus B12 deficiency Headache Urinary retention Renal stones Acute urinary retention Urgency of urination Hypothyroidism Hypertension Dyslipidemia Diabetic polyneuropathy associated with type 2 diabetes mellitus Goiter Surgical History H/O: hysterectomy History of cataract removal with insertion of prosthetic lens Hx of colonoscopy History of esophagogastroduodenoscopy (EGD) Family History Father Lung cancer Mother Kidney failure Alzheimer disease Sister Diabetes Paternal Grandfather Cancer Daughter Diabetes Sister Diabetes Breast cancer Brother Alzheimer disease Colon cancer Brother Colon polyps Social History Household Members: None Housing: Apartment Are you a primary residential caregiver to a significant other at home: No Do you presently have visiting nurse or other home services: No Alcohol intake: never Patient Tobacco Use Status: Never used Tobacco e-Cigarette/Vaping Use: Never Used Second Hand Smoke Exposure: No service: No Current occupational status: disabled Current occupation: rt handed Cognitive needs: Yes Hearing needs: No Vision needs: Yes Review of Systems Const Denies fatigue, Denies fever(s), Denies night sweats, Denies poor appetite and Denies weight loss Eyes Details: glasse Reports requires corrective lenses ENT Reports Normal hearing present, Denies dental pain, Denies dysphagia, Denies hearing loss, Denies mouth pain, Denies odynophagia, Denies throat swelling, Denies tongue swelling and Reports other (Dentition adequate) Card Reports no additional complaints Resp Reports no additional complaints GI Details: Denies abdominal pain, Denies melena, Denies bloating, Denies hematochezia, Denies constipation, Denies GI cramping, Denies dysphagia, Denies excessive flatus, Denies early satiety, Reports dyspepsia, Reports heartburn, Denies diarrhea, Denies nausea, Denies odynophagia, Denies vomiting and Denies hematemesis Skin/Breast Denies pruritus, Denies lesions, Denies rash and Denies jaundice Neuro Reports Normal hearing present, Denies Abnormal speech present and Reports memory loss Psych Reports memory loss Endo Denies fatigue Aller/Immun Denies throat swelling and Denies tongue swelling Physical Exam Vital Signs: Last Vital Signs Pulse 90 02/15/24 15:15 BP 127/67 02/15/24 15:15 BMI result Body Mass Index 27.4 Const General: cooperative, no acute distress, well developed and well groomed Nutritional Appearance: average body habitus and well nourished Orientation/consciousness: oriented to person, oriented to place and oriented to time Limitations: language barrier and other limitations HEENT Head: Yes normocephalic and Yes atraumatic Eyes General: appearance normal, both eyes and all related structures Pupils: Equal, round and reactive pupils present Neck Neck: Yes normal visual inspection and Yes no lymphadenopathy Thyroid: Thyroid normal Resp Effort & Inspection: normal respiratory effort and able to speak in complete sentences Auscultation: clear to auscultation bilaterally Cardio Rate: regular rate Rhythm: regular rhythm Heart sounds: Normal, physiologic split S2 sound present Peripheral pulses: radial pulses present and posterior tibial pulses present GI Inspection: No distended and No Abdominal panniculus present Palpation (GI): Soft to palpation, nontender, no guarding, not rigid and No hepatosplenomegaly present Percussion: Yes normal to percussion Auscultation: normal bowel sounds Rectal Exam - Female: deferred Skin General skin exam: no rashes or lesions noted, turgor normal, skin not dry, no jaundice, No spider nevi and no striae Rashes: no rashes Nails: normal Neuro General: oriented to person, oriented to place and oriented to time Cranial nerves: Yes Equal, round and reactive pupils present and Yes Normal hearing present Speech: No Abnormal speech present Extrem General: Yes normal to inspection, No clubbing, No cyanosis and No edema Psych Appearance: grossly normal and well kempt Mental Status: mental status grossly normal Speech and movement: Normal speech and movement present Affect: normal affect Attitude: cooperative Thought process: Normal thought process present and not confabulating Thought content: Normal thought content present Insight: Limited insight present (Psych) Judgement: Limited judgement present (Psych) Results Reviewed Results Reviewed: Laboratory Tests 09/19/23 12/03/23 15:12 07:22 WBC 7.7 Hgb 11.3 L Hct 36.2 L MCV 83.0 MCH 25.9 L Estimated GFR > 60 Total Bilirubin 0.2 AST 14 ALT 20 Alkaline Phosphatase 47 TSH 0.13 L Assessment & Plan Assessment & Plan (1) GERD (gastroesophageal reflux disease): Code(s): K21.9 - Gastro-esophageal reflux disease without esophagitis Category: Medical (2) Abdominal bloating: Code(s): R14.0 - Abdominal distension (gaseous) Category: Medical (3) H. pylori infection: Comment: With gastric polyp Resistant strain that failed Prevpac and Helidac and a rifabutin course treating symptomatically Code(s): A04.8 - Other specified bacterial intestinal infections Category: Medical (4) Tubular adenoma of colon: Comment: 2022=TA repeat 1 year r/t poor prep Code(s): D12.6 - Benign neoplasm of colon, unspecified Category: Medical Plan KITTITIAN #Bernard Live She has not taking sucralfate as she found it upset her stomach and she seems to be doing quite well on just the omeprazole. We should discuss ordering her repeat colonoscopy since rescheduling into June and her last colon was 05/2023 with insufficient prep. She is agreeable. She has a hx of TA. Are no prior problems with anesthesia or sedation. She denies any cardiac or respiratory problems. No ID problems. ROV 6 mos, and after colonoscopy Orders: Orders Colonoscopy - GI Use Only Today D12.6 - Benign neoplasm of colon, unspecified Medications: New peg 3350-electrolytes 236-22.74-6.74 -5.86 gram (Golytely) until fecal effluent is clear; do not exceed a total volume of 2,000 mL 240 mL PO Q10M 4,000 mL 0RF 1 day Z12.11 - Encounter for screening for malignant neoplasm of colon bisacodyl (Dulcolax (bisacodyl)) 10 mg (2 x 5 mg) PO BEDTIME 7 tabs 0RF 2 days Refilled omeprazole 20 mg PO BID 180 caps 3RF A04.8 - Other specified bacterial intestinal infections, K21.9 - Gastro-esophageal reflux disease without esophagitis Discontinued sucralfate Discontinued Reason: Patient no longer taking 1 g PO DAILY 90 tabs 2RF A04.8 - Other specified bacterial intestinal infections Coding Level of Care Code Est Pt Level 3 (30460) Diagnoses GERD (gastroesophageal reflux disease) K21.9 Abdominal bloating R14.0 H. pylori infection A04.8 Tubular adenoma of colon D12.6
== END 2024-02-15 16:10 | disposition home or self-care (01) ==
PROVIDERS: PCP Internal Medicine; Visit Provider Nurse Practitioner
DX: K21.9 Gastro-esophageal reflux disease without esophagitis (principal); R14.0 Abdominal distension (gaseous); A04.8 Other specified bacterial intestinal infections; D12.6 Benign neoplasm of colon, unspecified
CPT/HCPCS: 99213

== ENCOUNTER → 2024-02-15 15:07 | Outpatient (BNVA) | payer OTHER, SELFPAY | PROVIDERS: PCP Internal Medicine; Visit Provider Nurse Practitioner | DX: K21.9 Gastro-esophageal reflux disease without esophagitis (principal); R14.0 Abdominal distension (gaseous); A04.8 Other specified bacterial intestinal infections; D12.6 Benign neoplasm of colon, unspecified | CPT/HCPCS: 99212 ==

== ENCOUNTER 2024-02-28 12:51 | Outpatient (REF) | payer OTHER, SELFPAY ==
--- NOTE | ~2024-02-28 | XR_ITS ---
EXAMINATION: XR HIP, RIGHT CLINICAL INFORMATION: Pain in right hip. COMPARISON: [facility] of 03/23/2023, hip radiographs 11/29/2016. TECHNIQUE: AP view of the pelvis and 2 views of the right hip. FINDINGS: Degenerative changes in the imaged lower lumbar spine. Pubic symphysis is maintained. Bones are diffusely demineralized. Mild degenerative changes in the right hip with hypertrophic acetabular change and joint space loss. Right hip alignment preserved. Single AP view of the left hip demonstrates mild degenerative changes. XR/XR hip RT min 2V IMPRESSION: 1. Mild degenerative changes in the right hip. 2. Degenerative changes in the imaged lower lumbar spine. Additional imaging with CT scan or MRI should be considered for further evaluation if there is clinical concern for fracture or other underlying pathology. This study was presented today March 07, 2024 for interpretation. Stat results provided at this time as requested by referring provider.
[2024-02-28 13:13] LABS: MANUAL DIFF FLAG NO
[2024-02-28 13:18] LABS: Basophils Percent Auto 0.7 % (0-2); Eosinophils Absolute Auto 0.1 X10*3/uL (0.0-0.4); Eosinophils Percent Auto 1.5 % (0-4); Hematocrit 34.2 % (37.0-47.0); Hemoglobin 10.9 g/dl (12.0-16.0); Imm Gran Abs Auto 0.02 X10*3/uL (0.00-0.03); Imm Gran Pct Auto 0.3 % (0.0-0.4); Lymphocytes Absolute Auto 1.5 X10*3/uL (1.2-4.9); Lymphocytes Percent Auto 25.1 % (20-40); Mean Corpuscular HGB Conc 31.9 g/dl (31.0-35.0); Mean Corpuscular Hemoglobin 25.8 pg (27.0-33.0); Mean Platelet Volume 9.5 fL (9.4-12.3); Monocytes Absolute Auto 0.3 X10*3/uL (0.1-1.2); Monocytes Percent Auto 5.3 % (2-11); Neutrophils Absolute Auto 4.1 x10*3/uL (2.0-8.3); Neutrophils Percent Auto 67.1 % (45-73); Platelet Count 382 X10*3/uL (160-400); Red Blood Count 4.22 X10*6/uL (4.20-5.50); Red Cell Distribution Width 15.1 % (11.0-16.0); White Blood Count 6.1 X10*3/uL (4.8-10.8)
[2024-02-28 13:39] LABS: Alanine Aminotransferase 23 U/L (0-31); Albumin Level 3.9 g/dL (3.5-5.0); Alkaline Phosphatase 43 U/L (39-117); Anion Gap 10 (12-20); Aspartate Amino Transferase 20 U/L (5-31); Bilirubin Total 0.2 mg/dL (0.0-1.0); Blood Urea Nitrogen 23 mg/dL (9-16); Calcium 9.9 mg/dL (8.4-10.2); Carbon Dioxide 30 mmol/L (22-29); Chloride 107 mmol/L (96-108); Estimated Glomerular Filt Rate > 60; Glucose Random 187 mg/dL (60-115); Sodium 142 mmol/L (135-145); Total Protein 6.8 g/dL (6.5-8.0)
[2024-02-28 13:52] LABS: Ferritin 58 ng/mL (10-250)
== END 2024-02-28 12:52 | disposition home or self-care (01) ==
LOC: HO.XRAY 12:51
PROVIDERS: Absent Provider Internal Medicine; PCP Internal Medicine; Visit Provider Internal Medicine Medical Oncology
DX: D64.9 Anemia, unspecified (principal); M25.551 Pain in right hip
CPT/HCPCS: 36415; 73502; 80053; 82728; 85025

== ENCOUNTER 2024-03-06 19:15 | Outpatient (REF) | payer OTHER, SELFPAY ==
--- NOTE | ~2024-03-06 | MR_ITS ---
EXAMINATION: MR BRAIN WITHOUT CONTRAST CLINICAL INFORMATION: Disorientation. COMPARISON: Brain MRI from 06/15/2021. TECHNIQUE: MRI of the brain was obtained using routine sequences without contrast. FINDINGS: No focal restricted diffusion is demonstrated to suggest acute or subacute cerebral ischemia. No evidence of acute or chronic hemorrhagic products on heme-sensitive imaging. Small region of chronic encephalomalacia in the high left frontal lobe. Scattered periventricular and deep white matter T2 FLAIR hyperintensities consistent with mild underlying microangiopathy. Proportional prominence of the ventricles and sulcal spaces without evidence of obstructive hydrocephalus. No abnormal mass effect. No midline shift. Normal appearance of the pituitary gland. Normal positioning of the cerebellar tonsils. Normal arterial and venous vascular flow voids are present. Normal, homogeneous marrow signal. Mild mucosal thickening of the paranasal sinuses. No signal abnormalities within the mastoids. Right-sided phthisis bulbi with prothesis. MR/MR head/brain wo con IMPRESSION: 1. No acute intracranial abnormalities. 2. Small region of chronic encephalomalacia in the high left frontal lobe. Mild underlying microangiopathy and generalized cerebral volume loss.
== END 2024-03-06 19:16 | disposition home or self-care (01) ==
LOC: HO.MRI 19:15
PROVIDERS: PCP Internal Medicine; Visit Provider Internal Medicine
DX: R41.0 Disorientation, unspecified (principal)
CPT/HCPCS: 70551

== ENCOUNTER 2024-03-13 07:57 | Outpatient (REF) | payer OTHER, SELFPAY ==
[2024-03-13 09:34] LABS: Alanine Aminotransferase 20 U/L (0-31); Alkaline Phosphatase 49 U/L (39-117); Anion Gap 12 (12-20); Aspartate Amino Transferase 18 U/L (5-31); Bilirubin Total 0.3 mg/dL (0.0-1.0); Blood Urea Nitrogen 23 mg/dL (9-16); Calcium 10.4 mg/dL (8.4-10.2); Carbon Dioxide 27 mmol/L (22-29); Chloride 107 mmol/L (96-108); Cholesterol 180 mg/dL (<200); Estimated Glomerular Filt Rate > 60; Glucose Fasting 169 mg/dL (60-99); HDL Cholesterol 48 mg/dL (>40); LDL Cholesterol Calculated 111 mg/dL (<100); Potassium 4.7 mmol/L (3.3-5.1); Sodium 141 mmol/L (135-145); Triglycerides 109 mg/dL (<150)
[2024-03-13 09:47] LABS: Appearance Urine Cloudy; Color Urine Yellow; Glucose Urine UA Negative (Negative); Leukocyte Esterase Urine Moderate (2+) (Negative); Nitrite Urine Negative (Negative); PH 7.5 (5.0-9.0); Specific Gravity - Urine 1.015 (1.005-1.025); UMIC TRIGGER UACC YES; Urine Blood Negative (Negative); Urine Ketones Negative (Negative); Urine Protein Negative (Neg-Trace)
[2024-03-13 09:50] LABS: Thyroid Stimulating Hormone 1.38 uIU/mL (0.32-4.0)
[2024-03-13 09:53] LABS: Bacteria Urine 4+ (None Seen); Hyaline Casts Urine 0-2 /LPF (0-2); RBC Urine 0-2 /HPF (0-2); UACC Culture Trigger YES
[2024-03-13 10:00] LABS: Creatinine Urine 41.23 mg/dL; Microalbumin Urine < 5.0 mg/L
[2024-03-13 11:05] LABS: Folate 10.5 ng/mL (> or = 4.0); Vitamin B12 566 pg/mL (200-900)
== END 2024-03-13 07:58 | disposition home or self-care (01) ==
LOC: HO.LAB 07:57
PROVIDERS: PCP Internal Medicine; Visit Provider Internal Medicine
DX: I10 Essential (primary) hypertension (principal); E53.8 Deficiency of other specified B group vitamins; E11.9 Type 2 diabetes mellitus without complications; E11.65 Type 2 diabetes mellitus with hyperglycemia; E03.9 Hypothyroidism, unspecified; E78.5 Hyperlipidemia, unspecified
CPT/HCPCS: 36415; 80053; 80061; 81001; 82043; 82570; 82607; 82746; 84443; 87086; 87088; 87186

== ENCOUNTER 2024-03-19 11:04 | Outpatient (AMB) | payer OTHER, SELFPAY ==
[2024-03-19 11:07] VITALS: BP 108/60; PULSE 78; O2SAT 96; BMI 26.8
--- NOTE | 2024-03-19 11:07 | MHC.PC.OV ---
Vital Signs 03/19/24 11:07 Height 5 ft 4 in Weight 156 lb BMI 26.8 BP 108/60 Blood Pressure Location Lt brachial Position Sitting Pulse 78 Pulse Source Pulse Oximeter Pulse Oximetry (%) 96 Oxygen Delivery Method Room Air Intake Visit Reasons: headache, diarrhea and hip pain Sr Account Executive Required: No Accompanied by: Self / Same As Patient Allergies sitagliptin [Januvia] Allergy (Intermediate, Verified 03/19/24 14:12) tremors tramadol [TRAMADOL] Allergy (Mild, Verified 03/19/24 14:12) ABDOMINAL PAIN, stomach upset, severe abd pain Medication List - Last Reconciled 03/19/24 by Brandy Montoya MD acetaminophen (Pain Relief Extra Strength (acetaminophen)) 500 mg PO Q6H PRN 30 days albuterol sulfate 90 mcg/actuation 2 puffs PO Q4H PRN 30 days ascorbic acid (vitamin C) 500 mg PO TID wnscdvz-zeqdofurjvgsr-wtyexxlr 250-250-65 mg (Headache Relief (YTI-hyvvdswpxcmi-rapbztlw)) 1 tab PO Q4-6H PRN bisacodyl (Dulcolax (bisacodyl)) 10 mg (2 x 5 mg) PO BEDTIME 2 days blood pressure test kit-medium As directed blood sugar diagnostic (FreeStyle Lite Strips) Use 1 test strip once a day blood sugar diagnostic 4x daily blood-glucose meter (FreeStyle Lite Meter kit) As directed carboxymethylcellulose sodium 1% (TheraTears) 1 drp ophthalmic (eye) BID cholecalciferol (vitamin D3) 50 mcg PO DAILY 90 days cyanocobalamin (vitamin B-12) 1,000 mcg PO DAILY ferrous sulfate 324 mg PO BID 90 days fluticasone propionate 50 mcg/actuation 1 spray intranasal BID PRN lancets (FreeStyle Lancets) As directed once a day levothyroxine 88 mcg PO DAILY 90 days lidocaine HCl-menthol 4-1 % (Icy Hot Max (lidocaine HCl-menthol)) 4 ea topical DAILY linagliptin (Tradjenta) 5 mg PO DAILY 90 days lisinopril 2.5 mg PO DAILY 90 days meclizine 25 mg PO DAILY 90 days memantine 7 mg PO DAILY 30 days metformin 850 mg PO BID 90 days rferspolopmz-fhtr-pnsev acid 18-400 mg-mcg (Centrum Women) 1 tab PO DAILY nitrofurantoin macrocrystal 100 mg PO BID 5 days omeprazole 20 mg PO BID peg 3350-electrolytes 236-22.74-6.74 -5.86 gram (Golytely) 240 mL PO Q10M 1 day pyridoxine (vitamin B6) 100 mg PO DAILY 90 days rosuvastatin 20 mg PO DAILY 90 days Tobacco use date assessed: 12/07/23 Fall risk assessment: No Falls in past year Last assessed Fall Risk: 03/19/24 Dental Screening Dental Screen Date: 12/07/23 HPI HPI Comments History of Present Illness Details This is a 78-year-old female with diabetes mellitus type 2, hypertension, hypothyroidism and dyslipidemia that comes today accompanied by daughter Stefania complaining of persistent headaches diffuse throughout the head with no neurological deficit. She denies any unilateral weakness or blurry vision. Her eyes were checked and she does have a right eye prosthesis. No visual abnormality in the left eye. I will start her on Triptan as needed. MRI results of the brain are still pending. She will be referred to Neurology. A1c about the same as last time and I replaced metformin with glipizide because metformin was causing abdominal discomfort and diarrhea. Blood pressure stable. Last TSH was normal. LDL elevated and dietary changes were advised. [facility] Medical History (Updated 03/19/24 @ 15:46 by Brandy Montoya MD) Diabetes type 2, uncontrolled Dysuria Renal cyst Shoulder pain Pre-operative clearance Renal stones Gastric polyp Arthritis of left knee Epigastric pain Pre-op examination Kidney stone on left side Diabetes mellitus B12 deficiency Headache Urinary retention Renal stones Acute urinary retention Urgency of urination Hypothyroidism Hypertension Dyslipidemia Diabetic polyneuropathy associated with type 2 diabetes mellitus Goiter Surgical History H/O: hysterectomy History of cataract removal with insertion of prosthetic lens Hx of colonoscopy History of esophagogastroduodenoscopy (EGD) Family History Father Lung cancer Mother Kidney failure Alzheimer disease Sister Diabetes Paternal Grandfather Cancer Daughter Diabetes Sister Diabetes Breast cancer Brother Alzheimer disease Colon cancer Brother Colon polyps Social History Household Members: None Housing: Apartment Are you a primary anesthesiologist and critical care to a significant other at home: No Do you presently have visiting nurse or other home services: No Alcohol intake: never Patient Tobacco Use Status: Never used Tobacco e-Cigarette/Vaping Use: Never Used Second Hand Smoke Exposure: No Use of substances other than those prescribed or required for medical reasons: No Have you been hit, kicked, punched, or otherwise hurt by someone within the past year? If so, by whom?: No Do you have thoughts of harming others: None Do you have a plan to hurt others: No Plan Do you have the means to hurt others: No Recently lost weight without trying: No Patient : No service: No Current occupational status: disabled Current occupation: rt handed Cognitive needs: Yes Hearing needs: No Vision needs: Yes Questionnaire Thrive Questionnaire Date Thrive assessed: 12/07/23 AUDIT C Alcohol Use Questionnaire (AUDIT-C) 1. How often do you have a drink containing alcohol?: Never Total Score: 0 Score Reviewed/Action Taken: No CHRIS-7 AMB Questionnaire CHRIS-7 Date CHRIS - 7 assessed: 11/18/22 Source: Developed by Drs. Clive Ortega, Violet Solis, Pernell Peralta and colleagues, with an educational vinh from [employer]. Review of Systems Const All systems reviewed & are unremarkable except as noted in HPI and below Card Denies chest pain at rest, Denies chest pain with activity, Denies edema, Denies irregular heart rhythm, Denies claudication, Denies dyspnea, Denies dyspnea on exertion, Denies orthopnea, Denies paroxysmal nocturnal dyspnea and Denies slow heart rate Resp Denies cough, Denies dyspnea and Denies dyspnea on exertion GI Denies abdominal pain, Denies change in bowel habits, Denies excessive flatus, Denies nausea and Denies vomiting Denies urinary incontinence, Denies urinary hesitancy and Denies urinary urgency Physical exam (Primary Care) Vital Signs: Last Vital Signs Pulse 78 03/19/24 11:07 BP 108/60 03/19/24 11:07 Pulse Ox 96 03/19/24 11:07 Oxygen Delivery Method Room Air 03/19/24 11:07 BMI result Body Mass Index 26.8 Tobacco/Smoking Status: Tobacco use Status Tobacco use date assessed 12/07/23 03/19/24 11:08 Patient Tobacco Use Status Never used Tobacco 03/19/24 11:08 e-Cigarette/Vaping Use Never Used 03/19/24 11:08 Thrive Assessment: Date of Thrive Assessment Date Thrive assessed 12/07/23 03/19/24 11:08 Resp Effort & Inspection: normal respiratory effort Auscultation: clear to auscultation bilaterally Cardio Jugular venous distension: no JVD Rate: regular rate Rhythm: regular rhythm Heart sounds: S1 normal heart sound present and S2 normal heart sound present Extrem General: Yes full ROM Results AMB Hemoglobin A1c AMB Hemoglobin A1c 7.3 % Last Edit by YURIY Coles on 03/19/24 11:26 Results Reviewed Results Reviewed: Laboratory Last Values Hgb A1c (Clinic) 7.3 % (4.0-6.0) H 03/19/24 11:25 Assessment and Plan Assessment & Plan (1) Hypothyroidism: Code(s): E03.9 - Hypothyroidism, unspecified Qualifiers: Hypothyroidism type: unspecified Qualified Code(s): E03.9 - Hypothyroidism, unspecified Plan: Continue levothyroxine. (2) Hypertension: Code(s): I10 - Essential (primary) hypertension Qualifiers: Hypertension type: essential hypertension Qualified Code(s): I10 - Essential (primary) hypertension Plan: Continue lisinopril. Blood pressure goal is equal or less than 130/80. (3) Dyslipidemia: Code(s): E78.5 - Hyperlipidemia, unspecified Plan: Continue statins. Start low-cholesterol diet. (4) Diabetes mellitus: Code(s): E11.9 - Type 2 diabetes mellitus without complications Plan: Continue Tradjenta. Stop metformin. Start glipizide. A1c goal is equal or less than 7%. (5) Persistent headaches: Code(s): R51.9 - Headache, unspecified Plan: Start sumatriptan as needed. Referred to neurology. Orders: Orders AMB Hemoglobin A1c Today E11.9 - Type 2 diabetes mellitus without complications Medications: New glipizide ER 10 mg PO DAILY 30 tabs 4RF 30 days sumatriptan succinate do not exceed 8 doses per 24 hrs 25 mg PO Q2-4H PRN 9 tabs 0RF migraine headache 30 days Coding Level of Care Code Est Pt Level 4 (19810) Complex EM visit Add On G2211 Diagnoses Hypothyroidism, unspecified type E03.9 Hypothyroidism type: unspecified Essential hypertension I10 Hypertension type: essential hypertension Dyslipidemia E78.5 Diabetes mellitus E11.9 Persistent headaches R51.9 Time Spent (min) 23
== END 2024-03-19 11:57 | disposition home or self-care (01) ==
PROVIDERS: PCP Internal Medicine; Visit Provider Internal Medicine
DX: E03.9 Hypothyroidism, unspecified (principal); I10 Essential (primary) hypertension; E78.5 Hyperlipidemia, unspecified; E11.9 Type 2 diabetes mellitus without complications; R51.9 Headache, unspecified
CPT/HCPCS: 83036; 99214; G2211

== ENCOUNTER 2024-05-30 15:47 | Outpatient (REF) | payer OTHER, SELFPAY ==
--- NOTE | ~2024-05-30 | US_ITS ---
EXAMINATION: US RETROPERITONEAL LIMITED (RENAL ONLY) CLINICAL INFORMATION: Calculus of kidney. COMPARISON: Renal ultrasound 03/23/2023. Abdomen ultrasound 12/17/2022. X-ray [facility] 03/23/[address]23 and 07/05/2022. CT abdomen and pelvis 09/02/2017. TECHNIQUE: Real-time imaging of the kidneys. FINDINGS: RIGHT KIDNEY: 11.2 x 4.1 x 4.4 cm (SAG x AP x TRV). The kidney is normal in size, contour, and echogenicity. Renal cortical thickness is normal. No renal calculi or hydronephrosis. A benign 0.9 cm exophytic jif-js-pseactn Bosniak class I renal cyst is noted which requires no additional imaging or follow up. No solid renal masses are seen. LEFT KIDNEY: 11.2 x 5.1 x 4.2 cm (SAG x AP x TRV). The kidney is normal in size, contour, and echogenicity. Renal cortical thickness is normal. No calculi or focal parenchymal lesions. No hydronephrosis. ADDITIONAL FINDINGS: Incidental note is made of an echogenic liver consistent with hepatic steatosis. US/US renal BI IMPRESSION: 1. Normal-appearing kidneys. 2. Incidentally noted hepatic steatosis. Electronically signed by: Dannie Smalls MD 06/06/2024 12:45 AM EDT
== END 2024-05-30 15:48 | disposition home or self-care (01) ==
LOC: HO.US 15:47
PROVIDERS: PCP Internal Medicine; Visit Provider Nurse Practitioner Family
DX: N20.0 Calculus of kidney (principal); N28.1 Cyst of kidney, acquired
CPT/HCPCS: 76775

== ENCOUNTER 2024-06-07 15:38 | Outpatient (AMB) | payer OTHER, SELFPAY ==
--- NOTE | 2024-06-07 15:44 | A.OFFVIS_ITS ---
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: Yes Accompanied by: Daughter Allergies sitagliptin [Januvia] Allergy (Intermediate, Verified 06/07/24 16:12) tremors tramadol [TRAMADOL] Allergy (Mild, Verified 06/07/24 16:12) ABDOMINAL PAIN, stomach upset, severe abd pain Medication List - Last Reconciled 06/07/24 by SHAE Baptiste-MATT acetaminophen (Pain Relief Extra Strength (acetaminophen)) 500 mg PO Q6H PRN 30 days albuterol sulfate 90 mcg/actuation 2 puffs PO Q4H PRN 30 days ascorbic acid (vitamin C) 500 mg PO TID bisacodyl (Dulcolax (bisacodyl)) 10 mg (2 x 5 mg) PO BEDTIME 2 days blood pressure test kit-medium As directed blood sugar diagnostic (FreeStyle Lite Strips) Use 1 test strip once a day blood sugar diagnostic 4x daily blood-glucose meter (FreeStyle Lite Meter kit) As directed carboxymethylcellulose sodium 1% (TheraTears) 1 drp ophthalmic (eye) BID cholecalciferol (vitamin D3) 50 mcg PO DAILY 90 days cyanocobalamin (vitamin B-12) 1,000 mcg PO DAILY ferrous sulfate 324 mg PO BID 90 days fluticasone propionate 50 mcg/actuation 1 spray intranasal BID PRN glipizide ER 10 mg PO DAILY 30 days lancets (FreeStyle Lancets) As directed once a day levothyroxine 88 mcg PO DAILY 90 days lidocaine HCl-menthol 4-1 % (Icy Hot Max (lidocaine HCl-menthol)) 4 ea topical DAILY linagliptin (Tradjenta) 5 mg PO DAILY 90 days lisinopril 2.5 mg PO DAILY 90 days meclizine 25 mg PO DAILY 90 days memantine 7 mg PO DAILY 30 days metformin 850 mg PO BID 90 days aibcorwhjfdg-hudg-rbgfq acid 18-400 mg-mcg (Centrum Women) 1 tab PO DAILY omeprazole 20 mg PO BID peg 3350-electrolytes 236-22.74-6.74 -5.86 gram (Golytely) 240 mL PO Q10M 1 day pyridoxine (vitamin B6) 100 mg PO DAILY 90 days rosuvastatin 20 mg PO DAILY 90 days sumatriptan succinate 25 mg PO Q2-4H PRN 30 days HPI Comments Details: Jaki is a pleasant 78-year-old Urdu-speaking female patient of Dr. Ash who was accompanied by her daughter at today's visit. She has a past medical history of B12 deficiency, diabetes, diabetic neuropathy, dyslipidemia, headaches, hypertension, hypothyroidism, and nephrolithiasis. She presents to the office today for follow-up of her nephrolithiasis and renal cyst. In discussion with the patient today she reports to be doing and feeling well. She discusses since her last office visit here approximately 1 year ago she has followed up with her PCP approximatly 2 months ago for UTI like symptoms at which time she was treated with Macrobid for positive urine cultures of E coli. Recent renal imaging results reviewed with the patient and her daughter today 06/05 bilateral kidneys with no calculi or hydronephrosis. Benign 0.9 exophytic mid to lateral Bosniak class 1 right renal cyst noted that requires no follow-up imaging per radiology report. In office urinalysis results reviewed with the patient today. 1+ leukocytes positive nitrates. She does report noting intermittent episodes of dysuria and urinary frequency. She otherwise denies incontinence, nocturia, hematuria, foul smelling urine, changes to urinary stream, flank pain, fever, and or chills. Unable to send urine for urine culture as there is not sufficient sampling. Patient will provide sample at lab tomorrow per patient and daughter. She otherwise offers no other issues or concerns at this time. [facility] Medical History (Updated 06/07/24 @ 22:03 by THANH Baptiste) Renal cyst Dysuria Diabetes type 2, uncontrolled Shoulder pain Pre-operative clearance Renal stones Gastric polyp Arthritis of left knee Epigastric pain Pre-op examination Kidney stone on left side Diabetes mellitus B12 deficiency Headache Urinary retention Renal stones Acute urinary retention Urgency of urination Hypothyroidism Hypertension Dyslipidemia Diabetic polyneuropathy associated with type 2 diabetes mellitus Goiter Surgical History H/O: hysterectomy History of cataract removal with insertion of prosthetic lens Hx of colonoscopy History of esophagogastroduodenoscopy (EGD) Family History Father Lung cancer Mother Kidney failure Alzheimer disease Sister Diabetes Paternal Grandfather Cancer Daughter Diabetes Sister Diabetes Breast cancer Brother Alzheimer disease Colon cancer Brother Colon polyps Social History Household Members: None Housing: Apartment Are you a primary animal care giver to a significant other at home: No Do you presently have visiting nurse or other home services: No Alcohol intake: never Patient Tobacco Use Status: Never used Tobacco e-Cigarette/Vaping Use: Never Used Second Hand Smoke Exposure: No service: No Current occupational status: disabled Current occupation: rt handed Cognitive needs: Yes Hearing needs: No Vision needs: Yes Review of Systems Const Reports no additional complaints Eyes Reports no additional complaints ENT Reports no additional complaints Card Reports as per HPI Resp Reports no additional complaints GI Reports no additional complaints Reports as per HPI Musc Reports as per HPI Neuro Details: Patients daughter reports being referrred to Neurology for further dementia workup Psych Reports no additional complaints Endo Reports as per HPI Physical Exam Const General: cooperative, healthy appearing, comfortable, no acute distress, well developed, alert and awake Orientation/consciousness: patient oriented x3 Limitations: no limitations HEENT Head: Yes normal to inspection, Yes normocephalic and Yes atraumatic Ears: hearing grossly normal bilaterally Eyes General: appearance normal, both eyes and all related structures Neck Neck: Yes normal visual inspection and Yes trachea midline Chest Chest palpation & inspection: normal inspection of the chest Resp Effort & Inspection: normal respiratory effort and able to speak in complete sentences Cardio Rate: regular rate GI Inspection: Yes normal to inspection General: Yes no CVA tenderness Back/Spine/Pelvis Back: no CVA tenderness Skin General skin exam: no rashes or lesions noted Neuro General: patient oriented x3 Extrem General: Yes normal to inspection Psych Appearance: grossly normal and well kempt Mental Status: mental status grossly normal Speech and movement: Normal speech and movement present and Clear speech present Affect: normal affect Attitude: cooperative Thought process: Normal thought process present Thought content: Normal thought content present Insight: Fair insight present (Psych) Judgement: Fair judgement present (Psych) Results AMB Urinalysis, Automated UA Leukoctes 15 Madie/uL Last Edit by SoundCureadryan Becerril on 06/07/24 16:01 UA Nitrite Last Edit by [email or web address] on 06/07/24 16:01 UA Urobilinogen 0.2 mg/dL Last Edit by [email or web address] on 06/07/24 16:01 UA Protein 0 mg/dL Last Edit by [email or web address] on 06/07/24 16:01 UA pH 6.0 Last Edit by [email or web address] on 06/07/24 16:01 UA Blood 10 Rene/uL Last Edit by [email or web address] on 06/07/24 16:01 UA Specific [place] 1.015 Last Edit by [email or web address] on 06/07/24 16:01 UA Ketone Last Edit by [email or web address] on 06/07/24 16:01 UA Bilirubin 0 mg/dL Last Edit by [email or web address] on 06/07/24 16:01 UA Glucose 1000 mg/dL Last Edit by [email or web address] on 06/07/24 16:01 Results Reviewed Results Reviewed: Laboratory Last Values Urine pH (Auto) 6.0 06/07/24 15:59 Specific [place] (Auto) 1.015 06/07/24 15:59 Urine Protein (Auto) 0 mg/dL 06/07/24 15:59 Glucose (UA)(Auto) 1000 mg/dL 06/07/24 15:59 Urine Blood (Auto) 10 Rene/uL 06/07/24 15:59 Urine Bilirubin (Auto) 0 mg/dL 06/07/24 15:59 Urine Urobilinogen (Auto) 0.2 mg/dL 06/07/24 15:59 Leukocyte Esterase (Auto) 15 Madie/uL 06/07/24 15:59 Date of Service: 05/30/24 EXAMINATION: US RETROPERITONEAL LIMITED (RENAL ONLY) FINDINGS: RIGHT KIDNEY: 11.2 x 4.1 x 4.4 cm (SAG x AP x TRV). The kidney is normal in size, contour, and echogenicity. Renal cortical thickness is normal. No renal calculi or hydronephrosis. A benign 0.9 cm exophytic [id number] Bosniak class I renal cyst is noted which requires no additional imaging or follow up. No solid renal masses are seen. LEFT KIDNEY: 11.2 x 5.1 x 4.2 cm (SAG x AP x TRV). The kidney is normal in size, contour, and echogenicity. Renal cortical thickness is normal. No calculi or focal parenchymal lesions. No hydronephrosis. ADDITIONAL FINDINGS: Incidental note is made of an echogenic liver consistent with hepatic steatosis. IMPRESSION: 1. Normal-appearing kidneys. 2. Incidentally noted hepatic steatosis. Assessment & Plan Assessment & Plan (1) Dysuria: Code(s): R30.0 - Dysuria Category: Medical (2) Renal cyst: Code(s): N28.1 - Cyst of kidney, acquired Category: Medical (3) Urinary frequency: Code(s): R35.0 - Frequency of micturition Category: Medical Plan In office urinalysis results reviewed with the patient today; as noted above; unable to send for urine culture as sample was inadequate. Will await urinalysis results for possible treatment. Recent renal ultrasound results reviewed with the patient and her daughter today. Discussed UTI prevention with D mannose supplement, vitamin-C, increasing fluid intake, behavioral therapy with timed voiding, perineal hygiene and postcoital voiding, and management of constipation with stool softeners and increased fiber intake. Patient reporting intermittent episodes of dysuria and urinary frequency likely related to possible urinary tract infection however will await results for further assessment evaluation. She reports be happy with current voiding parameters. Will obtain renal ultrasound in 1 year. Continue vitamin B6 as discussed and prescribed. Follow-up in 1 year with imaging to be completed prior; or sooner with any issues, concerns, and or questions. Orders: Orders AMB Urinalysis Automated Today Z13.9 - Encounter for screening, unspecified US renal BI 1 Year N20.0 - Calculus of kidney, N28.1 - Cyst of kidney, acquired UA CC w/rflx Micro + Cult Today R30.0 - Dysuria Patient Instructions: The patient had an opportunity to ask questions regarding the treatment plan. All questions were answered. Physical exam, labs, and imaging were discussed and reviewed in detail. As well as risks, benefits, and discussion of treatment choices. No major barriers to understanding were identified. The patient expressed understanding and agreement with the above treatment plan. The patient was made aware they should contact our office by phone for worsening of their current condition, the appearance of new symptoms, or with any questions or concerns. Compliance is encouraged with any medications and follow up testing that is ordered. It is a privilege to be allowed the opportunity to participate in? your urological care.? Again, if you have any questions or concerns If you have any questions or concerns please do not hesitate to contact me. The office is [phone]. This note is constructed using voice recognition software. While every effort has been made to ensure accuracy neurosurgical physician assistant errors may have been included. Yours sincerely, THANH Baptiste Coding Level of Care Code Est Pt Level 4 (72367) Complex EM visit Add On G2211 Diagnoses Dysuria R30.0 Renal cyst N28.1 Urinary frequency R35.0
== END 2024-06-07 16:16 | disposition home or self-care (01) ==
PROVIDERS: PCP Internal Medicine; Visit Provider Nurse Practitioner Family
DX: R30.0 Dysuria (principal); N28.1 Cyst of kidney, acquired; R35.0 Frequency of micturition; Z13.9 Encounter for screening, unspecified
CPT/HCPCS: 99214; G2211

== ENCOUNTER → 2024-06-07 15:38 | Outpatient (BNVA) | payer OTHER, SELFPAY | PROVIDERS: PCP Internal Medicine; Visit Provider Nurse Practitioner Family | DX: R30.0 Dysuria (principal); R35.0 Frequency of micturition; N28.1 Cyst of kidney, acquired | CPT/HCPCS: 81003; 99212 ==

== ENCOUNTER 2024-06-08 10:20 | Outpatient (REF) | payer OTHER, SELFPAY ==
[2024-06-08 10:45] LABS: Appearance Urine Cloudy; Color Urine Yellow; Glucose Urine UA Negative (Negative); Leukocyte Esterase Urine Small (1+) (Negative); Nitrite Urine Negative (Negative); Specific Gravity - Urine 1.015 (1.005-1.025); UMIC TRIGGER UACC YES; Urine Blood Negative (Negative); Urine Ketones Negative (Negative); Urine Protein Negative (Neg-Trace)
[2024-06-08 10:51] LABS: Bacteria Urine 4+ (None Seen); Hyaline Casts Urine 0-2 /LPF (0-2); RBC Urine 0-2 /HPF (0-2); Squamous Epithelial Cell Urine 0-2 /HPF (0-2); UACC Culture Trigger YES
== END 2024-06-08 10:21 | disposition home or self-care (01) ==
LOC: HO.LNP 10:20
PROVIDERS: Visit Provider Nurse Practitioner Family
DX: R30.0 Dysuria (principal)
CPT/HCPCS: 81001; 87086; 87088; 87186

== ENCOUNTER 2024-07-04 13:52 | Outpatient (AMB) | payer OTHER, SELFPAY ==
--- NOTE | 2024-07-04 14:09 | MHC.OFFWIV ---
Intake Vital Signs 07/04/24 14:13 Height 5 ft 4 in Weight 158 lb BMI 27.1 BP 118/66 Blood Pressure Location Rt brachial Position Sitting Pulse 65 Pulse Source Pulse Oximeter Pulse Oximetry (%) 98 Oxygen Delivery Method Room Air Intake Visit Reasons: EP 5th day with her LT knee swollen Intake Note: Patient here for left knee swelling and is now having hip pain, pt states it has been present for about 5 days. Patient Tobacco Use Status: Never used Tobacco Allergies sitagliptin [Januvia] Allergy (Intermediate, Verified 07/04/24 14:14) tremors tramadol [TRAMADOL] Allergy (Mild, Verified 07/04/24 14:14) ABDOMINAL PAIN, stomach upset, severe abd pain Do you need a note to return to daycare/school/sports/work: No HPI EP 5th day with her LT knee swollen HPI Details This note is constructed using voice recognition software. While every effort has been made to ensure accuracy, product strategy director errors may have been included. The patient is a 78 year old female who presents to the clinic today with left knee pain that started with the ankle, and then radiated to the buttocks. She denies any fall or in 3 to the area. She does report a longstanding history of varicose veins. She has tried Tylenol with limited effect. She denies fever, chills, widespread body aches. [facility] Medical History (Updated 06/07/24 @ 22:03 by Toya Pedroza [facility]) Renal cyst Dysuria Diabetes type 2, uncontrolled Shoulder pain Pre-operative clearance Renal stones Gastric polyp Arthritis of left knee Epigastric pain Pre-op examination Kidney stone on left side Diabetes mellitus B12 deficiency Headache Urinary retention Renal stones Acute urinary retention Urgency of urination Hypothyroidism Hypertension Dyslipidemia Diabetic polyneuropathy associated with type 2 diabetes mellitus Goiter Surgical History H/O: hysterectomy History of cataract removal with insertion of prosthetic lens Hx of colonoscopy History of esophagogastroduodenoscopy (EGD) Family History Father Lung cancer Mother Kidney failure Alzheimer disease Sister Diabetes Paternal Grandfather Cancer Daughter Diabetes Sister Diabetes Breast cancer Brother Alzheimer disease Colon cancer Brother Colon polyps Social History Household Members: None Housing: Apartment Are you a primary aged or disabled care worker to a significant other at home: No Do you presently have visiting nurse or other home services: No Alcohol intake: never Patient Tobacco Use Status: Never used Tobacco e-Cigarette/Vaping Use: Never Used Second Hand Smoke Exposure: No service: No Current occupational status: disabled Current occupation: rt handed Cognitive needs: Yes Hearing needs: No Vision needs: Yes Review of Systems Const All systems reviewed & are unremarkable except as noted in HPI and below Physical Exam Vital Signs: Last Vital Signs Pulse 65 07/04/24 14:13 BP 118/66 07/04/24 14:13 Pulse Ox 98 07/04/24 14:13 Oxygen Delivery Method Room Air 07/04/24 14:13 BMI result Body Mass Index 27.1 Const General: cooperative, healthy appearing, comfortable, no acute distress and well developed Orientation/consciousness: patient oriented x3 Limitations: no limitations Resp Effort & Inspection: normal respiratory effort and able to speak in complete sentences Cardio Rate: regular rate Rhythm: regular rhythm Heart sounds: normal S1 and S2 Skin General skin exam: no rashes or lesions noted Neuro General: patient oriented x3 Extrem Other: Full range of motion of foot, ankle, knee, and hip on the left. Positive SLR. Positive left sciatic notch tenderness. No visible deformities or palpable step-offs. General: Yes normal to inspection Assessment & Plan Assessment & Plan (1) Piriformis syndrome of left side: Code(s): G57.02 - Lesion of sciatic nerve, left lower limb Plan: Patient is diabetic, however is not insulin dependent. We will try a short burst of prednisone for anti-inflammatory effects. Advised patient to monitor her blood glucose for any raising. Advised follow up with worsening or failure to resolve. Continue with supportive measures including Tylenol, heat/ice. No imaging indicated at this time. Plan See above for full details and plan. Medications: New prednisone 40 mg (2 x 20 mg) PO DAILY 3 days 6 tabs 0RF Coding Level of Care Code Est Pt Level 3 (56153) Diagnoses Piriformis syndrome of left side G57.02
[2024-07-04 14:13] VITALS: BP 118/66; PULSE 65; O2SAT 98; BMI 27.1
== END 2024-07-04 14:42 | disposition home or self-care (01) ==
PROVIDERS: PCP Internal Medicine; Visit Provider Registered Nurse
DX: G57.02 Lesion of sciatic nerve, left lower limb (principal)

== ENCOUNTER → 2024-07-04 13:52 | Outpatient (BNVA) | payer OTHER, SELFPAY | PROVIDERS: PCP Internal Medicine; Visit Provider Registered Nurse | DX: G57.02 Lesion of sciatic nerve, left lower limb (principal); E11.9 Type 2 diabetes mellitus without complications | CPT/HCPCS: 99212 ==

== ENCOUNTER 2024-07-31 14:57 | Outpatient (AMB) | payer OTHER, SELFPAY ==
[2024-07-31 15:09] VITALS: BP 120/64; BMI 28.8
--- NOTE | 2024-07-31 15:09 | MHC.PC.OV ---
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 Accompanied by: Daughter Allergies sitagliptin [Januvia] Allergy (Intermediate, Verified 07/31/24 15:20) tremors tramadol [TRAMADOL] Allergy (Mild, Verified 07/31/24 15:20) ABDOMINAL PAIN, stomach upset, severe abd pain Medication List - Last Reconciled 07/31/24 by Brandy Montoya MD acetaminophen (Pain Relief Extra Strength (acetaminophen)) 500 mg PO Q6H PRN 30 days albuterol sulfate 90 mcg/actuation 2 puffs PO Q4H PRN 30 days ascorbic acid (vitamin C) 500 mg PO TID bisacodyl (Dulcolax (bisacodyl)) 20 mg (4 x 5 mg) PO ONCE 1 day bisacodyl (Dulcolax (bisacodyl)) 10 mg (2 x 5 mg) PO BEDTIME 2 days blood pressure test kit-medium As directed blood sugar diagnostic (FreeStyle Lite Strips) Use 1 test strip once a day blood sugar diagnostic 4x daily blood-glucose meter (FreeStyle Lite Meter kit) As directed carboxymethylcellulose sodium 1% (TheraTears) 1 drp ophthalmic (eye) BID cholecalciferol (vitamin D3) 50 mcg PO DAILY 90 days cyanocobalamin (vitamin B-12) 1,000 mcg PO DAILY empagliflozin (Jardiance) 10 mg PO DAILY 90 days ferrous sulfate 324 mg PO BID 90 days fluticasone propionate 50 mcg/actuation 1 spray intranasal BID PRN glipizide ER 10 mg PO DAILY 30 days lancets (FreeStyle Lancets) As directed once a day levothyroxine 88 mcg PO DAILY 90 days lidocaine HCl-menthol 4-1 % (Icy Hot Max (lidocaine HCl-menthol)) 4 ea topical DAILY linagliptin (Tradjenta) 5 mg PO DAILY 90 days lisinopril 2.5 mg PO DAILY 90 days meclizine 25 mg PO DAILY 90 days memantine 7 mg PO DAILY 30 days lyqoxxifcihy-vttp-mcbwm acid 18-400 mg-mcg (Centrum Women) 1 tab PO DAILY nitrofurantoin macrocrystal 100 mg PO BID 10 days omeprazole 20 mg PO BID peg 3350-electrolytes 236-22.74-6.74 -5.86 gram (Golytely) 240 mL PO Q10M 1 day peg 3350-electrolytes 236-22.74-6.74 -5.86 gram 240 mL PO Q10M prednisone 40 mg (2 x 20 mg) PO DAILY 3 days pyridoxine (vitamin B6) 100 mg PO DAILY 90 days rosuvastatin 20 mg PO DAILY 90 days sumatriptan succinate 25 mg PO Q2-4H PRN 30 days Tobacco use date assessed: 12/07/23 Fall risk assessment: No Falls in past year Last assessed Fall Risk: 07/31/24 Dental Screening Dental Screen Date: 07/31/24 Did you have a dental visit in the last 12 months?: No Did you have a dental problem in the last 6 months where you did not have access to dental care?: No Was dental information given to patient?: Patient has dentist HPI HPI Comments History of Present Illness Details The patient is a 78-year-old female presenting with concerns regarding diabetes management and hyperlipidemia. Her hemoglobin A1c has reached 9.6%, rising from a previous level of 7.3%, indicating poorly controlled type 2 diabetes mellitus. She is currently not taking Jardiance 10 mg to manage her diabetes. The patient gained 10 pounds recently, which may be contributing to her fluctuating blood glucose levels. She experiences gastrointestinal discomfort with the use of tramadol and uses Tylenol as needed for pain relief. She has hypothyroidism managed with levothyroxine, for which I requested laboratory tests to review thyroid functions. Her cholesterol, specifically LDL, was noted at 125 mg/dL, higher than the target of 70 mg/dL, and she is on rosuvastatin 20 mg. The patient also has a history of urolithiasis and is using medications to manage this condition. Other pre-existing conditions include asthma, managed infrequently with an inhaler, and cognitive impairment, for which she was initially reluctant to take memantine. [facility] Medical History Renal cyst Dysuria Diabetes type 2, uncontrolled Shoulder pain Pre-operative clearance Renal stones Gastric polyp Arthritis of left knee Epigastric pain Pre-op examination Kidney stone on left side Diabetes mellitus B12 deficiency Headache Urinary retention Renal stones Acute urinary retention Urgency of urination Hypothyroidism Hypertension Dyslipidemia Diabetic polyneuropathy associated with type 2 diabetes mellitus Goiter Surgical History H/O: hysterectomy History of cataract removal with insertion of prosthetic lens Hx of colonoscopy History of esophagogastroduodenoscopy (EGD) Family History Father Lung cancer Mother Kidney failure Alzheimer disease Sister Diabetes Paternal Grandfather Cancer Daughter Diabetes Sister Diabetes Breast cancer Brother Alzheimer disease Colon cancer Brother Colon polyps Social History Household Members: None Housing: Apartment Are you a primary hiv/aids care nurse to a significant other at home: No Do you presently have visiting nurse or other home services: No Alcohol intake: never Patient Tobacco Use Status: Never used Tobacco e-Cigarette/Vaping Use: Never Used Second Hand Smoke Exposure: No service: No Current occupational status: disabled Current occupation: rt handed Cognitive needs: Yes Hearing needs: No Vision needs: Yes Questionnaire PHQ-9 Over the last 2 weeks, how often have you been bothered by any of the following problems? 1. Little interest or pleasure in doing things: not at all 2. Feeling down, depressed, or hopeless: not at all 3. Trouble falling or staying asleep, or sleeping too much: not at all 4. Feeling tired or having little energy: not at all 5. Poor appetite or overeating: not at all 6. Feeling bad about yourself - or that you are a failure or have let yourself or your family down: not at all 7. Trouble concentrating on things, such as reading the newspaper or watching television: not at all 8. Moving or speaking so slowly that other people could have noticed. Or the opposite - being so fidgety or restless that you have been moving around a lot more than usual: not at all 9. Thoughts that you would be better off or of hurting yourself in some way: not at all Total score: 0 Depression Screening Interpretation: Negative Depression Screening Done: Yes 59482 - PHQ-9 Billing: Yes Source: Developed by Violet MiguelW. Will, Pernell Peralta and colleagues, with an educational vinh from [employer]. Thrive Questionnaire Date Thrive assessed: 07/31/24 I am a: Patient What is your living situation today?: I have a steady place to live Within the past 12 months, did the food you bought not last and you didn't have the money to get more?: Never true Within the past 12 months, did you worry whether your food would run out before you got money to buy more?: Never true Do you have trouble paying for medicines?: No Do you have trouble getting transportation to medical appointments?: No Do you have trouble paying your heating and electricity bill?: No Do you have trouble taking care of your child, family member or friend?: No Do you have trouble with day-to-day activities such as bathing, preparing meals, shopping, managing finances, etc.?: No Are you currently unemployed and looking for a job?: No Are you interested in more education?: No Please select the resources that you would like help with: None Currently or been in a relationship where the following occur: No concerns reported THRIVE Score: 0 AUDIT C Alcohol Use Questionnaire (AUDIT-C) 1. How often do you have a drink containing alcohol?: Never Total Score: 0 Score Reviewed/Action Taken: No CHRIS-7 AMB Questionnaire CHRIS-7 Date CHRIS - 7 assessed: 07/31/24 Feeling nervous, anxious, or on edge: 0 = Not at all Not being able to stop or control worryin = Not at all Worrying too much about different things: 0 = Not at all Trouble relaxin = Not at all Being so restless that it is hard to sit still: 0 = Not at all Becoming easily annoyed or irritable: 0 = Not at all Feeling afraid as if something awful might happen: 0 = Not at all Total CHRIS-7 score (0-4 normal; 5-9 mild; 10-14 moderate; 15-21 severe): 0 Source: Developed by Drs. Clive Ortega, Violet Slois, Pernell Peralta and colleagues, with an educational vinh from [employer]. CHRIS-7 Assessment Billing CHRIS-7 Assessment Tool: CHRIS-7 Assessment 05607 Review of Systems Const All systems reviewed & are unremarkable except as noted in HPI and below Card Denies chest pain at rest, Denies chest pain with activity, Denies edema, Denies irregular heart rhythm, Denies claudication, Denies dyspnea, Denies dyspnea on exertion, Denies orthopnea, Denies paroxysmal nocturnal dyspnea and Denies slow heart rate Resp Denies cough, Denies dyspnea and Denies dyspnea on exertion Physical exam (Primary Care) Vital Signs: Last Vital Signs BP 120/64 07/31/24 15:09 BMI result Body Mass Index 28.8 Tobacco/Smoking Status: Tobacco use Status Tobacco use date assessed 12/07/23 07/31/24 15:17 Patient Tobacco Use Status Never used Tobacco 07/31/24 15:17 e-Cigarette/Vaping Use Never Used 07/31/24 15:17 PHQ-9: PHQ-9 Score PHQ-9: Total score 0 07/31/24 15:44 Depression Screening Interpretation: Negative Thrive Assessment: Date of Thrive Assessment Date Thrive assessed 07/31/24 07/31/24 15:17 Currently or been in a relationship where the following occur: No concerns reported Resp Effort & Inspection: normal respiratory effort Auscultation: clear to auscultation bilaterally Cardio Jugular venous distension: no JVD Rate: regular rate Rhythm: regular rhythm Heart sounds: S1 normal heart sound present and S2 normal heart sound present Extrem General: Yes full ROM Office Procedures Flu Questionnaire Does the patient have a severe egg allergy?: No Results AMB Hemoglobin A1c AMB Hemoglobin A1c 9.6 % Last Edit by YURIY Estrada on 07/31/24 15:20 Immunizations Fluarix Triv [id number] (PF) 45 mcg (15 mcg x 3)/0.5 mL IM syringe Performing Provider: Brandy Montoya MD Performing Location: [facility] [place] [facility] Documented (not given) by: YURIY Estrada on 07/31/24 15:17 Reason Not Given: Patient Refused tetanus-diphtheria toxoids-Td 2 Lf unit-2 Lf unit/0.5 mL IM suspension Performing Provider: Brandy Montoya MD Performing Location: [facility] [place] [facility] Administered by: YURIY Estrada on 07/31/24 15:44 Dose Route Admin Location Dispensed Lot Number Expiration Date [facility] [place] Sheet Layer 0.5 mL IM Left Deltoid 0.5 mL [id number] 10/22/24 [address]-8 [employer] VIS Given Date VIS Provided VIS Publication Date 07/31/24 Single Vaccine 21 Eligibility Eligibility Date Funding Source Not VFC Eligible 07/31/24 State funds Results Reviewed Results Reviewed: Laboratory Last Values Hgb A1c (Clinic) 9.6 % (4.0-6.0) H 07/31/24 15:08 Coding Level of Care Code Est Pt Level 4 (97922) Complex EM visit Add On G2211 Diagnoses Hypothyroidism, unspecified type E03.9 Hypothyroidism type: unspecified Diabetes mellitus E11.9 Essential hypertension I10 Hypertension type: essential hypertension Cognitive impairment R41.89 Hyperlipidemia LDL goal <70 E78.5 GERD (gastroesophageal reflux disease) K21.9 Iron deficiency anemia D50.9 Additional Codes CHRIS-7 Assessment Billing - CHRIS-7 Assessment Tool: CHRIS-7 Assessment 84576 ([id number]) PHQ-9 - 22821 - PHQ-9 Billing: Yes ([id number]) Time Spent (min) 25 Assessment & Plan Assessment & Plan (1) Hypothyroidism: Code(s): E03.9 - Hypothyroidism, unspecified Category: Medical Qualifiers: Hypothyroidism type: unspecified Qualified Code(s): E03.9 - Hypothyroidism, unspecified (2) Diabetes mellitus: Code(s): E11.9 - Type 2 diabetes mellitus without complications Category: Medical (3) Hypertension: Code(s): I10 - Essential (primary) hypertension Category: Medical Qualifiers: Hypertension type: essential hypertension Qualified Code(s): I10 - Essential (primary) hypertension (4) Cognitive impairment: Code(s): R41.89 - Other symptoms and signs involving cognitive functions and awareness Category: Medical (5) Hyperlipidemia LDL goal <70: Code(s): E78.5 - Hyperlipidemia, unspecified Category: Medical (6) GERD (gastroesophageal reflux disease): Code(s): K21.9 - Gastro-esophageal reflux disease without esophagitis Category: Medical (7) Iron deficiency anemia: Code(s): D50.9 - Iron deficiency anemia, unspecified Category: Medical Plan - For Type 2 Diabetes Mellitus: Increase Jardiance to optimize glycemic control. Referral to a sales development specialist is recommended for additional management strategies. - For Hyperlipidemia: Continue rosuvastatin therapy. Re-evaluate lipid profile following dietary adjustments and weight management interventions. - For Hypothyroidism: Conduct thyroid function tests to assess current levothyroxine dosing. - For Iron Deficiency Anemia: Continue current iron supplementation and monitor hemoglobin levels. - For Cognitive Impairment: Encourage consistent use of memantine to support cognitive function. - For Gastroesophageal Reflux Disease: Continue omeprazole for symptom management. - For Urolithiasis: Continue preventive measures received from urology. - For Hypertension: Maintain current lisinopril regimen and monitor blood pressure regularly. - For Migraine: Use sumatriptan as needed for acute attacks. - For Asthma: Retain inhaler for emergency use; minimal use noted. - Preventive Care: Schedule mammogram due to family history of breast cancer. Patient was informed and verbally consented to the use of an ambient scribe for clinic note documentation during this visit. Orders: Orders Microalbumin, Random (w Creat) Today R80.9 - Proteinuria, unspecified Vitamin D 25-OH Total Today E55.9 - Vitamin D deficiency, unspecified Comprehensive [place]. Panel Fast Today I10 - Essential (primary) hypertension Td State Immunization Today Z23 - Encounter for immunization Influenza [id number] Immunization Today Z23 - Encounter for immunization AMB Hemoglobin A1c Today E11.9 - Type 2 diabetes mellitus without complications XR DEXA axial skeleton Today Z78.0 - Asymptomatic menopausal state MM tomosynthesis screening BI Today Z12.31 - Encounter for screening mammogram for malignant neoplasm of breast Lipid Panel Today E78.5 - Hyperlipidemia, unspecified Complete Blood Count Auto Diff Today D64.9 - Anemia, unspecified IRON PROFILE Today D64.9 - Anemia, unspecified Vitamin B12 and Folate Today E53.8 - Deficiency of other specified B group vitamins Thyroid Stimulating Hormone Today E03.9 - Hypothyroidism, unspecified Referrals Endocrinology Referral E11.42 - Type 2 diabetes mellitus with diabetic polyneuropathy Medications: Refilled albuterol sulfate 90 mcg/actuation 2 puffs PO Q4H PRN 8.5 grams 6RF bronchospasm 30 days cholecalciferol (vitamin D3) 50 mcg PO DAILY 90 caps 1RF 90 days E55.9 - Vitamin D deficiency, unspecified ferrous sulfate 324 mg PO BID 180 tabs 1RF 90 days glipizide ER 10 mg PO DAILY 30 tabs 4RF 30 days cyanocobalamin (vitamin B-12) 1,000 mcg PO DAILY 90 tabs 4RF empagliflozin (Jardiance) 10 mg PO DAILY 90 tabs 0RF 90 days levothyroxine 88 mcg PO DAILY 90 tabs 1RF 90 days lisinopril 2.5 mg PO DAILY 90 tabs 1RF 90 days Patient Instructions: - Restart Jardiance to 10 mg for diabetes management. - Maintain current intake of rosuvastatin for cholesterol. - Perform thyroid function tests as soon as possible. - Consistently take memantine as prescribed for cognitive support. - Continue preventive use of omeprazole and iron supplements. - Schedule a mammogram to screen for breast cancer. - Follow referral to a sales development specialist for comprehensive management.
== END 2024-07-31 15:49 | disposition home or self-care (01) ==
PROVIDERS: PCP Internal Medicine; Visit Provider Internal Medicine
DX: E03.9 Hypothyroidism, unspecified (principal); E11.9 Type 2 diabetes mellitus without complications; I10 Essential (primary) hypertension; R41.89 Other symptoms and signs involving cognitive functions and awareness; E78.5 Hyperlipidemia, unspecified; K21.9 Gastro-esophageal reflux disease without esophagitis; D50.9 Iron deficiency anemia, unspecified; Z23 Encounter for immunization

== ENCOUNTER → 2024-07-31 14:57 | Outpatient (BNVA) | payer OTHER, SELFPAY | PROVIDERS: PCP Internal Medicine; Visit Provider Internal Medicine | DX: Z23 Encounter for immunization (principal); E03.9 Hypothyroidism, unspecified; E11.9 Type 2 diabetes mellitus without complications; I10 Essential (primary) hypertension; R41.89 Other symptoms and signs involving cognitive functions and awareness; E78.5 Hyperlipidemia, unspecified; K21.9 Gastro-esophageal reflux disease without esophagitis; D50.9 Iron deficiency anemia, unspecified | CPT/HCPCS: 83036; 90471; 90714; 96127; 99212 ==

== ENCOUNTER 2024-08-01 08:21 | Outpatient (REF) | payer OTHER, SELFPAY ==
[2024-08-01 08:41] LABS: MANUAL DIFF FLAG NO
[2024-08-01 08:54] LABS: Basophils Absolute Auto 0.1 X10*3/uL (0.0-0.2); Basophils Percent Auto 0.9 % (0-2); Eosinophils Absolute Auto 0.1 X10*3/uL (0.0-0.4); Eosinophils Percent Auto 1.3 % (0-4); Hematocrit 34.3 % (37.0-47.0); Hemoglobin 10.7 g/dl (12.0-16.0); Imm Gran Abs Auto 0.01 X10*3/uL (0.00-0.03); Imm Gran Pct Auto 0.2 % (0.0-0.4); Lymphocytes Percent Auto 19.1 % (20-40); Mean Corpuscular HGB Conc 31.2 g/dl (31.0-35.0); Mean Corpuscular Hemoglobin 24.6 pg (27.0-33.0); Mean Corpuscular Volume 78.9 fL (80.0-98.0); Monocytes Absolute Auto 0.4 X10*3/uL (0.1-1.2); Monocytes Percent Auto 7.4 % (2-11); Neutrophils Absolute Auto 3.9 x10*3/uL (2.0-8.3); Neutrophils Percent Auto 71.1 % (45-73); Platelet Count 356 X10*3/uL (160-400); Red Blood Count 4.35 X10*6/uL (4.20-5.50); Red Cell Distribution Width 15.7 % (11.0-16.0); White Blood Count 5.4 X10*3/uL (4.8-10.8)
[2024-08-01 09:00] LABS: Appearance Urine Clear; Color Urine Yellow; Glucose Urine UA 100 mg/dL (Negative); Leukocyte Esterase Urine Moderate (2+) (Negative); Nitrite Urine Positive (Negative); PH 6.5 (5.0-9.0); Specific Gravity - Urine 1.015 (1.005-1.025); UMIC TRIGGER UACC YES; Urine Blood Negative (Negative); Urine Ketones Negative (Negative); Urine Protein Negative (Neg-Trace)
[2024-08-01 09:08] LABS: Bacteria Urine 4+ (None Seen); Hyaline Casts Urine 0-2 /LPF (0-2); RBC Urine 0-2 /HPF (0-2); UACC Culture Trigger YES; WBC Urine 21-50 /HPF (0-5)
[2024-08-01 09:29] LABS: Creatinine Urine 56.96 mg/dL; Microalbum/Creatinine Ratio Ur 15.8 ug/mg cr (<30)
[2024-08-01 09:49] LABS: Alanine Aminotransferase 21 U/L (0-31); Alkaline Phosphatase 63 U/L (39-117); Anion Gap 12 (12-20); Aspartate Amino Transferase 20 U/L (5-31); Bilirubin Total 0.2 mg/dL (0.0-1.0); Blood Urea Nitrogen 18 mg/dL (9-16); Calcium 9.5 mg/dL (8.4-10.2); Carbon Dioxide 26 mmol/L (22-29); Chloride 104 mmol/L (96-108); Cholesterol 207 mg/dL (<200); Estimated Glomerular Filt Rate > 60; Glucose Fasting 212 mg/dL (60-99); HDL Cholesterol 51 mg/dL (>40); Iron 35 mcg/dL (30-160); LDL Cholesterol Calculated 124 mg/dL (<100); Percent Iron Saturation 10 % (15-50); Potassium 4.2 mmol/L (3.3-5.1); Sodium 138 mmol/L (135-145); Total Iron Binding Capacity 350 mcg/dL (228-428); Triglycerides 160 mg/dL (<150); Unsaturated Iron Binding 315 ug/dL
[2024-08-01 09:51] LABS: Thyroid Stimulating Hormone 2.28 uIU/mL (0.32-4.0); Vitamin D 25-OH Total 25.4 ng/mL (>30)
[2024-08-01 10:10] LABS: Folate 13.6 ng/mL (> or = 4.0); Vitamin B12 613 pg/mL (200-900)
== END 2024-08-01 08:22 | disposition home or self-care (01) ==
LOC: HO.LAB 08:21
PROVIDERS: PCP Internal Medicine; Visit Provider Internal Medicine
DX: R80.9 Proteinuria, unspecified (principal); E55.9 Vitamin D deficiency, unspecified; E78.5 Hyperlipidemia, unspecified; D64.9 Anemia, unspecified; I10 Essential (primary) hypertension; E53.8 Deficiency of other specified B group vitamins; E03.9 Hypothyroidism, unspecified
CPT/HCPCS: 36415; 80053; 80061; 81001; 81003; 82043; 82306; 82570; 82607; 82746; 83540; 84443; 85025; 87086; 87088; 87186

== ENCOUNTER 2024-08-20 14:27 | Outpatient (AMB) | payer OTHER, SELFPAY ==
--- NOTE | 2024-08-20 14:31 | MHC.OFFVIS ---
Vital Signs 08/20/24 14:33 Height 5 ft 4 in Intake Visit Reasons: OV- Left shoulder pain last inj 06/11/21 Intake Note: Lindsey is a 78 year old right hand female who presents today for a follow up of her left shoulder. She was last injected on 06/11/2021. Patient reports that the last injection was helpful and she would like to repeat injection today Allergies sitagliptin [Januvia] Allergy (Intermediate, Verified 08/22/24 14:27) tremors tramadol [TRAMADOL] Allergy (Mild, Verified 08/22/24 14:27) ABDOMINAL PAIN, stomach upset, severe abd pain HPI HPI OV- Left shoulder pain last inj 06/11/21: Details: Lindsey is a 78 year old right hand female who presents today for a follow up of her left shoulder. She was last injected on 06/11/2021. Patient reports that the last injection was helpful and she would like to repeat injection today PFSH Medical History (Updated 08/22/24 @ 15:05 by Aaliyah Wayne MD) Diabetes type 2, uncontrolled Renal cyst Dysuria Shoulder pain Pre-operative clearance Renal stones Gastric polyp Arthritis of left knee Epigastric pain Pre-op examination Kidney stone on left side Diabetes mellitus B12 deficiency Headache Urinary retention Renal stones Acute urinary retention Urgency of urination Hypothyroidism Hypertension Dyslipidemia Diabetic polyneuropathy associated with type 2 diabetes mellitus Goiter Surgical History H/O: hysterectomy History of cataract removal with insertion of prosthetic lens Hx of colonoscopy History of esophagogastroduodenoscopy (EGD) Family History Father Lung cancer Mother Kidney failure Alzheimer disease Sister Diabetes Paternal Grandfather Cancer Daughter Diabetes Sister Diabetes Breast cancer Brother Alzheimer disease Colon cancer Brother Colon polyps Social History Household Members: None Housing: Apartment Are you a primary director career services to a significant other at home: No Do you presently have visiting nurse or other home services: No Alcohol intake: never Patient Tobacco Use Status: Never used Tobacco e-Cigarette/Vaping Use: Never Used Second Hand Smoke Exposure: No service: No Current occupational status: disabled Current occupation: rt handed Cognitive needs: Yes Hearing needs: No Vision needs: Yes Physical Exam Const General: no acute distress and alert Orientation/consciousness: patient oriented x3 Neuro General: patient oriented x3 Extrem Other: Left Shoulder: + [employer] ER to 35 degrees. Psych Appearance: grossly normal Affect: normal affect Attitude: cooperative Office Procedures Joint Inj/Aspir; Non-Pain Clin Joint Injection/Drain Details: Injected 1 mL of Decadron and 3 mL 1% lidocaine and 3 mL of 0.25% Marcaine. Site was prepped using aseptic technique. Patient tolerated the procedure well. Approach Used: posterolateral Shoulders, Hips, Knees, Shoulder Injection Large joint : Left Shoulder Coding Procedure code (CPT) selection complete Assessment & Plan Assessment & Plan (1) Bursitis of left shoulder: Code(s): M75.52 - Bursitis of left shoulder Category: Medical Plan: This is a 78-year-old woman with left shoulder bursitis. I injected her left shoulder today. She has diabetes as well which is controlled and she states does not respond to adversely to injections in the past. I did inform her of the hyperglycemic effects of steroids. (2) Diabetes mellitus: Code(s): E11.9 - Type 2 diabetes mellitus without complications Category: Medical Plan: I informed her of the hyperglycemic effects of steroids. Coding Level of Care Code Est Pt Level 4 (75874) Diagnoses Bursitis of left shoulder M75.52 Diabetes mellitus E11.9 CPT Codes Shoulders, Hips, Knees, - Shoulder Injection Large joint : Left Shoulder ([id number])
== END 2024-08-20 15:07 | disposition home or self-care (01) ==
PROVIDERS: PCP Internal Medicine; Visit Provider Orthopaedic Surgery
DX: M75.52 Bursitis of left shoulder (principal); E11.9 Type 2 diabetes mellitus without complications
CPT/HCPCS: 20610; 99214

== ENCOUNTER → 2024-08-20 14:27 | Outpatient (BNVA) | payer OTHER, SELFPAY | PROVIDERS: PCP Internal Medicine; Visit Provider Orthopaedic Surgery | DX: M75.52 Bursitis of left shoulder (principal); E11.65 Type 2 diabetes mellitus with hyperglycemia; E11.42 Type 2 diabetes mellitus with diabetic polyneuropathy | CPT/HCPCS: 20610; 99212; J0665; J1100; J2003 ==

== ENCOUNTER 2024-08-22 14:16 | Outpatient (AMB) | payer OTHER, SELFPAY ==
--- NOTE | 2024-08-22 14:24 | A.OFFVIS_ITS ---
Vital Signs 08/22/24 14:25 Height 5 ft 4 in Weight 167 lb 8.821 oz BMI 28.8 BP 124/72 Blood Pressure Location Rt brachial Position Sitting Pulse 72 Pulse Source Pulse Oximeter Intake Visit Reasons: Type 2 dm Intake Note: Patient presents today to re-establish treatment for Type 2 Diabetes Mellitus: Last Diabetic eye exam was on: DUE Last Podiatry exam was on: Does not see a Sweetbread Trimmer Most recent HbA1c: 9.6%, 07/31/2024 Random Glucose- 161 mg/dL, Today Engine Head Repairer Required: Yes Engine Head Repairer Language: Shopping Inspector Services: Engine Head Repairer Offered & Declined Accompanied by: Daughter Allergies sitagliptin [Januvia] Allergy (Intermediate, Verified 08/22/24 14:27) tremors tramadol [TRAMADOL] Allergy (Mild, Verified 08/22/24 14:27) ABDOMINAL PAIN, stomach upset, severe abd pain Medication List - Last Reconciled 08/22/24 by Aaliyah Wayne MD acetaminophen (Pain Relief Extra Strength (acetaminophen)) 500 mg PO Q6H PRN 30 days albuterol sulfate 90 mcg/actuation 2 puffs PO Q4H PRN 30 days ascorbic acid (vitamin C) 500 mg PO TID bisacodyl (Dulcolax (bisacodyl)) 20 mg (4 x 5 mg) PO ONCE 1 day bisacodyl (Dulcolax (bisacodyl)) 10 mg (2 x 5 mg) PO BEDTIME 2 days blood pressure test kit-medium As directed blood sugar diagnostic (FreeStyle Lite Strips) Use 1 test strip once a day blood sugar diagnostic 4x daily blood-glucose meter (FreeStyle Lite Meter kit) As directed carboxymethylcellulose sodium 1% (TheraTears) 1 drp ophthalmic (eye) BID cholecalciferol (vitamin D3) 50 mcg PO DAILY 90 days cyanocobalamin (vitamin B-12) 1,000 mcg PO DAILY empagliflozin (Jardiance) 10 mg PO DAILY 90 days ferrous sulfate 324 mg PO BID 90 days fluticasone propionate 50 mcg/actuation 1 spray intranasal BID PRN glipizide ER 10 mg PO DAILY 30 days lancets (FreeStyle Lancets) As directed once a day levothyroxine 88 mcg PO DAILY 90 days lidocaine HCl-menthol 4-1 % (Icy Hot Max (lidocaine HCl-menthol)) 4 ea topical DAILY linagliptin (Tradjenta) 5 mg PO DAILY 90 days lisinopril 2.5 mg PO DAILY 90 days meclizine 25 mg PO DAILY 90 days memantine 7 mg PO DAILY 30 days wdttfxdkpqtl-cnmu-chcji acid 18-400 mg-mcg (Centrum Women) 1 tab PO DAILY nitrofurantoin macrocrystal 100 mg PO BID 10 days omeprazole 20 mg PO BID peg 3350-electrolytes 236-22.74-6.74 -5.86 gram (Golytely) 240 mL PO Q10M 1 day peg 3350-electrolytes 236-22.74-6.74 -5.86 gram 240 mL PO Q10M prednisone 40 mg (2 x 20 mg) PO DAILY 3 days pyridoxine (vitamin B6) 100 mg PO DAILY 90 days rosuvastatin 40 mg PO DAILY 90 days sumatriptan succinate 25 mg PO Q2-4H PRN 30 days HPI Comments Details: The patient is a 78-year-old female presenting for diabetic consultation. Seen in 2021. Accompanied by daughter. 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 Does miss medication doses Intolerant of metformin, januvia. Has not tried GLP but does have abdominal complaints at present A1C 07/2024 9.6% Using freestyle lite meter. checks ~2x daily. No low readings ROS CONSTITUTIONAL: Denies weight loss, fever and chills. HEENT: Denies changes in vision and hearing. RESPIRATORY: Denies SOB and cough. CV: Denies palpitations and CP GI: Denies abdominal pain, nausea, vomiting and diarrhea. : Denies dysuria and urinary frequency. MSK: Denies new myalgia and joint pain. SKIN: Denies rash and pruritus. NEUROLOGICAL: Denies headache PSYCHIATRIC: Denies recent changes in mood. PHYSICAL EXAM: GENERAL: Alert and oriented x 3. NAD EYES: EOMI. Anicteric. HENT: Moist mucous membranes. No scleral icterus. No cervical lymphadenopathy. LUNGS: Clear to auscultation bilaterally. CARDIOVASCULAR: Regular rate and rhythm. No murmur. No JVD. ABDOMEN: Soft, non-tender +bs EXTREMITIES: No edema. Non-tender. SKIN: No rashes or lesions. Warm. NEUROLOGIC: No focal neurological deficits. CN II-XII grossly intact PSYCHIATRIC: Cooperative. Appropriate mood and affect [facility] Medical History (Updated 08/22/24 @ 15:05 by Aaliyah Wayne MD) Diabetes type 2, uncontrolled Renal cyst Dysuria Shoulder pain Pre-operative clearance Renal stones Gastric polyp Arthritis of left knee Epigastric pain Pre-op examination Kidney stone on left side Diabetes mellitus B12 deficiency Headache Urinary retention Renal stones Acute urinary retention Urgency of urination Hypothyroidism Hypertension Dyslipidemia Diabetic polyneuropathy associated with type 2 diabetes mellitus Goiter Surgical History H/O: hysterectomy History of cataract removal with insertion of prosthetic lens Hx of colonoscopy History of esophagogastroduodenoscopy (EGD) Family History Father Lung cancer Mother Kidney failure Alzheimer disease Sister Diabetes Paternal Grandfather Cancer Daughter Diabetes Sister Diabetes Breast cancer Brother Alzheimer disease Colon cancer Brother Colon polyps Social History Household Members: None Housing: Apartment Are you a primary healthcare business analyst to a significant other at home: No Do you presently have visiting nurse or other home services: No Alcohol intake: never Patient Tobacco Use Status: Never used Tobacco e-Cigarette/Vaping Use: Never Used Second Hand Smoke Exposure: No service: No Current occupational status: disabled Current occupation: rt handed Cognitive needs: Yes Hearing needs: No Vision needs: Yes Physical Exam Vital Signs: Last Vital Signs Pulse 72 08/22/24 14:25 BP 124/72 08/22/24 14:25 BMI result Body Mass Index 28.8 Assessment & Plan Assessment & Plan (1) Diabetes type 2, uncontrolled: Code(s): E11.65 - Type 2 diabetes mellitus with hyperglycemia Category: Medical Qualifiers: Glycemic state: with hyperglycemia Qualified Code(s): E11.65 - Type 2 diabetes mellitus with hyperglycemia Plan: Improve compliance (decrease missed doses) Increase jardiance to 25mg daily Increase glipizide to 20mg daily Continue tradjenta at 5mg daily Referral to electronic assembly Return in one month Orders: Referrals Directional Drill Operator Nutrition Referral E11.9 - Type 2 diabetes mellitus without complications Medications: New empagliflozin (Jardiance) 25 mg PO DAILY 90 tabs 3RF FreeStyle Lancets (lancets) As directed 100 ea 3RF NS E11.9 - Type 2 diabetes mellitus without complications Changed From glipizide ER 10 mg PO DAILY 30 days 30 tabs 4RF To glipizide ER 20 mg (2 x 10 mg) PO DAILY 90 days 180 tabs 3RF From blood sugar diagnostic (FreeStyle Lite Strips) Use 1 test strip once a day 50 ea 6RF E11.9 - Type 2 diabetes mellitus without complications To FreeStyle Lite Strips (blood sugar diagnostic) Use 1 test strip once a day 100 ea 3RF NS E11.9 - Type 2 diabetes mellitus without complications Discontinued empagliflozin (Jardiance) Discontinued Reason: Doctor's Order 10 mg PO DAILY 90 days 90 tabs 0RF Coding Level of Care Code Est Pt Level 4 (26343) Diagnoses Uncontrolled type 2 diabetes mellitus with hyperglycemia E11.65 Glycemic state: with hyperglycemia
[2024-08-22 14:25] VITALS: BP 124/72; PULSE 72; BMI 28.8
[2024-08-22 14:35] LABS: Glucose, Whole Blood 161 mg/dL (60-115)
== END 2024-08-22 15:02 | disposition home or self-care (01) ==
PROVIDERS: PCP Internal Medicine; Visit Provider Internal Medicine
DX: E11.65 Type 2 diabetes mellitus with hyperglycemia (principal)

== ENCOUNTER → 2024-08-22 14:16 | Outpatient (BNVA) | payer OTHER, SELFPAY | PROVIDERS: PCP Internal Medicine; Visit Provider Internal Medicine | DX: E11.65 Type 2 diabetes mellitus with hyperglycemia (principal); E78.5 Hyperlipidemia, unspecified | CPT/HCPCS: 82947; 99212 ==

== ENCOUNTER 2024-09-20 12:08 | Outpatient (REF) | payer OTHER, SELFPAY ==
--- NOTE | ~2024-09-20 | MM_ITS ---
EXAMINATION: Dual-Energy X-ray Absorptiometry - Bone Density Study HISTORY: Estrogen deficiency TECHNIQUE: [employer] Dual energy absorptiometry (DEXA) of the lumbar spine, total left hip, and femoral neck was performed. COMPARISON: Comparison is made with the prior examination dated 09/22/2018. FINDINGS: The bone mineral density of the lumbar spine is 10.74 with a T-score of -0.9, and a Z-score of 0.6. This represents a BMD change of -3.9% compared to the prior exam. This is statistically significant. The bone mineral density of the left total hip is 0.887 with a T-score of -1.0, and a Z-score of 0.8. This represents BMD change of -5.6% compared to the prior exam. This is statistically significant. The bone mineral density of the left femoral neck is 0.777 with a T-score of -1.9, and a Z-score of 0.1. This represents BMD change of -2.8% compared to the prior exam. FRACTURE RISK: The FRAX index suggests a ten year probability of major osteoporotic fracture of 8.7%, and of hip fracture 2.3%. MM/XR DEXA axial skeleton IMPRESSION: Based on bone mineral density, and according to World Health Organization (WHO) criteria, the diagnosis is consistent with osteopenia. All bone density values are in grams per centimeter squared. At this facility, the least significant change in BMD with 95% confidence is 0.022 at the lumbar spine, 0.027 at the hip, and 0.023 at the distal 1/3 radius. Electronically signed by: Clive Pritchett MD 09/24/2024 11:08 AM [facility]
--- NOTE | ~2024-09-20 | MM_ITS ---
EXAMINATION: MM SCREENING DIGITAL BREAST TOMOSYNTHESIS, BILATERAL CLINICAL INFORMATION: Screening. Asymptomatic. COMPARISON: Mammography: Comparison is made with available priors TECHNIQUE: Digital breast mammography with tomosynthesis is performed in both the craniocaudal and mediolateral oblique views along with computer-aided detection (CAD). FINDINGS: The breasts are heterogeneously dense, which may obscure small masses (ACR BI-RADS breast composition Category c). There are no significant masses, abnormal calcifications, or other abnormalities. MM/MM tomosynthesis screening BI IMPRESSION: No mammographic evidence of malignancy. ASSESSMENT: BI-RADS BI-RADS 1 - Negative RECOMMENDATION: Routine annual mammography screening. 1 year F/U This examination should not preclude the clinical evaluation of a suspicious palpable abnormality. This patient's information was entered into a reminder system with a target due date for their next mammogram. Electronically signed by: Brenda Jesus DO 09/28/2024 08:41 AM [facility]
== END 2024-09-20 12:09 | disposition home or self-care (01) ==
LOC: HO.MAMMO 12:08
PROVIDERS: PCP Internal Medicine; Visit Provider Internal Medicine
DX: Z12.31 Encounter for screening mammogram for malignant neoplasm of breast (principal); Z13.820 Encounter for screening for osteoporosis; Z78.0 Asymptomatic menopausal state
CPT/HCPCS: 77063; 77067; 77080

== ENCOUNTER → 2024-09-20 13:00 | Outpatient (BNV) | payer OTHER, SELFPAY | PROVIDERS: PCP Internal Medicine; Visit Provider Radiology Diagnostic Radiology | DX: Z12.31 Encounter for screening mammogram for malignant neoplasm of breast (principal) | CPT/HCPCS: 77063; 77067 ==

== ENCOUNTER 2024-10-09 14:16 | Outpatient (REF) | payer OTHER, SELFPAY ==
--- NOTE | ~2024-10-09 | XR_ITS ---
CLINICAL HISTORY: M25.561 - Pain in right knee 2 view right knee Comparison: None Findings: No fractures or dislocations. Tricompartmental periarticular osteophyte formation, indicating osteoarthritis. Chondrocalcinosis within the lateral compartment. No joint effusion. No radiopaque foreign body. IMPRESSION: 1. No acute findings. 2. Osteoarthritis. 3. Chondrocalcinosis. This document has been electronically signed by: Nelly Mueller MD on 10/10/2024 16:29:59
[2024-10-09 14:43] LABS: MANUAL DIFF FLAG NO
[2024-10-09 15:17] LABS: Basophils Absolute Auto 0.1 X10*3/uL (0.0-0.2); Basophils Percent Auto 0.9 % (0-2); Eosinophils Absolute Auto 0.1 X10*3/uL (0.0-0.4); Eosinophils Percent Auto 1.1 % (0-4); Hematocrit 35.4 % (37.0-47.0); Hemoglobin 10.8 g/dl (12.0-16.0); Imm Gran Abs Auto 0.02 X10*3/uL (0.00-0.03); Imm Gran Pct Auto 0.3 % (0.0-0.4); Lymphocytes Absolute Auto 1.3 X10*3/uL (1.2-4.9); Lymphocytes Percent Auto 20.5 % (20-40); Mean Corpuscular HGB Conc 30.5 g/dl (31.0-35.0); Mean Corpuscular Hemoglobin 24.3 pg (27.0-33.0); Mean Corpuscular Volume 79.6 fL (80.0-98.0); Mean Platelet Volume 10.5 fL (9.4-12.3); Monocytes Absolute Auto 0.3 X10*3/uL (0.1-1.2); Monocytes Percent Auto 5.3 % (2-11); Neutrophils Absolute Auto 4.6 x10*3/uL (2.0-8.3); Neutrophils Percent Auto 71.9 % (45-73); Platelet Count 379 X10*3/uL (160-400); Red Blood Count 4.45 X10*6/uL (4.20-5.50); Red Cell Distribution Width 16.2 % (11.0-16.0); White Blood Count 6.4 X10*3/uL (4.8-10.8)
[2024-10-09 16:24] LABS: Alanine Aminotransferase 16 U/L (0-31); Albumin Level 4.1 g/dL (3.5-5.0); Alkaline Phosphatase 61 U/L (39-117); Anion Gap 11 (12-20); Aspartate Amino Transferase 15 U/L (5-31); Bilirubin Total 0.2 mg/dL (0.0-1.0); Blood Urea Nitrogen 20 mg/dL (9-16); Calcium 9.5 mg/dL (8.4-10.2); Carbon Dioxide 27 mmol/L (22-29); Chloride 105 mmol/L (96-108); Estimated Glomerular Filt Rate > 60; Glucose Random 285 mg/dL (60-115); Potassium 4.2 mmol/L (3.3-5.1); Sodium 139 mmol/L (135-145); Total Protein 7.6 g/dL (6.5-8.0)
[2024-10-09 16:38] LABS: Ferritin 16 ng/mL (10-250)
== END 2024-10-09 14:17 | disposition home or self-care (01) ==
LOC: HO.XRAY 14:16
PROVIDERS: Absent Provider Internal Medicine Medical Oncology; PCP Internal Medicine; Visit Provider Internal Medicine
DX: M25.561 Pain in right knee (principal); D64.9 Anemia, unspecified
CPT/HCPCS: 36415; 73560; 80053; 82728; 85025

== ENCOUNTER → 2024-10-09 14:44 | Outpatient (BNV) | payer OTHER, SELFPAY | PROVIDERS: Absent Provider Internal Medicine Medical Oncology; PCP Internal Medicine; Visit Provider Radiology Diagnostic Radiology | DX: M11.261 Other chondrocalcinosis, right knee (principal); M17.11 Unilateral primary osteoarthritis, right knee | CPT/HCPCS: 73560 ==

== ENCOUNTER 2024-10-31 13:54 | Outpatient (AMB) | payer OTHER, SELFPAY ==
[2024-10-31 14:00] VITALS: BP 118/60; PULSE 80; O2SAT 98; BMI 28.8
--- NOTE | 2024-10-31 14:00 | A.OFFVIS_ITS ---
Vital Signs 10/31/24 14:00 Height 5 ft 4 in Weight 167 lb 8.821 oz BMI 28.8 BP 118/60 Blood Pressure Location Rt brachial Position Sitting Pulse 80 Pulse Source Pulse Oximeter Pulse Oximetry (%) 98 Oxygen Delivery Method Room Air Intake Visit Reasons: med changes Intake Note: Patient presents today for a follow-up on for Type 2 Diabetes Mellitus: Last Diabetic eye exam was on: DUE Last Podiatry exam was on: Does not see a Script Writer Most recent HbA1c: 10.1%, 10/31/2024 Random Glucose- 277 mg/dL, Today Soot Blower Required: Yes Soot Blower Language: Research & Analytics Manager Services: Soot Blower Offered & Declined Accompanied by: Daughter Allergies sitagliptin [Januvia] Allergy (Intermediate, Verified 08/22/24 14:27) tremors tramadol [TRAMADOL] Allergy (Mild, Verified 08/22/24 14:27) ABDOMINAL PAIN, stomach upset, severe abd pain Medication List - Last Reconciled 10/31/24 by Aaliyah Wayne MD acetaminophen (Pain Relief Extra Strength (acetaminophen)) 500 mg PO Q6H PRN 30 days albuterol sulfate 90 mcg/actuation 2 puffs PO Q4H PRN 30 days ascorbic acid (vitamin C) 500 mg PO TID bisacodyl (Dulcolax (bisacodyl)) 20 mg (4 x 5 mg) PO ONCE 1 day bisacodyl (Dulcolax (bisacodyl)) 10 mg (2 x 5 mg) PO BEDTIME 2 days blood pressure test kit-medium As directed blood sugar diagnostic 4x daily blood-glucose meter (FreeStyle Lite Meter kit) As directed carboxymethylcellulose sodium 1% (TheraTears) 1 drp ophthalmic (eye) BID cholecalciferol (vitamin D3) 50 mcg PO DAILY 90 days cyanocobalamin (vitamin B-12) 1,000 mcg PO DAILY empagliflozin (Jardiance) 25 mg PO DAILY ferrous sulfate 324 mg PO BID 90 days fluticasone propionate 50 mcg/actuation 1 spray intranasal BID PRN FreeStyle Lancets (lancets) once daily NS FreeStyle Lite Strips (blood sugar diagnostic) Use 1 test strip once a day NS glipizide ER 20 mg (2 x 10 mg) PO DAILY 90 days ibuprofen 800 mg PO Q8H PRN 30 days lancets (FreeStyle Lancets) As directed once a day levothyroxine 88 mcg PO DAILY 90 days lidocaine HCl-menthol 4-1 % (Icy Hot Max (lidocaine HCl-menthol)) 4 ea topical DAILY linagliptin (Tradjenta) 5 mg PO DAILY 90 days lisinopril 2.5 mg PO DAILY 90 days meclizine 25 mg PO DAILY 90 days memantine 7 mg PO DAILY 30 days uwxnbcfiryii-qppx-clxyt acid 18-400 mg-mcg (Centrum Women) 1 tab PO DAILY nitrofurantoin macrocrystal 100 mg PO BID 10 days omeprazole 20 mg PO BID peg 3350-electrolytes 236-22.74-6.74 -5.86 gram (Golytely) 240 mL PO Q10M 1 day peg 3350-electrolytes 236-22.74-6.74 -5.86 gram 240 mL PO Q10M prednisone 40 mg (2 x 20 mg) PO DAILY 3 days pyridoxine (vitamin B6) 100 mg PO DAILY 90 days rosuvastatin 40 mg PO DAILY 90 days sumatriptan succinate 25 mg PO Q2-4H PRN 30 days HPI Comments Details: The patient is a 79-year-old female presenting for diabetic follow up. Accompanied by daughter who translates. Declines official court interpreter Medical history: HLD, dementia, dyspepsia, GERD, iron deficiency, hypothyroid, migraines Current prescriptions: Jardiance 25mg (increased from 10mg daily, tradjenta 5mg, glipizide 20mg daily (increased from 10mg daily). Missing a lot of medication doses. She forgets to take the medicine even if placed in medication box. She has a periodicals library assistant but they are not allowed to administer meds Intolerant of metformin, januvia. Has not tried GLP but does have abdominal complaints at present A1C today 10.1%. Weight is stable. 07/2024 9.6% Using freestyle lite meter. checks ~2x daily. No low readings 145-394 with Avg 278 TGT 11% high 89% ROS CONSTITUTIONAL: Denies weight loss, fever and chills. HEENT: Denies changes in vision and hearing. RESPIRATORY: Denies SOB and cough. CV: Denies palpitations and CP GI: Denies abdominal pain, nausea, vomiting and diarrhea. : Denies dysuria and urinary frequency. MSK: Denies new myalgia and joint pain. SKIN: Denies rash and pruritus. NEUROLOGICAL: Denies headache PSYCHIATRIC: Denies recent changes in mood. PHYSICAL EXAM: GENERAL: Alert and oriented x 3. NAD EYES: EOMI. Anicteric. HENT: Moist mucous membranes. No scleral icterus. No cervical lymphadenopathy. LUNGS: Clear to auscultation bilaterally. CARDIOVASCULAR: Regular rate and rhythm. No murmur. No JVD. ABDOMEN: Soft, non-tender +bs EXTREMITIES: No edema. Non-tender. SKIN: No rashes or lesions. Warm. NEUROLOGIC: No focal neurological deficits. CN II-XII grossly intact PSYCHIATRIC: Cooperative. Appropriate mood and affect [facility] Medical History (Updated 10/31/24 @ 16:15 by Aaliyah Wayne MD) Diabetes type 2, uncontrolled Renal cyst Dysuria Shoulder pain Pre-operative clearance Renal stones Gastric polyp Arthritis of left knee Epigastric pain Pre-op examination Kidney stone on left side Diabetes mellitus B12 deficiency Headache Urinary retention Renal stones Acute urinary retention Urgency of urination Hypothyroidism Hypertension Dyslipidemia Diabetic polyneuropathy associated with type 2 diabetes mellitus Goiter Surgical History H/O: hysterectomy History of cataract removal with insertion of prosthetic lens Hx of colonoscopy History of esophagogastroduodenoscopy (EGD) Family History Father Lung cancer Mother Kidney failure Alzheimer disease Sister Diabetes Paternal Grandfather Cancer Daughter Diabetes Sister Diabetes Breast cancer Brother Alzheimer disease Colon cancer Brother Colon polyps Social History Household Members: None Housing: Apartment Are you a primary child care specialist to a significant other at home: No Do you presently have visiting nurse or other home services: No Alcohol intake: never Patient Tobacco Use Status: Never used Tobacco e-Cigarette/Vaping Use: Never Used Second Hand Smoke Exposure: No service: No Current occupational status: disabled Current occupation: rt handed Cognitive needs: Yes Hearing needs: No Vision needs: Yes Physical Exam Vital Signs: Last Vital Signs Pulse 80 10/31/24 14:00 BP 118/60 10/31/24 14:00 Pulse Ox 98 10/31/24 14:00 Oxygen Delivery Method Room Air 10/31/24 14:00 BMI result Body Mass Index 28.8 Results AMB Hemoglobin A1c AMB Hemoglobin A1c 10.1 % Last Edit by YURIY Duarte on 10/31/24 14:3 2 Results Reviewed Results Reviewed: Laboratory Last Values Glucose (Clinic) 277 mg/dL (60-115) H 10/31/24 14:05 Hgb A1c (Clinic) 10.1 % (4.0-6.0) H 10/31/24 14:30 Assessment & Plan Assessment & Plan (1) Diabetes type 2, uncontrolled: Code(s): E11.65 - Type 2 diabetes mellitus with hyperglycemia Category: Medical Qualifiers: Glycemic state: with hyperglycemia Qualified Code(s): E11.65 - Type 2 diabetes mellitus with hyperglycemia Plan: Patient needs evaluation for more home services. The issue is not medication doses it missing the medication altogether. Referral to VNA and nurse navigator (2) Dementia: Code(s): F03.90 - Unspecified dementia, unspecified severity, without behavioral disturbance, psychotic disturbance, mood disturbance, and anxiety Category: Medical Qualifiers: Alzheimer's disease onset: unspecified onset Dementia behavioral or psychological symptom: unspecified whether behavioral, psychotic, or mood disturbance or anxiety Dementia severity: unspecified severity Dementia type: Alzheimer's Qualified Code(s): G30.9 - Alzheimer's disease, unspecified; F02.80 - Dementia in other diseases classified elsewhere, unspecified severity, without behavioral disturbance, psychotic disturbance, mood disturbance, and anxiety Plan: see above Orders: Orders AMB Hemoglobin A1c Today E11.65 - Type 2 diabetes mellitus with hyperglycemia Referrals Home Health Referral E11.65 - Type 2 diabetes mellitus with hyperglycemia, F03.90 - Unspecified dementia, unspecified severity, without behavioral disturbance, psychotic disturbance, mood disturbance, and anxiety Nurse Navigator Referral E11.65 - Type 2 diabetes mellitus with hyperglycemia, F03.90 - Unspecified dementia, unspecified severity, without behavioral disturbance, psychotic disturbance, mood disturbance, and anxiety Medications: Refilled FreeStyle Lancets (lancets) once daily 100 ea 11RF NS E11.9 - Type 2 diabetes mellitus without complications FreeStyle Lite Strips (blood sugar diagnostic) Use 1 test strip once a day 100 ea 11RF NS E11.9 - Type 2 diabetes mellitus without complications Coding Level of Care Code Est Pt Level 4 (48393) Complex EM visit Add On G2211 Diagnoses Uncontrolled type 2 diabetes mellitus with hyperglycemia E11.65 Glycemic state: with hyperglycemia Alzheimer's dementia, unspecified dementia severity, unspecified timing of dementia onset, unspecified whether behavioral, psychotic, or mood disturbance or anxiety G30.9; F02.80 Alzheimer's disease onset: unspecified onset Dementia behavioral or psychological symptom: unspecified whether behavioral, psychotic, or mood disturbance or anxiety Dementia severity: unspecified severity Dementia type: Alzheimer's
[2024-10-31 14:11] LABS: Glucose, Whole Blood 277 mg/dL (60-115)
== END 2024-10-31 14:32 | disposition home or self-care (01) ==
PROVIDERS: PCP Internal Medicine; Visit Provider Internal Medicine
DX: E11.65 Type 2 diabetes mellitus with hyperglycemia (principal); G30.9 Alzheimer's disease, unspecified; F02.80 Dementia in other diseases classified elsewhere, unspecified severity, without behavioral disturbance, psychotic disturbance, mood disturbance, and anxiety

== ENCOUNTER → 2024-10-31 13:54 | Outpatient (BNVA) | payer OTHER, SELFPAY | PROVIDERS: PCP Internal Medicine; Visit Provider Internal Medicine | DX: E11.65 Type 2 diabetes mellitus with hyperglycemia (principal); E78.5 Hyperlipidemia, unspecified; G30.9 Alzheimer's disease, unspecified; F02.80 Dementia in other diseases classified elsewhere, unspecified severity, without behavioral disturbance, psychotic disturbance, mood disturbance, and anxiety; F30.9 Manic episode, unspecified | CPT/HCPCS: 82947; 83036; 99212 ==

== ENCOUNTER 2024-11-12 14:32 | Outpatient (AMB) | payer OTHER, SELFPAY ==
--- NOTE | 2024-11-12 14:36 | A.OFFVIS_ITS ---
Vital Signs 11/12/24 14:40 Height 5 ft 4 in Weight 169 lb BMI 29.0 Intake Visit Reasons: New prob-RT knee pain Intake Note: Lindsey is an 79 year old female who presents today for a new problem visit with complaints of right knee pain. She is interested in having a right knee injection today. Allergies sitagliptin [Januvia] Allergy (Intermediate, Verified 11/12/24 14:40) tremors tramadol [TRAMADOL] Allergy (Mild, Verified 11/12/24 14:40) ABDOMINAL PAIN, stomach upset, severe abd pain HPI HPI New prob-RT knee pain: Details: Ongoing right knee pain. She has benefitted from injections in the past and would like another injection today. She is diabetic. Her sugars have not responded adversely to prior injections. [facility] Medical History Diabetes type 2, uncontrolled Renal cyst Dysuria Shoulder pain Pre-operative clearance Renal stones Gastric polyp Arthritis of left knee Epigastric pain Pre-op examination Kidney stone on left side Diabetes mellitus B12 deficiency Headache Urinary retention Renal stones Acute urinary retention Urgency of urination Hypothyroidism Hypertension Dyslipidemia Diabetic polyneuropathy associated with type 2 diabetes mellitus Goiter Surgical History H/O: hysterectomy History of cataract removal with insertion of prosthetic lens Hx of colonoscopy History of esophagogastroduodenoscopy (EGD) Family History Father Lung cancer Mother Kidney failure Alzheimer disease Sister Diabetes Paternal Grandfather Cancer Daughter Diabetes Sister Diabetes Breast cancer Brother Alzheimer disease Colon cancer Brother Colon polyps Social History Household Members: None Housing: Apartment Are you a primary patient care technician to a significant other at home: No Do you presently have visiting nurse or other home services: No Alcohol intake: never Patient Tobacco Use Status: Never used Tobacco e-Cigarette/Vaping Use: Never Used Second Hand Smoke Exposure: No service: No Current occupational status: disabled Current occupation: rt handed Cognitive needs: Yes Hearing needs: No Vision needs: Yes Physical Exam Vital Signs: BMI result Body Mass Index 29.0 Extrem Other: right knee with skin c/d/i. TTP medial comaprtment Office Procedures Joint Inj/Aspir; Non-Pain Clin Joint Injection/Drain Details: Injected 1 mL of Decadron and 3 mL 1% lidocaine and 3 mL of 0.25% Marcaine. Site was prepped using aseptic technique. Patient tolerated the procedure well. Shoulders, Hips, Knees, Knee Large Joint Injection : Right Knee Coding Procedure code (CPT) selection complete Assessment & Plan Assessment & Plan (1) Right knee pain: Code(s): M25.561 - Pain in right knee Category: Medical Plan: Right knee injection for OA in patient who is not an operative candidate (2) Diabetes type 2, uncontrolled: Code(s): E11.65 - Type 2 diabetes mellitus with hyperglycemia Category: Medical Qualifiers: Glycemic state: with hyperglycemia Qualified Code(s): E11.65 - Type 2 diabetes mellitus with hyperglycemia Plan: Discussed hyperglycemic effects of steroids. Coding Level of Care Code Est Pt Level 4 (21845) Diagnoses Right knee pain M25.561 Uncontrolled type 2 diabetes mellitus with hyperglycemia E11.65 Glycemic state: with hyperglycemia CPT Codes Shoulders, Hips, Knees, - Knee Large Joint Injection : Right Knee ( [id number])
[2024-11-12 14:40] VITALS: BMI 29.0
--- OUTSIDE RECORDS SUMMARY | 2024-11-12 17:18 | XMS_ITS | Encounter Summary ---
Author Organization [email or web address] Address [address] [place] [address] Care Team Providers Care Jewelsmith Name Role Phone Unavailable Primary Care Provider Unavailabl e Encounter Details Date Type Department Care Team (Late st Contact Info) Description 05/30/2023 Telephone [facility] [address], [place] [phone] Dominic Herrera DDS [address] [address], [place] [phone] Social History Tobacco Use Types Packs/Day Years Used Date Smoking Tobacco: Never Assessed Comments Unknown Sex and Gender Information Value Date Recorded Sex Assigned at Female 07/12/2022 10:20 AM EDT Legal Sex Female 10:20 AM EDT Gender Identity Female 07/12/2022 10:20 AM EDT Sexual Orientation Straight 07/12/2022 10 :20 AM EDT documented as of this encounter Plan of Treatment Not on file documented as of this encounter Visit Diagnoses Not on filedocumented in this encounter
--- OUTSIDE RECORDS SUMMARY | 2024-11-12 17:18 | XMS_ITS | Clinical Summary ---
Author Organization [employer] Address [address] [facility] [address] [place] [address] Care Team Providers Care Diagnostic Radiologist Name Role Phone Unavailable Primary Care Provider Unavailabl e Allergies No known active allergies Medications acetaminophen (Tylenol) 500 MG tablet Take 1-2 tablet by mouth three times a day as needed 2015 Active ascorbic acid (Vitamin C) 500 MG tablet Take 1 tablet by mouth 3 times daily. Active cholecalciferol (Vitamin D-3) 50 MCG (2000 UT) capsule Take by mouth in the morning. 07/15/2023 Active ferrous sulfate 324 (65 Fe) MG EC tablet Take 324 mg by mouth 2 times daily. 06/20/2023 Active FREESTYLE LITE test strip USE 1 TEST STRIP ONCE A DAY 08/08/2023 Active FreeStyle lancets USE DIRECTED ONCE A DAY 10/24/2022 Active levothyroxine (Synthroid, Levoxyl) 100 MCG tablet TAKE 1 TABLET BY MOUTH EVERY DAY FOR 90 DAYS 05/18/2023 Active Tradjenta 5 MG tablet Take 5 mg by mouth in the morning. 07/15/2023 Active lisinopril 2.5 MG tablet Take 2.5 mg by mouth in the morning. 05/27/2023 Active loratadine (Claritin) 10 MG tablet Take 1 tablet by mouth at bed time. 01/30/2015 Active metFORMIN (Glucophage) 1000 MG tablet Take 1,000 mg by mouth 2 times daily. 08/08/2023 Active omeprazole (PriLOSEC) [address] capsule Take 20 mg by mouth 2 times daily. 06/16/2023 Active pyridoxine (Vitamin B-6) 100 MG tablet Take 100 mg by mouth in the morning. 07/29/2023 Active rosuvastatin (Crestor) 20 MG tablet Take 20 mg by mouth in the morning. 07/07/2023 Active Active Problems Problem Noted Date Diagnosed Date Complete edentulism 06/22/2023 Social History Tobacco Use Types Packs/Day Years Used Date Smoking Tobacco: Never Passive Smoke Exposure: Never Smokeless Tobacco: Never Tobacco Cessation:Counseling Given: Not Answered Alcohol Use Standard Drinks/Week Comments Defer 0 (1 standard drink = 0.6 oz pur e alcohol) Comments Unknown Sex and Gender Information Value Date Recorded Sex Assigned at Female 07/12/2022 10:20 AM EDT Legal Sex Female 10:20 AM EDT Gender Identity Female 07/12/2022 10:20 AM EDT Sexual Orientation Straight 07/12/2022 10 :20 AM EDT Last Filed Vital Signs Vital Sign Reading Time Taken Comments Blood Pressure 120/80 11/17/2023 2:16 PM EST Pulse - - Temperature - - Respiratory Rate - - Oxygen Saturation - - Inhaled Oxygen Concentration - - Weight - - Height - - Body Mass Index - - Plan of Treatment Health Maintenance Due Date Last Done Comments Dental Prophylaxis 1944 Dental X-Ray: Bitewings 1944 Depression Screening 1944 Lipid Panel 1944 SDOH Screening 1944 Alcohol/Substance Use Screening 1956 Zoster Vaccines (2 of 3) 03/24/2010 01/27/2010 RSV Patients and Patients Aged 60 years or older (1 - 1-dose 75+ series) 2019 DTaP/Tdap/Td Vaccines (2 - Td or Tdap) 11/08/2022 11/08/2012, 04/01/2009 Dental Oral Exam 12/23/2023 06/22/2023, , 10/07/2021 COVID-19 Vaccine ( - season) 2024 Influenza Vaccine (#1) 2024 6, 06/12/2014, 06/04/2013, Additional history exists Tobacco Screening 11/16/2024 11/17/2023 Dental X-Ray: Full Mouth 06/23/2026 06/22/2023, 09/13 Pneumococcal Vaccine: 50+ Years Completed 07/07/2015, 11/27/2009 HIB Vaccines Aged Out No longer eligi ble based on patient's age to complete this topic HPV Vaccines Aged Out No longer eligi ble based on patient's age to complete this topic Hepatitis A Vaccines Aged Out No long er eligible based on patient's age to complete this topic Hepatitis B Vaccines Aged Out No long er eligible based on patient's age to complete this topic IPV Vaccines Aged Out No longer eligi ble based on patient's age to complete this topic Meningococcal Vaccine Aged Out No melida francia eligible based on patient's age to complete this topic RSV under 20 months Aged Out No longe r eligible based on patient's age to complete this topic Rotavirus Vaccines Aged Out No longer eligible based on patient's age to complete this topic Procedures Procedure Name Priority Date/Time Associated Diagnosis Comments PANORAMIC RADIOGRAPHIC IMAGE Routine 06/22/2023 2:00 PM EDT PERIODIC ORAL EVALUATION - ESTABLISHED PATIENT Routine 06/22/2023 2:00 PM EDT from Last 3 Months or Most Recently Relevant to Health Maintenance Insurance DENT[facility] - [facility]
== END 2024-11-12 14:58 | disposition home or self-care (01) ==
PROVIDERS: PCP Internal Medicine; Visit Provider Orthopaedic Surgery
DX: M25.561 Pain in right knee (principal); E11.65 Type 2 diabetes mellitus with hyperglycemia
CPT/HCPCS: 20610; 99214

== ENCOUNTER → 2024-11-12 14:32 | Outpatient (BNVA) | payer OTHER, SELFPAY | PROVIDERS: PCP Internal Medicine; Visit Provider Orthopaedic Surgery | DX: M25.561 Pain in right knee (principal); E11.65 Type 2 diabetes mellitus with hyperglycemia; E11.42 Type 2 diabetes mellitus with diabetic polyneuropathy | CPT/HCPCS: 20610; 99212; J0665; J1100; J2003 ==

== ENCOUNTER 2024-11-29 13:45 | Outpatient (AMB) | payer OTHER, SELFPAY ==
--- NOTE | 2024-11-29 14:09 | A.OFFPC_ITS ---
Vital Signs 11/29/24 14:13 Height 5 ft 4 in Weight 168 lb BMI 28.8 BP 126/64 Blood Pressure Location Lt brachial Position Sitting Intake Visit Reasons: dm Intake Note: Patient here for a follow up DM Ink Blender Required: No Accompanied by: Daughter Allergies sitagliptin [Januvia] Allergy (Intermediate, Verified 11/29/24 14:36) tremors tramadol [TRAMADOL] Allergy (Mild, Verified 11/29/24 14:36) ABDOMINAL PAIN, stomach upset, severe abd pain Medication List - Last Reconciled 11/29/24 by Brandy Montoya MD acetaminophen (Pain Relief Extra Strength (acetaminophen)) 500 mg PO Q6H PRN 30 days albuterol sulfate 90 mcg/actuation 2 puffs PO Q4H PRN 30 days ascorbic acid (vitamin C) 500 mg PO TID ascorbic acid (vitamin C) (Vitamin C) 500 mg PO DAILY bisacodyl (Dulcolax (bisacodyl)) 20 mg (4 x 5 mg) PO ONCE 1 day bisacodyl (Dulcolax (bisacodyl)) 10 mg (2 x 5 mg) PO BEDTIME 2 days blood pressure test kit-medium As directed blood sugar diagnostic 4x daily blood-glucose meter (FreeStyle Lite Meter kit) As directed carboxymethylcellulose sodium 1% (TheraTears) 1 drp ophthalmic (eye) BID cholecalciferol (vitamin D3) 50 mcg PO DAILY 90 days cyanocobalamin (vitamin B-12) 1,000 mcg PO DAILY empagliflozin (Jardiance) 25 mg PO DAILY ferrous sulfate 325 mg PO DAILY ferrous sulfate 324 mg PO BID 90 days fluticasone propionate 50 mcg/actuation 1 spray intranasal BID PRN FreeStyle Lancets (lancets) once daily NS FreeStyle Lite Strips (blood sugar diagnostic) Use 1 test strip once a day NS glipizide ER 20 mg (2 x 10 mg) PO DAILY 90 days ibuprofen 800 mg PO Q8H PRN 30 days lancets (FreeStyle Lancets) As directed once a day levothyroxine 88 mcg PO DAILY 90 days lidocaine HCl-menthol 4-1 % (Icy Hot Max (lidocaine HCl-menthol)) 4 ea topical DAILY linagliptin (Tradjenta) 5 mg PO DAILY 90 days lisinopril 2.5 mg PO DAILY 90 days meclizine 25 mg PO DAILY 90 days memantine 7 mg PO DAILY 30 days uzqovirzgizb-jbpe-sjwrl acid 18-400 mg-mcg (Centrum Women) 1 tab PO DAILY nitrofurantoin macrocrystal 100 mg PO BID 10 days omeprazole 20 mg PO BID peg 3350-electrolytes 236-22.74-6.74 -5.86 gram (Golytely) 240 mL PO Q10M 1 day peg 3350-electrolytes 236-22.74-6.74 -5.86 gram 240 mL PO Q10M prednisone 40 mg (2 x 20 mg) PO DAILY 3 days pyridoxine (vitamin B6) 100 mg PO DAILY 90 days rosuvastatin 40 mg PO DAILY 90 days sumatriptan succinate 25 mg PO Q2-4H PRN 30 days Tobacco use date assessed: 11/29/24 Fall risk assessment: No Falls in past year Last assessed Fall Risk: 11/29/24 Dental Screening Dental Screen Date: 11/29/24 Did you have a dental visit in the last 12 months?: No Did you have a dental problem in the last 6 months where you did not have access to dental care?: No Was dental information given to patient?: Patient has dentist HPI HPI Comments History of Present Illness Details The patient is an 79-year-old female presenting with management of diabetes and knee pain evaluation. Her Type 2 Diabetes Mellitus has experienced a worsening in control, marked by an increase in A1c from 9 to 10.1, despite current management including Jardiance without additional medication adjustments. Concerns persist regarding the management approach after options such as Ozempic and Trulicity were not implemented. She does follows with endocrinology. She does have hypertension, hyperlipidemia and hypothyroidism and will need blood work. Has dementia that has been stable and is accompanied by daughter. In parallel, she reports a notable exacerbation of knee pain following an injection, correlating with a new rash possibly consistent with an allergic reaction. The knee discomfort affects her functional status, and further imaging is considered to assess for any underlying complications. The persistence of these issues necessitates comprehensive management discussions. Also has a positive Homans sign and will order ultrasound duplex to rule out DVT. Walks with a cane for gait stability. [facility] Medical History (Updated 11/29/24 @ 15:02 by Brandy Montoya MD) Diabetes type 2, uncontrolled Renal cyst Dysuria Shoulder pain Pre-operative clearance Renal stones Gastric polyp Arthritis of left knee Epigastric pain Pre-op examination Kidney stone on left side Diabetes mellitus B12 deficiency Headache Urinary retention Renal stones Acute urinary retention Urgency of urination Hypothyroidism Hypertension Dyslipidemia Diabetic polyneuropathy associated with type 2 diabetes mellitus Goiter Surgical History H/O: hysterectomy History of cataract removal with insertion of prosthetic lens Hx of colonoscopy History of esophagogastroduodenoscopy (EGD) Family History Father Lung cancer Mother Kidney failure Alzheimer disease Sister Diabetes Paternal Grandfather Cancer Daughter Diabetes Sister Diabetes Breast cancer Brother Alzheimer disease Colon cancer Brother Colon polyps Social History Household Members: None Housing: Apartment Are you a primary senior resident care director to a significant other at home: No Do you presently have visiting nurse or other home services: No Alcohol intake: never Patient Tobacco Use Status: Never used Tobacco e-Cigarette/Vaping Use: Never Used Second Hand Smoke Exposure: No service: No Current occupational status: disabled Current occupation: rt handed Cognitive needs: Yes Hearing needs: No Vision needs: Yes Questionnaire PHQ-9 Over the last 2 weeks, how often have you been bothered by any of the following problems? 1. Little interest or pleasure in doing things: not at all 2. Feeling down, depressed, or hopeless: not at all 3. Trouble falling or staying asleep, or sleeping too much: not at all 4. Feeling tired or having little energy: not at all 5. Poor appetite or overeating: not at all 6. Feeling bad about yourself - or that you are a failure or have let yourself or your family down: not at all 7. Trouble concentrating on things, such as reading the newspaper or watching television: not at all 8. Moving or speaking so slowly that other people could have noticed. Or the opposite - being so fidgety or restless that you have been moving around a lot more than usual: not at all 9. Thoughts that you would be better off or of hurting yourself in some way: not at all Total score: 0 Depression Screening Interpretation: Negative Depression Screening Done: Yes 86536 - PHQ-9 Billing: Yes Source: Developed by Drs. Clive Ortega, Violet Solis, Pernell Peralta and colleagues, with an educational vinh from [employer]. Thrive Questionnaire Date Thrive assessed: 11/29/24 I am a: Patient What is your living situation today?: I have a steady place to live Within the past 12 months, did the food you bought not last and you didn't have the money to get more?: Never true Within the past 12 months, did you worry whether your food would run out before you got money to buy more?: Never true Do you have trouble paying for medicines?: No Do you have trouble getting transportation to medical appointments?: No Do you have trouble paying your heating and electricity bill?: No Do you have trouble taking care of your child, family member or friend?: No Do you have trouble with day-to-day activities such as bathing, preparing meals, shopping, managing finances, etc.?: No Are you currently unemployed and looking for a job?: No Are you interested in more education?: No Please select the resources that you would like help with: None Currently or been in a relationship where the following occur: No concerns reported THRIVE Score: 0 AUDIT C Alcohol Use Questionnaire (AUDIT-C) 1. How often do you have a drink containing alcohol?: Never Total Score: 0 Score Reviewed/Action Taken: No CHRIS-7 AMB Questionnaire CHRIS-7 Date CHRIS - 7 assessed: 11/29/24 Feeling nervous, anxious, or on edge: 0 = Not at all Not being able to stop or control worryin = Not at all Worrying too much about different things: 0 = Not at all Trouble relaxin = Not at all Being so restless that it is hard to sit still: 0 = Not at all Becoming easily annoyed or irritable: 0 = Not at all Feeling afraid as if something awful might happen: 0 = Not at all Total CHRIS-7 score (0-4 normal; 5-9 mild; 10-14 moderate; 15-21 severe): 0 Source: Developed by Violet Miguel Kurt Kroenke and colleagues, with an educational vinh from [employer]. CHRIS-7 Assessment Billing CHRIS-7 Assessment Tool: CHRIS-7 Assessment 40872 Review of Systems Const All systems reviewed & are unremarkable except as noted in HPI and below Card Denies chest pain at rest, Denies chest pain with activity, Denies edema, Denies irregular heart rhythm, Denies claudication, Denies dyspnea, Denies dyspnea on exertion, Denies orthopnea, Denies paroxysmal nocturnal dyspnea and Denies slow heart rate Resp Denies cough, Denies dyspnea and Denies dyspnea on exertion GI Denies abdominal pain, Denies change in bowel habits, Denies excessive flatus, Denies nausea and Denies vomiting Denies urinary incontinence, Denies urinary hesitancy and Denies urinary urgency Musc Denies atrophy, Denies deformity, Reports arthralgias and Denies limited range of motion Skin/Breast Denies bleeding lesions, Denies changing lesions and Reports rash Physical exam (Primary Care) Vital Signs: Last Vital Signs BP 126/64 11/29/24 14:13 BMI result Body Mass Index 28.8 Tobacco/Smoking Status: Tobacco use Status Tobacco use date assessed 11/29/24 11/29/24 14:21 Patient Tobacco Use Status Never used Tobacco 11/29/24 14:21 e-Cigarette/Vaping Use Never Used 11/29/24 14:21 PHQ-9: PHQ-9 Score PHQ-9: Total score 0 11/29/24 14:21 Depression Screening Interpretation: Negative Thrive Assessment: Date of Thrive Assessment Date Thrive assessed 11/29/24 11/29/24 14:21 Currently or been in a relationship where the following occur: No concerns reported Resp Effort & Inspection: normal respiratory effort Auscultation: clear to auscultation bilaterally Cardio Jugular venous distension: no JVD Rate: regular rate Rhythm: regular rhythm Heart sounds: S1 normal heart sound present and S2 normal heart sound present Skin Rashes: rashes noted (maculopapular pruritic rash in right knee) Extrem General: Yes full ROM Coding Level of Care Code Est Pt Level 4 (51823) Complex EM visit Add On G2211 Diagnoses Right leg pain M79.604 Knee pain M25.569 Alzheimer's dementia, unspecified dementia severity, unspecified timing of dementia onset, unspecified whether behavioral, psychotic, or mood disturbance or anxiety G30.9; F02.80 Dementia type: Alzheimer's Alzheimer's disease onset: unspecified onset Dementia severity: unspecified severity Dementia behavioral or psychological symptom: unspecified whether behavioral, psychotic, or mood disturbance or anxiety Uncontrolled type 2 diabetes mellitus with hyperglycemia E11.65 Glycemic state: with hyperglycemia Hyperlipidemia LDL goal <70 E78.5 Hypothyroidism, unspecified type E03.9 Hypothyroidism type: unspecified Essential hypertension I10 Hypertension type: essential hypertension Additional Codes PHQ-9 - 38875 - PHQ-9 Billing: Yes ([id number]) CHRIS-7 Assessment Billing - CHRIS-7 Assessment Tool: CHRIS-7 Assessment 12360 ([id number]) Time Spent (min) 24 Assessment & Plan Assessment & Plan (1) Right leg pain: Code(s): M79.604 - Pain in right leg Category: Medical (2) Knee pain: Code(s): M25.569 - Pain in unspecified knee Category: Medical (3) Dementia: Code(s): F03.90 - Unspecified dementia, unspecified severity, without behavioral disturbance, psychotic disturbance, mood disturbance, and anxiety Category: Medical Qualifiers: Dementia type: Alzheimer's Alzheimer's disease onset: unspecified onset Dementia severity: unspecified severity Dementia behavioral or psychological symptom: unspecified whether behavioral, psychotic, or mood disturbance or anxiety Qualified Code(s): G30.9 - Alzheimer's disease, unspecified; F02.80 - Dementia in other diseases classified elsewhere, unspecified severity, without behavioral disturbance, psychotic disturbance, mood disturbance, and anxiety (4) Diabetes type 2, uncontrolled: Code(s): E11.65 - Type 2 diabetes mellitus with hyperglycemia Category: Medical Qualifiers: Glycemic state: with hyperglycemia Qualified Code(s): E11.65 - Type 2 diabetes mellitus with hyperglycemia (5) Hyperlipidemia LDL goal <70: Code(s): E78.5 - Hyperlipidemia, unspecified Category: Medical (6) Hypothyroidism: Code(s): E03.9 - Hypothyroidism, unspecified Category: Medical Qualifiers: Hypothyroidism type: unspecified Qualified Code(s): E03.9 - Hypothyroidism, unspecified (7) Hypertension: Code(s): I10 - Essential (primary) hypertension Category: Medical Qualifiers: Hypertension type: essential hypertension Qualified Code(s): I10 - Essential (primary) hypertension Plan The treatment of the patient's Type 2 Diabetes Mellitus focuses on controlling rising A1c levels, revisiting the appropriateness of her current medication regimen in light of past resistance to injectable options. We are pursuing diagnostic imaging of her knee to identify underlying complications contributing to her exacerbated knee pain and distinct rash. We started diclofenac therapy to manage pain without the risk of falls intrinsic to stronger medications like oxycodone, considering her solitary living situation. Additional support will address osteoporosis risk factors, ensuring adequate vitamin D and calcium intake, while maintaining vigilance on her polypharmacy regimen to mitigate adverse drug reactions and allergies. Patient was informed and verbally consented to the use of an ambient scribe for clinic note documentation during this visit. In today's consultation, I engaged the patient in discussions about her Type 2 Diabetes Mellitus management, emphasizing the importance of controlling her elevated A1c levels. We explored possible options, although I noted her preference against injectables like Trulicity and Ozempic. Knee pain evaluations included recommendations for imaging to rule out any further complications or vascular issues. Comprehensive discussions centered on pain management, weighing the risk of polypharmacy and the adverse potential for stronger analgesics like oxycodone due to fall risk. The patient was apprised of the benefits and risks of diclofenac use and the necessity of gastric protection strategies. We also broached her osteopenia management, stressing prevention through vitamin supplementation. Finally, follow-up arrangements were delineated, ensuring continual monitoring and adjustment of therapeutic strategies. Orders: Orders XR knee RT 2V Today M25.569 - Pain in unspecified knee Vitamin D 25-OH Total Today E55.9 - Vitamin D deficiency, unspecified Comprehensive [place]. Panel Fast Today E11.65 - Type 2 diabetes mellitus with hyperglycemia Thyroid Stimulating Hormone Today E03.9 - Hypothyroidism, unspecified US venous duplex LE RT Today M79.604 - Pain in right leg Lipid Panel Today E78.5 - Hyperlipidemia, unspecified Microalbumin, Random (w Creat) Today R80.9 - Proteinuria, unspecified Vitamin B12 and Folate Today E53.8 - Deficiency of other specified B group vitamins IRON PROFILE Today D64.9 - Anemia, unspecified Complete Blood Count Auto Diff Today D64.9 - Anemia, unspecified Medications: New cetirizine (All Day Allergy (cetirizine)) 10 mg PO DAILY 10 days PRN 10 tabs 0RF allergy symptoms diclofenac sodium 50 mg PO BEDTIME 30 days PRN 30 tabs 0RF pain Patient Instructions: - Monitor blood sugar levels regularly and maintain dietary adjustments as discussed. - Recognize signs of adverse medication reactions, particularly post-injection sites. - Take diclofenac as prescribed with food; avoid using with other NSAIDs like ibuprofen. - Attend scheduled imaging to assess knee condition and potential complications. - Maintain adequate calcium and vitamin D intake to mitigate osteopenia risks. - Follow up on medication adherence, especially Jardiance, and report any issues. - Revisit the clinic for assessment updates and further diabetes management planning.
[2024-11-29 14:13] VITALS: BP 126/64; BMI 28.8
== END 2024-11-29 14:54 | disposition home or self-care (01) ==
LOC: HO.HMCH 13:46
PROVIDERS: PCP Internal Medicine; Visit Provider Internal Medicine
DX: M79.604 Pain in right leg (principal); G30.9 Alzheimer's disease, unspecified; F02.80 Dementia in other diseases classified elsewhere, unspecified severity, without behavioral disturbance, psychotic disturbance, mood disturbance, and anxiety; E11.65 Type 2 diabetes mellitus with hyperglycemia; M25.561 Pain in right knee; E78.5 Hyperlipidemia, unspecified; E03.9 Hypothyroidism, unspecified; I10 Essential (primary) hypertension

== ENCOUNTER → 2024-11-29 13:45 | Outpatient (BNVA) | payer OTHER, SELFPAY | PROVIDERS: PCP Internal Medicine; Visit Provider Internal Medicine | DX: M79.604 Pain in right leg (principal); M25.569 Pain in unspecified knee; G30.9 Alzheimer's disease, unspecified; F02.80 Dementia in other diseases classified elsewhere, unspecified severity, without behavioral disturbance, psychotic disturbance, mood disturbance, and anxiety; E11.65 Type 2 diabetes mellitus with hyperglycemia; E78.5 Hyperlipidemia, unspecified; E03.9 Hypothyroidism, unspecified; I10 Essential (primary) hypertension | CPT/HCPCS: 96127; 99212 ==

== ENCOUNTER 2024-11-29 15:26 | Outpatient (REF) | payer OTHER, SELFPAY ==
--- NOTE | ~2024-11-29 | US_ITS ---
EXAMINATION: US TRIPLEX LOWER EXTREMITY, RIGHT CLINICAL INFORMATION: Right leg pain and swelling. COMPARISON: None available. TECHNIQUE: Color-flow triplex imaging with spectral analysis and compression Doppler were performed on the right lower extremity. FINDINGS: Respiratory variation, normal compression and augmented flow are noted throughout the right lower extremity. The visualized common femoral vein, superficial femoral vein, profunda femoral vein, popliteal vein and midcalf peroneal and posterior tibial venous segments show no evidence of deep venous thrombosis. There is no Daniel's cyst. US/US venous duplex LE RT IMPRESSION: No evidence of deep venous thrombosis involving the right lower extremity. Electronically signed by: Deepak Mckeon MD 11/29/2024 04:24 PM EDT
--- NOTE | ~2024-11-29 | XR_ITS ---
EXAMINATION: XR KNEE 1-2 VIEWS RIGHT HISTORY: M25.569 - Pain in unspecified knee COMPARISON: Comparison is made with the prior examination dated 10/09/2024. FINDINGS: AP and lateral views of the right knee are submitted. Osseous mineralization is normal. There is no fracture or dislocation. There is moderate to severe osteoarthritis of the medial compartment with joint space narrowing and osteophyte formation. There is a small suprapatellar joint effusion. There is chondrocalcinosis. XR/XR knee RT 2V IMPRESSION: Moderate to severe osteoarthritis of the medial compartment. Electronically signed by: Clive Pritchett MD 11/30/2024 03:11 PM EDT
== END 2024-11-29 15:27 | disposition home or self-care (01) ==
LOC: HO.US 15:26
PROVIDERS: Visit Provider Internal Medicine
DX: M79.604 Pain in right leg (principal); M25.569 Pain in unspecified knee; G30.9 Alzheimer's disease, unspecified; F02.80 Dementia in other diseases classified elsewhere, unspecified severity, without behavioral disturbance, psychotic disturbance, mood disturbance, and anxiety; E11.65 Type 2 diabetes mellitus with hyperglycemia; E78.5 Hyperlipidemia, unspecified; E03.9 Hypothyroidism, unspecified; I10 Essential (primary) hypertension
CPT/HCPCS: 73560; 93971; 96127; 99212

== ENCOUNTER → 2024-11-29 15:28 | Outpatient (BNV) | payer OTHER, SELFPAY | PROVIDERS: Visit Provider Radiology Diagnostic Radiology | DX: M17.11 Unilateral primary osteoarthritis, right knee (principal) | CPT/HCPCS: 73560; 93971 ==

== ENCOUNTER 2025-01-22 14:44 | Outpatient (AMB) | payer OTHER, SELFPAY ==
[2025-01-22 14:46] VITALS: BP 120/60; PULSE 95; O2SAT 96; BMI 28.8
--- NOTE | 2025-01-22 14:46 | A.OFFVIS_ITS ---
Vital Signs 01/22/25 14:46 Height 5 ft 4 in Weight 167 lb 8.821 oz BMI 28.8 BP 120/60 Blood Pressure Location Rt brachial Position Sitting Pulse 95 Pulse Source Pulse Oximeter Pulse Oximetry (%) 96 Oxygen Delivery Method Room Air Intake Visit Reasons: Diabetes type 2, uncontrolled, high blood sugars Intake Note: Patient presents today for a follow-up on for Type 2 Diabetes Mellitus: Last Diabetic eye exam was on: DUE Last Podiatry exam was on: Does not see a Nitro Man Most recent HbA1c: 10.8%, 01/22/2025 Random Glucose- 385 mg/dL, Today URINE KETONE- TRACE Plane Tender Required: Yes Plane Tender Language: Volunteer Services Coordinator Services: Plane Tender Offered & Declined Plane Tender Name: DAUGHTER Accompanied by: Daughter Allergies sitagliptin [Januvia] Allergy (Intermediate, Verified 11/29/24 14:36) tremors tramadol [TRAMADOL] Allergy (Mild, Verified 11/29/24 14:36) ABDOMINAL PAIN, stomach upset, severe abd pain HPI Comments Details: [age] YO female who is seen in f/u for T2DM. She called our office this morning to report her sugars were very high in the 300+ range. She had not taken Jardiance for 4 days. Glucose 368 ketones trace She complains of burning on urination and has a rash in her external genitalia. She does complain of some lower back pain Current regimen: Jardiance has been held for the past 4 days Tradjenta 5 mg Glipizide ER Her glucometer is currently male functioning. She has had many readings in the 300+ range She has had a few in the 150s Her most recent A1c today is 10.8. A1cs have been elevated for several years. [facility] Medical History (Updated 11/29/24 @ 15:02 by Brandy Montoya MD) Diabetes type 2, uncontrolled Renal cyst Dysuria Shoulder pain Pre-operative clearance Renal stones Gastric polyp Arthritis of left knee Epigastric pain Pre-op examination Kidney stone on left side Diabetes mellitus B12 deficiency Headache Urinary retention Renal stones Acute urinary retention Urgency of urination Hypothyroidism Hypertension Dyslipidemia Diabetic polyneuropathy associated with type 2 diabetes mellitus Goiter Surgical History H/O: hysterectomy History of cataract removal with insertion of prosthetic lens Hx of colonoscopy History of esophagogastroduodenoscopy (EGD) Family History Father Lung cancer Mother Kidney failure Alzheimer disease Sister Diabetes Paternal Grandfather Cancer Daughter Diabetes Sister Diabetes Breast cancer Brother Alzheimer disease Colon cancer Brother Colon polyps Social History Household Members: None Housing: Apartment Are you a primary day care provider to a significant other at home: No Do you presently have visiting nurse or other home services: No Alcohol intake: never Patient Tobacco Use Status: Never used Tobacco e-Cigarette/Vaping Use: Never Used Second Hand Smoke Exposure: No service: No Current occupational status: disabled Current occupation: rt handed Cognitive needs: Yes Hearing needs: No Vision needs: Yes Physical Exam Vital Signs: Last Vital Signs Pulse 95 01/22/25 14:46 BP 120/60 01/22/25 14:46 Pulse Ox 96 01/22/25 14:46 Oxygen Delivery Method Room Air 01/22/25 14:46 BMI result Body Mass Index 28.8 Absence of Cushingoid features. Absence of acromegalic features. Neck exam reveals nl size thyroid about 15 gms. No thyroid nodules palpable. No carotid bruits present. Lungs CTA. Heart S1 S2, Reg R/R. No M/R/ G. Skin exam reveals absence of vitiligo or acanthosis nigricans. Abdominal exam reveals Soft NT/ND with NA BS. No organomegaly present. Const Other: Absence of Cushingoid features. Absence of acromegalic features. Neck exam reveals nl size thyroid about 15 gms. No thyroid nodules palpable. Heart S1 S2, Reg R/R. No M/R G. Skin exam reveals absence of vitiligo or acanthosis ni gricans. no edema Neck Other: . Extrem Other: Visual exam of foot performed. No ulcerations or open lesions. No onchomycosis, no callouses.Pulses 2 + distally Sensation intact to monofilament exam. Vibratory sensation sensed is intact with 128 Hz tuning fork Results AMB Hemoglobin A1c AMB Hemoglobin A1c 10.8 % Last Edit by YURIY Duarte on 01/22/25 15:0 6 UR Ketone Dip UR Ketone Dip Trace Last Edit by YURIY Duarte on 01/22/25 15:19 Results Reviewed Results Reviewed: Laboratory Last Values Glucose (Clinic) 385 mg/dL (60-115) H* 01/22/25 14:52 Hgb A1c (Clinic) 10.8 % (4.0-6.0) H 01/22/25 15:02 Ur Ketones (Stick) Trace 01/22/25 15:02 Assessment & Plan Assessment & Plan (1) Diabetes type 2, uncontrolled: Code(s): E11.65 - Type 2 diabetes mellitus with hyperglycemia Category: Medical Qualifiers: Glycemic state: with hyperglycemia Qualified Code(s): E11.65 - Type 2 diabetes mellitus with hyperglycemia Plan: 79-year-old type 2 diabetic with poor glycemic control which has worsened since holding Jardiance for the past 4 days. She is currently taking glipizide 20 mg and Tradjenta 5 mg. She is spilling ketones and her glucose is above 380. She complains of dysuria and an external genitalia rash. Recommend going to the ER via 911 transport. Jardiance should be stopped glipizide should be stopped. Could continue Tradjenta but would definitely recommend starting at least a basal insulin on this patient and sliding scale coverage while in the hospital. She should have a UA/urine C&S and pelvic exam to determine the nature of the dysuria as it maybe both a UTI and vaginal candidiasis. Patient agrees to transportation to the hospital Orders: Orders AMB Hemoglobin A1c Today E11.65 - Type 2 diabetes mellitus with hyperglycemia AMB Ketone Urine Dipstick Today E11.65 - Type 2 diabetes mellitus with hyperglycemia Coding Level of Care Code New Pt Level 4 (11261) Complex EM visit Add On G2211 Diagnoses Uncontrolled type 2 diabetes mellitus with hyperglycemia E11.65 Glycemic state: with hyperglycemia Time Spent (min) 30 Comment Time spent reviewing labs/provider notes, face to face, chart doc
[2025-01-22 14:58] LABS: Glucose, Whole Blood 385 mg/dL (60-115)
== END 2025-01-22 15:52 | disposition home or self-care (01) ==
LOC: HO.ENCR 14:45
PROVIDERS: PCP Internal Medicine; Visit Provider Nurse Practitioner Adult Health
DX: E11.65 Type 2 diabetes mellitus with hyperglycemia (principal)
CPT/HCPCS: 99204; G2211

== ENCOUNTER 2025-01-22 16:01 | Emergency (ER) | payer OTHER, SELFPAY ==
[2025-01-22 16:13] VITALS: BP 151/62; PULSE 89; RESP 16; TEMP 36.8; O2SAT 100
[2025-01-22 16:17] VITALS: BP 151/62; PULSE 90; RESP 16; TEMP 36.8; O2SAT 98; BMI 34.3
[2025-01-22 16:33] LABS: Appearance Urine Clear; Color Urine Yellow; Glucose Urine UA >=1000 mg/dL (Negative); Leukocyte Esterase Urine Negative (Negative); Nitrite Urine Positive (Negative); PH 6.5 (5.0-9.0); Specific Gravity - Urine 1.025 (1.005-1.025); UMIC TRIGGER UACC YES; Urine Blood Negative (Negative); Urine Ketones Trace mg/dL (Negative); Urine Protein Negative (Neg-Trace)
[2025-01-22 16:35] LABS: Basophils Absolute Auto 0.1 X10*3/uL (0.0-0.2); Eosinophils Absolute Auto 0.1 X10*3/uL (0.0-0.4); Hematocrit 32.2 % (37.0-47.0); Hemoglobin 10.3 g/dl (12.0-16.0); Imm Gran Abs Auto 0.01 X10*3/uL (0.00-0.03); Imm Gran Pct Auto 0.2 % (0.0-0.4); Lymphocytes Absolute Auto 1.2 X10*3/uL (1.2-4.9); Lymphocytes Percent Auto 18.8 % (20-40); MANUAL DIFF FLAG NO; Mean Corpuscular Hemoglobin 24.9 pg (27.0-33.0); Mean Platelet Volume 10.4 fL (9.4-12.3); Monocytes Absolute Auto 0.3 X10*3/uL (0.1-1.2); Monocytes Percent Auto 5.2 % (2-11); Neutrophils Absolute Auto 4.6 x10*3/uL (2.0-8.3); Neutrophils Percent Auto 73.8 % (45-73); Platelet Count 326 X10*3/uL (160-400); Red Blood Count 4.13 X10*6/uL (4.20-5.50); Red Cell Distribution Width 15.9 % (11.0-16.0); White Blood Count 6.2 X10*3/uL (4.8-10.8)
[2025-01-22 16:38] LABS: Bacteria Urine 4+ (None Seen); Hyaline Casts Urine 0-2 /LPF (0-2); RBC Urine 0-2 /HPF (0-2); Squamous Epithelial Cell Urine 0-2 /HPF (0-2); UACC Culture Trigger YES
--- OUTSIDE RECORDS SUMMARY | 2025-01-22 16:51 | XMS_ITS | Encounter Summary ---
Author Organization [employer] Address [address] [place] [address] Care Team Providers Care Software Quality Tester Name Role Phone Unavailable Primary Care Provider Unavailabl e Encounter Details Date Type Department Care Team (Late st Contact Info) Description 05/30/2023 Telephone [facility] [address] [place], [place] [phone] Dominic Herrera DDS [address] [place], [place] [phone] Social History Tobacco Use Types Packs/Day Years [...]
--- OUTSIDE RECORDS SUMMARY | 2025-01-22 16:51 | XMS_ITS | Clinical Summary ---
Author Organization [employer] Address [address] [place] [address] Care Team Providers Care Molder Trimmer Name Role Phone Unavailable Primary Care Provider [...] Relevant to Health Maintenance Insurance DENTAL - [facility]
--- NOTE | 2025-01-22 16:58 | ECG_ITS ---
Test Reason : hypergly Blood Pressure : */* mmHG Vent. Rate : 84 BPM Atrial Rate : 234 BPM P-R Int : * ms QRS Dur : 94 ms QT Int : 384 ms P-R-T Axes : 46 -8 71 degrees QTcB Int : 453 ms Normal sinus rhythm Minimal voltage criteria for LVH, may be normal variant ( [place] product ) Abnormal ECG When compared with ECG of 07-Jul-2010 11:23, No significant changes seen Referred By: Shelbi Rascon Electronically Signed By: CHELY MONTILLA MD
[2025-01-22] MEDS: Lactated Ringers 1,000 ML 999 ML IV (17:06)
[2025-01-22 17:10] LABS: Alanine Aminotransferase 17 U/L (0-31); Albumin Level 3.8 g/dL (3.5-5.0); Anion Gap 12 (12-20); Aspartate Amino Transferase 17 U/L (5-31); Bilirubin Total 0.2 mg/dL (0.0-1.0); Blood Urea Nitrogen 24 mg/dL (9-16); Calcium 9.3 mg/dL (8.4-10.2); Carbon Dioxide 24 mmol/L (22-29); Chloride 104 mmol/L (96-108); Creatinine Clr Calc Pharmacy 41.1; Estimated Glomerular Filt Rate 52; Glucose Random 463 mg/dL (60-115); Sodium 136 mmol/L (135-145); Total Protein 6.5 g/dL (6.5-8.0)
[2025-01-22 17:19] LABS: Alkaline Phosphatase 60 U/L (39-117)
--- NOTE | 2025-01-22 17:20 | ED_ITS ---
HPI - Female Genitourinary General Chief complaint: Urogenital-Female Stated complaint: hyperglycemia Time Seen by Provider: 01/22/25 16:42 Source: patient, family, RN notes reviewed and old records reviewed History of Present Illness ED Provider: Shelbi Rascon PA-C HPI Narrative: 79-year-old Vietnamese-speaking female with a past medical history of diabetes, uncontrolled, (currently on Jardiance, Tradjenta and glipizide), B12 deficiency, hypothyroid, HTN, HLD, goiter, presenting to the ED via EMS from endocrinology outpatient office due to elevated glucose. Sates her glucometer has been malfunctioning x few days. Patient reports noncompliance with Jardiance x4 days & medication noncompliance due to frequently forgetting to take her medications. Also reports dysuria, vaginal rash, and low back pain, however denies back pain at present. Denies fever, chills, abdominal pain, nausea, vomiting, diarrhea Related Data Home Medications ?Medication ?Instructions ?Recorded ?Confirmed fluticasone propionate 50 1 spray intranasal BID PRN 09/01/21 11/29/24 mcg/actuation nasal Congestion spray,suspension multivitamin-ferrous 1 tab PO DAILY 10/18/22 11/29/24 fumarate-folic acid 18 mg-400 mcg tablet (Centrum Women) carboxymethylcellulose sodium 1 % 1 drp ophthalmic (eye) BID 12/07/22 11/29/24 eye gel in a dropperette (TheraTears) lidocaine HCl 4 %-menthol 1 % 4 ea topical DAILY 12/07/22 11/29/24 topical liquid roll-on (Icy Hot Max (lidocaine HCl-menthol)) Previous Rx's ?Medication ?Instructions ?Recorded meclizine 25 mg tablet 25 mg PO DAILY 90 days #90 tabs 12/22/21 blood-glucose meter (FreeStyle #1 ea 12/29/21 Lite Meter kit) lancets 28 gauge (FreeStyle #100 ea 05/19/22 Lancets) blood sugar diagnostic #100 ea 05/25/22 blood pressure test kit-medium #1 ea 06/06/23 acetaminophen 500 mg tablet (Pain 500 mg PO Q6H PRN Pain 30 days 09/26/23 Relief Extra Strength #120 tabs (acetaminophen)) bisacodyl 5 mg tablet,delayed 10 mg (2 x 5 mg) PO BEDTIME 2 days 02/15/24 release (Dulcolax (bisacodyl)) #7 tabs omeprazole 20 mg capsule,delayed 20 mg PO BID #180 caps 02/15/24 release peg 3350-electrolytes 236 240 ml PO Q10M 1 day #4,000 mL 02/15/24 gram-22.74 gram-6.74 gram-5.86 gram solution (Golytely) pyridoxine (vitamin B6) 100 mg 100 mg PO DAILY 90 days #90 tabs 06/07/24 tablet sumatriptan succinate 25 mg tablet 25 mg PO Q2-4H PRN migraine 06/19/24 headache 30 days #9 tabs bisacodyl 5 mg tablet,delayed 20 mg (4 x 5 mg) PO ONCE 1 day #4 07/16/24 release (Dulcolax (bisacodyl)) tabs peg 3350-electrolytes 236 240 ml PO Q10M #4,000 mL 07/16/24 gram-22.74 gram-6.74 gram-5.86 gram solution albuterol sulfate 90 mcg/actuation 2 puff PO Q4H PRN bronchospasm 30 07/31/24 aerosol inhaler days #8.5 grams cholecalciferol (vitamin D3) 50 50 mcg PO DAILY 90 days #90 caps 07/31/24 mcg (2,000 unit) capsule cyanocobalamin (vitamin B-12) 1,000 mcg PO DAILY #90 tabs 07/31/24 1,000 mcg tablet ferrous sulfate 324 mg (65 mg 324 mg PO BID 90 days #180 tabs 07/31/24 iron) tablet,delayed release levothyroxine 88 mcg tablet 88 mcg PO DAILY 90 days #90 tabs 07/31/24 lisinopril 2.5 mg tablet 2.5 mg PO DAILY 90 days #90 tabs 07/31/24 nitrofurantoin macrocrystal 100 mg 100 mg PO BID 10 days #20 caps 08/02/24 capsule empagliflozin 25 mg tablet 25 mg PO DAILY #90 tabs 08/22/24 (Jardiance) glipizide 10 mg tablet, extended 20 mg (2 x 10 mg) PO DAILY 90 days 08/22/24 release 24 hr #180 tabs linagliptin 5 mg tablet (Tradjenta) 5 mg PO DAILY 90 days #90 tabs 10/04/24 ibuprofen 800 mg tablet 800 mg PO Q8H PRN pain 30 days #90 10/09/24 tabs rosuvastatin 40 mg tablet 40 mg PO DAILY 90 days #90 tabs 10/29/24 FreeStyle Lancets 28 gauge #100 ea 10/31/24 (lancets) FreeStyle Lite Strips (blood sugar #100 ea 10/31/24 diagnostic) ascorbic acid (vitamin C) 500 mg 500 mg PO DAILY #90 tabs 11/02/24 chewable tablet (Vitamin C) memantine 7 mg capsule 7 mg PO DAILY 30 days #30 ea 11/06/24 sprinkle,extended release 24hr cetirizine 10 mg tablet (All Day 10 mg PO DAILY PRN allergy 11/29/24 Allergy (cetirizine)) symptoms 10 days #10 tabs diclofenac sodium 50 mg 50 mg PO BEDTIME PRN pain 30 days 12/26/24 tablet,delayed release #30 tabs FreeStyle Lite Meter #1 ea 01/22/25 (blood-glucose meter) cefuroxime axetil 250 mg tablet 250 mg PO BID 7 days #14 tabs 01/22/25 Allergies Allergy/AdvReac Type Severity Reaction Status Date / Time sitagliptin [Januvia] Allergy Intermediate tremors Verified 01/22/25 16:20 tramadol [TRAMADOL] Allergy Mild ABDOMINAL Verified 01/22/25 16:20 PAIN, stomach upset, severe abd pain Review of Systems 2 Review of Systems: Yes all other systems are reviewed and are negative Constitutional: Constitutional: Reports as per [facility] Past Medical History Attestation statement: The following information was validated with the patient. Source: old records reviewed Medical History Diabetes type 2, uncontrolled Renal cyst Dysuria Shoulder pain Pre-operative clearance Renal stones Gastric polyp Arthritis of left knee Epigastric pain Pre-op examination Kidney stone on left side Diabetes mellitus B12 deficiency Headache Urinary retention Renal stones Acute urinary retention Urgency of urination Hypothyroidism Hypertension Dyslipidemia Diabetic polyneuropathy associated with type 2 diabetes mellitus Goiter Surgical History H/O: hysterectomy History of cataract removal with insertion of prosthetic lens Hx of colonoscopy History of esophagogastroduodenoscopy (EGD) Family History Family History Father Lung cancer Mother Kidney failure Alzheimer disease Sister Diabetes Paternal Grandfather Cancer Daughter Diabetes Sister Diabetes Breast cancer Brother Alzheimer disease Colon cancer Brother Colon polyps Social History Social History Household Members: None Housing: Apartment Are you a primary farm or ranch animal caretaker to a significant other at home: No Do you presently have visiting nurse or other home services: No Alcohol intake: never Patient Tobacco Use Status: Never used Tobacco Smoked in Last 30 Days: No e-Cigarette/Vaping Use: Never Used Second Hand Smoke Exposure: No Use of substances other than those prescribed or required for medical reasons: No Advance Directives: Yes Advance Directives on File: Yes Advance Directives Date on File: 07/31/24 service: No Current occupational status: disabled Current occupation: rt handed Cognitive needs: Yes Hearing needs: No Vision needs: Yes Physical Exam 2 Vital Signs: Vital Signs: Last Vital Signs Temp 97.1 F 01/22/25 19:00 Pulse 73 01/22/25 19:00 Resp 18 01/22/25 19:00 BP 126/53 L 01/22/25 19:00 Pulse Ox 98 01/22/25 16:17 O2 Del Method Room Air 01/22/25 19:00 BMI result Body Mass Index 34.3 Const: General: cooperative, healthy appearing and no acute distress O rientation/consciousness: patient oriented x3 Limitations: no limitations HEENT: Head: Yes normal to inspection and Yes atraumatic Ears: hearing grossly normal bilaterally General nose exam: Normal external nose present Face and sinus: Yes normal facial exam Eyes: General: appearance normal, both eyes and all related structures EOM: EOMs intact bilaterally Neck: Neck: Yes normal visual inspection and Yes no meningeal signs Resp: Effort & Inspection: normal respiratory effort and no respiratory distress Auscultation: clear to auscultation bilaterally Cardio: Rate: regular rate Heart sounds: S1 normal heart sound present and S2 normal heart sound present GI: Inspection: Yes normal to inspection Palpation (GI): Soft to palpation, nontender, no guarding and not rigid : General: Yes no CVA tenderness Speculum Exam - Vagina: normal appearance of the vagina, not erythematous, no foreign bodies, no lesions, No vaginal bleeding, no swelling and nontender Speculum Exam - Cervix: normal appearance of the cervix OB/external & speculum: no foreign bodies and vaginal bleeding Back/Spine/Pelvis: Back: no CVA tenderness Skin: Rashes: no rashes Wounds: no wounds Neuro: General: patient oriented x3, tone normal, moves all extremities, no meningeal signs and no focal motor deficits Cranial nerves: Yes CN's II-XII intact bilaterally Extrem: General: Yes normal to inspection Course Course Course Narrative: -1806-- no leukocytosis. H/H stable. pH 7.4 - BUN acute on chronically elevated. Glucose 463, no anion gap > Will give 5 units subcu insulin - UA with glucose and infection with bacteria, wbc's and nitrates > Patient given p.o. Ceftin in the ED >1836-- no Trichomonas or yeast -1899-- ED care transferred to [facility] pending repeat glucose and anticipated discharge Reevaluation(s) Reevaluation #1: I Ailyn Gregory PA-C have accepted care of the patient and signed out pending IV fluid therapy and repeat point of care Repeat point of care to 98 Medications Administered Discontinued Medications Generic Name Dose Route Start Last Admin Trade Name Freq PRN Reason Stop Dose Admin Acetaminophen 650 mg 01/22/25 19:26 01/22/25 19:56 Acetaminophen 325 Mg Tablet PO 01/22/25 19:27 650 mg ONCE ONE Administration Cefuroxime Axetil 250 mg 01/22/25 18:09 01/22/25 18:20 Cefuroxime Axetil 250 Mg Tablet PO 01/22/25 18:10 250 mg ONCE ONE Administration Lactated Ringer's 1,000 mls @ 999 mls/hr 01/22/25 17:00 01/22/25 17:06 Lr IV 01/22/25 18:00 999 mls/hr .Q1H1M TORSTEN Administration Insulin Human Lispro 5 unit 01/22/25 17:49 01/22/25 18:02 Insulin Lispro 100 Unit/Ml 3 Ml Vial SUBCUT 01/22/25 17:50 5 unit ONCE ONE Administration Medical Decision Making Medical Decision Making [facility] Narrative: 79-year-old Vietnamese-speaking female with a past medical history of diabetes, uncontrolled, (currently on Jardiance, Tradjenta and glipizide), B12 deficiency, hypothyroid, HTN, HLD, goiter, presenting to the ED via EMS from endocrinology outpatient office due to elevated glucose, dysuria, vaginal rash, and low back pain. Denies back pain at present. on exam vital signs stable, NAD, nontoxic appearing, abdomen is soft and nontender, on pelvic exam no external rash / lesions appreciated, no discharge or bleeding. Concern for hyperglycemia secondary to medication noncompliance. Rule out DKA/HHS and metabolic abnormalities. Concern for UTI vs ? candidiasis vs vaginitis. Lower suspicion for renal stones/pyelo, appendicitis/ diverticulitis with nontender abdomen. Plan: EKG, labs, UA, pelvic exam, Trichomonas/BV - denies being sexually active, glucose control Please refer to course for remaining clinical decision making, interpretation of labs/imaging results, and discussions with consultants and/or family members. Differential Diagnosis Differential Diagnoses: The differential diagnosis associated with the presentation includes As above Admission/Observation Consideration of admission/observation: Escalation of care including admission/observation considered Lab Data MDM Lab Attestation statement: I reviewed the patient's lab results. 01/22/25 16:29 01/22/25 16:29 Labs: Lab Results 01/22/25 01/22/25 01/22/25 Range/Units 16:24 16:25 16:29 WBC 6.2 (4.8-10.8) X10*3/uL RBC 4.13 L (4.20-5.50) X10*6/uL Hgb 10.3 L (12.0-16.0) g/dl Hct 32.2 L (37.0-47.0) % MCV 78.0 L (80.0-98.0) fL MCH 24.9 L (27.0-33.0) pg MCHC 32.0 (31.0-35.0) g/dl RDW 15.9 (11.0-16.0) % Plt Count 326 (160-400) X10*3/uL MPV 10.4 (9.4-12.3) fL Immature Gran % (Auto) 0.2 (0.0-0.4) % Neut % (Auto) 73.8 H (45-73) % Lymph % (Auto) 18.8 L (20-40) % [place] % (Auto) 5.2 (2-11) % Eos % (Auto) 1.0 (0-4) % Baso % (Auto) 1.0 (0-2) % Lymph # (Auto) 1.2 (1.2-4.9) X10*3/uL [place] # (Auto) 0.3 (0.1-1.2) X10*3/uL Eos # (Auto) 0.1 (0.0-0.4) X10*3/uL Baso # (Auto) 0.1 (0.0-0.2) X10*3/uL Abs Immat Gran (auto) 0.01 (0.00-0.03) X10*3/uL Absolute Neuts (auto) 4.6 (2.0-8.3) x10*3/uL Absolute Nucleated RBC 0.000 (0.0-0.012) X10*3/uL Nucleated RBC % (auto) 0.0 (0.0-0.2) /100WBC VBG pH (7.32-7.43) VBG pCO2 mmHg VBG pO2 mmHg VBG HCO3 (22-26) mmol/L VBG O2 Saturation % VBG Base Excess mmol/L Sodium 136 (135-145) mmol/L Potassium 4.0 (3.3-5.1) mmol/L Chloride 104 (96-108) mmol/L Carbon Dioxide 24 (22-29) mmol/L Anion Gap 12 (12-20) BUN 24 H (9-16) mg/dL Creatinine 1.02 (0.5-1.4) mg/dL Estim Creat Clear Calc 41.1 Estimated GFR 52 POC Glucose 417 H* (60-115) mg/dL Random Glucose 463 H* (60-115) mg/dL Calcium 9.3 (8.4-10.2) mg/dL Magnesium 2.1 (1.6-2.6) mg/dL Total Bilirubin 0.2 (0.0-1.0) mg/dL AST 17 (5-31) U/L ALT 17 (0-31) U/L Alkaline Phosphatase 60 (39-117) U/L Total Protein 6.5 (6.5-8.0) g/dL Albumin 3.8 (3.5-5.0) g/dL Beta-Hydroxybutyrate 0.24 (0.02-0.27) mmol/L Urine Color Yellow Urine Appearance Clear Urine pH 6.5 (5.0-9.0) Ur Specific [place] 1.025 (1.005-1.025) Urine Protein Negative (Neg-Trace) mg/dL Urine Glucose (UA) >=1000 H (Negative) mg/dL Urine Ketones Trace (Negative) mg/dL Urine Blood Negative (Negative) Urine Nitrite Positive H (Negative) Ur Leukocyte Esterase Negative (Negative) Urine RBC 0-2 (0-2) /HPF Urine WBC 6-10 H (0-5) /HPF Ur Squamous Epith Cells 0-2 (0-2) /HPF Urine Bacteria 4+ (None Seen) Hyaline Casts 0-2 (0-2) /LPF 01/22/25 01/22/25 Range/Units 17:27 19:06 WBC (4.8-10.8) X10*3/uL RBC (4.20-5.50) X10*6/uL Hgb (12.0-16.0) g/dl Hct (37.0-47.0) % MCV (80.0-98.0) fL MCH (27.0-33.0) pg MCHC (31.0-35.0) g/dl RDW (11.0-16.0) % Plt Count (160-400) X10*3/uL MPV (9.4-12.3) fL Immature Gran % (Auto) (0.0-0.4) % Neut % (Auto) (45-73) % Lymph % (Auto) (20-40) % [place] % (Auto) (2-11) % Eos % (Auto) (0-4) % Baso % (Auto) (0-2) % Lymph # (Auto) (1.2-4.9) X10*3/uL [place] # (Auto) (0.1-1.2) X10*3/uL Eos # (Auto) (0.0-0.4) X10*3/uL Baso # (Auto) (0.0-0.2) X10*3/uL Abs Immat Gran (auto) (0.00-0.03) X10*3/uL Absolute Neuts (auto) (2.0-8.3) x10*3/uL Absolute Nucleated RBC (0.0-0.012) X10*3/uL Nucleated RBC % (auto) (0.0-0.2) /100WBC VBG pH 7.41 (7.32-7.43) VBG pCO2 40 mmHg VBG pO2 61 mmHg VBG HCO3 26 (22-26) mmol/L VBG O2 Saturation 89.0 % VBG Base Excess 1.9 mmol/L Sodium (135-145) mmol/L Potassium (3.3-5.1) mmol/L Chloride (96-108) mmol/L Carbon Dioxide (22-29) mmol/L Anion Gap (12-20) BUN (9-16) mg/dL Creatinine (0.5-1.4) mg/dL Estim Creat Clear Calc Estimated GFR POC Glucose 298 H (60-115) mg/dL Random Glucose (60-115) mg/dL Calcium (8.4-10.2) mg/dL Magnesium (1.6-2.6) mg/dL Total Bilirubin (0.0-1.0) mg/dL AST (5-31) U/L ALT (0-31) U/L Alkaline Phosphatase (39-117) U/L Total Protein (6.5-8.0) g/dL Albumin (3.5-5.0) g/dL Beta-Hydroxybutyrate (0.02-0.27) mmol/L Urine Color Urine Appearance Urine pH (5.0-9.0) Ur Specific [place] (1.005-1.025) Urine Protein (Neg-Trace) mg/dL Urine Glucose (UA) (Negative) mg/dL Urine Ketones (Negative) mg/dL Urine Blood (Negative) Urine Nitrite (Negative) Ur Leukocyte Esterase (Negative) Urine RBC (0-2) /HPF Urine WBC (0-5) /HPF Ur Squamous Epith Cells (0-2) /HPF Urine Bacteria (None Seen) Hyaline Casts (0-2) /LPF Radiology Impression Discussion of test interpretation with radiology: I have reviewed the radiologist's reading. Independent Historian Clinical information obtained from an independent historian. History obtained from or confirmed by: Other External Record Review External record reviewed: Inpatient record, Office record, Outpatient record, Prior outpatient labs, Prior outpatient radiology, Primary care record and Outside ED record Tests considered The following testing was considered but not selected: As above Prescription Management I considered prescription management with: Pain Medication and Antibiotic Chronic Conditions Patient?s care impacted by: Diabetes and Other Social Determinants Patient?s care significantly limited by Social Determinants of Health including: Other Social Determinant of Health Discharge Plan Discharge Clinical Impression: Hyperglycemia, Acute UTI Patient Disposition: Home, Self-Care Instructions: Diabetic Hyperglycemia (ED), Urinary Tract Infection in Older Adults (ED) Additional Instructions: your glucose was elevated today in the emergency department. You need to take your diabetic medications, it is important not to miss any doses Monitor your point of cares closely If her sugar remains elevated you need to return to the emergency department You have a urinary tract infection, Ceftin as an antibiotic please take as prescribed If her symptoms persist or worsen please return to the ED Prescriptions: New cefuroxime axetil 250 mg tablet 250 mg PO BID 7 Days Qty: 14 0RF No Action meclizine 25 mg tablet 25 mg PO DAILY 90 Days Qty: 90 1RF (DME) blood-glucose meter [FreeStyle Lite Meter] Kit See Rx Instructions .ROUTE .MEDSUPPLY Qty: 1 0RF Rx Instructions: As directed (DME) lancets [FreeStyle Lancets] 28 gauge misc See Rx Instructions .ROUTE .MEDSUPPLY Qty: 100 3RF Rx Instructions: As directed once a day (DME) blood sugar diagnostic Strip See Rx Instructions Not Applicable BID Qty: 100 11RF Rx Instructions: 4x daily (DME) blood pressure test kit-medium Kit See Rx Instructions .Route Qty: 1 0RF Rx Instructions: As directed acetaminophen [Pain Relief ES (acetaminophen)] 500 mg tablet 500 mg PO Q6H PRN (Reason: Pain) 30 Days Qty: 120 2RF sumatriptan succinate 25 mg tablet 25 mg PO Q2-4H PRN (Reason: migraine headache) 30 Days Qty: 9 0RF Rx Instructions: do not exceed 8 doses per 24 hrs bisacodyl [Dulcolax (bisacodyl)] 5 mg tablet,delayed release (DR/EC) 20 mg PO ONCE 1 Days Qty: 4 0RF Rx Instructions: the day before colonoscopy take 2 pills at 12pm and 2 pills at 5pm with plenty of water peg 3350-electrolytes 236-22.74-6.74 -5.86 gram recon soln 240 ml PO Q10M Qty: 4000 0RF Rx Instructions: Refer to prep instructions given/ mailed to you from GI OFFICE. until fecal effluent is clear nitrofurantoin macrocrystal 100 mg capsule 100 mg PO BID 10 Days Qty: 20 0RF Rx Instructions: must administer with a meal/food Tradjenta 5 mg tablet 5 mg PO DAILY 90 Days Qty: 90 1RF ibuprofen 800 mg tablet 800 mg PO Q8H PRN (Reason: pain) 30 Days Qty: 90 1RF rosuvastatin 40 mg tablet 40 mg PO DAILY 90 Days Qty: 90 0RF memantine 7 mg capsule,sprinkle,ER 24hr 7 mg PO DAILY 30 Days Qty: 30 3RF diclofenac sodium 50 mg tablet,delayed release (DR/EC) 50 mg PO BEDTIME PRN (Reason: pain) 30 Days Qty: 30 0RF fluticasone propionate 50 mcg/actuation spray,suspension 1 spray intranasal BID PRN (Reason: Congestion) Centrum Women 18-400 mg-mcg Tablet 1 tab PO DAILY ascorbic acid (vitamin C) [Vitamin C] 500 mg Tablet,Chewable 500 mg PO DAILY Qty: 90 3RF carboxymethylcellulose sodium [TheraTears] 1 % dropperette,gel 1 drp ophthalmic (eye) BID lidocaine HCl-menthol [Icy Hot Max (lido HCl-menthol)] 4-1 % liquid roll-on 4 ea topical DAILY pyridoxine (vitamin B6) 100 mg tablet 100 mg PO DAILY 90 Days Qty: 90 3RF bisacodyl [Dulcolax (bisacodyl)] 5 mg tablet,delayed release (DR/EC) 10 mg PO BEDTIME 2 Days Qty: 7 0RF peg 3350-electrolytes [Golytely] 236-22.74-6.74 -5.86 gram recon soln 240 ml PO Q10M 1 Days Qty: 4000 0RF Rx Instructions: until fecal effluent is clear; do not exceed a total volume of 2,000 mL omeprazole 20 mg capsule,delayed release(DR/EC) 20 mg PO BID Qty: 180 3RF glipizide 10 mg tablet extended release 24hr 20 mg PO DAILY 90 Days Qty: 180 3RF Jardiance 25 mg tablet 25 mg PO DAILY Qty: 90 3RF albuterol sulfate 90 mcg/actuation HFA aerosol inhaler 2 puff PO Q4H PRN (Reason: bronchospasm) 30 Days Qty: 8.5 6RF cholecalciferol (vitamin D3) 50 mcg (2,000 unit) capsule 50 mcg PO DAILY 90 Days Qty: 90 1RF cyanocobalamin (vitamin B-12) 1,000 mcg tablet 1,000 mcg PO DAILY Qty: 90 4RF ferrous sulfate 324 mg (65 mg iron) tablet,delayed release (DR/EC) 324 mg PO BID 90 Days Qty: 180 1RF levothyroxine 88 mcg tablet 88 mcg PO DAILY 90 Days Qty: 90 1RF lisinopril 2.5 mg tablet 2.5 mg PO DAILY 90 Days Qty: 90 1RF cetirizine [All Day Allergy (cetirizine)] 10 mg tablet 10 mg PO DAILY PRN (Reason: allergy symptoms) 10 Days Qty: 10 0RF (DME) lancets [FreeStyle Lancets] [facility] See Rx Instructions .Route Qty: 100 11RF Rx Instructions: once daily (DME) FreeStyle Lite Strips Strip See Rx Instructions .Route Qty: 100 11RF Rx Instructions: Use 1 test strip once a day (DME) blood-glucose meter [FreeStyle Lite Meter] Kit See Rx Instructions .ROUTE .MEDSUPPLY Qty: 1 0RF Rx Instructions: As directed for use with freestyle test strips patient meter is borken [place]: [facility] [place] [place] Group] Brandy Chaudhry MD [Primary Care Provider] - 5 days Print Language: Vietnamese
[2025-01-22 17:31] LABS: VBG Base Excess 1.9 mmol/L; VBG HCO3 26 mmol/L (22-26); VBG pCO2 40 mmHg; VBG pH 7.41 (7.32-7.43); VBG pO2 61 mmHg
--- NOTE | 2025-01-22 17:39 | ECG_ITS ---
Test Reason : REPEAT Blood Pressure : */* mmHG Vent. Rate : 85 BPM Atrial Rate : 85 BPM P-R Int : 152 ms QRS Dur : 96 ms QT Int : 388 ms P-R-T Axes : 51 -13 71 degrees QTcB Int : 461 ms Normal sinus rhythm Minimal voltage criteria for LVH, may be normal variant ( [place] product ) Borderline ECG When compared with ECG of 22-Jan-2025 17:27, No significant changes seen Referred By: Generic ED Physician Electronically Signed By: CHELY MONTILLA MD
[2025-01-22 17:41] LABS: Venous Blood Gas Refer to POC result
[2025-01-22] MEDS: Insulin Lispro 100 UNIT/ML 3 ML VIAL SUBCUT (18:02)
[2025-01-22 18:08] LABS: Magnesium 2.1 mg/dL (1.6-2.6)
[2025-01-22] MEDS: cefuroxime axetiL 250 MG TABLET PO (18:20)
[2025-01-22 18:21] LABS: Beta-Hydroxybutyrate 0.24 mmol/L (0.02-0.27)
[2025-01-22 18:30] LABS: Glucose, Whole Blood 417 mg/dL (60-115)
[2025-01-22 19:00] VITALS: BP 126/53; PULSE 73; RESP 18; TEMP 36.2
[2025-01-22 19:20] LABS: Glucose, Whole Blood 298 mg/dL (60-115)
[2025-01-22] MEDS: Acetaminophen 325 MG TABLET 650 MG PO (19:56)
[2025-01-22 20:22] VITALS: BP 115/72; PULSE 74; RESP 16; TEMP 36.6; O2SAT 95
[2025-01-23 11:38] LABS: Bacterial Vaginosis PCR NEGATIVE (Negative); Candida Group PCR DETECTED (Not Detect); Candida glab krusei PCR NOT DETECTED (Not Detect); Trichomonas vaginalis PCR NOT DETECTED (Not Detect)
== END 2025-01-22 20:22 | disposition home or self-care (01) ==
PROVIDERS: Physician Assistant; Emergency Provider Student in an Organized Health Care Education/Training Program; PCP Internal Medicine
DX: E11.65 Type 2 diabetes mellitus with hyperglycemia (principal); B37.31 Acute candidiasis of vulva and vagina; N39.0 Urinary tract infection, site not specified; I10 Essential (primary) hypertension; E78.5 Hyperlipidemia, unspecified; Z79.899 Other long term (current) drug therapy
CPT/HCPCS: 36415; 80053; 81001; 81002; 81515; 82010; 82803; 82947; 83036; 83735; 85025; 87086; 87088; 87186; 93005; 96360; 99202; 99284; 99285; J7120

== ENCOUNTER → 2025-01-22 16:58 | Outpatient (BNV) | payer OTHER, SELFPAY | PROVIDERS: Emergency Provider Student in an Organized Health Care Education/Training Program; PCP Internal Medicine; Visit Provider Internal Medicine Cardiovascular Disease | DX: R94.31 Abnormal electrocardiogram [ECG] [EKG] (principal); R73.9 Hyperglycemia, unspecified; Z13.6 Encounter for screening for cardiovascular disorders | CPT/HCPCS: 93010 ==

== ENCOUNTER 2025-01-23 12:58 | Outpatient (AMB) | payer OTHER, SELFPAY ==
--- NOTE | 2025-01-23 13:00 | MHC.OFFVIS ---
Vital Signs 01/23/25 13:03 Height 5 ft Weight 169 lb 5.04 oz BMI 33.1 BP 106/54 L Blood Pressure Location Rt brachial Position Sitting Pulse 77 Pulse Source Pulse Oximeter Pulse Oximetry (%) 98 Oxygen Delivery Method Room Air Intake Visit Reasons: hyperglycemia ED f/u Intake Note: Patient present today to follow up on Type 2 Diabetes Mellitus. Patient was last seen by Jodi Leonard on 01/22/25 and sent to [facility] ED. Patient was not admitted. Last Diabetic Eye exam: DUE Last Podiatry Visit: Does not see a Sr. Media Manager Random Glucose: 373 mg/dl HgA1C: 10.8% 01/22/2025 General House Worker Required: Yes General House Worker Language: Professor Of Communication Arts Services: General House Worker Offered & Declined Accompanied by: Daughter Allergies sitagliptin [Januvia] Allergy (Intermediate, Verified 01/23/25 13:11) tremors tramadol [TRAMADOL] Allergy (Mild, Verified 01/23/25 13:11) ABDOMINAL PAIN, stomach upset, severe abd pain Medication List - Last Reconciled 01/23/25 by Clive Peralta MD acetaminophen (Pain Relief Extra Strength (acetaminophen)) 500 mg PO Q6H PRN 30 days albuterol sulfate 90 mcg/actuation 2 puffs PO Q4H PRN 30 days ascorbic acid (vitamin C) (Vitamin C) 500 mg PO DAILY bisacodyl (Dulcolax (bisacodyl)) 20 mg (4 x 5 mg) PO ONCE 1 day bisacodyl (Dulcolax (bisacodyl)) 10 mg (2 x 5 mg) PO BEDTIME 2 days blood pressure test kit-medium As directed blood sugar diagnostic 4x daily blood-glucose meter (FreeStyle Lite Meter kit) As directed carboxymethylcellulose sodium 1% (TheraTears) 1 drp ophthalmic (eye) BID cefuroxime axetil 250 mg PO BID 7 days cetirizine (All Day Allergy (cetirizine)) 10 mg PO DAILY PRN 10 days cholecalciferol (vitamin D3) 50 mcg PO DAILY 90 days cyanocobalamin (vitamin B-12) 1,000 mcg PO DAILY diclofenac sodium 50 mg PO BEDTIME PRN 30 days empagliflozin (Jardiance) 25 mg PO DAILY ferrous sulfate 324 mg PO BID 90 days fluticasone propionate 50 mcg/actuation 1 spray intranasal BID PRN FreeStyle Lancets (lancets) once daily NS FreeStyle Lite Meter (blood-glucose meter) As directed for use with freestyle test strips patient meter is borken NS FreeStyle Lite Strips (blood sugar diagnostic) Use 1 test strip once a day NS glipizide ER 20 mg (2 x 10 mg) PO DAILY 90 days ibuprofen 800 mg PO Q8H PRN 30 days lancets (FreeStyle Lancets) As directed once a day levothyroxine 88 mcg PO DAILY 90 days lidocaine HCl-menthol 4-1 % (Icy Hot Max (lidocaine HCl-menthol)) 4 ea topical DAILY linagliptin (Tradjenta) 5 mg PO DAILY 90 days lisinopril 2.5 mg PO DAILY 90 days meclizine 25 mg PO DAILY 90 days memantine 7 mg PO DAILY 30 days ldakhgbaitfw-rutj-vcgqa acid 18-400 mg-mcg (Centrum Women) 1 tab PO DAILY nitrofurantoin macrocrystal 100 mg PO BID 10 days omeprazole 20 mg PO BID peg 3350-electrolytes 236-22.74-6.74 -5.86 gram (Golytely) 240 mL PO Q10M 1 day peg 3350-electrolytes 236-22.74-6.74 -5.86 gram 240 mL PO Q10M pyridoxine (vitamin B6) 100 mg PO DAILY 90 days rosuvastatin 40 mg PO DAILY 90 days sumatriptan succinate 25 mg PO Q2-4H PRN 30 days HPI Comments Details: 79 YO female who is seen in f/u for T2DM. She was seen by Jodi Rdz NP yesterday had hyperglycemia was sent to the emergency room. She has been off Jardiance for several days because of yeast infection She complains of burning on urination and has a rash in her external genitalia. She does complain of some lower back pain Current regimen: Jardiance has been held for the past 4 days Tradjenta 5 mg Glipizide ER 20 mg QD Unfortunately, patient did not bring her log book or glucometer to follow up visit Up to date with optho Her glucometer is currently malfunctioning. She has had many readings in the 300+ range She has had a few in the 150s Her most recent A1c today is 10.8. A1cs have been elevated for several years. [facility] Medical History Diabetes type 2, uncontrolled Renal cyst Dysuria Shoulder pain Pre-operative clearance Renal stones Gastric polyp Arthritis of left knee Epigastric pain Pre-op examination Kidney stone on left side Diabetes mellitus B12 deficiency Headache Urinary retention Renal stones Acute urinary retention Urgency of urination Hypothyroidism Hypertension Dyslipidemia Diabetic polyneuropathy associated with type 2 diabetes mellitus Goiter Surgical History H/O: hysterectomy History of cataract removal with insertion of prosthetic lens Hx of colonoscopy History of esophagogastroduodenoscopy (EGD) Family History Father Lung cancer Mother Kidney failure Alzheimer disease Sister Diabetes Paternal Grandfather Cancer Daughter Diabetes Sister Diabetes Breast cancer Brother Alzheimer disease Colon cancer Brother Colon polyps Social History Household Members: None Housing: Apartment Are you a primary outdoor emergency care technician to a significant other at home: No Do you presently have visiting nurse or other home services: No Alcohol intake: never Patient Tobacco Use Status: Never used Tobacco e-Cigarette/Vaping Use: Never Used Second Hand Smoke Exposure: No Advance Directives Date on File: 07/31/24 service: No Current occupational status: disabled Current occupation: rt handed Cognitive needs: Yes Hearing needs: No Vision needs: Yes Physical Exam Vital Signs: BMI result Body Mass Index 33.1 Absence of Cushingoid features. Absence of acromegalic features. Neck exam reveals nl size thyroid about 15 gms. No thyroid nodules palpable. No carotid bruits present. Lungs CTA. Heart S1 S2, Reg R/R. No M/R/ G. Skin exam reveals absence of vitiligo or acanthosis nigricans. Abdominal exam reveals Soft NT/ND with NA BS. No organomegaly present. Neck Other: . Extrem Other: Visual exam of foot performed. No ulcerations or open lesions. No onchomycosis, no callouses.Pulses 2 + distally Sensation intact to monofilament exam. Vibratory sensation sensed is intact with 128 Hz tuning fork Assessment & Plan Assessment & Plan (1) Diabetes type 2, uncontrolled: Code(s): E11.65 - Type 2 diabetes mellitus with hyperglycemia Category: Medical Qualifiers: Glycemic state: with hyperglycemia Qualified Code(s): E11.65 - Type 2 diabetes mellitus with hyperglycemia Plan: This 79 year-old female with a history of type 2 diabetes with poor glycemic control on glipizide and Tradjenta with known microvascular complications namely neuropathy. Glycemic control is somewhat limited by comorbidities such as Alzheimer's disease and HbA1c optimization should be around 8% The plan is to initiate premixed insulin namely 75/25 15 units b.i.d. Patient will need with a CD today to learn how to inject insulin. We will stop the glipizide. Could consider use of a G LP 1 namely Mounjaro in the future. Instructed patient to check lipid profile and microalbumin to creatinine ratio which is already ordered. Will have patient returned for follow-up visit in 1 week with Jodi Rdz NP Medications: New blood-glucose,digester,cont (FreeStyle Wali 3 [place]) As directed 1 ea 0RF insulin lispro protamin-lispro 100 unit/mL (75-25) (Humalog Mix 75-25 KwikPen) 15 units (0.15 mL) subcut BID 15 mL 4RF blood-glucose sensor (FreeStyle Wali 3 Plus Sensor device) As directed 2 ea 5RF blood-glucose sensor (FreeStyle Wali 3 Plus Sensor device) As directed change every 2 wks 2 ea 5RF Discontinued glipizide ER Discontinued Reason: Doctor's Order 20 mg (2 x 10 mg) PO DAILY 90 days 180 tabs 3RF linagliptin (Tradjenta) Discontinued Reason: Doctor's Order 5 mg PO DAILY 90 days 90 tabs 1RF Coding Level of Care Code Est Pt Level 4 (07609) Diagnoses Uncontrolled type 2 diabetes mellitus with hyperglycemia E11.65 Glycemic state: with hyperglycemia
[2025-01-23 13:03] VITALS: BP 106/54; PULSE 77; O2SAT 98; BMI 33.1
[2025-01-23 13:13] LABS: Glucose, Whole Blood 373 mg/dL (60-115)
== END 2025-01-23 13:56 | disposition home or self-care (01) ==
LOC: HO.ENCR 12:58
PROVIDERS: PCP Internal Medicine; Visit Provider Internal Medicine
DX: E11.65 Type 2 diabetes mellitus with hyperglycemia (principal)

== ENCOUNTER 2025-01-23 12:58 | Outpatient (AMB) | payer OTHER, SELFPAY ==
--- OUTSIDE RECORDS SUMMARY | 2025-01-23 13:15 | XMS_ITS | Encounter Summary ---
Author Organization [facility] Address [address] [place] [address] Care Team Providers Care Sap Security Architect Name Role Phone Unavailable Primary Care Provider Unavailabl e Encounter Details Date Type Department Care Team (Late st Contact Info) Description 05/30/2023 Telephone [facility] [address] [place], [place] [phone] Dominic Herrera DDS [address] [place], [place] [phone] Social History Tobacco Use Types Packs/Day Years [...]
--- OUTSIDE RECORDS SUMMARY | 2025-01-23 13:15 | XMS_ITS | Clinical Summary ---
Author Organization [employer] Address [address] [place] [address] Care Team Providers Care Wrinkle Chaser Name Role Phone Unavailable Primary Care Provider [...] Relevant to Health Maintenance Insurance DENTAL - [facility]
--- NOTE | 2025-01-23 13:55 | MHC.AMDMED ---
Intake Intake Visit Reasons: T2DM Stagecraft Teacher Required: Yes Stagecraft Teacher Language: Accountancy Professor Name: Raiza [facility] Information Interpreted: non-clinical & clinical Accompanied by: Daughter Allergies sitagliptin [Januvia] Allergy (Intermediate, Verified 01/23/25 13:11) tremors tramadol [TRAMADOL] Allergy (Mild, Verified 01/23/25 13:11) ABDOMINAL PAIN, stomach upset, severe abd pain HPI Comprehensive Diabetes Asmnt Most Recent Diabetes Results: Microalb/Creat Ratio 15.8 ug/mg cr (<30) 08/01/24 Cholesterol 207 mg/dL (<200) H 08/01/24 HDL Cholesterol 51 mg/dL (>40) 08/01/24 Triglycerides 160 mg/dL (<150) H 08/01/24 Creatinine 1.02 mg/dL (0.5-1.4) 01/22/25 Blood Urea Nitrogen 24 mg/dL (9-16) H 01/22/25 Sodium 136 mmol/L (135-145) 01/22/25 Potassium 4.0 mmol/L (3.3-5.1) 01/22/25 Chloride 104 mmol/L (96-108) 01/22/25 Carbon Dioxide 24 mmol/L (22-29) 01/22/25 Calcium 9.3 mg/dL (8.4-10.2) 01/22/25 AST 17 U/L (5-31) 01/22/25 ALT 17 U/L (0-31) 01/22/25 Total Protein 6.5 g/dL (6.5-8.0) 01/22/25 Albumin 3.8 g/dL (3.5-5.0) 01/22/25 [facility] Medical History Diabetes type 2, uncontrolled Renal cyst Dysuria Shoulder pain Pre-operative clearance Renal stones Gastric polyp Arthritis of left knee Epigastric pain Pre-op examination Kidney stone on left side Diabetes mellitus B12 deficiency Headache Urinary retention Renal stones Acute urinary retention Urgency of urination Hypothyroidism Hypertension Dyslipidemia Diabetic polyneuropathy associated with type 2 diabetes mellitus Goiter Surgical History H/O: hysterectomy History of cataract removal with insertion of prosthetic lens Hx of colonoscopy History of esophagogastroduodenoscopy (EGD) Family History Father Lung cancer Mother Kidney failure Alzheimer disease Sister Diabetes Paternal Grandfather Cancer Daughter Diabetes Sister Diabetes Breast cancer Brother Alzheimer disease Colon cancer Brother Colon polyps Social History Household Members: None Housing: Apartment Are you a primary rn care transition to a significant other at home: No Do you presently have visiting nurse or other home services: No Alcohol intake: never Patient Tobacco Use Status: Never used Tobacco e-Cigarette/Vaping Use: Never Used Second Hand Smoke Exposure: No Advance Directives Date on File: 07/31/24 service: No Current occupational status: disabled Current occupation: rt handed Cognitive needs: Yes Hearing needs: No Vision needs: Yes Assessment & Plan Assessment & Plan (1) Diabetes type 2, uncontrolled: Code(s): E11.65 - Type 2 diabetes mellitus with hyperglycemia Qualifiers: Glycemic state: with hyperglycemia Qualified Code(s): E11.65 - Type 2 diabetes mellitus with hyperglycemia Plan: Insulin/Incretin?Mimetic Education visit Patient's daughter agreed assist patient to inject Lantus 20 units daily Patient Education: Patient was instructed and provided with demonstration of the following: Insulin action and Incretin Mimetics medication storage how to set up medication pen/or syringe and vial Handwashing insulin injection site rotation Site rotation recognizing hypertrophy Testing blood glucose Removing and disposing needle from insulin pen Safe disposal of sharps Target blood sugar Signs/ symptoms/treatment of hypoglycemia/hyperglycemia expiration of open insulin pen Patient verbalized understanding of education provided and was able to demonstrate proper use of inject into injection pillow Reviewed rule of 15s to treat glucose under 70 mg/dL All questions were answered and patient was advised to contact the office with any questions or concerns. Portions of this note were created using voice recognition software, please excuse any words or phrases that may have been misinterpreted. Patient Instructions: Iniciar Lantus 20 unidades diarias. Seguimiento con endocrin?logo en 1 semana. Utilizar la danilo del 15 para tratar cualquier episodio de hipoglucemia o niveles bajos de glucosa por debajo de 80 mg/dl. Coding Level of Care Code Est Pt Level 1 (91743) Diagnoses Uncontrolled type 2 diabetes mellitus with hyperglycemia E11.65 Glycemic state: with hyperglycemia
== END 2025-01-23 13:57 | disposition home or self-care (01) ==
LOC: HO.ENCR 12:58
PROVIDERS: PCP Internal Medicine; Visit Provider Registered Nurse Diabetes Educator
DX: E11.65 Type 2 diabetes mellitus with hyperglycemia (principal)

== ENCOUNTER → 2025-01-23 12:58 | Outpatient (BNVA) | payer OTHER, SELFPAY | PROVIDERS: PCP Internal Medicine; Visit Provider Registered Nurse Diabetes Educator | DX: E11.65 Type 2 diabetes mellitus with hyperglycemia (principal); Z79.4 Long term (current) use of insulin | CPT/HCPCS: 82947; 99211; 99212 ==

== ENCOUNTER 2025-02-01 13:46 | Outpatient (AMB) | payer OTHER, SELFPAY ==
--- NOTE | 2025-02-01 09:25 | A.OFFVIS_ITS ---
Vital Signs 02/01/25 13:53 Height 5 ft Weight 167 lb 8.821 oz BMI 32.7 BP 140/72 H Blood Pressure Location Rt brachial Position Sitting Pulse 81 Pulse Source Pulse Oximeter Pulse Oximetry (%) 97 Oxygen Delivery Method Room Air Intake Visit Reasons: DM Intake Note: Patient presents today for a follow-up on Type 2 Diabetes Mellitus: Last Diabetic eye exam was on: DUE Last Podiatry exam was on: Patient does not see a Washing Machine Installer Most recent HbA1c: 10.8%, 01/22/2025 Random Glucose- 310 mg/dL, Today Wind Up Operator Required: Yes Wind Up Operator Language: Procedural Nurse Services: Wind Up Operator Offered & Declined Wind Up Operator Name: DAUGHTER Accompanied by: Daughter Allergies sitagliptin [Januvia] Allergy (Intermediate, Verified 01/23/25 13:11) tremors tramadol [TRAMADOL] Allergy (Mild, Verified 01/23/25 13:11) ABDOMINAL PAIN, stomach upset, severe abd pain Medication List - Last Reconciled 02/01/25 by Jodi Leonard NP acetaminophen (Pain Relief Extra Strength (acetaminophen)) 500 mg PO Q6H PRN 30 days albuterol sulfate 90 mcg/actuation 2 puffs PO Q4H PRN 30 days ascorbic acid (vitamin C) (Vitamin C) 500 mg PO DAILY bisacodyl (Dulcolax (bisacodyl)) 20 mg (4 x 5 mg) PO ONCE 1 day bisacodyl (Dulcolax (bisacodyl)) 10 mg (2 x 5 mg) PO BEDTIME 2 days blood pressure test kit-medium As directed blood sugar diagnostic 4x daily blood-glucose meter (FreeStyle Lite Meter kit) As directed blood-glucose sensor (FreeStyle Wali 3 Plus Sensor device) As directed change every 2 wks blood-glucose,certified ethical hacker,cont (FreeStyle Wali 3 [place]) As directed carboxymethylcellulose sodium 1% (TheraTears) 1 drp ophthalmic (eye) BID cefuroxime axetil 250 mg PO BID 7 days cetirizine (All Day Allergy (cetirizine)) 10 mg PO DAILY PRN 10 days cholecalciferol (vitamin D3) 50 mcg PO DAILY 90 days cyanocobalamin (vitamin B-12) 1,000 mcg PO DAILY diclofenac sodium 50 mg PO BEDTIME PRN 30 days ferrous sulfate 324 mg PO BID 90 days fluconazole 150 mg PO Q3D 2 doses fluticasone propionate 50 mcg/actuation 1 spray intranasal BID PRN FreeStyle Lancets (lancets) once daily NS FreeStyle Lite Meter (blood-glucose meter) As directed for use with freestyle test strips patient meter is borken NS FreeStyle Lite Strips (blood sugar diagnostic) Use 1 test strip once a day NS ibuprofen 800 mg PO Q8H PRN 30 days insulin glargine (Lantus Solostar U-100 Insulin) 28 units (0.28 mL) subcut DAILY 90 days lancets (FreeStyle Lancets) As directed once a day levothyroxine 88 mcg PO DAILY 90 days lidocaine HCl-menthol 4-1 % (Icy Hot Max (lidocaine HCl-menthol)) 4 ea topical DAILY lisinopril 2.5 mg PO DAILY 90 days meclizine 25 mg PO DAILY 90 days memantine 7 mg PO DAILY 30 days plwveytfdbfy-frja-brslb acid 18-400 mg-mcg (Centrum Women) 1 tab PO DAILY nitrofurantoin macrocrystal 100 mg PO BID 10 days omeprazole 20 mg PO BID peg 3350-electrolytes 236-22.74-6.74 -5.86 gram (Golytely) 240 mL PO Q10M 1 day peg 3350-electrolytes 236-22.74-6.74 -5.86 gram 240 mL PO Q10M pen needle, diabetic (Aqinject Pen Needle) As directed injects once a day pyridoxine (vitamin B6) 100 mg PO DAILY 90 days rosuvastatin 40 mg PO DAILY 90 days sumatriptan succinate 25 mg PO Q2-4H PRN 30 days tirzepatide (Mounjaro) 2.5 mg subcut QWEEK HPI Comments Details: 79 YO female who is seen in f/u for T2DM. She was seen as an initial consult 10 days ago and was sent to the emergency room with a glucose of of 368 and positive ketones. She has since been seen by Dr. Peralta and started on once daily insulin and given a prescription for Mounjaro 2.5 mg weekly. Her daughter has not yet started the Mounjaro for her. The initial plan had been to put the patient on a mixed insulin twice per day she does not wish to inject this herself and so this was changed to a once daily. The daughter has been feeling overwhelmed in his not able to get to her mother's house daily. Hemoglobin A1c 10.8% A1cs have been elevated for approximately 1 year Jardiance was recently discontinued due to vaginal candidiasis and possible UTI Had been on Tradjenta and glipizide which were ineffective. Glucose reading: Testing multiple times per day readings in the 300s. Current regimen: Lantus 28 units mounjaro 2.5mg weekly will be starting Has Nephropathy: 01/22/2025 EGFR 52 microalbumin 08/05/2025 9.0 PFSH Medical History Diabetes type 2, uncontrolled Renal cyst Dysuria Shoulder pain Pre-operative clearance Renal stones Gastric polyp Arthritis of left knee Epigastric pain Pre-op examination Kidney stone on left side Diabetes mellitus B12 deficiency Headache Urinary retention Renal stones Acute urinary retention Urgency of urination Hypothyroidism Hypertension Dyslipidemia Diabetic polyneuropathy associated with type 2 diabetes mellitus Goiter Surgical History H/O: hysterectomy History of cataract removal with insertion of prosthetic lens Hx of colonoscopy History of esophagogastroduodenoscopy (EGD) Family History Father Lung cancer Mother Kidney failure Alzheimer disease Sister Diabetes Paternal Grandfather Cancer Daughter Diabetes Sister Diabetes Breast cancer Brother Alzheimer disease Colon cancer Brother Colon polyps Social History Household Members: None Housing: Apartment Are you a primary long term care phlebotomist to a significant other at home: No Do you presently have visiting nurse or other home services: No Alcohol intake: never Patient Tobacco Use Status: Never used Tobacco e-Cigarette/Vaping Use: Never Used Second Hand Smoke Exposure: No Advance Directives Date on File: 07/31/24 service: No Current occupational status: disabled Current occupation: rt handed Cognitive needs: Yes Hearing needs: No Vision needs: Yes Physical Exam Vital Signs: Last Vital Signs Pulse 81 02/01/25 13:53 BP 140/72 H 02/01/25 13:53 Pulse Ox 97 02/01/25 13:53 Oxygen Delivery Method Room Air 02/01/25 13:53 BMI result Body Mass Index 32.7 Const Other: Alert, responds to questions.Absence of Cushingoid features. Absence of acromegalic features. Neck exam reveals nl size thyroid about 15 gms. No thyroid nodules palpable. Heart S1 S2, Reg R/R. No M/R G. Skin exam reveals absence of vitiligo or acanthosis nigricans. Results Reviewed Results Reviewed: Laboratory Last Values Glucose (Clinic) 310 mg/dL (60-115) H 02/01/25 13:59 Assessment & Plan Assessment & Plan (1) Diabetes type 2, uncontrolled: Code(s): E11.65 - Type 2 diabetes mellitus with hyperglycemia Category: Medical Qualifiers: Glycemic state: with hyperglycemia Qualified Code(s): E11.65 - Type 2 diabetes mellitus with hyperglycemia Plan: Type 2 diabetic with poorly controlled sugars. She has recently been started on bolus insulin. We will increase Lantus to 40 units daily And start Mounjaro 2.5 mg. I briefly discussed with the patient's daughter whether she may be able to handle a V-Go insulin patch pump. This would infused background insulin all day and would require her to click the device before she eats. We will discuss this again at follow up visit. I will see her back in 1 week. Both the patient and daughter who often prepares her meals were encouraged to include just a small portion of rice with the each meal. We will speak with PCP about initiating a VNA referral. Patient is currently getting SCHOOL OPERATIONS MANAGER support through [facility]. I contacted their office and they are not able to provide nursing support. Medications: Changed From insulin glargine (Lantus Solostar U-100 Insulin) 28 units (0.28 mL) subcut DAILY 90 days 28 mL 4RF To insulin glargine (Lantus Solostar U-100 Insulin) 40 units (0.4 mL) subcut DAILY 36 mL 4RF 90 days Coding Level of Care Code Est Pt Level 4 (42096) Complex EM visit Add On G2211 Diagnoses Uncontrolled type 2 diabetes mellitus with hyperglycemia E11.65 Glycemic state: with hyperglycemia Time Spent (min) 30 Comment Time spent reviewing labs/provider notes, face to face, chart doc
--- OUTSIDE RECORDS SUMMARY | 2025-02-01 13:49 | XMS_ITS | Clinical Summary ---
Author Organization [employer] Address [address] [place] [address] [address] [place] [address] Care Team Providers Care Automatic Buffer Name Role Phone Unavailable Primary Care Provider [...] patient's age to complete this topic Meningococcal B Vaccine Aged Out No l onger eligible based on patient's age to complete [...] Relevant to Health Maintenance Insurance DENTAL - [facility] [address]
[2025-02-01 13:53] VITALS: BP 140/72; PULSE 81; O2SAT 97; BMI 32.7
[2025-02-01 14:35] LABS: Glucose, Whole Blood 310 mg/dL (60-115)
== END 2025-02-01 14:18 | disposition home or self-care (01) ==
LOC: HO.ENCR 13:47
PROVIDERS: PCP Internal Medicine; Visit Provider Nurse Practitioner Adult Health
DX: E11.65 Type 2 diabetes mellitus with hyperglycemia (principal)
CPT/HCPCS: 99214; G2211

== ENCOUNTER → 2025-02-01 13:46 | Outpatient (BNVA) | payer OTHER, SELFPAY | PROVIDERS: PCP Internal Medicine; Visit Provider Nurse Practitioner Adult Health | DX: E11.65 Type 2 diabetes mellitus with hyperglycemia (principal) | CPT/HCPCS: 82947; 99212 ==

== ENCOUNTER 2025-02-06 15:53 | Outpatient (AMB) | payer OTHER, SELFPAY ==
--- OUTSIDE RECORDS SUMMARY | 2025-02-06 16:12 | XMS_ITS | Clinical Summary ---
Author Organization [employer] Address [address] [place] [address] [address] [place] [address] Care Team Providers Care Sheet Ironworker Name Role Phone Unavailable Primary Care Provider [...] Relevant to Health Maintenance Insurance DENTAL - [facility] [place] [address]
--- NOTE | 2025-02-06 16:18 | A.OFFVIS_ITS ---
Intake Intake Visit Reasons: 60 min Electrical Electronics Engineer Required: Yes Electrical Electronics Engineer Language: Green Plumber Services: Electrical Electronics Engineer Offered & Declined Electrical Electronics Engineer Name: Pt's Daughter Accompanied by: Daughter Allergies sitagliptin [Januvia] Allergy (Intermediate, Verified 01/23/25 13:11) tremors tramadol [TRAMADOL] Allergy (Mild, Verified 01/23/25 13:11) ABDOMINAL PAIN, stomach upset, severe abd pain HPI Comprehensive Diabetes Asmnt Most Recent Diabetes Results: No Data to Display [facility] Medical History Diabetes type 2, uncontrolled Renal cyst Dysuria Shoulder pain Pre-operative clearance Renal stones Gastric polyp Arthritis of left knee Epigastric pain Pre-op examination Kidney stone on left side Diabetes mellitus B12 deficiency Headache Urinary retention Renal stones Acute urinary retention Urgency of urination Hypothyroidism Hypertension Dyslipidemia Diabetic polyneuropathy associated with type 2 diabetes mellitus Goiter Surgical History H/O: hysterectomy History of cataract removal with insertion of prosthetic lens Hx of colonoscopy History of esophagogastroduodenoscopy (EGD) Family History Father Lung cancer Mother Kidney failure Alzheimer disease Sister Diabetes Paternal Grandfather Cancer Daughter Diabetes Sister Diabetes Breast cancer Brother Alzheimer disease Colon cancer Brother Colon polyps Social History Household Members: None Housing: Apartment Are you a primary healthcare consulting manager to a significant other at home: No Do you presently have visiting nurse or other home services: No Alcohol intake: never Patient Tobacco Use Status: Never used Tobacco e-Cigarette/Vaping Use: Never Used Second Hand Smoke Exposure: No Advance Directives Date on File: 07/31/24 service: No Current occupational status: disabled Current occupation: rt handed Cognitive needs: Yes Hearing needs: No Vision needs: Yes Assessment & Plan Assessment & Plan (1) Diabetes type 2, uncontrolled: Code(s): E11.65 - Type 2 diabetes mellitus with hyperglycemia Qualifiers: Glycemic state: with hyperglycemia Qualified Code(s): E11.65 - Type 2 diabetes mellitus with hyperglycemia Plan: Patient at visit for follow-up blood glucose check, and diabetes education Patient is checking glucose 2 to 5 or 6 times a day Patient is started on Mounjaro 2.5 mg weekly, 1st dose was on 02/02/2025. Since starting Mounjaro fasting glucose has improved. Glucoses taken later in the day still remain above target Patient had 1 episode of 70 mg/dL, denies treating hypoglycemia next reading of glucose taken after 162 mg/dL Patient reports blood sugars below: Date Breakfast/Fasting Pre-Lunch Pre-Supper Bedtime Notes 02/06 156 293 02/05 162 275 02/04 149 02/03 70/162 262 02/02 173 306 02/01 257 393 01/31 270 326 Hypo instructions ? When first signs of insulin reaction occur, immediately drink orange juice or cola, or suck on a sugar cube, but only if the person is conscious. ? Person with diabetes should continue taking insulin when ill, unless he/she is not able to eat.? Regularly check blood sugar or urine for sugar and acetone during illness. ? Exercise regularly. ? Pay special attention to the feet.? Avoid cuts, sores, blisters, ill- fitting shoes, or going barefoot.? Promptly treat injuries to the feet. ? Take medications as directed by physician. ? Drink extra water or noncaffeinated, nonsugared drinks to prevented hydration. Signs and symptoms of low blood sugar (happen quickly) Each person's reaction to low blood sugar is different. Learn your own signs and symptoms of when your blood sugar is low. Taking time to write these symptoms down may help you learn your own symptoms of when your blood sugar is low. From milder, more common indicators to most severe, signs and symptoms of low blood sugar include: Feeling shaky Being nervous or anxious Sweating, chills and clamminess Irritability or impatience Confusion Fast heartbeat Feeling lightheaded or dizzy Hunger Nausea Color draining from the skin (pallor) Feeling Sleepy Feeling weak or having no energy Blurred/impaired vision Tingling or numbness in the lips, tongue, or cheeks Headaches Coordination problems, clumsiness Hypoglycemia or blood glucose under 80 mg/dL use the rule of 15's: If you have your blood glucose meter test your blood glucose, if you do not have your meter still follow below instruction: Keep quick-sugar foods with you at all times.? Take 15 grams of fast acting carbohydrates. Examples are 4 ounces of fruit juice or regular soda pop, 8 ounces fat-free milk, 1 tablespoon of table sugar, honey or corn syrup, jam, one miniature box of raisins, 7-8 gumdrops or Life Savers candy, 4 glucose tablets, and glucose gel.? Retest blood glucose in 15 minutes, if blood glucose is still under 80 mg/dL repeat rule of 15's. If blood glucose is under 50, take 30 grams of fast acting carbohydrates If you are having hypoglycemia, or insulin reaction, more that a few times a week, call MD or clinical nurse educator F/U BG check Plan/Goal: Patient will treat hypoglycemia with rule of 15s Patient will contact clinical nurse educator when receives Wali 3+ sensors Portions of this note were created using voice recognition software, please excuse any words or phrases that may have been misinterpreted. Medications: On Hold insulin glargine (Lantus Solostar U-100 Insulin) Hold Comment: Doctor's Order 40 units (0.4 mL) subcut DAILY 90 days 36 mL 4RF Coding Level of Care Code Est Pt Level 1 (96613) Diagnoses Uncontrolled type 2 diabetes mellitus with hyperglycemia E11.65 Glycemic state: with hyperglycemia
== END 2025-02-06 16:22 | disposition home or self-care (01) ==
LOC: HO.ENCR 15:54
PROVIDERS: PCP Internal Medicine; Visit Provider Registered Nurse Diabetes Educator
DX: E11.65 Type 2 diabetes mellitus with hyperglycemia (principal)

== ENCOUNTER → 2025-02-06 15:53 | Outpatient (BNVA) | payer OTHER, SELFPAY | PROVIDERS: PCP Internal Medicine; Visit Provider Registered Nurse Diabetes Educator | DX: E11.65 Type 2 diabetes mellitus with hyperglycemia (principal) | CPT/HCPCS: 99211 ==

== ENCOUNTER 2025-02-08 12:59 | Outpatient (AMB) | payer OTHER, SELFPAY ==
--- NOTE | 2025-02-08 07:50 | A.OFFVIS_ITS ---
Vital Signs 02/08/25 13:19 Height 5 ft Weight 167 lb 12.095 oz BMI 32.8 BP 120/60 Blood Pressure Location Rt brachial Position Sitting Pulse 74 Pulse Source Pulse Oximeter Pulse Oximetry (%) 98 Oxygen Delivery Method Room Air Intake Visit Reasons: DM Intake Note: Patient presents today for a follow-up on Type 2 Diabetes Mellitus: Last Diabetic eye exam was on: DUE Last Podiatry exam was on: Patient does not see a Integration Engineer Most recent HbA1c: 10.8%, 01/22/2025 Random Glucose- 256 mg/dL, Today Hassock Maker Required: Yes Hassock Maker Language: Automation Design Engineer Services: Hassock Maker Offered & Declined Hassock Maker Name: DAUGHTER Accompanied by: Daughter Allergies sitagliptin (Januvia) Allergy (Intermediate, Verified 02/08/25 13:21) tremors tramadol (TRAMADOL) Allergy (Mild, Verified 02/08/25 13:21) ABDOMINAL PAIN, stomach upset, severe abd pain HPI Comments Details: 79 YO female who is seen in f/u for T2DM. She was seen as an initial consult several weeks ago and was sent to the emergency room with a glucose of of 368 and positive ketones. She has since been seen in endo Clinic several times and started on once daily insulin and given a prescription for Mounjaro 2.5 mg weekly. The initial plan had been to put the patient on a mixed insulin twice per day. She does not wish to inject this herself and so this was changed to a once daily. In addition to this she does have dementia The daughter has been feeling overwhelmed in his not able to get to her mother's house daily. Hemoglobin A1c 10.8% A1cs have been elevated for approximately 1 year She saw the senior health educator earlier this week in her glucose in the morning was 130-160, pre supper 260-306 Jardiance was recently discontinued due to vaginal candidiasis and possible UTI Had been on Tradjenta and glipizide which were ineffective. Current regimen: Lantus 28 units mounjaro 2.5mg weekly will be starting Glucose readings shows morning readings less than 160, later in the day glucose running 250-300 Has Nephropathy: 01/22/2025 EGFR 52 microalbumin 08/05/2025 9.0 PFSH Medical History Diabetes type 2, uncontrolled Renal cyst Dysuria Shoulder pain Pre-operative clearance Renal stones Gastric polyp Arthritis of left knee Epigastric pain Pre-op examination Kidney stone on left side Diabetes mellitus B12 deficiency Headache Urinary retention Renal stones Acute urinary retention Urgency of urination Hypothyroidism Hypertension Dyslipidemia Diabetic polyneuropathy associated with type 2 diabetes mellitus Goiter Surgical History H/O: hysterectomy History of cataract removal with insertion of prosthetic lens Hx of colonoscopy History of esophagogastroduodenoscopy (EGD) Family History Father Lung cancer Mother Kidney failure Alzheimer disease Sister Diabetes Paternal Grandfather Cancer Daughter Diabetes Sister Diabetes Breast cancer Brother Alzheimer disease Colon cancer Brother Colon polyps Social History Household Members: None Housing: Apartment Are you a primary pediatric critical care nurse to a significant other at home: No Do you presently have visiting nurse or other home services: No Alcohol intake: never Patient Tobacco Use Status: Never used Tobacco e-Cigarette/Vaping Use: Never Used Second Hand Smoke Exposure: No Advance Directives Date on File: 07/31/24 service: No Current occupational status: disabled Current occupation: rt handed Cognitive needs: Yes Hearing needs: No Vision needs: Yes Physical Exam Vital Signs: Last Vital Signs Pulse 74 02/08/25 13:19 BP 120/60 02/08/25 13:19 Pulse Ox 98 02/08/25 13:19 Oxygen Delivery Method Room Air 02/08/25 13:19 BMI result Body Mass Index 32.8 Const Other: Absence of Cushingoid features. Absence of acromegalic features. Neck exam reveals nl size thyroid about 15 gms. No thyroid nodules palpable. Heart S1 S2, Reg R/R. No M/R G. Skin exam reveals absence of vitiligo or acanthosis nigricans. No edema Results Reviewed Results Reviewed: Laboratory Last Values Glucose (Clinic) 256 mg/dL (60-115) H 02/08/25 13:21 Assessment & Plan Assessment & Plan (1) Diabetes type 2, uncontrolled: Code(s): E11.65 - Type 2 diabetes mellitus with hyperglycemia Category: Medical Qualifiers: Glycemic state: with hyperglycemia Qualified Code(s): E11.65 - Type 2 diabetes mellitus with hyperglycemia Plan: 79-year-old type 2 diabetic who was recently started on basal insulin once daily who has numbers in reasonable range in the morning an elevated later in the day. She is only able to give insulin once daily because it is given by her daughter. I would recommend we switch to Tresiba which we will provide a more level steady amount of insulin. She has just started on Mounjaro. We will see her back in several weeks time to evaluate her readings. Plan of care was discussed with both patient and her daughter The patient had an opportunity to ask questions regarding treatment plan. The patient expressed understanding and agreement with the above treatment plan. The patient is aware they should contact our office by phone for worsening glucose readings or for any low blood sugars which may warrant a change in diabetes medication. Compliance is encouraged with medications and any followup testing/consults which may have been ordered. Coding Level of Care Code Est Pt Level 4 (80252) Complex EM visit Add On G2211 Diagnoses Uncontrolled type 2 diabetes mellitus with hyperglycemia E11.65 Glycemic state: with hyperglycemia
--- OUTSIDE RECORDS SUMMARY | 2025-02-08 13:12 | XMS_ITS | Clinical Summary ---
Author Organization [employer] Address [address] [place] [address] [address] [place] [address] Care Team Providers Care Treatment Manager Name Role Phone Unavailable Primary Care Provider [...] Relevant to Health Maintenance Insurance DENTAL - [facility] [place] [id number]
[2025-02-08 13:19] VITALS: BP 120/60; PULSE 74; O2SAT 98; BMI 32.8
[2025-02-08 13:27] LABS: Glucose, Whole Blood 256 mg/dL (60-115)
== END 2025-02-08 13:44 | disposition home or self-care (01) ==
LOC: HO.ENCR 12:59
PROVIDERS: PCP Internal Medicine; Visit Provider Nurse Practitioner Adult Health
DX: E11.65 Type 2 diabetes mellitus with hyperglycemia (principal)
CPT/HCPCS: 99214; G2211

== ENCOUNTER → 2025-02-08 12:59 | Outpatient (BNVA) | payer OTHER, SELFPAY | PROVIDERS: PCP Internal Medicine; Visit Provider Nurse Practitioner Adult Health | DX: E11.65 Type 2 diabetes mellitus with hyperglycemia (principal); Z79.4 Long term (current) use of insulin; Z79.84 Long term (current) use of oral hypoglycemic drugs | CPT/HCPCS: 82947; 99212 ==

== ENCOUNTER 2025-02-27 14:24 | Outpatient (AMB) | payer OTHER, SELFPAY ==
--- NOTE | 2025-02-27 08:08 | A.OFFVIS_ITS ---
Vital Signs 02/27/25 14:35 Height 5 ft Weight 169 lb 12.095 oz BMI 33.1 BP 142/72 H Blood Pressure Location Rt brachial Position Sitting Pulse 84 Pulse Source Pulse Oximeter Pulse Oximetry (%) 97 Oxygen Delivery Method Room Air Intake Visit Reasons: DM Intake Note: Patient presents today for a follow-up on Type 2 Diabetes Mellitus: Last Diabetic eye exam was on: DUE Last Podiatry exam was on: Patient does not see a Pediatric Speech Therapist Most recent HbA1c: 10.8%, 01/22/2025 Random Glucose- 141 mg/dL, Today Election Clerk Required: Yes Election Clerk Language: Logistics Management Specialist Services: Election Clerk Offered & Declined Election Clerk Name: DAUGHTER Accompanied by: Daughter Allergies sitagliptin (Januvia) Allergy (Intermediate, Verified 02/08/25 13:21) tremors tramadol (TRAMADOL) Allergy (Mild, Verified 02/08/25 13:21) ABDOMINAL PAIN, stomach upset, severe abd pain empagliflozin (From Jardiance) Adverse Reaction (Severe, Verified 02/28/25 08:13) uti Medication List - Last Reconciled 02/28/25 by Jodi Leonard NP acetaminophen (Pain Relief Extra Strength (acetaminophen)) 500 mg PO Q6H PRN 30 days albuterol sulfate 90 mcg/actuation 2 puffs PO Q4H PRN 30 days ascorbic acid (vitamin C) (Vitamin C) 500 mg PO DAILY bisacodyl (Dulcolax (bisacodyl)) 5 mg PO BEDTIME 30 days bisacodyl (Dulcolax (bisacodyl)) 10 mg (2 x 5 mg) PO BEDTIME 2 days blood pressure test kit-medium As directed blood sugar diagnostic 4x daily blood-glucose meter (FreeStyle Lite Meter kit) As directed carboxymethylcellulose sodium 1% (TheraTears) 1 drp ophthalmic (eye) BID cefuroxime axetil 250 mg PO BID 7 days cetirizine (All Day Allergy (cetirizine)) 10 mg PO DAILY PRN 10 days cholecalciferol (vitamin D3) 50 mcg PO DAILY 90 days cyanocobalamin (vitamin B-12) 1,000 mcg PO DAILY diclofenac sodium 50 mg PO BEDTIME PRN 30 days docusate sodium (Colace) 100 mg PO BEDTIME PRN 30 days MDD 100 mg ferrous sulfate 324 mg PO BID 90 days fluconazole 150 mg PO Q3D 2 doses fluticasone propionate 50 mcg/actuation 1 spray intranasal BID PRN FreeStyle Lancets (lancets) once daily NS FreeStyle Lite Meter (blood-glucose meter) As directed for use with freestyle test strips patient meter is borken NS FreeStyle Lite Strips (blood sugar diagnostic) Use 1 test strip once a day NS ibuprofen 800 mg PO Q8H PRN 30 days insulin degludec (Tresiba FlexTouch U-200 insulin) 36 units (0.18 mL) subcut BEDTIME 30 days lancets (FreeStyle Lancets) As directed once a day levothyroxine 88 mcg PO DAILY 90 days lidocaine HCl-menthol 4-1 % (Icy Hot Max (lidocaine HCl-menthol)) 4 ea topical DAILY lisinopril 2.5 mg PO DAILY 90 days meclizine 25 mg PO DAILY 90 days memantine 7 mg PO DAILY 30 days evrpgzdrdwsu-ynml-uuxzh acid 18-400 mg-mcg (Centrum Women) 1 tab PO DAILY nitrofurantoin macrocrystal 100 mg PO BID 10 days omeprazole 20 mg PO BID peg 3350-electrolytes 236-22.74-6.74 -5.86 gram (Golytely) 240 mL PO Q10M 1 day peg 3350-electrolytes 236-22.74-6.74 -5.86 gram 240 mL PO Q10M pen needle, diabetic (Aqinject Pen Needle) As directed injects once a day pyridoxine (vitamin B6) 100 mg PO DAILY 90 days rosuvastatin 40 mg PO DAILY 90 days sumatriptan succinate 25 mg PO Q2-4H PRN 30 days tirzepatide (Mounjaro) 2.5 mg subcut QWEEK HPI Comments Details: 79 YO female who is seen in f/u for T2DM. Her daughter is in the office today and is interpreting for her mother. She was last seen 02/08/2025 at which time basal insulin was changed from Lantus to Tresiba to give her a more extended action of insulin. She was also started on Mounjaro 2.5 mg in a freestyle Wali 3+ was ordered. Prior to adding insulin, glucose readings were in the high 300s. She has decided she does not want to go on a glucose sensor. She lives alone. She has some issues with her memory and her daughter admini sters her insulin once daily. She is waiting to be set up with visiting nurse association which has been ordered through her PCP. She needs to get once daily insulin administration in her daughter can not always be here to help with this. Hemoglobin A1c 10.8% A1cs have been elevated for approximately 1 year She has recently seen the hospice educator Jardiance was recently discontinued due to vaginal candidiasis and possible UTI Had been on Tradjenta and glipizide which were ineffective. She is having some constipation on Mounjaro 2.5 weekly and would not recommend an increase on this. Her daughter interpreted throughout the visit and stressed to the patient that she needs to increase her water consumption, add fiber to her diet, prune juice and can start a stool softener. Current regimen: Tresiba 40 units mounjaro 2.5mg weekly Glucose readings; Tests b.i.d. A.m. running 77-157 Afternoons 114-195, occasional over 200 typically well-controlled No retinopathy. Last eye examination She is due Has Nephropathy: 01/22/2025 EGFR 52 microalbumin 08/05/2025 9.0 Neuropathy:no c/o pain or numbness Has HLD on statin no recent lipid profile in record [facility] Medical History Diabetes type 2, uncontrolled Renal cyst Dysuria Shoulder pain Pre-operative clearance Renal stones Gastric polyp Arthritis of left knee Epigastric pain Pre-op examination Kidney stone on left side Diabetes mellitus B12 deficiency Headache Urinary retention Renal stones Acute urinary retention Urgency of urination Hypothyroidism Hypertension Dyslipidemia Diabetic polyneuropathy associated with type 2 diabetes mellitus Goiter Surgical History H/O: hysterectomy History of cataract removal with insertion of prosthetic lens Hx of colonoscopy History of esophagogastroduodenoscopy (EGD) Family History Father Lung cancer Mother Kidney failure Alzheimer disease Sister Diabetes Paternal Grandfather Cancer Daughter Diabetes Sister Diabetes Breast cancer Brother Alzheimer disease Colon cancer Brother Colon polyps Social History Household Members: None Housing: Apartment Are you a primary nursing care partner to a significant other at home: No Do you presently have visiting nurse or other home services: No Alcohol intake: never Patient Tobacco Use Status: Never used Tobacco e-Cigarette/Vaping Use: Never Used Second Hand Smoke Exposure: No Advance Directives Date on File: 07/31/24 service: No Current occupational status: disabled Current occupation: rt handed Cognitive needs: Yes Hearing needs: No Vision needs: Yes Physical Exam Vital Signs: Last Vital Signs Pulse 84 02/27/25 14:35 BP 142/72 H 02/27/25 14:35 Pulse Ox 97 02/27/25 14:35 Oxygen Delivery Method Room Air 02/27/25 14:35 BMI result Body Mass Index 33.1 Const Other: Absence of Cushingoid features. Absence of acromegalic features. Neck exam reveals nl size thyroid about 15 gms. No thyroid nodules palpable. Heart S1 S2, Reg R/R. No M/R G. Skin exam reveals absence of vitiligo or acanthosis nigricans. No edema Visual exam of foot performed. No ulcerations or open lesions. No inter digit maceration or fissuring. No onychomycosis, no callouses. Sensation intact to monofilament exam. Vibratory sensation is slight diminished with 128 Hz tuning fork. Pulses positive distally Results Reviewed Results Reviewed: Laboratory Last Values Glucose (Clinic) 141 mg/dL (60-115) H 02/27/25 14:41 Assessment & Plan Assessment & Plan (1) Diabetes type 2, uncontrolled: Code(s): E11.65 - Type 2 diabetes mellitus with hyperglycemia Category: Medical Qualifiers: Glycemic state: with hyperglycemia Qualified Code(s): E11.65 - Type 2 diabetes mellitus with hyperglycemia Plan: Type 2 diabetic with a nephropathy with EGFR 52, neuropathy presents with improving glycemic control. She has a responded well to the addition of Mounjaro 2.5 mg. Would not increase this as she is having some constipation. She was asked to increase her water consumption, continue with prune juice, Dulcolax daily. The daughter was asked to contact our office if constipation continues to be an issue. Would recommend reducing Tresiba to 36 units. The patient had an opportunity to ask questions regarding treatment plan. The patient expressed understanding and agreement with the above treatment plan. The patient is aware they should contact our office by phone for worsening glucose readings or for any low blood sugars which may warrant a change in diabetes medication. Compliance is encouraged with medications and any followup testing/consults which may have been ordered. Medications: New bisacodyl (Dulcolax (bisacodyl)) 5 mg PO BEDTIME 30 tabs 1RF 30 days docusate sodium (Colace) 100 mg PO BEDTIME PRN 30 caps 1RF constipation 30 days MDD 100 mg Changed From insulin degludec (Tresiba FlexTouch U-200 insulin) 40 units (0.2 mL) subcut BEDTIME 30 days 6 mL 6RF To insulin degludec (Tresiba FlexTouch U-200 insulin) 36 units (0.18 mL) subcut BEDTIME 6 mL 6RF 30 days Discontinued bisacodyl (Dulcolax (bisacodyl)) the day before colonoscopy take 2 pills at 12pm and 2 pills at 5pm with plenty of water Discontinued Reason: Entered in error 20 mg (4 x 5 mg) PO ONCE 1 day 4 tabs 0RF blood-glucose,corporate planning manager,cont (FreeStyle Wali 3 [place]) Discontinued Reason: Doctor's Order As directed 1 ea 0RF insulin glargine (Lantus Solostar U-100 Insulin) Discontinued Reason: Doctor's Order 40 units (0.4 mL) subcut DAILY 90 days 36 mL 4RF blood-glucose sensor (FreeStyle Wali 3 Plus Sensor device) Discontinued Reason: Doctor's Order As directed change every 2 wks 2 ea 5RF Patient Instructions: Check your feet daily looking for any signs of infection, drainage, redness, ulceration and seek medical attention if this occurs. Break in shoes gradually and do not wear open-toed shoes or walk stocking footed or barefooted. Always carry a source of sugar Coding Level of Care Code Est Pt Level 4 (29133) Complex EM visit Add On G2211 Diagnoses Uncontrolled type 2 diabetes mellitus with hyperglycemia E11.65 Glycemic state: with hyperglycemia Time Spent (min) 30 Comment Time spent reviewing labs/provider notes, face to face, chart doc
[2025-02-27 14:35] VITALS: BP 142/72; PULSE 84; O2SAT 97; BMI 33.1
[2025-02-27 14:46] LABS: Glucose, Whole Blood 141 mg/dL (60-115)
--- OUTSIDE RECORDS SUMMARY | 2025-02-27 16:33 | XMS_ITS | Clinical Summary ---
Author Organization [employer] Address [address] [place] [address] [address] [place] [address] Care Team Providers Care Screen Examiner Name Role Phone Unavailable Primary Care Provider [...] 10/07/2021 COVID-19 Vaccine ( - season) 2024 Tobacco Screening 11/16/2024 11/17/2023 Influenza Vaccine (Season Ended) 2025 10/06/2015, 06/12/2014, 06/04/2013, Additional history exists Dental X-Ray: Full Mouth 06/23/2026 06/22/2023, 09/13 [...] Relevant to Health Maintenance Insurance DENTAL - [facility]
== END 2025-02-27 15:05 | disposition home or self-care (01) ==
LOC: HO.ENCR 14:25
PROVIDERS: PCP Internal Medicine; Visit Provider Nurse Practitioner Adult Health
DX: E11.65 Type 2 diabetes mellitus with hyperglycemia (principal)
CPT/HCPCS: 99214; G2211

== ENCOUNTER → 2025-02-27 14:24 | Outpatient (BNVA) | payer OTHER, SELFPAY | PROVIDERS: PCP Internal Medicine; Visit Provider Nurse Practitioner Adult Health | DX: E11.65 Type 2 diabetes mellitus with hyperglycemia (principal); E11.42 Type 2 diabetes mellitus with diabetic polyneuropathy; Z79.4 Long term (current) use of insulin | CPT/HCPCS: 82947; 99212 ==

== ENCOUNTER 2025-02-28 07:37 | Outpatient (REF) | payer OTHER, SELFPAY ==
[2025-02-28 07:54] LABS: MANUAL DIFF FLAG NO
[2025-02-28 07:59] LABS: Basophils Percent Auto 0.7 % (0-2); Eosinophils Absolute Auto 0.1 X10*3/uL (0.0-0.4); Eosinophils Percent Auto 1.5 % (0-4); Hemoglobin 10.7 g/dl (12.0-16.0); Imm Gran Abs Auto 0.01 X10*3/uL (0.00-0.03); Imm Gran Pct Auto 0.2 % (0.0-0.4); Lymphocytes Absolute Auto 1.2 X10*3/uL (1.2-4.9); Lymphocytes Percent Auto 20.6 % (20-40); Mean Corpuscular HGB Conc 31.5 g/dl (31.0-35.0); Mean Corpuscular Hemoglobin 24.7 pg (27.0-33.0); Mean Corpuscular Volume 78.5 fL (80.0-98.0); Mean Platelet Volume 9.4 fL (9.4-12.3); Monocytes Absolute Auto 0.3 X10*3/uL (0.1-1.2); Monocytes Percent Auto 5.3 % (2-11); Neutrophils Absolute Auto 4.3 x10*3/uL (2.0-8.3); Neutrophils Percent Auto 71.7 % (45-73); Platelet Count 370 X10*3/uL (160-400); Red Blood Count 4.33 X10*6/uL (4.20-5.50); Red Cell Distribution Width 15.9 % (11.0-16.0)
[2025-02-28 08:18] LABS: Appearance Urine Clear; Color Urine Yellow; Glucose Urine UA Negative (Negative); Leukocyte Esterase Urine Small (1+) (Negative); Nitrite Urine Positive (Negative); UMIC TRIGGER UACC YES; Urine Blood Negative (Negative); Urine Ketones Negative (Negative); Urine Protein Negative (Neg-Trace)
[2025-02-28 08:21] LABS: Bacteria Urine 4+ (None Seen); Hyaline Casts Urine 0-2 /LPF (0-2); RBC Urine 0-2 /HPF (0-2); Squamous Epithelial Cell Urine 0-2 /HPF (0-2); UACC Culture Trigger YES
[2025-02-28 08:27] LABS: Alanine Aminotransferase 17 U/L (0-31); Albumin Level 3.9 g/dL (3.5-5.0); Alkaline Phosphatase 49 U/L (39-117); Anion Gap 9 (12-20); Aspartate Amino Transferase 23 U/L (5-31); Bilirubin Total 0.2 mg/dL (0.0-1.0); Blood Urea Nitrogen 23 mg/dL (9-16); Calcium 9.7 mg/dL (8.4-10.2); Carbon Dioxide 29 mmol/L (22-29); Chloride 107 mmol/L (96-108); Cholesterol 169 mg/dL (<200); Estimated Glomerular Filt Rate > 60; Glucose Fasting 97 mg/dL (60-99); HDL Cholesterol 48 mg/dL (>40); Iron 22 mcg/dL (30-160); LDL Cholesterol Calculated 108 mg/dL (<100); Percent Iron Saturation 7 % (15-50); Sodium 141 mmol/L (135-145); Total Iron Binding Capacity 317 mcg/dL (228-428); Total Protein 6.7 g/dL (6.5-8.0); Triglycerides 68 mg/dL (<150); Unsaturated Iron Binding 295 ug/dL
[2025-02-28 08:45] LABS: Thyroid Stimulating Hormone 2.61 uIU/mL (0.32-4.0); Vitamin D 25-OH Total 26.2 ng/mL (>30)
[2025-02-28 08:56] LABS: Creatinine Urine 44.95 mg/dL; Microalbum/Creatinine Ratio Ur 13.3 ug/mg cr (<30)
[2025-02-28 09:00] LABS: Folate 12.3 ng/mL (> or = 4.0); Vitamin B12 636 pg/mL (200-900)
== END 2025-02-28 07:38 | disposition home or self-care (01) ==
LOC: HO.LAB 07:37
PROVIDERS: PCP Internal Medicine; Visit Provider Internal Medicine
DX: E11.65 Type 2 diabetes mellitus with hyperglycemia (principal); E78.5 Hyperlipidemia, unspecified; I10 Essential (primary) hypertension; E03.9 Hypothyroidism, unspecified; D50.9 Iron deficiency anemia, unspecified; G30.9 Alzheimer's disease, unspecified; F02.80 Dementia in other diseases classified elsewhere, unspecified severity, without behavioral disturbance, psychotic disturbance, mood disturbance, and anxiety; E55.9 Vitamin D deficiency, unspecified; R80.9 Proteinuria, unspecified; E53.8 Deficiency of other specified B group vitamins; Z79.899 Other long term (current) drug therapy
CPT/HCPCS: 36415; 80053; 80061; 81001; 82043; 82306; 82570; 82607; 82746; 83540; 84443; 85025; 87086; 87088; 87147; 87186; 99212

== ENCOUNTER 2025-02-28 09:03 | Outpatient (AMB) | payer OTHER, SELFPAY ==
[2025-02-28 09:07] VITALS: BP 112/62; BMI 32.8
--- NOTE | 2025-02-28 09:07 | A.OFFPC_ITS ---
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 Accompanied by: Daughter Allergies sitagliptin (Januvia) Allergy (Intermediate, Verified 02/28/25 09:17) tremors tramadol (TRAMADOL) Allergy (Mild, Verified 02/28/25 09:17) ABDOMINAL PAIN, stomach upset, severe abd pain empagliflozin (From Jardiance) Adverse Reaction (Severe, Verified 02/28/25 09:17) uti Medication List - Last Reconciled 02/28/25 by Brandy Montoya MD acetaminophen (Pain Relief Extra Strength (acetaminophen)) 500 mg PO Q6H PRN 30 days albuterol sulfate 90 mcg/actuation 2 puffs PO Q4H PRN 30 days ascorbic acid (vitamin C) (Vitamin C) 500 mg PO DAILY bisacodyl (Dulcolax (bisacodyl)) 5 mg PO BEDTIME 30 days bisacodyl (Dulcolax (bisacodyl)) 10 mg (2 x 5 mg) PO BEDTIME 2 days blood pressure test kit-medium As directed blood sugar diagnostic 4x daily blood-glucose meter (FreeStyle Lite Meter kit) As directed carboxymethylcellulose sodium 1% (TheraTears) 1 drp ophthalmic (eye) BID cetirizine (All Day Allergy (cetirizine)) 10 mg PO DAILY PRN 10 days cholecalciferol (vitamin D3) 50 mcg PO DAILY 90 days cyanocobalamin (vitamin B-12) 1,000 mcg PO DAILY diclofenac sodium 50 mg PO BEDTIME PRN 30 days docusate sodium (Colace) 100 mg PO BEDTIME PRN 30 days MDD 100 mg ferrous sulfate 324 mg PO BID 90 days fluticasone propionate 50 mcg/actuation 1 spray intranasal BID PRN FreeStyle Lancets (lancets) once daily NS FreeStyle Lite Meter (blood-glucose meter) As directed for use with freestyle test strips patient meter is borken NS FreeStyle Lite Strips (blood sugar diagnostic) Use 1 test strip once a day NS ibuprofen 800 mg PO Q8H PRN 30 days insulin degludec (Tresiba FlexTouch U-200 insulin) 36 units (0.18 mL) subcut BEDTIME 30 days lancets (FreeStyle Lancets) As directed once a day levothyroxine 88 mcg PO DAILY 90 days lidocaine HCl-menthol 4-1 % (Icy Hot Max (lidocaine HCl-menthol)) 4 ea topical DAILY lisinopril 2.5 mg PO DAILY 90 days meclizine 25 mg PO DAILY 90 days memantine 7 mg PO DAILY 30 days rtfnvqqqhsat-ipdo-rkpmb acid 18-400 mg-mcg (Centrum Women) 1 tab PO DAILY omeprazole 20 mg PO BID pen needle, diabetic (Aqinject Pen Needle) As directed injects once a day pyridoxine (vitamin B6) 100 mg PO DAILY 90 days rosuvastatin 40 mg PO DAILY 90 days sumatriptan succinate 25 mg PO Q2-4H PRN 30 days tirzepatide (Mounjaro) 2.5 mg subcut QWEEK Tobacco use date assessed: 11/29/24 Fall risk assessment: No Falls in past year Last assessed Fall Risk: 02/28/25 Dental Screening Dental Screen Date: 11/29/24 HPI HPI Comments History of Present Illness Details The patient is an 79-year-old female presenting with the management of multiple chronic conditions including hypertension, constipation, urinary tract infection, and iron deficiency anemia, diabetes mellitus type 2 on long-term current use of insulin and dementia. 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 The patient is currently on lisinopril 2.5 mg daily for blood pressure management. Constipation has been persistent, with the patient reporting no bowel movements for three days. The patient is using docusate for relief, and it is suspected that Mounjaro may be contributing to this issue. The patient has a history of urinary tract infections, with the current episode showing positive nitrites and a slight infection. The patient was previously treated with Jardiance, which contributed to urinary infections, and is now on nitrofurantoin for the current infection. Iron deficiency anemia is present, with hemoglobin levels improving from 10.3 to 10.7. Iron levels remain low at 22, below the normal range of 30. Hyperlipidemia is managed with rosuvastatin, with current cholesterol levels at 169 mg/dL and LDL at 108 mg/dL, which is above the target of 70 mg/dL. The patient is on levothyroxine 88 mcg for hypothyroidism, with thyroid function tests reported as normal. Migraine management includes sumatriptan, and the patient reports no current issues with headaches. A bone spur has been causing pain, and the patient is considering surgical intervention. [facility] Medical History Diabetes type 2, uncontrolled Renal cyst Dysuria Shoulder pain Pre-operative clearance Renal stones Gastric polyp Arthritis of left knee Epigastric pain Pre-op examination Kidney stone on left side Diabetes mellitus B12 deficiency Headache Urinary retention Renal stones Acute urinary retention Urgency of urination Hypothyroidism Hypertension Dyslipidemia Diabetic polyneuropathy associated with type 2 diabetes mellitus Goiter Surgical History H/O: hysterectomy History of cataract removal with insertion of prosthetic lens Hx of colonoscopy History of esophagogastroduodenoscopy (EGD) Family History Father Lung cancer Mother Kidney failure Alzheimer disease Sister Diabetes Paternal Grandfather Cancer Daughter Diabetes Sister Diabetes Breast cancer Brother Alzheimer disease Colon cancer Brother Colon polyps Social History Household Members: None Housing: Apartment Are you a primary career and technology education teacher to a significant other at home: No Do you presently have visiting nurse or other home services: No Alcohol intake: never Patient Tobacco Use Status: Never used Tobacco e-Cigarette/Vaping Use: Never Used Second Hand Smoke Exposure: No Advance Directives Date on File: 07/31/24 service: No Current occupational status: disabled Current occupation: rt handed Cognitive needs: Yes Hearing needs: No Vision needs: Yes Questionnaire Thrive Questionnaire Date Thrive assessed: 11/29/24 CHRIS-7 AMB Questionnaire CHRIS-7 Date CHRIS - 7 assessed: 11/29/24 Source: Developed by Drs. Clive Ortega, Violet Solis, Pernell Peralta and colleagues, with an educational vinh from [employer]. Review of Systems Const All systems reviewed & are unremarkable except as noted in HPI and below Card Denies chest pain at rest, Denies chest pain with activity, Denies edema, Denies irregular heart rhythm, Denies claudication, Denies dyspnea, Denies dyspnea on exertion, Denies orthopnea, Denies paroxysmal nocturnal dyspnea and Denies slow heart rate Resp Denies cough, Denies dyspnea and Denies dyspnea on exertion GI Denies abdominal pain, Denies change in bowel habits, Denies excessive flatus, Denies nausea and Denies vomiting Denies urinary incontinence, Denies urinary hesitancy and Denies urinary urgency Musc Denies atrophy, Denies deformity and Denies limited range of motion Physical exam (Primary Care) Vital Signs: Last Vital Signs BP 112/62 02/28/25 09:07 BMI result Body Mass Index 32.8 BMI Assessment/Plan discussion: High BMI High, discussed plan: lifestyle, weight reduction, dietary and physical activity Tobacco/Smoking Status: Tobacco use Status Tobacco use date assessed 11/29/24 02/28/25 09:11 Patient Tobacco Use Status Never used Tobacco 02/28/25 09:11 e-Cigarette/Vaping Use Never Used 02/28/25 09:11 Thrive Assessment: Date of Thrive Assessment Date Thrive assessed 11/29/24 02/28/25 09:11 Resp Effort & Inspection: normal respiratory effort Auscultation: clear to auscultation bilaterally Cardio Jugular venous distension: no JVD Rate: regular rate Rhythm: regular rhythm Heart sounds: S1 normal heart sound present and S2 normal heart sound present GI Inspection: Yes normal to inspection Palpation (GI): Soft to palpation and nontender Auscultation: normal bowel sounds Extrem General: Yes full ROM Coding Level of Care Code Est Pt Level 4 (15804) Complex EM visit Add On G2211 Diagnoses Uncontrolled type 2 diabetes mellitus with hyperglycemia E11.65 Glycemic state: with hyperglycemia Hyperlipidemia LDL goal <70 E78.5 Dyslipidemia E78.5 Essential hypertension I10 Hypertension type: essential hypertension Hypothyroidism, unspecified type E03.9 Hypothyroidism type: unspecified Iron deficiency anemia D50.9 Alzheimer's dementia, unspecified dementia severity, unspecified timing of dementia onset, unspecified whether behavioral, psychotic, or mood disturbance or anxiety G30.9; F02.80 Dementia type: Alzheimer's Alzheimer's disease onset: unspecified onset Dementia severity: unspecified severity Dementia behavioral or psychological symptom: unspecified whether behavioral, psychotic, or mood disturbance or anxiety Time Spent (min) 23 Assessment & Plan Assessment & Plan (1) Diabetes type 2, uncontrolled: Code(s): E11.65 - Type 2 diabetes mellitus with hyperglycemia Category: Medical Qualifiers: Glycemic state: with hyperglycemia Qualified Code(s): E11.65 - Type 2 diabetes mellitus with hyperglycemia (2) Hyperlipidemia LDL goal <70: Code(s): E78.5 - Hyperlipidemia, unspecified Category: Medical (3) Dyslipidemia: Code(s): E78.5 - Hyperlipidemia, unspecified Category: Medical (4) Hypertension: Code(s): I10 - Essential (primary) hypertension Category: Medical Qualifiers: Hypertension type: essential hypertension Qualified Code(s): I10 - Essential (primary) hypertension (5) Hypothyroidism: Code(s): E03.9 - Hypothyroidism, unspecified Category: Medical Qualifiers: Hypothyroidism type: unspecified Qualified Code(s): E03.9 - Hypothyroidism, unspecified (6) Iron deficiency anemia: Code(s): D50.9 - Iron deficiency anemia, unspecified Category: Medical (7) Dementia: Code(s): F03.90 - Unspecified dementia, unspecified severity, without behavioral disturbance, psychotic disturbance, mood disturbance, and anxiety Category: Medical Qualifiers: Dementia type: Alzheimer's Alzheimer's disease onset: unspecified onset Dementia severity: unspecified severity Dementia behavioral or psychological symptom: unspecified whether behavioral, psychotic, or mood disturbance or anxiety Qualified Code(s): G30.9 - Alzheimer's disease, unspecified; F02.80 - Dementia in other diseases classified elsewhere, unspecified severity, without behavioral disturbance, psychotic disturbance, mood disturbance, and anxiety Plan The management plan for hypertension includes continuing lisinopril 2.5 mg manuel ly, with regular monitoring of blood pressure to ensure control. For constipation, the patient is advised to continue using docusate and monitor bowel movements, with consideration of Sergio's contribution to this issue. The urinary tract infection is being treated with nitrofurantoin, and the patient is advised to complete the antibiotic course. Regular follow-up is recommended to monitor for recurrent infections, especially given the history of Jardiance-induced urinary infections. Iron deficiency anemia management includes monitoring hemoglobin and iron levels, with dietary adjustments or supplements as needed to address the deficiency. For hyperlipidemia, the patient is to continue rosuvastatin, with periodic lipid panel assessments to achieve LDL targets. The patient is to maintain current levothyroxine dosage for hypothyroidism, with regular thyroid function tests to ensure stability. Migraine management with sumatriptan is to continue as needed, with monitoring for any recurrence of symptoms. The patient is considering surgical intervention for the bone spur, and further consultation with an artificial intelligence specialist may be warranted. Patient was informed and verbally consented to the use of an ambient scribe for clinic note documentation during this visit. During the visit, we discussed the management of hypertension with lisinopril and the importance of regular blood pressure monitoring. We also addressed constipation management with docusate and the potential impact of Mounjaro on bowel habits. The treatment plan for the urinary tract infection includes completing the course of nitrofurantoin, with follow-up to prevent recurrence. Iron deficiency anemia was reviewed, emphasizing the need for monitoring and possible dietary adjustments. We discussed the continuation of rosuvastatin for hyperlipidemia and the need for regular lipid panel checks. The patient is to continue levothyroxine for hypothyroidism, with periodic thyroid function tests. Migraine management with sumatriptan was confirmed, and the patient is considering surgical options for the bone spur, with a recommendation for orthopedic consultation. Orders: Orders Lipid Panel 4 Months E78.5 - Hyperlipidemia, unspecified Vitamin D 25-OH Total 4 Months E55.9 - Vitamin D deficiency, unspecified Vitamin B12 and Folate 4 Months E53.8 - Deficiency of other specified B group vitamins Microalbumin, Random (w Creat) 4 Months R80.9 - Proteinuria, unspecified Comprehensive [place]. Panel Fast 4 Months E11.65 - Type 2 diabetes mellitus with hyperglycemia Thyroid Stimulating Hormone 4 Months E03.9 - Hypothyroidism, unspecified Medications: New nitrofurantoin macrocrystal must administer with a meal/food 100 mg PO BID 10 caps 0RF 5 days Refilled rosuvastatin 40 mg PO DAILY 90 tabs 0RF 90 days Patient Instructions: - Continue taking lisinopril 2.5 mg daily and monitor blood pressure regularly. - Use docusate as needed for constipation and monitor bowel movements. - Complete the course of nitrofurantoin for urinary tract infection. - Monitor hemoglobin and iron levels, and consider dietary changes to address iron deficiency. - Continue rosuvastatin for cholesterol management and have regular lipid panel tests. - Maintain current levothyroxine dosage and have regular thyroid function tests. - Use sumatriptan for migraines as needed. - Consider consulting an artificial intelligence specialist for bone spur treatment options.
== END 2025-02-28 09:34 | disposition home or self-care (01) ==
PROVIDERS: PCP Internal Medicine; Visit Provider Internal Medicine
DX: E11.65 Type 2 diabetes mellitus with hyperglycemia (principal); G30.9 Alzheimer's disease, unspecified; F02.80 Dementia in other diseases classified elsewhere, unspecified severity, without behavioral disturbance, psychotic disturbance, mood disturbance, and anxiety; E78.5 Hyperlipidemia, unspecified; I10 Essential (primary) hypertension; E03.9 Hypothyroidism, unspecified; D50.9 Iron deficiency anemia, unspecified

== ENCOUNTER 2025-07-01 13:54 | Outpatient (AMB) | payer OTHER, SELFPAY ==
--- NOTE | 2025-07-01 14:07 | A.OFFPC_ITS ---
Vital Signs 07/01/25 14:09 Height 5 ft Weight 158 lb 8 oz BMI 31.0 BP 104/48 L Blood Pressure Location Lt brachial Position Sitting Pulse 84 Temp 97.3 F Pulse Oximetry (%) 95 Intake Visit Reasons: 4mth f/u [facility] Programmer Required: No Accompanied by: Self / Same As Patient Allergies sitagliptin (Januvia) Allergy (Intermediate, Verified 07/01/25 14:51) tremors tramadol (TRAMADOL) Allergy (Mild, Verified 07/01/25 14:51) ABDOMINAL PAIN, stomach upset, severe abd pain empagliflozin (From Jardiance) Adverse Reaction (Severe, Verified 07/01/25 14:51) uti tirzepatide (From Mounjaro) Adverse Reaction (Intermediate, Verified 07/01/25 14:51) Headache Medication List - Last Reconciled 07/01/25 by Brandy Montoya MD acetaminophen (Pain Relief Extra Strength (acetaminophen)) 500 mg PO Q6H PRN 30 days albuterol sulfate 90 mcg/actuation 2 puffs PO Q4H PRN 30 days ascorbic acid (vitamin C) (Vitamin C) 500 mg PO DAILY bisacodyl (Dulcolax (bisacodyl)) 5 mg PO BEDTIME 30 days bisacodyl (Dulcolax (bisacodyl)) 10 mg (2 x 5 mg) PO BEDTIME 2 days blood pressure test kit-medium As directed blood sugar diagnostic 4x daily blood-glucose meter (FreeStyle Lite Meter kit) As directed carboxymethylcellulose sodium 1% (TheraTears) 1 drp ophthalmic (eye) BID cetirizine (All Day Allergy (cetirizine)) 10 mg PO DAILY PRN 10 days cholecalciferol (vitamin D3) 50 mcg PO DAILY 90 days cyanocobalamin (vitamin B-12) 1,000 mcg PO DAILY diclofenac sodium 50 mg PO BEDTIME PRN 30 days docusate sodium (Colace) 100 mg PO BEDTIME PRN 30 days MDD 100 mg ferrous sulfate 324 mg PO BID 90 days fluticasone propionate 50 mcg/actuation 1 spray intranasal BID PRN FreeStyle Lancets (lancets) once daily NS FreeStyle Lite Meter (blood-glucose meter) As directed for use with freestyle test strips patient meter is jodi NS FreeStyle Lite Strips (blood sugar diagnostic) tid prn NS ibuprofen 800 mg PO Q8H PRN 30 days insulin degludec (Tresiba FlexTouch U-200 insulin) 36 units (0.18 mL) subcut BEDTIME 30 days lancets (FreeStyle Lancets) As directed once a day levothyroxine 88 mcg PO DAILY 90 days lidocaine HCl-menthol 4-1 % (Icy Hot Max (lidocaine HCl-menthol)) 4 ea topical DAILY lisinopril 2.5 mg PO DAILY 90 days meclizine 25 mg PO DAILY 90 days memantine 7 mg PO DAILY 30 days lqgszsjifazt-xvju-ecztq acid 18-400 mg-mcg (Centrum Women) 1 tab PO DAILY nitrofurantoin macrocrystal 100 mg PO BID 5 days omeprazole 20 mg PO BID Ozempic (semaglutide) 0.5 mg (0.736 mL) subcut QWEEK 28 days NS pen needle, diabetic (Aqinject Pen Needle) As directed injects once a day pyridoxine (vitamin B6) 100 mg PO DAILY 90 days rosuvastatin 40 mg PO DAILY 90 days sumatriptan succinate 25 mg PO Q2-4H PRN 30 days Tobacco use date assessed: 07/01/25 Fall risk assessment: 1 Fall in past year Last assessed Fall Risk: 07/01/25 Dental Screening Dental Screen Date: 07/01/25 Did you have a dental visit in the last 12 months?: No Did you have a dental problem in the last 6 months where you did not have access to dental care?: No Was dental information given to patient?: No HPI HPI Comments History of Present Illness Details The patient is an 79-year-old female presenting with hypotension and constipation. The hypotension was noted during a recent check-up, with blood pressure readings being lower than usual. The patient has been experiencing dizziness, which may be related to the low blood pressure. Constipation has been a persistent issue, potentially exacerbated by medication use, including iron supplements and insulin. The patient reports significant discomfort due to constipation, which has not been fully alleviated by current interventions. The patient also has a history of urinary tract infections, which have been recurrent and associated with certain medications. Headaches have been reported, possibly linked to medication adjustments, including the use of Ozempic. Dizziness and memory impairment are additional concerns, with the patient using meclizine and memantine as part of her management plan. Gastroesophageal reflux disease is managed with omeprazole, providing some relief from symptoms. [facility] Medical History (Updated 07/01/25 @ 20:35 by Brandy Montoya MD) Diabetes mellitus Diabetes type 2, uncontrolled Renal cyst Dysuria Shoulder pain Pre-operative clearance Renal stones Gastric polyp Arthritis of left knee Epigastric pain Pre-op examination Kidney stone on left side B12 deficiency Headache Urinary retention Renal stones Acute urinary retention Urgency of urination Hypothyroidism Hypertension Dyslipidemia Diabetic polyneuropathy associated with type 2 diabetes mellitus Goiter Surgical History H/O: hysterectomy History of cataract removal with insertion of prosthetic lens Hx of colonoscopy History of esophagogastroduodenoscopy (EGD) Family History Father Lung cancer Mother Kidney failure Alzheimer disease Sister Diabetes Paternal Grandfather Cancer Daughter Diabetes Sister Diabetes Breast cancer Brother Alzheimer disease Colon cancer Brother Colon polyps Social History Household Members: None Housing: Apartment Are you a primary wound care specialist to a significant other at home: No Do you presently have visiting nurse or other home services: No Alcohol intake: never Patient Tobacco Use Status: Never used Tobacco e-Cigarette/Vaping Use: Never Used Second Hand Smoke Exposure: No Advance Directives Date on File: 07/31/24 service: No Current occupational status: disabled Current occupation: rt handed Cognitive needs: Yes Hearing needs: No Vision needs: Yes Questionnaire PHQ-9 Over the last 2 weeks, how often have you been bothered by any of the following problems? 1. Little interest or pleasure in doing things: not at all 2. Feeling down, depressed, or hopeless: not at all 3. Trouble falling or staying asleep, or sleeping too much: not at all 4. Feeling tired or having little energy: not at all 5. Poor appetite or overeating: not at all 6. Feeling bad about yourself - or that you are a failure or have let yourself or your family down: not at all 7. Trouble concentrating on things, such as reading the newspaper or watching television: several days 8. Moving or speaking so slowly that other people could have noticed. Or the opposite - being so fidgety or restless that you have been moving around a lot more than usual: not at all 9. Thoughts that you would be better off or of hurting yourself in some way: not at all Total score: 1 Depression Screening Interpretation: Negative Depression Screening Done: Yes 83064 - PHQ-9 Billing: Yes Source: Developed by Drs. Clive Ortega, Violet Solis, Pernell Peralta and colleagues, with an educational vinh from [employer]. Thrive Questionnaire Date Thrive assessed: 11/29/24 I am a: Patient What is your living situation today?: I have a steady place to live Within the past 12 months, did the food you bought not last and you didn't have the money to get more?: Never true Within the past 12 months, did you worry whether your food would run out before you got money to buy more?: Never true Do you have trouble paying for medicines?: No Do you have trouble getting transportation to medical appointments?: No Do you have trouble paying your heating and electricity bill?: No Do you have trouble taking care of your child, family member or friend?: No Do you have trouble with day-to-day activities such as bathing, preparing meals, shopping, managing finances, etc.?: No Are you currently unemployed and looking for a job?: No Are you interested in more education?: No Please select the resources that you would like help with: None Currently or been in a relationship where the following occur: No concerns r eported THRIVE Score: 0 AUDIT C Alcohol Use Questionnaire (AUDIT-C) 1. How often do you have a drink containing alcohol?: Never Total Score: 0 Score Reviewed/Action Taken: No CHRIS-7 AMB Questionnaire CHRIS-7 Date CHRIS - 7 assessed: 11/29/24 Feeling nervous, anxious, or on edge: 1 = Several days Not being able to stop or control worryin = Several days Worrying too much about different things: 1 = Several days Trouble relaxin = Several days Being so restless that it is hard to sit still: 1 = Several days Becoming easily annoyed or irritable: 0 = Not at all Feeling afraid as if something awful might happen: 0 = Not at all Total CHRIS-7 score (0-4 normal; 5-9 mild; 10-14 moderate; 15-21 severe): 5 Source: Developed by Drs. Clive Ortega, Violet Solis, Pernell Peralta and colleagues, with an educational vinh from [employer]. CHRIS-7 Assessment Billing CHRIS-7 Assessment Tool: CHRIS-7 Assessment 33003 Review of Systems Const All systems reviewed & are unremarkable except as noted in HPI and below Card Denies chest pain at rest, Denies chest pain with activity, Denies edema, Denies irregular heart rhythm, Denies claudication, Denies dyspnea, Denies dyspnea on exertion, Denies orthopnea, Denies paroxysmal nocturnal dyspnea and Denies slow heart rate Resp Denies cough, Denies dyspnea and Denies dyspnea on exertion GI Denies abdominal pain, Denies change in bowel habits, Denies excessive flatus, Denies nausea and Denies vomiting Denies urinary incontinence, Denies urinary hesitancy and Denies urinary urgency Musc Denies abnormal gait, Denies atrophy, Denies deformity and Denies limited range of motion Skin/Breast Denies bleeding lesions, Denies changing lesions and Denies rash Neuro Denies abnormal gait and Denies lack of coordination Physical exam (Primary Care) Vital Signs: Last Vital Signs Temp 97.3 F 07/01/25 14:09 Pulse 84 07/01/25 14:09 BP 104/48 L 07/01/25 14:09 Pulse Ox 95 07/01/25 14:09 BMI result Body Mass Index 31.0 BMI Assessment/Plan discussion: High BMI High, discussed plan: lifestyle, weight reduction, dietary and physical activity Tobacco/Smoking Status: Tobacco use Status Tobacco use date assessed 07/01/25 07/01/25 14:36 Patient Tobacco Use Status Never used Tobacco 07/01/25 14:09 e-Cigarette/Vaping Use Never Used 07/01/25 14:09 PHQ-9: PHQ-9 Score PHQ-9: Total score 1 07/01/25 15:14 Depression Screening Interpretation: Negative Thrive Assessment: Date of Thrive Assessment Date Thrive assessed 11/29/24 07/01/25 14:09 Currently or been in a relationship where the following occur: No concerns reported Resp Effort & Inspection: normal respiratory effort Auscultation: clear to auscultation bilaterally Cardio Jugular venous distension: no JVD Rate: regular rate Rhythm: regular rhythm Heart sounds: S1 normal heart sound present and S2 normal heart sound present Extrem General: Yes full ROM Office Procedures Flu Questionnaire Does the patient have a severe egg allergy?: No Does the patient have severe life threatening allergies?: No Does the patient have a fever or illness today?: No Has the patient ever had Guillain-[place] Syndrome?: No Has the patient ever had any past reaction to a flu shot?: No Immunizations Fluarix [id number] (PF) 45 mcg (15 mcg x 3)/0.5 mL IM syringe Performing Provider: Brandy Montoya MD [facility] Administered by: YURIY Nixon on 07/01/25 15:13 Dose Route Admin Location Dispensed Lot Number Expiration Date NDC Logging Engineer 0.5 mL IM Left Deltoid 0.5 mL [id number] 03/11/26 [id number] [employer] VIS Given Date VIS Provided VIS Publication Date 07/01/25 Single Vaccine 24 Eligibility Eligibility Date Funding Source Not [facility] Eligible 07/01/25 Private Coding Level of Care Code Est Pt Level 4 (89854) Complex EM visit Add On G2211 Diagnoses Hyperlipidemia LDL goal <70 E78.5 Hypothyroidism, unspecified type E03.9 Hypothyroidism type: unspecified GERD (gastroesophageal reflux disease) K21.9 Diabetes mellitus E11.9 Alzheimer's dementia, unspecified dementia severity, unspecified timing of dementia onset, unspecified whether behavioral, psychotic, or mood disturbance or anxiety G30.9; F02.80 Dementia type: Alzheimer's Alzheimer's disease onset: unspecified onset Dementia severity: unspecified severity Dementia behavioral or psychological symptom: unspecified whether behavioral, psychotic, or mood disturbance or anxiety Additional Codes CHRIS-7 Assessment Billing - CHRIS-7 Assessment Tool: CHRIS-7 Assessment 50462 ([id number]) PHQ-9 - 64635 - PHQ-9 Billing: Yes ([id number]) Time Spent (min) 23 Assessment & Plan Assessment & Plan (1) Hyperlipidemia LDL goal <70: Code(s): E78.5 - Hyperlipidemia, unspecified Category: Medical (2) Hypothyroidism: Code(s): E03.9 - Hypothyroidism, unspecified Category: Medical Qualifiers: Hypothyroidism type: unspecified Qualified Code(s): E03.9 - Hypothyroidism, unspecified (3) GERD (gastroesophageal reflux disease): Code(s): K21.9 - Gastro-esophageal reflux disease without esophagitis Category: Medical (4) Diabetes mellitus: Code(s): E11.9 - Type 2 diabetes mellitus without complications Category: Medical (5) Dementia: Code(s): F03.90 - Unspecified dementia, unspecified severity, without behavioral disturbance, psychotic disturbance, mood disturbance, and anxiety Category: Medical Qualifiers: Dementia type: Alzheimer's Alzheimer's disease onset: unspecified onset Dementia severity: unspecified severity Dementia behavioral or psychological symptom: unspecified whether behavioral, psychotic, or mood disturbance or anxiety Qualified Code(s): G30.9 - Alzheimer's disease, unspecified; F02.80 - Dementia in other diseases classified elsewhere, unspecified severity, without behavioral disturbance, psychotic disturbance, mood disturbance, and anxiety Plan Plan 1. Constipation Management of constipation involves dietary modifications, increased fluid intake, and the use of stool softeners like Colace as needed. 2. Headache Headache management may involve adjusting the dosage of Ozempic and monitoring for any changes in symptoms. 3. Dizziness Dizziness is addressed by evaluating the patient's medication regimen and ensuring adequate hydration. 4.. Memory Impairment Memory impairment is managed with memantine and regular cognitive exercises to maintain mental acuity. 5.. Gastroesophageal Reflux Disease Gastroesophageal reflux disease is treated with omeprazole, and dietary adjustments are recommended to minimize symptoms. 6. Diabetes mellitus type 2 Decrease Ozempic. Continue insulin. A1c goal is equal or less than 7%. Orders: Orders Lipid Panel 5 Months E78.5 - Hyperlipidemia, unspecified Microalbumin, Random (w Creat) 5 Months R80.9 - Proteinuria, unspecified Vitamin D 25-OH Total 5 Months E55.9 - Vitamin D deficiency, unspecified Vitamin B12 and Folate 5 Months E53.8 - Deficiency of other specified B group vitamins Comprehensive [place]. Panel Fast 5 Months E11.65 - Type 2 diabetes mellitus with hyperglycemia Thyroid Stimulating Hormone 5 Months E03.9 - Hypothyroidism, unspecified Influenza [id number] Immunization Today Z23 - Encounter for immunization AMB Hemoglobin A1c Today E11.65 - Type 2 diabetes mellitus with hyperglycemia Complete Blood Count Auto Diff 5 Months D64.9 - Anemia, unspecified IRON PROFILE 5 Months D64.9 - Anemia, unspecified Medications: New semaglutide (Ozempic) for 4 weeks 0.25 mg (0.368 mL) subcut QWEEK 1.472 mL 0RF 4 weeks E11.65 - Type 2 diabetes mellitus with hyperglycemia Refilled sumatriptan succinate do not exceed 8 doses per 24 hrs 25 mg PO Q2-4H PRN 9 tabs 0RF migraine headache 30 days Discontinued Ozempic (semaglutide) for first 2 weeks take 0 Discontinued Reason: Patient Completed Course 0.5 mg (0.736 mL) subcut QWEEK 28 days 2 mL 6RF NS
[2025-07-01 14:09] VITALS: BP 104/48; PULSE 84; TEMP 36.3; O2SAT 95; BMI 31.0
--- OUTSIDE RECORDS SUMMARY | 2025-07-01 17:13 | XMS_ITS | Patient Health Record ---
Author Organization [facility] Address [address] [place] [address] Care Team Providers Care Intelligence Operations Name Role Phone Florentino HAGAN, Nanette Primary Care Provider Clive Plascencia Unavailable [phone] Allergies Allergen (clinical drug ingredient) Drug/Non Drug Allergy documented on EMR Reaction Allergy Type Onset Date Status tramadol Tramadol HCl Unknown Drug Allergy Acti ve Reason For Referral No Information Medications Medication SIG (Take, Route, Frequency, Duration) Notes Start Date End Date Status Vitamin B12 1 tablet Orally twic e a day Active Lisinopril 10 MG 1 tablet Orally Once a day Active Ferrous Sulfate 325 (65 Fe) MG 1 tablet Orally three times daily Active Polyethylene Glycol 3350 1 packet mixed with 8 ounces of fluid Orally Once a day Not-Taking Levothyroxine Sodium 112 MCG 1 tablet Orally Once a day skip the on the and 15 of each month Active Pain Relief 500 MG 1 or 2 tablets as needed Orally every 6 hrs Active prednisoLONE Acetate 1 % 2 drops into af fected eye Ophthalmic Four times a day Active metFORMIN HCl 500 MG 1 tablet with meals in the am and 2 in the evening Orally Active Aspir-81 81 MG 1 tablet Orally Once a day Active Omeprazole 20 MG 1 capsule Orally Onc e a day Active Clobetasol Propionate 0.05 % 1 application to affected area Externally Twice a day for two weeks then take a week off Active Vitamin C 500 MG 1 tablet Orally 3 ti mes daily Active Saline Nasal Cooks 0.65 % 2 drops in eac h nostril as needed Nasally every 2 hrs Active Simvastatin 40 MG 1 tablet in the even ing Orally Once a day Active Halog 0.1 % 1 application to affected area Externally Active Loratadine 10 MG 1 tablet Orally Once a day Active Topiramate 25 MG 1 tablet at bedtime Orally Once a day Active ProAir HFA 108 (90 Base) MCG/ACT 2 puffs as needed Inhalation every 4 hrs Active Fluticasone Propionate (Inhal) 50 MCG/BLIST 1 puff Inhalation Twice a day Active Problems Problem Type SNOMED Code ICD Code Onset Dates Problem Status W/U Status Risk Notes Problem Iron deficiency anemia (55011563) Anemia, iron deficiency (280.9) Active confirmed Problem Feces contents abnormal (379356406) Heme + stool (792.1) Active confirmed Problem Gastritis (0812716) Gastritis (535.50) Active confirmed Plan Of Treatment No Information Insurance Providers Payer Name Payer Address Payer Phone Subscriber Number Group Number Insured Name Patient Relationship to Insured Coverage Start Date Coverage End Date [facility] [address] [place] [address] [id number] Self - patient is the insured MEDICAID OF [employer] [address] [place] [address] [id number] [id number] Self - patient is the insured Medical (General) History Medical History History ICD Code EGD/Colonoscopy 10/06/2009-- the colonoscopy was normal other than some diverticulosis and internal hemorrhoids; the upper endoscopy revealed erosive gastritis and H. pylori--the H. pylori was treated with Biaxin, amoxicillin, and omeprazole--duodenal biopsies were negative for celiac disease NIDDM Hypothyroidism HTN hyperlipidemia asthma Denies [place],CVA,renal disease B12 deficiency--previously received shot s, now received oral supplements Epistaxis Anemia-received IV Iron 8 ti mes earlier in [address] Sanchez--in addition to the upper endoscopy and colonoscopy in 2009, she also underwent 2 upper endoscopies and 2 colonoscopies while living in [place] approximately 10-15 years ago. 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
--- OUTSIDE RECORDS SUMMARY | 2025-07-01 17:13 | XMS_ITS | Clinical Summary ---
Author Organization [employer] Address [address] [place] [address] [address] [place] [address] Care Team Providers Care Aging Room Operator Name Role Phone Unavailable Primary Care Provider [...] Dental Oral Exam 12/23/2023 06/22/2023, , 10/07/2021 Tobacco Screening 11/16/2024 11/17/2023 COVID-19 Vaccine (1 - 2023- season) 2025 Influenza Vaccine (#1) 05/13/2025201 6, 06/12/2014, 06/04/2013, Additional history exists Dental X-Ray: [...] Relevant to Health Maintenance Insurance DENTAL - [place] [id number]
--- OUTSIDE RECORDS SUMMARY | 2025-07-01 17:14 | XMS_ITS | Encounter Summary ---
Author Organization [employer] Address [address] [place] [address] Care Team Providers Care Administrative Services Coordinator Name Role Phone Unavailable Primary Care Provider Unavailabl e Encounter Details Date Type Department Care Team (Late st Contact Info) Description 05/30/2023 Telephone [facility] [address], [place] [phone] Dominic Herrera DDS [address], [place] [phone] Social History Tobacco Use Types Packs/Day Years [...]
== END 2025-07-01 15:10 | disposition home or self-care (01) ==
LOC: HO.HMCH 13:54
PROVIDERS: PCP Internal Medicine; Visit Provider Internal Medicine
DX: E78.5 Hyperlipidemia, unspecified (principal); E03.9 Hypothyroidism, unspecified; K21.9 Gastro-esophageal reflux disease without esophagitis; E11.9 Type 2 diabetes mellitus without complications; G30.9 Alzheimer's disease, unspecified; F02.80 Dementia in other diseases classified elsewhere, unspecified severity, without behavioral disturbance, psychotic disturbance, mood disturbance, and anxiety; Z23 Encounter for immunization

== ENCOUNTER → 2025-07-01 13:54 | Outpatient (BNVA) | payer OTHER, SELFPAY | PROVIDERS: PCP Internal Medicine; Visit Provider Internal Medicine | DX: E78.5 Hyperlipidemia, unspecified (principal); Z23 Encounter for immunization; E03.9 Hypothyroidism, unspecified; K21.9 Gastro-esophageal reflux disease without esophagitis; E11.9 Type 2 diabetes mellitus without complications; G30.9 Alzheimer's disease, unspecified; F02.80 Dementia in other diseases classified elsewhere, unspecified severity, without behavioral disturbance, psychotic disturbance, mood disturbance, and anxiety; K59.00 Constipation, unspecified; R51.9 Headache, unspecified; R42 Dizziness and giddiness; Z13.31 Encounter for screening for depression | CPT/HCPCS: 90471; 90656; 96127; 99212 ==

== ENCOUNTER 2025-07-23 12:21 | Outpatient (AMB) | payer OTHER, SELFPAY ==
--- NOTE | 2025-07-23 12:35 | A.OFFVIS_ITS ---
Vital Signs 3 07/23/25 12:36 Height 5 ft Weight 158 lb 8.451 oz BMI 31.0 BP 112/62 Blood Pressure Location Rt brachial Position Sitting Pulse 79 Pulse Source Pulse Oximeter Pulse Oximetry (%) 96 Oxygen Delivery Method Room Air Intake Visit Reasons: DM Intake Note: Patient presents today for a follow-up on Type 2 Diabetes Mellitus: Last Diabetic eye exam was on: 03/08/2025, [facility]. Last Podiatry exam was on: Patient does not see a Road Machinery Inspector Most recent HbA1c: 6.3%, 07/23/2025 Random Glucose- 108 mg/dL, Today Spout Tender Required: Yes Spout Tender Language: Dyeing Machine Back Tender Services: Spout Tender Offered & Declined (DR [place] Speak Fluent Slovenian) Accompanied by: Daughter Allergies sitagliptin (Januvia) Allergy (Intermediate, Verified 07/23/25 12:45) tremors tramadol (TRAMADOL) Allergy (Mild, Verified 07/23/25 12:45) ABDOMINAL PAIN, stomach upset, severe abd pain empagliflozin (From Jardiance) Adverse Reaction (Severe, Verified 07/23/25 12:45) uti tirzepatide (From Mounjaro) Adverse Reaction (Intermediate, Verified 07/23/25 12:45) Headache HPI Comments Details: 79 YO female who is seen in f/u for T2DM. Her daughter is in the office today and is interpreting for her mother. She was last seen 02/08/2025 at which time basal insulin was changed from Lantus to Tresiba to give her a more extended action of insulin. She was also started on Mounjaro 2.5 mg in a freestyle Wali 3+ was ordered. Prior to adding insulin, glucose readings were in the high 300s. She has decided she does not want to go on a glucose sensor. She lives alone. She has some issues with her memory and her daughter administers her insulin once daily. She is waiting to be set up with visiting nurse association which has been ordered through her PCP. She needs to get once daily insulin administration in her daughter can not always be here to help with this. Hemoglobin A1c 10.8% A1cs have been elevated for approximately 1 year She has recently seen the clinical trial educator Interval history: Last seen by Jodi Leonard LASER/ELECTRO OPTICS TECHNICIAN on 02/27/2025. This 1st time seeing this patient Reports doing well overall No other recent changes in medication, no new illness Reports no hypoglycemia Current regimen: Tresiba 36 units Ozempic 0.25mg weekly Previous meds mounjaro 2.5mg weekly-stopped by PCP last month, switched to Ozempic Jardiance was recently discontinued due to vaginal candidiasis and possible UTI Had been on Tradjenta and glipizide which were ineffective. She is having some constipation on Mounjaro 2.5 weekly and would not recommend an increase on this. No retinopathy. Last visit Oct 2024 Has Nephropathy 02/28/25 GFR > 60, MACR 13.3 Neuropathy:no c/o pain or numbness Has HLD on statin no recent lipid profile in record Laboratory Tests 02/28/25 02/28/25 07:46 07:52 Creatinine 0.74 Estimated GFR > 60 Triglycerides 68 Cholesterol 169 LDL Cholesterol, Calc 108 H HDL Cholesterol 48 25-OH Vitamin D Total 26.2 L TSH 2.61 Microalb/Creat Ratio 13.3 Laboratory Tests 07/23/25 12:50 Hgb A1c (Clinic) 6.3 H CGM data: Interpretation: Overall excellent DM control, with sporadic episodes of hypoglycemia. [facility] Medical History (Updated 07/01/25 @ 20:35 by Brandy Montoya MD) Diabetes mellitus Diabetes type 2, uncontrolled Renal cyst Dysuria Shoulder pain Pre-operative clearance Renal stones Gastric polyp Arthritis of left knee Epigastric pain Pre-op examination Kidney stone on left side B12 deficiency Headache Urinary retention Renal stones Acute urinary retention Urgency of urination Hypothyroidism Hypertension Dyslipidemia Diabetic polyneuropathy associated with type 2 diabetes mellitus Goiter Surgical History H/O: hysterectomy History of cataract removal with insertion of prosthetic lens Hx of colonoscopy History of esophagogastroduodenoscopy (EGD) Family History Father Lung cancer Mother Kidney failure Alzheimer disease Sister Diabetes Paternal Grandfather Cancer Daughter Diabetes Sister Diabetes Breast cancer Brother Alzheimer disease Colon cancer Brother Colon polyps Social History Household Members: None Housing: Apartment Are you a primary care management coordinator to a significant other at home: No Do you presently have visiting nurse or other home services: No Alcohol intake: never Patient Tobacco Use Status: Never used Tobacco e-Cigarette/Vaping Use: Never Used Second Hand Smoke Exposure: No Advance Directives Date on File: 07/31/24 service: No Current occupational status: disabled Current occupation: rt handed Cognitive needs: Yes Hearing needs: No Vision needs: Yes Physical Exam Vital Signs: Last Vital Signs Pulse 79 07/23/25 12:36 BP 112/62 07/23/25 12:36 Pulse Ox 96 07/23/25 12:36 Oxygen Delivery Method Room Air 07/23/25 12:36 BMI result Body Mass Index 31.0 Office Procedures Glucose Monitoring Details Details: See [facility] [address] - Continuous Glucose Monitoring, patient provides equipment Procedure code (CPT) selection complete Results AMB Hemoglobin A1c 2 AMB Hemoglobin A1c 6.3 % Last Edit by YURIY Duarte on 07/23/25 12:52 Results Reviewed Results Reviewed: Laboratory Last Values Glucose (Clinic) 108 mg/dL (60-115) 07/23/25 12:41 Hgb A1c (Clinic) 6.3 % (4.0-6.0) H 07/23/25 12:50 Assessment & Plan Assessment & Plan (1) Diabetes type 2, uncontrolled: Code(s): E11.65 - Type 2 diabetes mellitus with hyperglycemia Category: Medical Qualifiers: Glycemic state: with hyperglycemia Qualified Code(s): E11.65 - Type 2 diabetes mellitus with hyperglycemia Plan: Type 2 diabetic with a nephropathy with EGFR 52, neuropathy presents for management of T2DM. She has a responded well to the addition of Mounjaro 2.5 mg. Would not increase this as she is having some constipation. She is having an excellent control, with A1c 6.3 % and time in range 87%. So far she has only experiencing a sporadic episodes of hypoglycemia, it seems to be mild in intensity based on the patient's report. Plan Continue Tresiba 36 units nightly Continue Ozempic 0.25 mg weekly, could scalate if tolerated and decrease Tresiba Advised the patient to decrease simple carbs intake Encouraged the patient to perform physical activity as tolerated (2) Dyslipidemia: Code(s): E78.5 - Hyperlipidemia, unspecified Category: Medical Plan: Patient noted to have mildly elevated LDL 108, she is currently on rosuvastatin 40 mg daily. We discussed with the patient that elevated LDL above 100 increases her risk for having CVA, AL, advised the patient that adding a new medication like acetamide could be necessary. Patient would like to try dietary changes 1st. Plan Hyperlipidemia Will consider adding ezetimibe Patient will make changes in her diet first Advise to increase physical activity as possible Plan 30 minutes spent reviewing previous records, labs, imaging, education and documenting in the chart Orders: Orders 2 AMB Glucose Monitoring Today E11.65 - Type 2 diabetes mellitus with hyperglycemia AMB Hemoglobin A1c Today E11.9 - Type 2 diabetes mellitus without complications Medications: Refilled 2 FreeStyle Lancets (lancets) once daily 100 ea 11RF NS E11.9 - Type 2 diabetes mellitus without complications pen needle, diabetic (Aqinject Pen Needle) As directed injects once a day 50 ea 3RF semaglutide (Ozempic) for 4 weeks 0.25 mg (0.368 mL) subcut QWEEK 1.472 mL 3RF 4 weeks E11.65 - Type 2 diabetes mellitus with hyperglycemia FreeStyle Lite Strips (blood sugar diagnostic) tid prn 100 ea 11RF NS E11.9 - Type 2 diabetes mellitus without complications insulin degludec (Tresiba FlexTouch U-200 insulin) 36 units (0.18 mL) subcut BEDTIME 6 mL 6RF 30 days Discontinued 2 lancets (FreeStyle Lancets) Discontinued Reason: Duplicate As directed once a day 100 ea 3RF E11.9 - Type 2 diabetes mellitus without complications blood-glucose meter (FreeStyle Lite Meter kit) Discontinued Reason: Duplicate As directed 1 ea 0RF E11.9 - Type 2 diabetes mellitus without complications Coding Level of Care Code Est Pt Level 4 (54191) Diagnoses Uncontrolled type 2 diabetes mellitus with hyperglycemia E11.65 Glycemic state: with hyperglycemia Dyslipidemia E78.5 CPT Codes Details - CPT: 44329 - Continuous Glucose Monitoring, patient provides equipment ([id number])
[2025-07-23 12:36] VITALS: BP 112/62; PULSE 79; O2SAT 96; BMI 31.0
[2025-07-23 12:46] LABS: Glucose, Whole Blood 108 mg/dL (60-115)
--- OUTSIDE RECORDS SUMMARY | 2025-07-23 14:07 | XMS_ITS | Clinical Summary ---
Author Organization [employer] Address [address] [place] [address] [address] [place] [address] Care Team Providers Care Petrophysical Engineer Name Role Phone Unavailable Primary Care Provider [...] to Health Maintenance Insurance DENTAL - [facility] [place] [id number]
--- OUTSIDE RECORDS SUMMARY | 2025-07-23 14:07 | XMS_ITS | Patient Health Record ---
Author Organization [facility] Address [address] [place] [address] Care Team Providers Care Cvor Nurse Name Role Phone Florentino HAGAN, Nanette Primary Care Provider Clive Plascencia Unavailable [phone] Allergies Allergen (clinical drug ingredient) Drug/Non Drug [...] 3 ti mes daily Active Saline Nasal [place] 0.65 % 2 drops in eac h [...] Status Risk Notes Problem Iron deficiency anemia (28834816) Anemia, iron deficiency (280.9) Active confirmed Problem Feces contents abnormal (157551702) Heme + stool (792.1) Active confirmed Problem Gastritis (2250094) Gastritis (535.50) Active confirmed Plan Of Treatment No Information Insurance Providers Payer Name Payer Address Payer Phone Subscriber Number Group Number Insured Name Patient Relationship to Insured Coverage Start Date Coverage End Date [facility] [address] [place] [address] [id number] [id number] Self - patient is the insured MEDICAID OF [employer] [address] [place] [address] [id number] AVITIAESA Self - patient is the insured Medical (General) History Medical History History ICD Code EGD/Colonoscopy 10/06/2009-- the colonoscopy was normal other than some diverticulosis and internal hemorrhoids; the upper endoscopy revealed erosive gastritis and H. pylori--the H. pylori was treated with Biaxin, amoxicillin, and omeprazole--duodenal biopsies were negative for celiac disease NIDDM Hypothyroidism HTN hyperlipidemia asthma Denies MS,CVA,renal disease B12 deficiency--previously received shot s, now received oral supplements Epistaxis Anemia-received IV Iron 8 ti mes earlier in [address] Sanchez--in addition to the upper endoscopy and colonoscopy in 2009, she also underwent 2 upper endoscopies and 2 colonoscopies while living in [place] approximately 10-15 years ago. She underwent a [...]
--- OUTSIDE RECORDS SUMMARY | 2025-07-23 14:07 | XMS_ITS | Encounter Summary ---
Author Organization [employer] Address [address] [facility] [address] [place] [address] Care Team Providers Care Medicine Assistant Name Role Phone Unavailable Primary Care Provider Unavailabl e Encounter Details Date Type Department Care Team (Late st Contact Info) Description 05/30/2023 Telephone [facility] [address] [place], [place] [phone] Dominic Herrera DDS [address], [place] [phone] Social History Tobacco Use Types Packs/Day Years [...]
== END 2025-07-23 13:04 | disposition home or self-care (01) ==
LOC: HO.ENCR 12:22
PROVIDERS: PCP Internal Medicine; Visit Provider Student in an Organized Health Care Education/Training Program
DX: E11.65 Type 2 diabetes mellitus with hyperglycemia (principal); E78.5 Hyperlipidemia, unspecified; E11.9 Type 2 diabetes mellitus without complications
CPT/HCPCS: 99214

== ENCOUNTER → 2025-07-23 12:21 | Outpatient (BNVA) | payer OTHER, SELFPAY | PROVIDERS: PCP Internal Medicine; Visit Provider Student in an Organized Health Care Education/Training Program | DX: E11.65 Type 2 diabetes mellitus with hyperglycemia (principal); E11.21 Type 2 diabetes mellitus with diabetic nephropathy; Z79.4 Long term (current) use of insulin; Z79.85 Long-term (current) use of injectable non-insulin antidiabetic drugs | CPT/HCPCS: 82947; 83036; 95249; 99212 ==